=== PATIENT | male | born 1940 | race Caucasian/White ===

== ENCOUNTER 2023-01-02 13:17 | Inpatient (IN) | payer MEDICARE ==
[~2023-01-02] VITALS: Ht 170 cm; Wt 97.6 kg
--- NOTE | 2023-01-02 12:50 | PM&R Post Admission Assessment ---
PM&R Date of Visit: Jan 02, 2023 Time of Visit: 18:00 History of Present Illness Chief complaint: Myopathy with proximal muscle weakness from severe illness requiring [facility] stay HPI: This is an 82-year-old male who presented from [facility] after experiencing complete heart block due to vasovagal response from trach suctioning. He also was sedated from IV fentanyl and once he aroused he appeared to have right upper extremity weakness and a stroke work-up was negative. Acute respiratory failure requiring intubation and trach and PEG placed. He did have sepsis from facility acquired pneumonia and UTI and scrotum with candidal and Pseudomonas infection. He completed IV meropenem and Levaquin and fluconazole and micafungin. He does continue to have anxiety treated with Ativan. He does have systolic congestive heart failure ejection fraction 25% with hypertension hyperlipidemia with acute kidney injury creatinine now normal at 0.8. He did have hypernatremia requiring free water increased through PEG tube. Acute blood loss anemia status post EGD with GI bleed status post clips placed and hemoglobin stable. He does have a history of rheumatoid arthritis and morbid obesity. He is very weak and will require aggressive therapy. Past Mtrqqrg-Ruuvqs-Aqvqyr Hx Past Med/Social Hx: Reviewed Nursing Past Med/Soc Hx, Reviewed and Corrections made Patient Social History Marrital Status: Employed/Student: retired Alcohol Use: Denies Use Smoking Status: Former Smoker Past Medical History Respiratory: Pneumonia Cardiac: Cardiomyopathy Genitourinary: Bladder Infection, Renal Failure Gastrointestinal: Gastroesophageal Reflux Musculoskeletal: Arthritis PM&R Allergy/Meds/Data Review Allergies Coded Allergies: No Known Drug Allergies (Unverified , 01/02/23) Home Medications Scheduled Aspirin (Aspirin), 81 MG PO DAILY, (Reported) Banana Flakes/Tos (Banatrol Plus Powder Packet), 1 EACH PO TID, (Reported) Carvedilol (Carvedilol), 12.5 MG PO BID WITH MEALS, (Reported) Docusate Sodium (Docusate Sodium), 100 MG PO BID, (Reported) Folic Acid/Vitamin B Comp W-C (Sirisha-Kingsley Tablet), 0.8 MG PO DAILY, (Reported) Furosemide (Furosemide), 40 MG PO DAILY, (Reported) Lactobacillus Acidophilus/Pect (Acidophilus-Pectin Capsule), 1 EACH PO BID, (Reported) Lisinopril (Lisinopril), 2.5 MG PO DAILY, (Reported) Loratadine (Loratadine), 10 MG PO DAILY, (Reported) Pantoprazole Sodium (Pantoprazole Sodium), 40 MG IV DAILY, (Reported) Simvastatin (Simvastatin), 80 MG PO HS, (Reported) Sodium Chloride 0.9 % (Flush) ([place] Sodium Chlor Flush), 10 ML IV Q12H, (Reported) Sulfasalazine (Sulfasalazine), 500 MG PO BID, (Reported) Whey Protein Isolate (Beneprotein), 2 EACH PO Q4H, (Reported) Scheduled PRN Acetaminophen (Tylenol), 650 MG PO Q6H PRN for PAIN-MILD (1-4) OR TEMPATURE, (Reported) Albuterol Sulfate (Albuterol Sulfate), 2.5 MG INH Q4H PRN for SHORTNESS OF BREATH, (Reported) Hydralazine HCl (Hydralazine HCl), 10 MG IV Q4H PRN for SBP OVER 170, (Reported) Labetalol HCl (Labetalol HCl), 10 MG IV Q4H PRN for SBP OVER 160 LESS THAN 171, (Reported) Ondansetron HCl (Ondansetron HCl), 4 MG IV Q6H PRN for NAUSEA/VOMITING-1ST LINE, (Reported) Polyethylene Glycol 3350 (Miralax), 17 GM PO DAILY PRN for CONSTIPATION-2ND LINE, (Reported) Current Medications Current Medications Reviewed Review of Systems Constitutional: see HPI, malaise, weakness EENTM: no symptoms reported Respiratory: dyspnea on exertion Cardiovascular: no symptoms reported Gastrointestinal: abdominal pain, loss of appetite Genitourinary: no symptoms reported Musculoskeletal: back pain, joint pain Skin: no symptoms reported Psychiatric/Neurological: Anxiety, Emotional Problems All Other Systems Reviewed Negative Unless Noted: Yes Physical Exam Physical Exam Vital Signs Capillary Refill : Height, Weight, BMI Height: '" Weight: lbs. oz. kg; BMI Method: General Appearance: WD/WN, Chronically ill, Obese, Other (Very weak) Eyes: Bilateral Eye Normal Inspection, Bilateral Eye PERRL HEENT: PERRL/EOMI, Normal ENT Inspection, Pharynx Normal Neck: Full Range of Motion, Normal Inspection, Non Tender, Supple, Carotid Bruit, Other (trach in place) Respiratory: Chest Non Tender, Lungs Clear, No Accessory Muscle Use, No Resp iratory Distress, Decreased Breath Sounds Cardiovascular: Regular Rate, Rhythm, No Edema, No Gallop, No JVD, No Murmur, Normal Peripheral Pulses Gastrointestinal: Normal Bowel Sounds, No Organomegaly, No Pulsatile Mass, Non Tender, Soft Back: Normal Inspection, No CVA Tenderness, No Vertebral Tenderness Extremity: Normal Capillary Refill, Normal Inspection, Normal Range of Motion, Non Tender, No Calf Tenderness, No Pedal Edema Neurologic/Psychiatric: Alert, Oriented x3, artists' model II-XII Norm as Tested, Abnormal Gait, Depressed Affect, Motor Weakness ( severe muscle weakness) Skin: Normal Color, Warm/Dry Lymphatic: No Adenopathy PM&R Medical Assessment & Plan REHAB/MEDICAL ASSESSMENT AND PLAN: REHAB IMPAIRMENT GROUP: Myopathy with proximal muscle weakness ETIOLOGIC DIAGNOSIS: Myopathy with proximal muscle weakness The comorbidities that impact the patients function and/or functional outcome by: trach, PEG, severe myopathy, motivation deficiency REHAB PLAN: The patient is being admitted to our comprehensive inpatient rehabilitation facility and can tolerate the intensity of service consisting of at least: 180 minutes of therapy a day, 5 out of 7 days a week Rehab treatment will consist of: PT OT will focus on regaining function with assistive devices in order to increase ambulation and increase ADL independence The patient/family has a good understanding of our discharge process and will benefit from an interdisciplinary inpatient rehabilitation program. The patient has potential to make improvement and is in need of at least two of the following multidisciplinary therapies including but not limited to physical, occupational, speech, and prosthetics and orthotics. Additionally the patient will need services from respiratory, nutritional services, wound care, psychology, etc. (Customize this to each patient). Given the patients complex condition and risk of further medical complications, rehabilitation services cannot be safely or effectively provided at a lower level of care such as a residential facility. BARRIERS TO DISCHARGE: Severe weakness ESTIMATED LOS: 14 days DISPOSITION: Home with spouse and HH RELEVANT CHANGES SINCE PREADMISSION SCREENING: I have compared the patients medical and functional status at the time of the preadmission screening and there are: no changes PROGNOSIS: Fair REHABILITATION GOALS: 1. PT OT will focus on regaining function with assistive devices in order to increase ambulation and increase ADL independence All the above goals were reviewed with the patient and he/she is in agreement. By signing this document, I acknowledge that I have personally performed a full physical examination on this patient within 24 hours of admission to this inpatient rehabilitation facility and have determined the patient to be able to tolerate the above course of treatment at an intensive level for a reasonable period of time. I will be completing a detailed individualized Plan of Care for this patient by day #4 of the patients stay based upon the Preadmission Screen, the Post-Admission Evaluation, and the therapy evaluations. Admission Dx/Comorbidities: (1) Myopathy ICD Codes: G72.9 - Myopathy, unspecified (2) Tracheostomy status ICD Codes: Z93.0 - Tracheostomy status (3) PEG (percutaneous endoscopic gastrostomy) status ICD Codes: Z93.1 - Gastrostomy status Assessment/Plan Assessment and Plan Assess & Plan/Chief Complaint Assessment: Myopathy with the proximal muscle weakness Trach status PEG status Increased BMI Decreased motivation Anemia Hypokalemia Dysphagia Gautam cath in place-difficult insertion so remains in-dwelling Plan: PT OT Monitor closely PEG TF Trach management ANGELES GRANT DO Jan 02, 2023 12:49
[~2023-01-02 13:17] MED LIST: ACET325T38 PO; ACETAMINOPHEN 325 MG TABLET PO PRN; ALB0.5V INH; ALPRAZolam 0.25 MG (XANAX) TAB PO PRN; ASPI-999 PO; BANA1PAC PO; BISACODYL 10 MG SUPP (DULCOLAX) PR PRN; CALCIUM CARBONATE 500 MG (TUMS) TAB.CHEW PO PRN; CARV12.53 PO; DOCU100C37 PO; DOCUSATE SODIUM 100 MG (COLACE) CAP PO PRN; FLEET ENEMA ADULT 1 EA BTL PR PRN; FOLI0.8T21 PO; FURO40TA4 PO; HYDR20VI17 IV; LABE5VIA IV; LACT1CAP7 PO; LACTULOSE SYRUP 10GM/15ML (ENULOSE) 30ML UDC PO PRN; LISI5TAB20 PO; LOPERAMIDE 2 MG (IMODIUM) TABLET PO PRN; LORA10TA7 PO; MELATONIN 3 MG TABLET PO PRN; ONDA2VIA6C IV; ONDANSETRON 4 MG (ZOFRAN) ORAL DISSOLVE TAB PO PRN; PANT40VI14 IV; POLY17PO6 PO; PROT1PAC2 PO; SIMV80TA21 PO; SLF500T PO; SODI10SY5 IV; diphenhydrAMINE 25 MG TAB (BENADRYL) PO PRN; guaiFENesin/CODEINE (ROBITUSSIN AC) 10ML UDC PO PRN
[2023-01-02 14:00] VITALS: BP 120/67
--- NOTE | 2023-01-02 14:53 | Occupational Therapy Eval ---
OT Evaluation-General/PLF Medical Diagnosis Admission Date Jan 02, 2023 at 13:50 Medical Diagnosis: critical illness myopathy Onset Date: November 17, 2022 Therapy Diagnosis Therapy Diagnosis: UE weakenss, impaired coordination Precautions Precautions/Isolations: Aspiration (mechanical soft/thin liquids, Minced and moist diet), Fall Prevention, Standard Precautions, Pressure Ulcer Comments Hospital course included ICU w/ intubation and sedation. Transfer to [facility] 11/28/22 to ARU 01/02/23 Referral Physician: BERTA Referral Reason: Activity Tolerance, Self Care, Evaluation/Treatment, Strengthening/ROM Medical History Additional Medical History HTN, Obesity, CHF with EF 25-30%, RA, JOSE, complete heart block secondary to vasovagal response from trach suctioning, acute respiratory failure s/p intubation, acute metabolic encephalopahy, sepsis with b/l hospital acquired PNA , anxiety, HLD, RAYMUNDO, hypernatremia, hypokalemia, acute blood loss anemia. Current History Pt became hypotensive hypoxic and was intubated on 11/17/22 in hospital . Pt transferred to LTAC on 12/01/22 for cont management of trach and PEG, telemetry, labs, nephrology, and pulmonology consult. 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 Reviewed History: Yes Social History Home: Single Level Current Living Status: Spouse (and dog) Entry Into Home: Stairs With Railing (right side ascending) Steps Into Home: 2 Steps Inside Home: 8 (to basement does not use.) ADL-Prior Level of Function SCALE: Activities may be completed with or without assistive devices. 4-Tqciimcgbs-abkpjed completes the activity by him/herself with no assistance from a helper. 5-Set-up or Clean-up Assistance-helper sets up or cleans up; patient completes activity. [place] assists only prior to or following the activity. 4-Supervision or Touching Assistance-helper provides verbal cues and/or touching/steadying and/or contact guard assistance as patient completes activity. Assistance may be provided throughout the activity or intermittently. 3-Partial/Moderate Assistance-helper does LESS THAN HALF the effort. [place] lifts, holds or supports trunk or limbs, but provides less than half the effort. 2-Substantial/Maximal Assistance-helper does MORE THAN HALF the effort. [place] lifts or holds trunk or limbs and provides more than half the effort. 9-Pkowmmein-ohoeph does ALL the effort. Patient does none of the effort to complete the activity. Or, the assistance of 2 or more helpers is required for the patient to complete the activity. If activity was not attempted, code reason: 7-Patient Refused. 9-Not Applicable-not attempted and the patient did not perform the activity before the current illness, exacerbation or injury. 10-Not Attempted due to Environmental Limitations-(lack of equipment, weather restraints, etc.). 88-Not Attempted due to Medical Conditions or Safety Concerns. ADL PLOF Comments Patent reports prior to illness performed all ADL independently with exception of ИРИНА/Compression hose that his put on him in the morning. Patient has a FWW but does not use it Self Care: Independent Functional Cognition: Independent Drive Self: Yes OT Current Status Subjective Very pleasant, reports he had a rought ride and is eager and agreeable to work to get better Pain Numeric Pain Scale: 5-Moderate Pain Location Body Site: Hip Comment: pain resolves at rest Mental Status/Objective Patient Orientation: Person, Place ([facility]), Time ((Sunday), December,), Situation Attachments: Gautam Catheter Current Glasses/Contacts: Yes Hearing Aids: Yes (bilateral) Hand Dominance: Right Upper Extremity ROM WFLS BUE, some difficulty w/ R/L discrimination Upper Extremity Coordination IMPAIRED FMC, delayed GMC. POOR sitting balance w/ spontaneous posterior lean and overcorrection. KU 1 score For safety one person is positioned behind patient and one in front of patient in sitting Upper Extremity Sensation IMPAIRED Upper Extremity Strength Proximal shoulder strength 3/5, elbow -4/5 flexion/+3/5 extension, does not complete full fist for composite automobile painter however holds bed rail and arms of therapist 4/5 ADL-Treatment Eating (QC): 3 (supervision required, trach must be capped, soft moist w/ thin liquids. Require built up handles. SEE ST notes) Oral Hygiene (QC): 4 Shower/Bathe Self (QC): 2 (sponge bed bath) Upper Body Dressing (QC): 2 Lower Body Dressing (QC): 1 On/Off Footwear (QC): 1 Toileting Hygiene (QC): 1 Education OT Patient Education: Correct positioning, Exercise program, Modified ADL te leenaniandrew, Progress toward Goal/Update tx plan, Purpose of tx/functional activities, Reviewed precautions, Rehab process, Safety issues, Transfer techniques, Use of adapted equipment, W/C management Teaching Recipient: Patient Teaching Methods: Demonstration, Discussion Response to Teaching: Reinforcement Needed BIMS CAM BIMS Expression of Ideas and Wants: Without Difficulty Understanding Verbal Content: Understands Brief Interview/Mental Status: No IRF VICKI BIMS: IRF VICKI BIMS Response (Comments) Value Repitition of Three Words Three 3 Recalls Socks Yes, No Cue Required 2 Recalls Blue Yes, No Cue Required 2 Recalls Bed Yes, No Cue Required 2 Year Correct 3 Month Accurate Within 5 Days 2 Day Incorrect or No Answer (Sunday) 0 Total 14 Patient Normally Able to Recal: Current Session, Staff Names and faces (Nadira/Tawana), That he/she in a hsp (VC) Should Staff Asses. Mental St.: No CAM Mental Status Change/Baseline: 1 Inattention: 2 Disorganized thinkin Altered level of consciousness: 2 OT Short Term Goals Short Term Goals Time Frame: Jan 02, 2023 Eatin Oral hygiene: 5 Upper body dressin OT Intermediate Goals Intermediate Goals Eating (QC): 6 Oral Hygiene (QC): 6 Toileting Hygiene (QC): 6 Shower/Bathe Self (QC): 5 Upper Body Dressing (QC): 6 Lower Body Dressing (QC): 6 On/Off Footwear (QC): 4 1=Demonstrate adherence to instructed precautions during ADL tasks. 2=Patient will verbalize/demonstrate understanding of assistive devices/modifications for ADL. 3=Patient will improve strength/tolerance for activity to enable patient to perform ADL's. OT Education/Plan Problem List/Assessment Assessment: Decreased Activ Tolerance, Decreased UE Strength, Dependent Transfers, Impaired Bed Mobility, Impaired Coordination, Impaired Funct Balance, Impaired Self-Care Skills Discharge Recommendations Plan/Recommendations: Continue POC Treatment Plan/Plan of Care Treatment,Training & Education: Yes Patient would benefit from OT for education, treatment and training to promote independence in ADL's, mobility, safety and/or upper extremity function for ADL's. Plan of Care: ADL Retraining, Caregiver Training, Concurrent Therapy, Functional Mobility, Group Exercise/Act as Ind, UE Funct Exercise/Act, UE Neuromus Re-Ed/Coord Treatment Duration: Feb 01, 2023 Frequency: At least 5 of 7 days/Wk (IRF) Estimated Hrs Per Day: 1.5 hours per day Agreement: Yes Rehab Potential: Good Time Start Time: 14:05 Stop Time: 14:20 DATE: Jan 02, 2023 Total Time Billed (hr/min): 15 Billed Treatment Time EV 15 min TAWANA JAMISON OT Jan 02, 2023 14:53
--- NOTE | 2023-01-02 14:57 | Physical Therapy Evaluation ---
PT Evaluation-General Medical Diagnosis Admission Date Jan 02, 2023 at 13:50 Medical Diagnosis: Critical Illness Myopathy Onset Date: November 17, 2022 Therapy Diagnosis Therapy Diagnosis: Proximal weakness, Decreased functional mobility Precautions Precautions/Isolations: Aspiration, Fall Prevention, Standard Precautions, Pressure Ulcer mechanical soft/thin liquids, Minced and moist diet Weight Bear Status Right Lower Extremity: Right Full Weight Bearing Left Lower Extremity: Left Full Weight Bearing Referral Physician: Madison Reason for Referral: Evaluation/Treatment Medical History Pertinent Medical History: HTN Additional Medical History HTN, Obesity, CHF with EF 25-30%, RA, JOSE, complete heart block secondary to vasovagal response from trach suctioning, acute respiratory failure s/p intubation, acute metabolic encephalopahy, sepsis with b/l hospital acquired PNA, anxiety, HLD, RAYMUNDO, hypernatremia, hypokalemia, acute blood loss anemia. Current History Pt became hypotensive hypoxic and was intubated on 11/17/22. Pt transferred to LTAC on 12/01/22 for cont management of trach and PEG, telemetry, labs, nephrology, and pulmonology consult. Transferred to ARU on 01/02/2023 for critic al illness myopathy. Reviewed History: Yes Social History Home: Multilevel Current Living Status: Significant Other Entry Into Home: Stairs With Railing PT Steps Into Home: 2 PT Steps Inside Home: 8 Other Obstacles: Dogs Pt reports he lives at home with his spouse in a multi-level home with 2 steps to enter through the front door with R HR. Pt reports he has 8 steps into the basement, but does not have to go into the basement. Walk-in shower with seat and GBs Prior Prior Level of Function SCALE: Activities may be completed with or without assistive devices. 1-Bplswhqftw-sdyfdzo completes the activity by him/herself with no assistance from a helper. 5-Set-up or Clean-up Assistance-helper sets up or cleans up; patient completes activity. [place] assists only prior to or following the activity. 4-Supervision or Touching Assistance-helper provides verbal cues and/or touching/steadying and/or contact guard assistance as patient completes activity. Assistance may be provided throughout the activity or intermittently. 3-Partial/Moderate Assistance-helper does LESS THAN HALF the effort. [place] lifts, holds or supports trunk or limbs, but provides less than half the effort. 2-Substantial/Maximal Assistance-helper does MORE THAN HALF the effort. [place] lifts or holds trunk or limbs and provides more than half the effort. 3-Kvxykofoq-bvaopl does ALL the effort. Patient does none of the effort to complete the activity. Or, the assistance of 2 or more helpers is required for the patient to complete the activity. If activity was not attempted, code reason: 7-Patient Refused. 9-Not Applicable-not attempted and the patient did not perform the activity before the current illness, exacerbation or injury. 10-Not Attempted due to Environmental Limitations-(lack of equipment, weather restraints, etc.). 88-Not Attempted due to Medical Conditions or Safety Concerns. Bed Mobility: 6 Transfers (B,C,W/C): 6 Gait: 6 Stairs: 6 Wheelchair Mobility: 9 Indoor Mobility (Ambulation): Independent Stairs: Independent Prior Devices Use: None Pt reports, that at [facility], he was Ind with no AD and driving. Pt does report that he has a SPC and FWW. PT Evaluation-Current Subjective Pt is agreeable to PT eval. Pain Numeric Pain Scale: 0-No Pain Location: No Pain Reported Section J - Health Conditions 1. Rarely or not at all 2. Occasionally 3. Frequently 4. Almost constantly 8. Unable to answer Pain Effect on Sleep: 1 Pain Interference with Therapy: 3 Pain Interference w/Day-to-Day: 2 Pt/Family Goals Safely return home Objective Patient Orientation: Person, Place, Time, Situation Attachments: PEG Tube, Gautam Catheter Trach tube ROM/Strength ROM Upper Extremities See OT note ROM Lower Extremities Slightly decreased due to weakness Strength Upper Extremities See OT note Strength Lower Extremities Core strength/sitting balance - Poor B hip MMT - 3-/5 B knee/ankle MMT - 3/5 Integumentary/Posture Integumentary See nurses note Bowel Incontinence: Yes Bladder Incontinence: Gautam Cath Sensory Vision: Wears Glasses Hearing: Hearing Aid/Aides Hand Dominance: Right Sensation Right Upper Extremit: Intact Sensation Left Upper Extremity: Intact Sensation Right Lower Extremit: Impaired Sensation Left Lower Extremity: Impaired Transfers Roll Left & Right (QC): 3 (Mod A) Sit to Lying (QC): 2 (Max A) Lying to Sitting/Side of Bed(Q: 2 (Max A) Sit to Stand (QC): 1 (Max A x 2 for partial stand from EOB ) Chair/Hjz-wl-Vcykg Xfer(QC): 88 Toilet Transfer (QC): 88 Car Transfer (QC): 88 Gait Does the Patient Walk?: No and Walking Goal IS indicated Mode of Locomotion: Both Anticipated Mode of Locomotion: Both Walk 10 feet (QC): 88 Walk 50 ft with 2 Turns(QC): 88 Walk 150 ft (QC): 88 Walking 10ft/uneven surface-QC: 88 Gait Assistive Device: None Wheelchair Training Does the Pt Use a Wheelchair?: Yes Wheel 50 ft with 2 turns (QC): 88 Wheel 150 ft (QC): 88 Type of Wheelchair: Manual Stairs 1 Step (curb) (QC): 88 4 Steps (QC): 88 12 Steps (QC): 88 Balance Sitting Static: Poor Sitting Dynamic: Poor Picking up an Object (QC): 88 Special Test Comments Unable to test standing balance on this date KU sitting balance scale = 1/5 (Goal = 3+/5) Treatment PT eval completed; Pt edu; Pt is Mod A for B rolling; Pt is Max A for supine <> sit; Pt is dep for sit to stand transfers (Max A x 2 for partial stand from EOB) Assessment/Needs Pts tolerance to PT was poor, secondary to proximal weakness (poor/weak core, hip, and LE strength) Rehab Potential: Fair Post Rehab Potential-Barriers: Proximal weakness; core, hip, and LE weakness Equipment Needs W/C, BSC, SC? PT Correction Goals Printed Circuit Board Assembly Repairer Goals PT Printed Circuit Board Assembly Repairer Goals Time Frame: Jan 16, 2023 Roll Left to Right (QC): 4 (Pt will be SBA for bed mobilty tasks. ) Sit to Lying (QC): 4 (Pt will be SBA for bed mobilty tasks. ) Lying-Sitting on Side/Bed(QC): 4 (Pt will be SBA for bed mobilty tasks. ) Sit to Stand (QC): 3 (Pt will be Min A for functional transfers. ) Chair/Mvb-nw-Pflly Xfer(QC): 3 (Pt will be Min A for functional transfers. ) Toilet/Commode Transfer (QC): 3 (Pt will be Min A for functional transfers. ) Car Transfer (QC): 3 (Pt will be Min A for functional transfers. ) Does the Patient Walk: No and Walking Goal IS indicated Walk 10 feet (QC): 3 (Pt will be Min A for walking with the FWW. ) Walk 10ft-Uneven Surface(QC): 3 (Pt will be Min A for walking with the FWW. ) Walk 50ft with 2 Turns (QC): 3 (Pt will be Min A for walking with the FWW. ) Walk 150 ft (QC): 3 (Pt will be Min A for walking with the FWW. ) Does the Pt use WC or Scooter?: Yes Wheel 50 feet with 2 turns (QC: 4 (Pt will be SBA for w/c mobility. ) Type: Manual Wheel 150 feet: 4 (Pt will be SBA for w/c mobility. ) Type: Manual 1 Step (curb) (QC): 3 (Pt will be Min A for steps to safely enter/exit the home. ) 4 Steps (QC): 3 (Pt will be Min A for steps to safely enter/exit the home. ) 12 Steps (QC): 3 (Pt will be Min A for steps to safely enter/exit the home. ) Picking up an Object (QC): 4 (Pt will be CGA with a glue specialty supervisor. ) KU sitting balance scale goal = 3+/5 PT Plan Problem List Problem List: Activity Tolerance, Functional Strength, Safety, Balance, Gait, Transfer, Bed Mobility, ROM Treatment/Plan Treatment Plan: Continue Plan of Care Treatment Plan: Bed Mobility, Concurrent Therapy, Education, Functional Activity Mike, Functional Strength, Group Therapy, Gait, Safety, Therapeutic Exercise, Transfers Treatment Duration: Jan 16, 2023 Frequency: At least 5 of 7 days/Wk (IRF) Estimated Hrs Per Day: 1.5 hours per day Patient and/or Family Agrees t: Yes Safety Risks/Education Patient Education: Transfer Techniques, Safety Issues Teaching Recipient: Patient Teaching Methods: Demonstration, Discussion Response to Teaching: Reinforcement Needed Discharge Recommendations Plan Pt would benefit from skilled PT to improve proximal strength, as well as overall functional mobility, in order to safely return home with spouse. Therapy Discharge Recommendati: Home & Family Equpiment Recommendations-D/C: 3 in 1 Commode, Shower Chair, Manual Wheelchair Discharge Status/Home Program Cont per POC Barriers to Progress Proximal weakness; Decreased functional mobility; Decconditioning Target Placement Home with spouse Time Time In: 1420 Time Out: 1435 DATE: Jan 02, 2023 Total Billed Treatment Time: 15 Total Billed Treatment 15 min RADHA BURDICK PT Jan 02, 2023 14:57
--- NOTE | 2023-01-02 16:40 | Physical Therapy Daily Note ---
PT Daily Note-Current Subjective Pt laying Supine in bed upon arrival. Pt agrees to PT/OT co-treat but also reports very fatigued. Co-treat PT/OT ([id number]) due to skill of two clinicians need due to pt's decreased activity tolerance, decreased balance and need for coordination of UE & LE during transfers. PT focused on TF, bed mobility and dynamic sitting balance while OT focused on ADLs, UE coordination during TF and toileting. Pain Numeric Pain Scale: 5-Moderate Pain Location: Lower Location Body Site: Back Pain Description: Ache Comment: Reports but doesn't rate Section J - Health Conditions 1. Rarely or not at all 2. Occasionally 3. Frequently 4. Almost constantly 8. Unable to answer Pain Effect on Sleep: 1 Pain Interference with Therapy: 3 Pain Interference w/Day-to-Day: 2 Mental Status Patient Orientation: Person, Place Attachments: PEG Tube, Other-See Comments (Trach. w/cap), IV Transfers SCALE: Activities may be completed with or without assistive devices. 0-Ufzmitoyel-ogflkvd completes the activity by him/herself with no assistance from a helper. 5-Set-up or Clean-up Assistance-helper sets up or cleans up; patient completes activity. [place] assists only prior to or following the activity. 4-Supervision or Touching Assistance-helper provides verbal cues and/or touching/steadying and/or contact guard assistance as patient completes activity. Assistance may be provided throughout the activity or intermittently. 3-Partial/Moderate Assistance-helper does LESS THAN HALF the effort. [place] lifts, holds or supports trunk or limbs, but provides less than half the effort. 2-Substantial/Maximal Assistance-helper does MORE THAN HALF the effort. [place] lifts or holds trunk or limbs and provides more than half the effort. 8-Dllwkwtnb-oyorxk does ALL the effort. Patient does none of the effort to complete the activity. Or, the assistance of 2 or more helpers is required for the patient to complete the activity. If activity was not attempted, code reason: 7-Patient Refused. 9-Not Applicable-not attempted and the patient did not perform the activity before the current illness, exacerbation or injury. 10-Not Attempted due to Environmental Limitations-(lack of equipment, weather restraints, etc.). 88-Not Attempted due to Medical Conditions or Safety Concerns. Roll Left & Right (QC): 1 Sit to Lying (QC): 1 Lying to Sitting/Side of Bed(Q: 1 Sit to Stand (QC): 1 Chair/Idi-ye-Atevy Xfer(QC): 1 Toilet Transfer (QC): 1 Weight Bearing Right Lower Extremity: Right Full Weight Bearing Left Lower Extremity: Left Full Weight Bearing Treatments Pt attempts sponge bath at bedside before needing to use BSC for BM. Pt TF to EOB then stands at Max A x3. Pt TF to BSC via SPT at Max A x3. Pt has BM then finishes dressing at BSC w/help from Therapist. Pt stands for pericare clean-up and TF to EOB at Max A x3. Pt continues having BM at EOB while TF to Supine. Pt is assisted w/rolling in bed & clean-up before pt rest at end of tx. All needs met, call light in hand. Assessment Current Status: Poor Progress Pt tires easily and needs frequent TC & VC for TF & bed mobility. PT Skilled Nursing Goals Skilled Nursing Goals PT Skilled Nursing Goals Time Frame: Jan 16, 2023 Roll Left & Right (QC): 4 (Pt will be SBA for bed mobilty tasks. ) Sit to Lying (QC): 4 (Pt will be SBA for bed mobilty tasks. ) Lying-Sitting on Side/Bed(QC): 4 (Pt will be SBA for bed mobilty tasks. ) Sit to Stand (QC): 3 (Pt will be Min A for functional transfers. ) Chair/Cch-vt-Cgoiw Xfer(QC): 3 (Pt will be Min A for functional transfers. ) Toilet Transfer (QC): 3 (Pt will be Min A for functional transfers. ) Car Transfer (QC): 3 (Pt will be Min A for functional transfers. ) Does the Patient Walk: No and Walking Goal IS indicated Walk 10 feet (QC): 3 (Pt will be Min A for walking with the FWW. ) Walk 50ft with 2 Turns (QC): 3 (Pt will be Min A for walking with the FWW. ) Walk 150 ft (QC): 3 (Pt will be Min A for walking with the FWW. ) Walking 10ft on Uneven Surface: 3 (Pt will be Min A for walking with the FWW. ) 1 Step (curb) (QC): 3 (Pt will be Min A for steps to safely enter/exit the home. ) 4 Steps (QC): 3 (Pt will be Min A for steps to safely enter/exit the home. ) 12 Steps (QC): 3 (Pt will be Min A for steps to safely enter/exit the home. ) Picking up an Object (QC): 4 (Pt will be CGA with a residential roofer helper. ) Does the Pt use WC or Scooter?: Yes Wheel 50 feet with 2 turns (QC: 4 (Pt will be SBA for w/c mobility. ) Type: Manual Wheel 150 feet: 4 (Pt will be SBA for w/c mobility. ) Type: Manual PT Plan Problem List Problem List: Activity Tolerance, Functional Strength, Safety, Balance, Transfer, Bed Mobility Treatment/Plan Treatment Plan: Continue Plan of Care Treatment Plan: Bed Mobility, Concurrent Therapy, Education, Functional Activity Mike, Functional Strength, Group Therapy, Gait, Safety, Therapeutic Exercise, Transfers Treatment Duration: Jan 16, 2023 Frequency: At least 5 of 7 days/Wk (IRF) Estimated Hrs Per Day: 1.5 hours per day Patient and/or Family Agrees t: Yes Safety Risks/Education Patient Education: Transfer Techniques, Correct Positioning, Safety Issues Teaching Recipient: Patient Teaching Methods: Discussion Response to Teaching: Verbalize Understanding, Reinforcement Needed Time Time In: 1435 Time Out: 1615 DATE: Jan 02, 2023 Total Billed Treatment Time: 100 Total Billed Treatment 1, FA x7 (100m) ANUPAM MUHAMMAD BUSINESS ANALYTICS SPECIALIST Jan 02, 2023 16:40
--- NOTE | 2023-01-02 16:41 | Occupational Ther Daily Note ---
OT Current Status-Daily Note Subjective Pt was lying supine in bed upon arrival. Pt agreed to therapy, also reports very fatigued. PT/OT Co-treat ([id number]) due to skill of two clinicians need due to pt's decreased activity tolerance, decreased balance and need for coordination of UE & LE during transfers. PT focused on TF, bed mobility and dynamic sitting balance while OT focused on ADLs, UE coordination during TF and toileting. ADL-Treatment Pt completed oral care sitting up in bed, with green sponge, and multiple verbal cues. Therapist asks pt to complete sponge bath at bedside before needing to use bedside commode for BM. Pt is max assist bathing self. Pt handed shirt and pt was able to put head through, but required max verbal cues to place both arms through, and pull shirt down. Pt then transferred to EOB , and stands at Max A x3. Transferred to bedside commode, Max A x3. Pt completed toileting Max, had BM. Therapist asked pt tp attempted to [place] footwear and lower body dressing, finished lower body dressing Dependent. Pt stood for toilet hygiene Dependent, and transferred to EOB at Max A x3. Pt continues having BM at EOB while transferring to Supine. Pt is assisted w/rolling in bed & clean-up before pt lying in bed resting. Pt very fatigued at end of session. All needs met, call light in hand. Therapy Code Descriptions/Definitions Functional [place] Measure: 0=Not Assessed/NA 4=Minimal Assistance 1=Total Assistance 5=Supervision or Setup 2=Maximal Assistance 6=Modified [place] 3=Moderate Assistance 7=Complete IndependenceSCALE: Activities may be completed with or without assistive devices. 4-Sipnzptdrh-hvuskyj completes the activity by him/herself with no assistance from a helper. 5-Set-up or Clean-up Assistance-helper sets up or cleans up; patient completes activity. [place] assists only prior to or following the activity. 4-Supervision or Touching Assistance-helper provides verbal cues and/or touching/steadying and/or contact guard assistance as patient completes activity. Assistance may be provided throughout the activity or intermittently. 3-Partial/Moderate Assistance-helper does LESS THAN HALF the effort. [place] lifts, holds or supports trunk or limbs, but provides less than half the effort. 2-Substantial/Maximal Assistance-helper does MORE THAN HALF the effort. [place] lifts or holds trunk or limbs and provides more than half the effort. 3-Vvngjxusl-cmrgjx does ALL the effort. Patient does none of the effort to complete the activity. Or, the assistance of 2 or more helpers is required for the patient to complete the activity. If activity was not attempted, code reason: 7-Patient Refused. 9-Not Applicable-not attempted and the patient did not perform the activity before the current illness, exacerbation or injury. 10-Not Attempted due to Environmental Limitations-(lack of equipment, weather restraints, etc.). 88-Not Attempted due to Medical Conditions or Safety Concerns. Education OT Patient Education: Correct positioning, Energy conservation Teaching Recipient: Patient Teaching Methods: Discussion OT Short Term Goals Short Term Goals Time Frame: Jan 02, 2023 Eatin Oral hygiene: 5 Upper body dressin OT Alf Goals Alf Goals Acute change in mental status: 1 Inattention: 2 Disorganized thinkin Altered level of consciousness: 2 Eating (QC): 6 Oral Hygiene (QC): 6 Toileting Hygiene (QC): 6 Shower/Bathe Self (QC): 5 Upper Body Dressing (QC): 6 Lower Body Dressing (QC): 6 On/Off Footwear (QC): 4 1=Demonstrate adherence to instructed precautions during ADL tasks. 2=Patient will verbalize/demonstrate understanding of assistive devices/modifications for ADL. 3=Patient will improve strength/tolerance for activity to enable patient to perform ADL's. OT Education/Plan Problem List/Assessment Assessment: Dependent Transfers Discharge Recommendations Plan/Recommendations: Continue POC Treatment Plan/Plan of Care Patient would benefit from OT for education, treatment and training to promote independence in ADL's, mobility, safety and/or upper extremity function for ADL's. Plan of Care: ADL Retraining, Caregiver Training, Concurrent Therapy, Functional Mobility, Group Exercise/Act as Ind, UE Funct Exercise/Act, UE Neuromus Re-Ed/Coord Treatment Duration: Feb 01, 2023 Frequency: At least 5 of 7 days/Wk (IRF) Estimated Hrs Per Day: 1.5 hours per day Agreement: Yes Rehab Potential: Fair Time Start Time: 14:35 Stop Time: 16:15 DATE: Jan 02, 2023 Total Time Billed (hr/min): 100 Billed Treatment Time 1 visit ADL 7 (100 min) Co-treat ([id number]) Shireen Nicole COTA Jan 02, 2023 16:41
[2023-01-02] MEDS ORDERED: ACETAMINOPHEN 325 MG TABLET PO PRN (17:45)
[2023-01-02] MEDS ORDERED: WHEY PROTEIN ISOLATE PO SCH (17:45)
[2023-01-02] MEDS ORDERED: NON-FORMULARY MEDICATION 1 EA EA (Ondansetron HCl 4 MG) IV PRN (17:45)
[2023-01-02] MEDS ORDERED: LABETALOL IV PRN (17:45)
[2023-01-02] MEDS ORDERED: hydrALAZINE (APESOLINE) 20 MG/ML VIAL IV PRN (17:45)
[2023-01-02] MEDS ORDERED: polyethylene glycoL POWDER 17 GM (MIRALAX) PACK PO PRN (17:45)
[2023-01-02] MEDS ORDERED: ONDANSETRON 4 MG/2 ML (SDV) Z0FRAN IV PRN (18:15)
[2023-01-02] MEDS: CATHETER FLUSH 10 ML SYR IV SCH (19:30)
[2023-01-02 19:40] VITALS: BP 89/49
[2023-01-02 20:17] VITALS: BP 89/49
[2023-01-02 20:40] VITALS: BP 113/59
[2023-01-02] MEDS ORDERED: [UNRECOGNIZED DRUG - OTHER] PO SCH (21:00)
[2023-01-02] MEDS ORDERED: NON-FORMULARY MEDICATION 1 EA EA (Simvastatin 80 MG) PO SCH (21:00)
[2023-01-02] MEDS ORDERED: DOCUSATE SODIUM 100 MG (COLACE) CAP PO SCH (21:00)
[2023-01-02] MEDS: DOCUSATE SODIUM 100 MG (COLACE) CAP PO SCH (21:25)
[2023-01-02] MEDS: sulfaSALAzine 500 MG (AZULFIDINE) TAB PO SCH (21:26)
[2023-01-02] MEDS: LACTOBACILLUS ACIDOPHILUS (PROBIOTIC) CAPSULE PO SCH (21:26)
[2023-01-02] MEDS: SENNA W/DOCUSATE (SENOKOT S) TABLET PO SCH (21:39)
[2023-01-02] MEDS: polyethylene glycoL POWDER 17 GM (MIRALAX) PACK PO SCH (21:39)
[2023-01-03 05:36] LABS: BASOPHILS # (AUTO) 0.1 10^3/uL (0.0-0.1); BASOPHILS % (AUTO) 1 % (0-10); EOSINOPHILS # (AUTO) 0.4 10^3/uL (0.0-0.3); EOSINOPHILS % (AUTO) 6 % (0-10); HEMATOCRIT 27 % (40-54); HEMOGLOBIN 8.5 g/dL (13.3-17.7); LYMPHOCYTES # (AUTO) 1.2 10^3/uL (1.0-4.0); LYMPHOCYTES % (AUTO) 19 % (12-44); MEAN CORPUSCULAR HEMOGLOBIN 30 pg (25-34); MEAN CORPUSCULAR HGB CONC 31 g/dL (32-36); MEAN CORPUSCULAR VOLUME 94 fL (80-99); MONOCYTES # (AUTO) 0.8 10^3/uL (0.0-1.0); MONOCYTES % (AUTO) 13 % (0-12); NEUTROPHILS # (AUTO) 3.8 10^3/uL (1.8-7.8); NEUTROPHILS % (AUTO) 60 % (42-75); PLATELET COUNT 219 10^3/uL (130-400); WHITE BLOOD COUNT 6.3 10^3/uL (4.3-11.0)
[2023-01-03 05:52] LABS: ALBUMIN 2.7 GM/DL (3.2-4.5); BILIRUBIN,TOTAL 0.2 MG/DL (0.1-1.0); CALCIUM 9.5 MG/DL (8.5-10.1); CREATININE SERUM 0.86 MG/DL (0.60-1.30); POTASSIUM 3.4 MMOL/L (3.6-5.0); TOTAL PROTEIN 7.7 GM/DL (6.4-8.2)
--- NOTE | 2023-01-03 06:03 | PM&R Progress Note ---
Subjective HPI/CC On Admission Date Seen by Provider: Jan 03, 2023 Time Seen by Provider: 12:30 Subjective/Events-last exam 01/03/2023: Patient doing pretty well Very weak Working on motivation Son and are at the bedside Dr. Roldan is primary care provider in [place] No pain Review of Systems General: Fatigue, Malaise Objective Exam Vital Signs Vital Signs Date Time Temp Pulse Resp B/P (MAP) Pulse Ox O2 Delivery O2 Flow Rate FiO2 01/03/23 19:42 36.5 92 20 106/54 (71) 95 Room Air 01/03/23 01:28 21 Capillary Refill : General Appearance: WD/WN, Chronically ill, Obese, Other (Very weak) HEENT: PERRL/EOMI, Normal ENT Inspection, Pharynx Normal Neck: Full Range of Motion, Normal Inspection, Non Tender, Supple, Carotid Bruit Respiratory: Chest Non Tender, Lungs Clear, No Accessory Muscle Use, No Respiratory Distress, Decreased Breath Sounds Cardiovascular: Regular Rate, Rhythm, No Edema, No Gallop, No JVD, No Murmur, Normal Peripheral Pulses Gastrointestinal: Normal Bowel Sounds, No Organomegaly, No Pulsatile Mass, Non Tender, Soft Back: Normal Inspection, No CVA Tenderness, No Vertebral Tenderness Extremity: Normal Capillary Refill, Normal Inspection, Normal Range of Motion, Non Tender, No Calf Tenderness, No Pedal Edema Neurologic/Psychiatric: Alert, Oriented x3, social media specialist II-XII Norm as Tested, Abnormal Gait, Depressed Affect, Motor Weakness ( severe muscle weakness) Skin: Normal Color, Warm/Dry Lymphatic: No Adenopathy Results/Procedures Lab Laboratory Tests 01/03/23 05:20 Patient resulted labs reviewed. FIM Transfers Therapy Code Descriptions/Definitions Functional [place] Measure: 0=Not Assessed/NA 4=Minimal Assistance 1=Total Assistance 5=Supervision or Setup 2=Maximal Assistance 6=Modified [place] 3=Moderate Assistance 7=Complete IndependenceSCALE: Activities may be completed with or without assistive devices. 9-Isrkjgcmdh-fvtedxp completes the activity by him/herself with no assistance from a helper. 5-Set-up or Clean-up Assistance-helper sets up or cleans up; patient completes activity. [place] assists only prior to or following the activity. 4-Supervision or Touching Assistance-helper provides verbal cues and/or touching/steadying and/or contact guard assistance as patient completes activity. Assistance may be provided throughout the activity or intermittently. 3-Partial/Moderate Assistance-helper does LESS THAN HALF the effort. [place] lifts, holds or supports trunk or limbs, but provides less than half the effort. 2-Substantial/Maximal Assistance-helper does MORE THAN HALF the effort. [place] lifts or holds trunk or limbs and provides more than half the effort. 7-Yqmozpmkg-rrofrw does ALL the effort. Patient does none of the effort to complete the activity. Or, the assistance of 2 or more helpers is required for the patient to complete the activity. If activity was not attempted, code reason: 7-Patient Refused. 9-Not Applicable-not attempted and the patient did not perform the activity before the current illness, exacerbation or injury. 10-Not Attempted due to Environmental Limitations-(lack of equipment, weather restraints, etc.). 88-Not Attempted due to Medical Conditions or Safety Concerns. Roll Left to Right (QC): 1 Sit to Lying (QC): 1 Sit to Stand (QC): 1 Chair/Jze-qq-Cczbf Xfer(QC): 1 Car Transfer (QC): 88 Gait Training Does the Patient Walk?: No and Walking Goal IS indicated Walk 10 feet (QC): 88 Walk 50 ft with 2 Turns(QC): 88 Walk 150 ft (QC): 88 Walking 10ft/uneven surface-QC: 88 Gait Assistive Device: None Wheelchair Training Does the Pt Use a Wheelchair?: Yes Wheel 50 ft with 2 turns (QC): 88 Wheel 150 ft (QC): 88 Type of Wheelchair: Manual Stair Training 1 Step (curb) (QC): 88 4 Steps (QC): 88 12 Steps (QC): 88 Balance Picking up an Object (QC): 88 ADL-Treatment Eating (QC): 5 (supervision required, trach must be capped, soft moist w/ thin liquids. SEE ST notes) Assessment/Plan Assessment and Plan Assess & Plan/Chief Complaint Assessment: Myopathy with the proximal muscle weakness Trach status PEG status Increased BMI Decreased motivation Anemia Hypokalemia Dysphagia Gautam cath in place-difficult insertion so remains in-dwelling History of GI bleed Plan: PT OT Monitor closely PEG TF Trach management 01/03/2023: Work-up anemia Continue aggressive therapy ANGELES GRANT DO Jan 03, 2023 06:03
--- NOTE | 2023-01-03 06:03 | Individualized Plan of Care ---
Individualized Plan of Care Rehab Nursing IPOC Order Admission Date Jan 02, 2023 at 13:50 Current Orders Orders Admission Order(Inpt,Obs,Sdc) (01/02/23 12:45) Vital Signs: Per Unit Policy ( 08,16,00 (01/02/23 12:45) Abdullahi Castillo ,21 (01/02/23 12:45) Sequential Compression Device (01/02/23 12:45) Automobile Service Station Manager-Inpt Rehab Con (01/02/23 12:45) Rehab Nursing Orders-Ipoc (01/02/23 12:45) Physical Therapy Rehab Orders (01/02/23 12:45) Occupational Therapy Rehab Ord (01/02/23 12:45) Speech Therapy Rehab Orders (01/02/23 12:45) Cbc With Automated Diff (01/03/23 06:00) Comprehensive Metabolic Panel (01/03/23 06:00) Precautions (Aru) (01/02/23 12:45) Weekly Weight WEEK (01/02/23 12:45) Rehab-Intensity Of Therapy (01/02/23 12:45) Initiate Admission Nursing Pro .admission (01/02/23 12:45) Alprazolam Tablet (Xanax Tablet) (01/02/23 12:45) Calcium Carbonate Chew Tablet (Antacid C (01/02/23 12:45) Diphenhydramine Tablet (Benadryl Tablet) (01/02/23 12:45) Docusate Sodium Capsule (Colace Capsule) (01/02/23 21:00) Docusate Sodium Capsule (Colace Capsule) (01/02/23 12:45) Bisacodyl Suppository (Dulcolax Supposit (01/02/23 12:45) Lactulose Oral Solution (Enulose Oral So (01/02/23 12:45) Na Phos/Na Biphos Enema (Fleet Enema Juancarlos (01/02/23 12:45) Guaifenesin/Codeine Syrup (Robitussin Ac (01/02/23 12:45) Loperamide Tablet (Imodium Tablet) (01/02/23 12:45) Melatonin Tablet (Melatonin Tablet) (01/02/23 12:45) Polyethylene Glycol Powder Pkt (Miralax (6/27/23 21:00) Ondansetron Oral Dissolve Tab (Zofran (01/02/23 12:45) Senna S Tablet (Senokot S Tablet) (01/02/23 21:00) Acetaminophen Tablet/Caplet (Tylenol T (01/02/23 12:45) Code/Resuscitation (01/02/23 12:45) Initiate Admission Nursing Pro .admission (01/02/23 12:45) Admission Arrival Bed Request (01/02/23 14:15) Dietary Consult (01/02/23 16:48) Tube Feeding (Diet) (01/02/23 16:51) Feeding Tube Connector Cleanin Q8H (01/02/23 16:51) Tube Feeding Assessment Q6H (01/02/23 16:51) Acetaminophen Tablet/Caplet (Tylenol T (01/02/23 17:45) Albuterol Pre-Mix Nebs (Rt) (Proventil (01/02/23 17:45) Aspirin Chewable Tablet (Baby Aspirin Ch (01/03/23 09:00) Carvedilol Tablet (Coreg Tablet) (01/02/23 18:00) Docusate Sodium Capsule (Colace Capsule) (01/02/23 21:00) Furosemide Tablet (Lasix Tablet) (01/03/23 09:00) Hydralazine Injection (Apresoline Inject (01/02/23 17:45) Labetalol Injection (Normodyne Injection (01/02/23 17:45) Lactobacillus Acidophilus Cap (Acidophil (01/02/23 21:00) Lisinopril Tablet (Zestril Tablet) (01/03/23 09:00) Loratadine Tablet (Claritin Tablet) (01/03/23 09:00) Pantoprazole Injection (Protonix Injecti (01/03/23 09:00) Polyethylene Glycol Powder Pkt (Miralax (01/02/23 17:45) Sodium Chloride Flush (Catheter Flush Sy (01/02/23 18:00) Sulfasalazine Tablet (Azulfidine Tablet) (01/02/23 21:00) (Nf) Banana Flakes/Tos ([place] Plus Po (01/02/23 21:00) (Nf) Folic Acid/Vitamin B Comp W-C (Sirisha (01/03/23 09:00) (Nf) Ondansetron Hcl (01/02/23 17:45) (Nf) Simvastatin (01/02/23 21:00) Svn Small Volume Nebulizer (01/02/23 17:38) Atorvastatin Tablet (Lipitor Tablet) (01/02/23 21:00) Ondansetron Injection (Zofran Injectio (01/02/23 18:15) Therapeutic Multivitamin Tab (Vitamins, (01/03/23 07:00) Rt Request For Service (01/02/23 23:50) Enoxaparin Injection (Lovenox Injection) (01/03/23 07:00) Potassium Bicarbonate/Cit Ac (Effer-K 20 (01/03/23 07:00) Patient Visit (01/02/23 ) Pt Eval High Complexity (01/02/23 ) Patient Visit (01/02/23 ) Functional Activities, Ea 15 (01/02/23 ) Labetalol Injection (Normodyne Injection (01/03/23 09:00) Pu4: Pureed Diet (01/03/23 Lunch) Modified Barium Swallow (01/05/23 10:00) Patient Visit (01/03/23 ) Functional Activities, Ea 15 (01/03/23 ) Exercise Therap, Ea 15 Min (01/03/23 ) Patient Visit (01/03/23 ) Dysphagia Evaluation Std (01/03/23 ) Tube Feeding (Diet) (01/03/23 15:42) Feeding Tube Connector Cleanin Q8H (01/03/23 15:42) Tube Feeding Assessment Q6H (01/03/23 15:42) Iron Test (Fe) (01/03/23 21:01) Vitamin B 12 (01/03/23 21:01) Rehab Nursing Orders: Ongoing Assess. of Cognitive Status, Ongoing Assess. of Function Status, Bladder Management, Bladder Scan, Bladder Training, Bowel Management, Bowel Training, Disease Management & Educaiton, DVT Prophylaxis, Fall Prevention, Fluid/Electrolyte/Nutrition Mgmt, Infection Prevention, Medication Management & Education, Management of Risks & Complications, Man agement of Skin Intergrity, Nutrition Management, Pain Management, Patient/Family Support, Swallow Precautions, Wound Management Intensity of Therapy to be met Patient to be seen: Min.3h per day/5 of 7d PT IPOC Problem List: Activity Tolerance, Functional Strength, Safety, Balance, Transfer, Bed Mobility Treatment Plan: Continue Plan of Care Bed Mobility, Concurrent Therapy, Education, Functional Activity Mike, Functi onal Strength, Group Therapy, Gait, Safety, Therapeutic Exercise, Transfers Treatment Duration: Jan 16, 2023 Frequency: At least 5 of 7 days/Wk (IRF) Estimated Hrs Per Day: 1.5 hours per day OT IPOC Problems: Dependent Transfers OT Treatment, Training and Edu: Yes Plan of Care: ADL Retraining, Caregiver Training, Concurrent Therapy, Functional Mobility, Group Exercise/Act as Ind, UE Funct Exercise/Act, UE Neuromus Re-Ed/Coord Treatment Duration: Feb 01, 2023 Frequency: At least 5 of 7 days/Wk (IRF) Estimated Hrs Per Day: 1.[address] IPOC Speech Therapy Treatment Plan: Continue Plan of Care Treatment Duration: Jan 02, 2023 Frequency: Modified Program (IRF) Estimated Hrs Per Day: Other Automobile Service Station Manager/Case Mgmt Automobile Service Station Manager/Case Managemen: Discharge Planning Dietitian/Shank Scourer Dietitian/Shank Scourer to monitor nutritional status and make changes and/or recommendations as needed and work with speech pathology on dietary upgrades as the occur. Physician IPOC Medical Issues being managed closely and that require the 24 hour availability of a physician: Recent critical illness requiring [place] long-term [facility] hospital with GI bleed and trach and PEG placement will require close monitoring for high risk of decompensation Medical Issues: Bowel/Bladder Function, DVT Prophylaxis, Falls Precautions, Fluid/Electrolyte/Nutrition Balance, Infection Protection, Pain Management, Wound Care Brief Synthesis of Preadmission Screen, Post-Admission Evaluation, and Therapy Evaluations: PT and OT will focus on regaining function with use of assistive devices in order to regain stamina and ambulatory function with increase ADL independence in order to return back home with his spouse Medical Prognosis: Fair Anticipated Length of Stay: 10 days ANGELES GRANT DO Jan 03, 2023 06:03
[2023-01-03] MEDS: MULTIVIT W/MINERALS TAB (THERAGRAN M) PO SCH (06:25)
[2023-01-03] MEDS: CATHETER FLUSH 10 ML SYR IV SCH ×2 (06:25→18:31)
[2023-01-03] MEDS: POTASSIUM BICARB 20 MEQ (EFFER-K) TABLET PEG SCH (07:28)
[2023-01-03] MEDS: ENOXAPARIN 40 MG/0.4 ML (LOVENOX) SYR SC SCH (07:28)
[2023-01-03 08:00] VITALS: BP 106/57
[2023-01-03] MEDS ORDERED: VITAMIN B COMP W C PO SCH (09:00)
[2023-01-03] MEDS ORDERED: [UNRECOGNIZED DRUG - OTHER] PO SCH (09:00)
[2023-01-03] MEDS ORDERED: FOLIC ACID PO SCH (09:00)
[2023-01-03] MEDS ORDERED: LABETALOL HCL 20 MG/4 ML VIAL IV PRN (09:00)
[2023-01-03] MEDS: LACTOBACILLUS ACIDOPHILUS (PROBIOTIC) CAPSULE PO SCH ×2 (09:44→20:04)
[2023-01-03] MEDS: lisINopril 5 MG (PRINIVIL) TABLET PO SCH (09:44)
[2023-01-03] MEDS: ASPIRIN 81 MG CHEW (CHILDREN'S ASA) PO SCH (09:44)
[2023-01-03] MEDS: SENNA W/DOCUSATE (SENOKOT S) TABLET PO SCH ×2 (09:44→21:48)
[2023-01-03] MEDS: PANTOPRAZOLE 40 MG (PROTONIX) VIAL IV SCH (09:44)
[2023-01-03] MEDS: sulfaSALAzine 500 MG (AZULFIDINE) TAB PO SCH ×2 (09:44→20:04)
[2023-01-03] MEDS: LORATADINE (CLARITIN) 10 MG TAB PO SCH (09:44)
[2023-01-03] MEDS: FUROSEMIDE 40 MG (LASIX) TAB PO SCH (09:44)
[2023-01-03] MEDS: polyethylene glycoL POWDER 17 GM (MIRALAX) PACK PO SCH ×2 (09:44→21:48)
[2023-01-03] MEDS: DOCUSATE SODIUM 100 MG (COLACE) CAP PO SCH ×2 (09:44→21:47)
--- NOTE | 2023-01-03 12:58 | Occupational Ther Daily Note ---
OT Current Status-Daily Note Subjective Pt sleeping bed, difficult to wake. Pt agrees to therapy. No c/o pain only fatigue. Mental Status/Objective Patient Orientation: Person, Place, Time, Situation Attachments: IV ADL-Treatment Pt washed hands and face with washcloth that was provided. Pt provided with built up handle for eating utensils. After set up and assist to grasp cup, pt completed rest of meal by self. Pt requires assist x2 for scooting up in bed. After session, pt sitting up in bed eating meal. Call light/phone in reach. All needs met in room. Therapy Code Descriptions/Definitions Functional [place] Measure: 0=Not Assessed/NA 4=Minimal Assistance 1=Total Assistance 5=Supervision or Setup 2=Maximal Assistance 6=Modified [place] 3=Moderate Assistance 7=Complete IndependenceSCALE: Activities may be completed with or without assistive devices. 8-Zqljzorfmt-xcqmnix completes the activity by him/herself with no assistance from a helper. 5-Set-up or Clean-up Assistance-helper sets up or cleans up; patient completes activity. [place] assists only prior to or following the activity. 4-Supervision or Touching Assistance-helper provides verbal cues and/or touching/steadying and/or contact guard assistance as patient completes activity. Assistance may be provided throughout the activity or intermittently. 3-Partial/Moderate Assistance-helper does LESS THAN HALF the effort. [place] lifts, holds or supports trunk or limbs, but provides less than half the effort. 2-Substantial/Maximal Assistance-helper does MORE THAN HALF the effort. [place] lifts or holds trunk or limbs and provides more than half the effort. 9-Jbafmpqma-hirapx does ALL the effort. Patient does none of the effort to complete the activity. Or, the assistance of 2 or more helpers is required for the patient to complete the activity. If activity was not attempted, code reason: 7-Patient Refused. 9-Not Applicable-not attempted and the patient did not perform the activity before the current illness, exacerbation or injury. 10-Not Attempted due to Environmental Limitations-(lack of equipment, weather restraints, etc.). 88-Not Attempted due to Medical Conditions or Safety Concerns. Eating (QC): 3 OT Short Term Goals Short Term Goals Time Frame: Jan 02, 2023 Eatin Oral hygiene: 5 Upper body dressin OT Halfway Goals Halfway Goals Acute change in mental status: 1 Inattention: 2 Disorganized thinkin Altered level of consciousness: 2 Eating (QC): 6 Oral Hygiene (QC): 6 Toileting Hygiene (QC): 6 Shower/Bathe Self (QC): 5 Upper Body Dressing (QC): 6 Lower Body Dressing (QC): 6 On/Off Footwear (QC): 4 1=Demonstrate adherence to instructed precautions during ADL tasks. 2=Patient will verbalize/demonstrate understanding of assistive devices/modifications for ADL. 3=Patient will improve strength/tolerance for activity to enable patient to perform ADL's. OT Education/Plan Problem List/Assessment Assessment: Decreased Activ Tolerance, Decreased UE Strength, Impaired Bed Mobility, Impaired Self-Care Skills, Restricted Funct UE ROM Discharge Recommendations Plan/Recommendations: Continue POC Treatment Plan/Plan of Care Patient would benefit from OT for education, treatment and training to promote independence in ADL's, mobility, safety and/or upper extremity function for ADL's. Plan of Care: ADL Retraining, Caregiver Training, Concurrent Therapy, Functional Mobility, Group Exercise/Act as Ind, UE Funct Exercise/Act, UE Neuromus Re-Ed/Coord Treatment Duration: Feb 01, 2023 Frequency: At least 5 of 7 days/Wk (IRF) Estimated Hrs Per Day: 1.5 hours per day Agreement: Yes Rehab Potential: Fair Time Start Time: 07:00 Stop Time: 07:30 DATE: Jan 03, 2023 Total Time Billed (hr/min): 30 Billed Treatment Time 1 vsiit-ADL 1 (30 min) MARIE PHILLIPS Jan 03, 2023 12:58
--- NOTE | 2023-01-03 13:08 | Occupational Ther Daily Note ---
OT Current Status-Daily Note Subjective Pt alert, lying in bed. Pt agrees to therapy. No c/o pain at this time. Co- treat with PT ([id number]), skills of 2 clinicians required to decrease fall risk, 2 or more person transfers, increase activity tolerance and functional mobility. PT focusing on bed mobility, sit to stands while OT focusing on B UE placement during mobility and bed mobility. Mental Status/Objective Patient Orientation: Person, Place, Time, Situation Attachments: IV ADL-Treatment Therapy Code Descriptions/Definitions Functional [place] Measure: 0=Not Assessed/NA 4=Minimal Assistance 1=Total Assistance 5=Supervision or Setup 2=Maximal Assistance 6=Modified [place] 3=Moderate Assistance 7=Complete IndependenceSCALE: Activities may be completed with or without assistive devices. 2-Ffqzdokudn-kardewn completes the activity by him/herself with no assistance from a helper. 5-Set-up or Clean-up Assistance-helper sets up or cleans up; patient completes activity. [place] assists only prior to or following the activity. 4-Supervision or Touching Assistance-helper provides verbal cues and/or touching/steadying and/or contact guard assistance as patient completes activi ty. Assistance may be provided throughout the activity or intermittently. 3-Partial/Moderate Assistance-helper does LESS THAN HALF the effort. [place] lifts, holds or supports trunk or limbs, but provides less than half the effort. 2-Substantial/Maximal Assistance-helper does MORE THAN HALF the effort. [place] lifts or holds trunk or limbs and provides more than half the effort. 5-Nwsjsidky-ebwddg does ALL the effort. Patient does none of the effort to complete the activity. Or, the assistance of 2 or more helpers is required for the patient to complete the activity. If activity was not attempted, code reason: 7-Patient Refused. 9-Not Applicable-not attempted and the patient did not perform the activity before the current illness, exacerbation or injury. 10-Not Attempted due to Environmental Limitations-(lack of equipment, weather restraints, etc.). 88-Not Attempted due to Medical Conditions or Safety Concerns. Toileting Hygiene (QC): 1 Toilet Transfer (QC): 1 Other Treatment Pt dependent for toileting. Max A for rolling side to side and assist x2 to scoot up in bed. Max A x2 for supine to EOB. Min A x2 for safety to sit EOB for 10 min. At times, pt is CGA to sit EOB. Max A x2 to attempt to stand from EOB, pt's unable to raise buttocks off of bed. Dependent to position in bed. After therapy, pt lying in bed with call light/phone in reach. All needs met in room. OT Short Term Goals Short Term Goals Time Frame: Jan 02, 2023 Eatin Oral hygiene: 5 Upper body dressin OT Body Die Maker Goals Alf Goals Acute change in mental status: 1 Inattention: 2 Disorganized thinkin Altered level of consciousness: 2 Eating (QC): 6 Oral Hygiene (QC): 6 Toileting Hygiene (QC): 6 Shower/Bathe Self (QC): 5 Upper Body Dressing (QC): 6 Lower Body Dressing (QC): 6 On/Off Footwear (QC): 4 1=Demonstrate adherence to instructed precautions during ADL tasks. 2=Patient will verbalize/demonstrate understanding of assistive devices/modifications for ADL. 3=Patient will improve strength/tolerance for activity to enable patient to perform ADL's. OT Education/Plan Problem List/Assessment Assessment: Decreased Activ Tolerance, Decreased UE Strength, Dependent Transf ers, Impaired Bed Mobility, Impaired Coordination, Impaired Funct Balance, Impaired I ADL's, Impaired Self-Care Skills, Restricted Funct UE ROM Discharge Recommendations Plan/Recommendations: Continue POC Treatment Plan/Plan of Care Patient would benefit from OT for education, treatment and training to promote independence in ADL's, mobility, safety and/or upper extremity function for ADL's. Plan of Care: ADL Retraining, Caregiver Training, Concurrent Therapy, Functional Mobility, Group Exercise/Act as Ind, UE Funct Exercise/Act, UE Neuromus Re-Ed/Coord Treatment Duration: Feb 01, 2023 Frequency: At least 5 of 7 days/Wk (IRF) Estimated Hrs Per Day: 1.5 hours per day Agreement: Yes Rehab Potential: Fair Time Start Time: 10:00 Stop Time: 11:00 DATE: Jan 03, 2023 Total Time Billed (hr/min): 60 Billed Treatment Time 1 visit-ADL 3 (40 min) FA 1 (20 min) co-treat with PT [id number] MARIE PHILLIPS Jan 03, 2023 13:08
--- NOTE | 2023-01-03 14:04 | Physical Therapy Daily Note ---
PT Daily Note-Current Subjective CHE present upon arrival. Pt lying on bed-allen. Pt reports doing well today and is agreeable to treatment. Denies pain Pain Numeric Pain Scale: 0-No Pain Location: No Pain Reported Section J - Health Conditions 1. Rarely or not at all 2. Occasionally 3. Frequently 4. Almost constantly 8. Unable to answer Pain Effect on Sleep: 1 Pain Interference with Therapy: 3 Pain Interference w/Day-to-Day: 2 Mental Status Attachments: PEG Tube, Gautam Catheter Trach tube Transfers SCALE: Activities may be completed with or without assistive devices. 6-Orhcyaqizv-iecjdrc completes the activity by him/herself with no assistance from a helper. 5-Set-up or Clean-up Assistance-helper sets up or cleans up; patient completes activity. [place] assists only prior to or following the activity. 4-Supervision or Touching Assistance-helper provides verbal cues and/or touching/steadying and/or contact guard assistance as patient completes activity. Assistance may be provided throughout the activity or intermittently. 3-Partial/Moderate Assistance-helper does LESS THAN HALF the effort. [place] lifts, holds or supports trunk or limbs, but provides less than half the effort. 2-Substantial/Maximal Assistance-helper does MORE THAN HALF the effort. [place] lifts or holds trunk or limbs and provides more than half the effort. 9-Vpsrugyvc-sbvlsc does ALL the effort. Patient does none of the effort to complete the activity. Or, the assistance of 2 or more helpers is required for the patient to complete the activity. If activity was not attempted, code reason: 7-Patient Refused. 9-Not Applicable-not attempted and the patient did not perform the activity before the current illness, exacerbation or injury. 10-Not Attempted due to Environmental Limitations-(lack of equipment, weather restraints, etc.). 88-Not Attempted due to Medical Conditions or Safety Concerns. Roll Left & Right (QC): 2 Sit to Lying (QC): 2 Lying to Sitting/Side of Bed(Q: 2 Sit to Stand (QC): 1 Chair/Snh-yn-Mpbui Xfer(QC): 88 Toilet Transfer (QC): 88 Car Transfer (QC): 88 Weight Bearing Right Lower Extremity: Right Full Weight Bearing Left Lower Extremity: Left Full Weight Bearing Gait Training Does the Patient Walk?: No and Walking Goal IS indicated Treatments Co-tx with MEAT PASSER from [id number]. Skills of 2 clinicians required to decrease fall risk, 2 or more person transfers, increase activity tolerance and functional mo bility. PT focusing on bed mobility and sit to stands, while OT focusing on B UE placement during mobility and bed mobility. Pt dep for toileting. Max A for B rolling and assist x 2 to scoot up in bed. Max A x 2 for supine <> sit EOB. Min A x2 for safety to sit EOB for 10 min. At times, pt is CGA to sit EOB. Max A x 2 to attempt to stand from EOB x 3, pt unable to raise buttocks off of bed. Dependent to position in bed. Pt completed supine Ther Ex with PT from 1100- 1130. Pt required increased time and v/c to complete all exercises and required AAROM with some exercises. After PT, pt lying in bed with call light/phone in reach. All needs met in room. Assessment Current Status: Fair Progress Pt tolerance to treatment was fair, but pt gave good effort PT Jail Goals Director Digital Marketing Goals PT Director Digital Marketing Goals Time Frame: Jan 16, 2023 Roll Left & Right (QC): 4 (Pt will be SBA for bed mobilty tasks. ) Sit to Lying (QC): 4 (Pt will be SBA for bed mobilty tasks. ) Lying-Sitting on Side/Bed(QC): 4 (Pt will be SBA for bed mobilty tasks. ) Sit to Stand (QC): 3 (Pt will be Min A for functional transfers. ) Chair/Xlg-lw-Ykbsh Xfer(QC): 3 (Pt will be Min A for functional transfers. ) Toilet Transfer (QC): 3 (Pt will be Min A for functional transfers. ) Car Transfer (QC): 3 (Pt will be Min A for functional transfers. ) Does the Patient Walk: No and Walking Goal IS indicated Walk 10 feet (QC): 3 (Pt will be Min A for walking with the FWW. ) Walk 50ft with 2 Turns (QC): 3 (Pt will be Min A for walking with the FWW. ) Walk 150 ft (QC): 3 (Pt will be Min A for walking with the FWW. ) Walking 10ft on Uneven Surface: 3 (Pt will be Min A for walking with the FWW. ) 1 Step (curb) (QC): 3 (Pt will be Min A for steps to safely enter/exit the home. ) 4 Steps (QC): 3 (Pt will be Min A for steps to safely enter/exit the home. ) 12 Steps (QC): 3 (Pt will be Min A for steps to safely enter/exit the home. ) Picking up an Object (QC): 4 (Pt will be CGA with a senior sous chef. ) Does the Pt use WC or Scooter?: Yes Wheel 50 feet with 2 turns (QC: 4 (Pt will be SBA for w/c mobility. ) Type: Manual Wheel 150 feet: 4 (Pt will be SBA for w/c mobility. ) Type: Manual PT Plan Problem List Problem List: Activity Tolerance, Functional Strength, Safety, Balance, Gait, Transfer, Bed Mobility, ROM Treatment/Plan Treatment Plan: Continue Plan of Care Treatment Plan: Bed Mobility, Concurrent Therapy, Education, Functional Activity Mike, Functional Strength, Group Therapy, Gait, Safety, Therapeutic Exercise, Transfers Treatment Duration: Jan 16, 2023 Frequency: At least 5 of 7 days/Wk (IRF) Estimated Hrs Per Day: 1.5 hours per day Patient and/or Family Agrees t: Yes Safety Risks/Education Patient Education: Correct Positioning, Safety Issues Teaching Recipient: Patient Teaching Methods: Demonstration, Discussion Response to Teaching: Reinforcement Needed Discharge Recommendations Therapy Discharge Recommendati: 24 Hour Supervision, Home & Family Equpiment Recommendations-D/C: 3 in 1 Commode, Front Wheeled Walker, Shower Chair, Manual Wheelchair Discharge Status/Home Program Cont per POC Barriers to Progress Sever Debility Target Placement Home with family support vs SNF Time Time In: 1030 Time Out: 1130 DATE: Jan 03, 2023 Total Billed Treatment Time: 60 Total Billed Treatment 60 min total from [id number] 1 visit 30 min co-tx from [id number] FA x 2 30 min individual time from [id number] EX x 2 RADHA PERALES PT Jan 03, 2023 14:04
--- NOTE | 2023-01-03 14:12 | ST Dysphagia Evaluation ---
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 Wallace Reason for Referral: Evaluation/Treatment Medical History Pertinent Medical History: HTN HTN, obesity, CHF with EF 25-30%, RA, JOSE, complete heart block secondary to vasovagal response from trach suctioning, acute respiratory failure s/p intubation, acute metabolic encephalopathy, sepsis with b/l hospital acquired PNA, anxiety, HLD, RAYMUNDO, hypernatremia, hypokalemia, acute blood loss anemia Current History Pt became hypotensive hypoxic and was intubated on 11/17/22. Pt transferred to LTAC on 12/01/22 for continued management of trach and PEG and monitoring. Pt tr ansferred to [facility] on 01/02/23 for critical illness myopathy. Reviewed History: Yes Social History Current Living Status: Significant Other Speech PLF/Current-Dysphagia Prior Level of Function Pt previously on minced and moist diet consistency with thin liquids. Subjective Pt laying in bed when MANAGER OUTREACH enters the room. Pt's voice with a slight wet quality. Pt states he has been having difficulty with drinking and eating when asked. Pt states he feels like the food gets caught in his throat. Pt was sat up in bed for evaluation. When asked if he feels like the liquids are "going down the wrong pipe" he replied that it is hard to tell, but sometimes. Pt was pleasant and cooperative throughout the evaluation. Cognitive Status Patient Orientation: Person, Place, Eyes Open, Situation Oral Motor Skills Dentition: Natural Current Food Consistancy: Ground Meats, Thin Liquids Ability to Follow Directions: Excellent Oral Expression Ability: No Impairment Tracheostomy Type: Cuffed Voice Voice Phonatory-Based Quality: Breathy Voice Pitch: Normal Voice Loudness: Mildly Soft/Quiet Face Facial Symmetry: Symmetrical Oral-Facial Assessment Oral-Facial Dentition: Underbite Labial Seal Description: Normal Smile: Normal Puff Cheeks: Normal Lingual Protrusion: Normal Lingual ROM: Normal Pharynx Velopharyngeal Move.: Normal Can Clear Throat Volitionally: Yes Productive Cough: Yes Productive Throat Clear: Yes Dysphagia Evaluation Consistencies Presented: Thin Liquid, [place] Thick Liquid, Pureed Oral Phase: Reduced Oral Transit Pharyngeal Phase: Clears Throat Funct. Velo/Pharyngeal Symptom: Clears Throat, Cough After Swallow Dietary Recommendations: Pureed Liquid Recommendations: [place] Consistancy Swallowing Precautions: Liquids from Cup, No Straw, Small Bites and Sips, Sitting Upright 90 Degrees Dysphagia Evaluation Summary Pt presents with MODERATE oropharyngeal dysphagia characterized by a wet quality voice after thin liquid, along with throat clearing and coughing. Pt administered nectar thin liquids via a cup with small single sips. Pt's voice quality clears and no other overt s/sx of aspiration noted. Pt reports current diet consistency feels like it is getting stuck in his throat. Pt given trials of pureed consistency. No overt s/sx of aspiration noted. Current recommendations are nectar thick liquids via cup (NO STRAWS) and pureed consistencies. Small sips/bites and one sip/bite at a time. Pt sitting upright when drinking or eating. Pt would benefit from an MBSS to further assess the function and structures of the swallow and to help determine least restrictive diet consistency at this time. Speech Short Term Goals Short Term Goals Short Term Goals Pt to complete a MBSS. Speech Half-Way Goals Half-Way Goals Pt to demonstrate no s/sx of aspiration on least restrictive diet consistency. Speech-Plan Patient/Family Goals Patient/Family Goals: Pending progress in IRU Treatment Plan Speech Therapy Treatment Plan: Continue Plan of Care Frequency: 5 times per week Estimated Hrs Per Day: .5 hour per day Rehab Potential: Fair Pt/Family Agrees to Plan: Yes Safety Risks/Education Teaching Recipient: Patient Teaching Methods: Discussion Response to Teaching: Verbalize Understanding Education Topics Provided: Pt educated on role of MANAGER OUTREACH, purpose of evaluation, results, and recommendations. Pt receptive and verbalized understanding. Time Speech Therapy Time In: 09:00 Speech Therapy Time Out: 09:30 DATE: Jan 03, 2023 Total Billed Time: 30 Billed Treatment Time Jose Manuel Sandoval Speech Therapy Jan 03, 2023 14:12
--- NOTE | 2023-01-03 14:23 | Physical Therapy Daily Note ---
PT Daily Note-Current Subjective Pt is agreeable to PT; denies pain Pain Numeric Pain Scale: 0-No Pain Location: No Pain Reported Section J - Health Conditions 1. Rarely or not at all 2. Occasionally 3. Frequently 4. Almost constantly 8. Unable to answer Pain Effect on Sleep: 1 Pain Interference with Therapy: 3 Pain Interference w/Day-to-Day: 2 Transfers SCALE: Activities may be completed with or without assistive devices. 3-Ngnossurif-bnxgdfz completes the activity by him/herself with no assistance from a helper. 5-Set-up or Clean-up Assistance-helper sets up or cleans up; patient completes activity. [place] assists only prior to or following the activity. 4-Supervision or Touching Assistance-helper provides verbal cues and/or touching/steadying and/or contact guard assistance as patient completes act ivity. Assistance may be provided throughout the activity or intermittently. 3-Partial/Moderate Assistance-helper does LESS THAN HALF the effort. [place] lifts, holds or supports trunk or limbs, but provides less than half the effort. 2-Substantial/Maximal Assistance-helper does MORE THAN HALF the effort. [place] lifts or holds trunk or limbs and provides more than half the effort. 7-Vczqfeivs-rxlpru does ALL the effort. Patient does none of the effort to complete the activity. Or, the assistance of 2 or more helpers is required for the patient to complete the activity. If activity was not attempted, code reason: 7-Patient Refused. 9-Not Applicable-not attempted and the patient did not perform the activity before the current illness, exacerbation or injury. 10-Not Attempted due to Environmental Limitations-(lack of equipment, weather restraints, etc.). 88-Not Attempted due to Medical Conditions or Safety Concerns. Roll Left & Right (QC): 2 Weight Bearing Right Lower Extremity: Right Full Weight Bearing Left Lower Extremity: Left Full Weight Bearing Treatments Pt completed supine B LE Ther Ex x 5-15 reps each, requiring AAROM for B hip abd/add, as well as SLR. Pt completed R rolling with Max A to get cleaned up from BM. Pt left in room with call light in reach, all needs met, and family present. Assessment Current Status: Fair Progress Pts tolerance to PT was fair, but pt gave good effort PT Senior Care Goals Operations Research Engineer Goals PT Senior Care Goals Time Frame: Jan 16, 2023 Roll Left & Right (QC): 4 (Pt will be SBA for bed mobilty tasks. ) Sit to Lying (QC): 4 (Pt will be SBA for bed mobilty tasks. ) Lying-Sitting on Side/Bed(QC): 4 (Pt will be SBA for bed mobilty tasks. ) Sit to Stand (QC): 3 (Pt will be Min A for functional transfers. ) Chair/Wdb-wk-Lqjce Xfer(QC): 3 (Pt will be Min A for functional transfers. ) Toilet Transfer (QC): 3 (Pt will be Min A for functional transfers. ) Car Transfer (QC): 3 (Pt will be Min A for functional transfers. ) Does the Patient Walk: No and Walking Goal IS indicated Walk 10 feet (QC): 3 (Pt will be Min A for walking with the FWW. ) Walk 50ft with 2 Turns (QC): 3 (Pt will be Min A for walking with the FWW. ) Walk 150 ft (QC): 3 (Pt will be Min A for walking with the FWW. ) Walking 10ft on Uneven Surface: 3 (Pt will be Min A for walking with the FWW. ) 1 Step (curb) (QC): 3 (Pt will be Min A for steps to safely enter/exit the home. ) 4 Steps (QC): 3 (Pt will be Min A for steps to safely enter/exit the home. ) 12 Steps (QC): 3 (Pt will be Min A for steps to safely enter/exit the home. ) Picking up an Object (QC): 4 (Pt will be CGA with a grades 1 through 5 teacher. ) Does the Pt use WC or Scooter?: Yes Wheel 50 feet with 2 turns (QC: 4 (Pt will be SBA for w/c mobility. ) Type: Manual Wheel 150 feet: 4 (Pt will be SBA for w/c mobility. ) Type: Manual PT Plan Problem List Problem List: Activity Tolerance, Functional Strength, Safety, Balance, Gait, Transfer, Bed Mobility, ROM Treatment/Plan Treatment Plan: Continue Plan of Care Treatment Plan: Bed Mobility, Concurrent Therapy, Education, Functional Activity Mike, Functional Strength, Group Therapy, Gait, Safety, Therapeutic Exercise, Transfers Treatment Duration: Jan 16, 2023 Frequency: At least 5 of 7 days/Wk (IRF) Estimated Hrs Per Day: 1.5 hours per day Patient and/or Family Agrees t: Yes Safety Risks/Education Patient Education: Safety Issues Teaching Recipient: Patient Teaching Methods: Demonstration, Discussion Response to Teaching: Reinforcement Needed Discharge Recommendations Therapy Discharge Recommendati: 24 Hour Supervision, Home & Family Equpiment Recommendations-D/C: 3 in 1 Commode, Front Wheeled Walker, Shower Chair, Manual Wheelchair Discharge Status/Home Program Cont per POC Barriers to Progress Severe debility Target Placement Home with family support vs SNF Time Time In: 1300 Time Out: 1320 DATE: Jan 03, 2023 Total Billed Treatment Time: 20 Total Billed Treatment 20 min EX x 1 RADHA PERALES PT Jan 03, 2023 14:23
[2023-01-03 16:00] VITALS: BP 100/54
[2023-01-03 19:42] VITALS: BP 106/54
--- NOTE | 2023-01-04 06:16 | PM&R Progress Note ---
Subjective HPI/CC On Admission Date Seen by Provider: Jan 04, 2023 Time Seen by Provider: 12:00 Subjective/Events-last exam 01/04/2023: Patient doing pretty well Working with therapy slow recovery No falls No pain 01/03/2023: Patient doing pretty well Very weak Working on motivation Son and are at the bedside Dr. Roldan is primary care provider in [place] No pain Review of Systems General: Fatigue, Malaise Objective Exam Vital Signs Vital Signs Date Time Temp Pulse Resp B/P (MAP) Pulse Ox O2 Delivery O2 Flow Rate FiO2 01/04/23 20:15 36.8 92 20 119/74 (89) 97 Room Air 01/03/23 01:28 21 Capillary Refill : General Appearance: WD/WN, Chronically ill, Obese, Other (Very weak) HEENT: PERRL/EOMI, Normal ENT Inspection, Pharynx Normal Neck: Full Range of Motion, Normal Inspection, Non Tender, Supple, Carotid Bruit Respiratory: Chest Non Tender, Lungs Clear, No Accessory Muscle Use, No Respiratory Distress, Decreased Breath Sounds Cardiovascular: Regular Rate, Rhythm, No Edema, No Gallop, No JVD, No Murmur, Normal Peripheral Pulses Gastrointestinal: Normal Bowel Sounds, No Organomegaly, No Pulsatile Mass, Non Tender, Soft Back: Normal Inspection, No CVA Tenderness, No Vertebral Tenderness Extremity: Normal Capillary Refill, Normal Inspection, Normal Range of Motion, Non Tender, No Calf Tenderness, No Pedal Edema Neurologic/Psychiatric: Alert, Oriented x3, orchard hand II-XII Norm as Tested, Abnormal Gait, Depressed Affect, Motor Weakness ( severe muscle weakness) Skin: Normal Color, Warm/Dry Lymphatic: No Adenopathy Results/Procedures Lab Patient resulted labs reviewed. FIM Transfers Therapy Code Descriptions/Definitions Functional [place] Measure: 0=Not Assessed/NA 4=Minimal Assistance 1=Total Assistance 5=Supervision or Setup 2=Maximal Assistance 6=Modified [place] 3=Moderate Assistance 7=Complete IndependenceSCALE: Activities may be completed with or without assistive devices. 0-Xxdkhfuqlv-xsrgdfd completes the activity by him/herself with no assistance from a helper. 5-Set-up or Clean-up Assistance-helper sets up or cleans up; patient completes activity. [place] assists only prior to or following the activity. 4-Supervision or Touching Assistance-helper provides verbal cues and/or touching/steadying and/or contact guard assistance as patient completes activity. Assistance may be provided throughout the activity or intermittently. 3-Partial/Moderate Assistance-helper does LESS THAN HALF the effort. [place] lifts, holds or supports trunk or limbs, but provides less than half the effort. 2-Substantial/Maximal Assistance-helper does MORE THAN HALF the effort. [place] lifts or holds trunk or limbs and provides more than half the effort. 8-Wudernogp-gaufna does ALL the effort. Patient does none of the effort to complete the activity. Or, the assistance of 2 or more helpers is required for the patient to complete the activity. If activity was not attempted, code reason: 7-Patient Refused. 9-Not Applicable-not attempted and the patient did not perform the activity before the current illness, exacerbation or injury. 10-Not Attempted due to Environmental Limitations-(lack of equipment, weather restraints, etc.). 88-Not Attempted due to Medical Conditions or Safety Concerns. Roll Left to Right (QC): 2 Sit to Lying (QC): 2 Sit to Stand (QC): 1 Chair/Msf-fo-Mhrbb Xfer(QC): 88 Car Transfer (QC): 88 Gait Training Does the Patient Walk?: No and Walking Goal IS indicated Walk 10 feet (QC): 88 Walk 50 ft with 2 Turns(QC): 88 Walk 150 ft (QC): 88 Walking 10ft/uneven surface-QC: 88 Gait Assistive Device: None Wheelchair Training Does the Pt Use a Wheelchair?: Yes Wheel 50 ft with 2 turns (QC): 88 Wheel 150 ft (QC): 88 Type of Wheelchair: Manual Stair Training 1 Step (curb) (QC): 88 4 Steps (QC): 88 12 Steps (QC): 88 Balance Picking up an Object (QC): 88 ADL-Treatment Eating (QC): 3 Oral Hygiene (QC): 4 Shower/Bathe Self (QC): 2 (sponge bed bath) Upper Body Dressing (QC): 2 Lower Body Dressing (QC): 1 On/Off Footwear (QC): 1 Toileting Hygiene (QC): 1 Toilet Transfer (QC): 1 Assessment/Plan Assessment and Plan Assess & Plan/Chief Complaint Assessment: 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
[2023-01-04] MEDS: CATHETER FLUSH 10 ML SYR IV SCH ×2 (06:30→17:37)
[2023-01-04] MEDS: POTASSIUM BICARB 20 MEQ (EFFER-K) TABLET PEG SCH (07:07)
[2023-01-04] MEDS: ENOXAPARIN 40 MG/0.4 ML (LOVENOX) SYR SC SCH (07:07)
[2023-01-04] MEDS: MULTIVIT W/MINERALS TAB (THERAGRAN M) PO SCH (07:07)
--- NOTE | 2023-01-04 07:23 | Occupational Ther Daily Note ---
OT Current Status-Daily Note Subjective Pt alert, lying in bed. Pt agrees to therapy. No c/o pain at this time. Mental Status/Objective Patient Orientation: Person, Place, Time, Situation Attachments: IV, PEG Tube ADL-Treatment Pt requires assist x2 to position in bed for breakfast. Pt handed washcloth to wash hands and face by self. Pt requires set up for meal then supervision to monitor when pt requires more assistance with reaching items. Built up handle placed on utensil which allows pt to use independently. After session, pt sitting up in bed with call light/phone in reach. All needs met in room. Therapy Code Descriptions/Definitions Functional [place] Measure: 0=Not Assessed/NA 4=Minimal Assistance 1=Total Assistance 5=Supervision or Setup 2=Maximal Assistance 6=Modified [place] 3=Moderate Assistance 7=Complete IndependenceSCALE: Activities may be completed with or without assistive devices. 8-Ypvcqkkadk-appvpud completes the activity by him/herself with no assistance from a helper. 5-Set-up or Clean-up Assistance-helper sets up or cleans up; patient completes activity. [place] assists only prior to or following the activity. 4-Supervision or Touching Assistance-helper provides verbal cues and/or touching/steadying and/or contact guard assistance as patient completes activity. Assistance may be provided throughout the activity or intermittently. 3-Partial/Moderate Assistance-helper does LESS THAN HALF the effort. [place] lifts, holds or supports trunk or limbs, but provides less than half the effort. 2-Substantial/Maximal Assistance-helper does MORE THAN HALF the effort. [place] lifts or holds trunk or limbs and provides more than half the effort. 2-[place]kigxohio-dxnzjs does ALL the effort. Patient does none of the effort to complete the activity. Or, the assistance of 2 or more helpers is required for the patient to complete the activity. If activity was not attempted, code reason: 7-Patient Refused. 9-Not Applicable-not attempted and the patient did not perform the activity before the current illness, exacerbation or injury. 10-Not Attempted due to Environmental Limitations-(lack of equipment, weather restraints, etc.). 88-Not Attempted due to Medical Conditions or Safety Concerns. Eating (QC): 4 Oral Hygiene (QC): 5 OT Short Term Goals Short Term Goals Time Frame: Jan 02, 2023 Eatin Oral hygiene: 5 Upper body dressin OT Chcf Goals Residential Green Building Designer Goals Acute change in mental status: 1 Inattention: 2 Disorganized thinkin Altered level of consciousness: 2 Eating (QC): 6 Oral Hygiene (QC): 6 Toileting Hygiene (QC): 6 Shower/Bathe Self (QC): 5 Upper Body Dressing (QC): 6 Lower Body Dressing (QC): 6 On/Off Footwear (QC): 4 1=Demonstrate adherence to instructed precautions during ADL tasks. 2=Patient will verbalize/demonstrate understanding of assistive devices/modifications for ADL. 3=Patient will improve strength/tolerance for activity to enable patient to perform ADL's. OT Education/Plan Problem List/Assessment Assessment: Decreased Activ Tolerance, Decreased UE Strength, Dependent Transfers, Impaired Self-Care Skills Discharge Recommendations Plan/Recommendations: Continue POC Treatment Plan/Plan of Care Patient would benefit from OT for education, treatment and training to promote independence in ADL's, mobility, safety and/or upper extremity function for ADL's. Plan of Care: ADL Retraining, Caregiver Training, Concurrent Therapy, Functional Mobility, Group Exercise/Act as Ind, UE Funct Exercise/Act, UE Neuromus Re-Ed/Coord Treatment Duration: Feb 01, 2023 Frequency: At least 5 of 7 days/Wk (IRF) Estimated Hrs Per Day: 1.5 hours per day Agreement: Yes Rehab Potential: Fair Time Start Time: 07:00 Stop Time: 07:30 DATE: Jan 04, 2023 Total Time Billed (hr/min): 30 Billed Treatment Time 1 visit-ADL 2 (30 min) MARIE PHILLIPS Jan 04, 2023 07:23
[2023-01-04 08:00] VITALS: BP_SYST 106; BP_SYST 122; BP_DIAS 54; BP_DIAS 56
[2023-01-04 08:24] VITALS: BP 122/56
[2023-01-04] MEDS: PANTOPRAZOLE 40 MG (PROTONIX) VIAL IV SCH (08:26)
[2023-01-04] MEDS: ASPIRIN 81 MG CHEW (CHILDREN'S ASA) PO SCH (08:28)
[2023-01-04] MEDS: LACTOBACILLUS ACIDOPHILUS (PROBIOTIC) CAPSULE PO SCH ×2 (08:28→20:05)
[2023-01-04] MEDS: FUROSEMIDE 40 MG (LASIX) TAB PO SCH (08:28)
[2023-01-04] MEDS: sulfaSALAzine 500 MG (AZULFIDINE) TAB PO SCH ×2 (08:28→20:05)
[2023-01-04] MEDS: lisINopril 5 MG (PRINIVIL) TABLET PO SCH (08:29)
[2023-01-04] MEDS: LORATADINE (CLARITIN) 10 MG TAB PO SCH (08:29)
[2023-01-04] MEDS: DOCUSATE SODIUM 100 MG (COLACE) CAP PO SCH ×2 (11:26→19:38)
[2023-01-04] MEDS: polyethylene glycoL POWDER 17 GM (MIRALAX) PACK PO SCH ×2 (11:26→19:39)
--- NOTE | 2023-01-04 11:27 | Occupational Ther Daily Note ---
OT Current Status-Daily Note Subjective Pt alert, lying in bed. Pt agrees to therapy. No c/o pain. Wound care in room assessing skin. Co-treat with PT ([id number]), skills of 2 clinicians required to decrease fall risk, 2 or more person transfers, increase activity tolerance and functional mobility. PT focusing on bed mobility, sit to stands while OT focusing on B UE placement during mobility and bed mobility. Mental Status/Objective Patient Orientation: Person, Place, Time, Situation Attachments: IV, PEG Tube ADL-Treatment Pt is progressing with rolling side to side and supine to EOB though continues to need assist x2. Assist x1 for sitting EOB, pt leaning back. Dependent with toileting and toilet transfer. Utilized sit to stand lift for transfer to C and recliner. Pt was able to tolerate standing with lift well. Dependent with LBD. After session, pt sitting in recliner with call light/phone in reach. All needs met in room. Therapy Code Descriptions/Definitions Functional [place] Measure: 0=Not Assessed/NA 4=Minimal Assistance 1=Total Assistance 5=Supervision or Setup 2=Maximal Assistance 6=Modified [place] 3=Moderate Assistance 7=Complete IndependenceSCALE: Activities may be completed with or without assistive devices. 8-Dqxetkkwcp-voqztod completes the activity by him/herself with no assistance from a helper. 5-Set-up or Clean-up Assistance-helper sets up or cleans up; patient completes activity. [place] assists only prior to or following the activity. 4-Supervision or Touching Assistance-helper provides verbal cues and/or touching/steadying and/or contact guard assistance as patient completes activity. Assistance may be provided throughout the activity or intermittently. 3-Partial/Moderate Assistance-helper does LESS THAN HALF the effort. [place] lifts, holds or supports trunk or limbs, but provides less than half the effort. 2-Substantial/Maximal Assistance-helper does MORE THAN HALF the effort. [place] lifts or holds trunk or limbs and provides more than half the effort. 3-Maiykrqqg-wetapl does ALL the effort. Patient does none of the effort to complete the activity. Or, the assistance of 2 or more helpers is required for the patient to complete the activity. If activity was not attempted, code reason: 7-Patient Refused. 9-Not Applicable-not attempted and the patient did not perform the activity before the current illness, exacerbation or injury. 10-Not Attempted due to Environmental Limitations-(lack of equipment, weather restraints, etc.). 88-Not Attempted due to Medical Conditions or Safety Concerns. Lower Body Dressing (QC): 1 On/Off Footwear: 1 Toileting Hygiene (QC): 1 Toilet Transfer (QC): 1 OT Short Term Goals Short Term Goals Time Frame: Jan 02, 2023 Eatin Oral hygiene: 5 Upper body dressin OT On Call Pharmacy Technician Goals On Call Pharmacy Technician Goals Acute change in mental status: 1 Inattention: 2 Disorganized thinkin Altered level of consciousness: 2 Eating (QC): 6 Oral Hygiene (QC): 6 Toileting Hygiene (QC): 6 Shower/Bathe Self (QC): 5 Upper Body Dressing (QC): 6 Lower Body Dressing (QC): 6 On/Off Footwear (QC): 4 1=Demonstrate adherence to instructed precautions during ADL tasks. 2=Patient will verbalize/demonstrate understanding of assistive devices/modifications for ADL. 3=Patient will improve strength/tolerance for activity to enable patient to perform ADL's. OT Education/Plan Problem List/Assessment Assessment: Decreased Activ Tolerance, Decreased UE Strength, Dependent Transfers, Impaired Bed Mobility, Impaired Self-Care Skills Discharge Recommendations Plan/Recommendations: Continue POC Treatment Plan/Plan of Care Patient would benefit from OT for education, treatment and training to promote independence in ADL's, mobility, safety and/or upper extremity function for ADL's. Plan of Care: ADL Retraining, Caregiver Training, Concurrent Therapy, Functional Mobility, Group Exercise/Act as Ind, UE Funct Exercise/Act, UE Neuromus Re-Ed/Coord Treatment Duration: Feb 01, 2023 Frequency: At least 5 of 7 days/Wk (IRF) Estimated Hrs Per Day: 1.5 hours per day Agreement: Yes Rehab Potential: Fair Time Start Time: 10:00 Stop Time: 11:00 DATE: Jan 04, 2023 Total Time Billed (hr/min): 60 Billed Treatment Time 1 visit-ADL 4 (60 min) co-treat with PT 60 min MARIE PHILLIPS Jan 04, 2023 11:27
[2023-01-04] MEDS: SENNA W/DOCUSATE (SENOKOT S) TABLET PO SCH ×2 (11:37→19:39)
--- NOTE | 2023-01-04 11:39 | Physical Therapy Daily Note ---
PT Daily Note-Current Subjective Pt is agreeable to PT. Pain Numeric Pain Scale: 0-No Pain Location: No Pain Reported Section J - Health Conditions 1. Rarely or not at all 2. Occasionally 3. Frequently 4. Almost constantly 8. Unable to answer Pain Effect on Sleep: 1 Pain Interference with Therapy: 3 Pain Interference w/Day-to-Day: 2 Mental Status Attachments: PEG Tube, Gautam Catheter Trach tube Transfers SCALE: Activities may be completed with or without assistive devices. 8-Ekgzhtqfui-hgkftzo completes the activity by him/herself with no assistance from a helper. 5-Set-up or Clean-up Assistance-helper sets up or cleans up; patient completes activity. [place] assists only prior to or following the activity. 4-Supervision or Touching Assistance-helper provides verbal cues and/or touching/steadying and/or contact guard assistance as patient completes activity. Assistance may be provided throughout the activity or intermittently. 3-Partial/Moderate Assistance-helper does LESS THAN HALF the effort. [place] lifts, holds or supports trunk or limbs, but provides less than half the effort. 2-Substantial/Maximal Assistance-helper does MORE THAN HALF the effort. [place] lifts or holds trunk or limbs and provides more than half the effort. 9-Nfahrntqv-wismce does ALL the effort. Patient does none of the effort to complete the activity. Or, the assistance of 2 or more helpers is required for the patient to complete the activity. If activity was not attempted, code reason: 7-Patient Refused. 9-Not Applicable-not attempted and the patient did not perform the activity before the current illness, exacerbation or injury. 10-Not Attempted due to Environmental Limitations-(lack of equipment, weather restraints, etc.). 88-Not Attempted due to Medical Conditions or Safety Concerns. Roll Left & Right (QC): 2 Lying to Sitting/Side of Bed(Q: 2 Sit to Stand (QC): 1 Chair/Kph-tc-Olrvg Xfer(QC): 1 Toilet Transfer (QC): 1 Weight Bearing Right Lower Extremity: Right Full Weight Bearing Left Lower Extremity: Left Full Weight Bearing Gait Training Does the Patient Walk?: No and Walking Goal IS indicated Wheelchair Training Does the Pt Use a Wheelchair?: Yes Treatments Co-tx with CHE from [id number]. Skills of 2 clinicians required to decrease fall risk, 2 or more person transfers, increase activity tolerance and functional mobility. PT focusing on bed mobility and transfers, while OT focusing on B UE placement during mobility and bed mobility and toileting. Pt dep for toileting on the bed allen. Max A for B rolling. Wound care nurse assessed the pts butt. Max A x 2 for supine <> sit EOB. Sit to stand lift used to transfer the pt onto the BSC. Pt dep for cleaning up after BM on BSC. Sit to stand lift used to transfer pt from BSC to recliner with cushion in chair. Air bed replaced the regular hospital bed in the pts room. Pt left sitting up in the recliner with call light in hand, all needs met, and staff present in the room. Assessment Current Status: Fair Progress Pt tolerated PT fairly PT Snf Goals Snf Goals PT Snf Goals Time Frame: Jan 16, 2023 Roll Left & Right (QC): 4 (Pt will be SBA for bed mobilty tasks. ) Sit to Lying (QC): 4 (Pt will be SBA for bed mobilty tasks. ) Lying-Sitting on Side/Bed(QC): 4 (Pt will be SBA for bed mobilty tasks. ) Sit to Stand (QC): 3 (Pt will be Min A for functional transfers. ) Chair/Bke-nn-Htwxk Xfer(QC): 3 (Pt will be Min A for functional transfers. ) Toilet Transfer (QC): 3 (Pt will be Min A for functional transfers. ) Car Transfer (QC): 3 (Pt will be Min A for functional transfers. ) Does the Patient Walk: No and Walking Goal IS indicated Walk 10 feet (QC): 3 (Pt will be Min A for walking with the FWW. ) Walk 50ft with 2 Turns (QC): 3 (Pt will be Min A for walking with the FWW. ) Walk 150 ft (QC): 3 (Pt will be Min A for walking with the FWW. ) Walking 10ft on Uneven Surface: 3 (Pt will be Min A for walking with the FWW. ) 1 Step (curb) (QC): 3 (Pt will be Min A for steps to safely enter/exit the home. ) 4 Steps (QC): 3 (Pt will be Min A for steps to safely enter/exit the home. ) 12 Steps (QC): 3 (Pt will be Min A for steps to safely enter/exit the home. ) Picking up an Object (QC): 4 (Pt will be CGA with a armature straightener. ) Does the Pt use WC or Scooter?: Yes Wheel 50 feet with 2 turns (QC: 4 (Pt will be SBA for w/c mobility. ) Type: Manual Wheel 150 feet: 4 (Pt will be SBA for w/c mobility. ) Type: Manual PT Plan Problem List Problem List: Activity Tolerance, Functional Strength, Safety, Balance, Gait, Transfer, Bed Mobility, ROM Treatment/Plan Treatment Plan: Continue Plan of Care Treatment Plan: Bed Mobility, Concurrent Therapy, Education, Functional Activity Mike, Functional Strength, Group Therapy, Gait, Safety, Therapeutic Exercise, Transfers Treatment Duration: Jan 16, 2023 Frequency: At least 5 of 7 days/Wk (IRF) Estimated Hrs Per Day: 1.5 hours per day Patient and/or Family Agrees t: Yes Safety Risks/Education Patient Education: Transfer Techniques, Safety Issues Teaching Recipient: Patient Teaching Methods: Demonstration, Discussion Response to Teaching: Reinforcement Needed Discharge Recommendations Therapy Discharge Recommendati: Home & Family Equpiment Recommendations-D/C: 3 in 1 Commode, Front Wheeled Walker, Shower Chair, Manual Wheelchair Discharge Status/Home Program Cont per POC Barriers to Progress Debility Target Placement SNF vs home with family Time Time In: 1000 Time Out: 1100 DATE: Jan 04, 2023 Total Billed Treatment Time: 60 Total Billed Treatment 60 min co-tx 1 visit FA x 4 RADHA PERALES PT Jan 04, 2023 11:39
--- NOTE | 2023-01-04 11:51 | Speech Therapy Daily Note ---
Speech Daily Progress Note Subjective Date Seen by Provider: Jan 04, 2023 Time Seen by Provider: 08:30 Pt laying in bed. Pt states he is not doing well this date do to bowel movements. Pt reports not liking current diet consistencies. VFSS scheduled for January 05 at 10 am. Pt pleasant and cooperative. Pain Location: No Pain Reported Objective Pt sat up in bed. Pt takes sips of nectar thick liquids via cup with no overt s/sx of aspiration. Pt observed taking pills with nectar thick liquids. Pt demonstrates cough following 1 pill with a sip of nectar thick liquids. Following cough, pt's voice sounds clear. Overall pt's voice is more clear this date, compared to previous session. Assessment Assessment Current Status: Fair Progress Treatment Plan Continue Plan of Care Speech Short Term Goals Short Term Goals Short Term Goals Pt to complete a MBSS. Speech Software Integrator Goals Software Integrator Goals Pt to demonstrate no s/sx of aspiration on least restrictive diet consistency. Speech-Plan Patient/Family Goals Patient/Family Goals: Pt's goal is to return home with . Treatment Plan Speech Therapy Treatment Plan: Continue Plan of Care Treatment Duration: Jan 02, 2023 Frequency: Modified Program (IRF) Estimated Hrs Per Day: Other Rehab Potential: Fair Pt/Family Agrees to Plan: Yes Safety Risks/Education Teaching Recipient: Patient Teaching Methods: Discussion Response to Teaching: Verbalize Understanding Education Topics Provided: Pt educated on purpose of therapy tasks and videoswallow. Pt receptive and verbalizes understanding. Time Speech Therapy Time In: 08:30 Speech Therapy Time Out: 08:55 DATE: Jan 04, 2023 Total Billed Time: 25 Billed Treatment Time DYS [place] Jose Manuel Shay Speech Therapy Jan 04, 2023 11:51
--- NOTE | 2023-01-04 13:22 | ST Cognitive Linguistic Eval ---
Speech Evaluation-General Medical Diagnosis Critical Illness Myopathy Onset Date: November 17, 2022 Therapy Diagnosis Therapy Diagnosis: MILD COGNITIVE DEFICIT Precautions Precautions: Fall, Pressure Ulcer, Aspiration Precautions/Isolations: Aspiration, Fall Prevention, Standard Precautions, Pressure Ulcer Referral Referring Physician: DR. GRANT Reason for Referral: Evaluation/Treatment Medical History Pertinent Medical History: HTN HTN, obesity, CHF with EF 25-30%, RA, JOSE, complete heart block secondary to vasovagal response from trach suctioning, acute respiratory failure s/p intubation, acute metabolic encephalopathy, sepsis with b/l hospital acquired P NA, anxiety, HLD, RAYMUNDO, hypernatremia, hypokalemia, acute blood loss anemia Current History PT BECAME HYPOTENSIVE HYPOXIC AND WAS INTUBATED ON 11/17/22. PT WAS TRANSFERRED TO AN LTAC FOR PEG AND TRACH MANAGEMENT AND MONITORING ON 12/01/2022. PT WAS THEN TRANSFERRED TO [facility] ON 01/02/23 WITH A DIAGNOSIS OF CRITICAL ILLNESS MYOPATHY. Reviewed History: Yes Social History Current Living Status: Significant Other Speech PLF-Current Status Prior Level of Function BEFORE 11/17/2022, PT WAS MANAGING HIS OWN MEDICATIONS USING A PILL ORGANIZER. PT USED TWO SEPARATE ONE TIME A DAY PILL ORGANIZERS, ONE FOR MORNING MEDS AND ONE FOR EVENING MEDS. CURRENTLY IS MANAGING THE FINANCES, PRIOR TO 11/17/2022, PT REPORTS FINANCES WERE SPLIT 50/50. Subjective PT SITTING UP IN RECLINER WHEN JEWEL SETTER ENTERS ROOM. PT PLEASANT AND COOPERATIVE THROUGHOUT EVALUATION. PT REPORTS HE DOES FEEL LIKE HIS COGNITION HAS CHANGED SINCE 11/17/22 BUT REPORTS IT IS SLOWLY IMPROVING. Pain Location: No Pain Reported Language Eval: Auditory Comprehends Simple Yes/No Ques: Functional Ident/Pics in Multiple [place]: Functional Follows General Conversations: Functional Language Eval: Verbal Language Completes Spontaneous Greeting: Functional Requests Basic Needs: Functional Expresses Complex Ideas: Functional Objective Cognitive Domain Attention: WNL Memory: Mild Problem Solving: Functional Executive Functions: WNL Visuospatial Skills: Mild Composite Severity Rating: Mild Clock Drawing Severity Rating: Mild Score: 23 Objective Formal/Standardized Tests SLUMS Results Impression PT EXHIBITS MILD COGNITIVE DEFICITS CHARACTERIZED WITH SLIGHT DIFFICULTY WITH MEMORY FOLLOWING SHORT DELAY AND MENTAL MANIPULATION OF 4 NUMBERS. PT DOES WELL WITH ORIENTATION, BASIC PROBLEM SOLVING, EXECUTIVE FUNCTIONING, FOLLOWING 1 STEP DIRECTION, AND WAS ABLE TO ANSWER 3/4 QUESTIONS FOLLOWING A STORY. PT DOES WELL WITH SPACING OF NUMBERS ON THE CLOCK DRAWING. PT DOES SWITCH THE HANDS AROUND FOR THE TIME GIVEN. PT STATES HE WOULD WORK WITH SPEECH THERAPY FOR COGNITIVE DEFICITS, BUT DOES FEEL LIKE HIS COGNITION HAS BEEN IMPROVING SLOWLY. Speech Short Term Goals Short Term Goals Short Term Goals Pt to complete a MBSS. PT TO COMPLETE MENTAL MANIPULATION OF 4 OBJECTS WITH 80% ACCURACY WITH MIN CUES. Speech Detention Goals Emergency Operator Goals Pt to demonstrate no s/sx of aspiration on least restrictive diet consistency. PT TO COMPLETE MEMORY TASKS FOLLOWING SHORT DELAY WITH 80% ACCURACY WITH MIN VERBAL CUES TO IMPROVE OVERALL SAFETY. PT TO COMPLETE MEDICATION AND MONEY MANAGEMENT TASKS WITH 100% ACCURACY PRIOR TO D/C. Speech-Plan Patient/Family Goals Patient/Family Goals: PT STATES HIS GOAL IS TO RETURN HOME WITH HIS . Treatment Plan Speech Therapy Treatment Plan: Continue Plan of Care Treatment Duration: Jan 02, 2023 Frequency: 5 times per week Estimated Hrs Per Day: .25 hour per day Rehab Potential: Good Pt/Family Agrees to Plan: Yes Safety Risks/Education Teaching Recipient: Patient Teaching Methods: Discussion Response to Teaching: Verbalize Understanding, Reinforcement Needed Education Topics Provided: PT EDUCATED ON THE ROLE OF THE JEWEL SETTER, PURPOSE OF THE EVALUATION, RESULTS, AND RECOMMENDATIONS. PT WAS RECEPTIVE AND VERBALIZED UNDERSTANDING. PT MAY NEED REINFORCEMENT. Time Speech Therapy Time In: 11:05 Speech Therapy Time Out: 11:25 DATE: Jan 04, 2023 Total Billed Time: 20 Billed Treatment Time S/L Jose Manuel Wang Speech Therapy Jan 04, 2023 13:22
[2023-01-04 17:28] VITALS: BP 108/63
[2023-01-04 20:15] VITALS: BP 119/74
[2023-01-05] MEDS: ENOXAPARIN 40 MG/0.4 ML (LOVENOX) SYR SC SCH (05:56)
[2023-01-05] MEDS: CATHETER FLUSH 10 ML SYR IV SCH ×2 (05:56→18:38)
[2023-01-05] MEDS: MULTIVIT W/MINERALS TAB (THERAGRAN M) PO SCH (05:56)
[2023-01-05] MEDS: POTASSIUM BICARB 20 MEQ (EFFER-K) TABLET PEG SCH (05:56)
--- NOTE | 2023-01-05 07:52 | Occupational Ther Daily Note ---
OT Current Status-Daily Note Subjective Pt alert, lying in bed. Pt agrees to therapy. No c/o pain at this time. Wanting fan in room. Mental Status/Objective Patient Orientation: Person, Place, Time, Situation ADL-Treatment Assist x2 for scooting up in bed. Pt then set up for meal, built up hand placed on utensil and food readied then pt ate by self. Pt is reaching and grasping items on tray and bringing to mouth without spillage. After session, pt lying in bed eating meal. Call light/phone in reach. All needs met in room. Therapy Code Descriptions/Definitions Functional [place] Measure: 0=Not Assessed/NA 4=Minimal Assistance 1=Total Assistance 5=Supervision or Setup 2=Maximal Assistance 6=Modified [place] 3=Moderate Assistance 7=Complete IndependenceSCALE: Activities may be completed with or without assistive devices. 2-Mvulyxwmus-unbesfu completes the activity by him/herself with no assistance from a helper. 5-Set-up or Clean-up Assistance-helper sets up or cleans up; patient completes activity. [place] assists only prior to or following the activity. 4-Supervision or Touching Assistance-helper provides verbal cues and/or touching/steadying and/or contact guard assistance as patient completes activity. Assistance may be provided throughout the activity or intermittently. 3-Partial/Moderate Assistance-helper does LESS THAN HALF the effort. [place] lifts, holds or supports trunk or limbs, but provides less than half the effort. 2-Substantial/Maximal Assistance-helper does MORE THAN HALF the effort. [place] lifts or holds trunk or limbs and provides more than half the effort. 7-Qapmfwpvh-gugmpa does ALL the effort. Patient does none of the effort to complete the activity. Or, the assistance of 2 or more helpers is required for the patient to complete the activity. If activity was not attempted, code reason: 7-Patient Refused. 9-Not Applicable-not attempted and the patient did not perform the activity before the current illness, exacerbation or injury. 10-Not Attempted due to Environmental Limitations-(lack of equipment, weather restraints, etc.). 88-Not Attempted due to Medical Conditions or Safety Concerns. Eating (QC): 5 OT Short Term Goals Short Term Goals Time Frame: Jan 02, 2023 Eatin Oral hygiene: 5 Upper body dressin OT Sweat Band Sewer Goals Sweat Band Sewer Goals Acute change in mental status: 1 Inattention: 2 Disorganized thinkin Altered level of consciousness: 2 Eating (QC): 6 Oral Hygiene (QC): 6 Toileting Hygiene (QC): 6 Shower/Bathe Self (QC): 5 Upper Body Dressing (QC): 6 Lower Body Dressing (QC): 6 On/Off Footwear (QC): 4 1=Demonstrate adherence to instructed precautions during ADL tasks. 2=Patient will verbalize/demonstrate understanding of assistive devices/modifications for ADL. 3=Patient will improve strength/tolerance for activity to enable patient to perform ADL's. OT Education/Plan Problem List/Assessment Assessment: Decreased Activ Tolerance, Decreased UE Strength, Impaired Bed Mobility, Impaired Self-Care Skills Discharge Recommendations Plan/Recommendations: Continue POC Treatment Plan/Plan of Care Patient would benefit from OT for education, treatment and training to promote independence in ADL's, mobility, safety and/or upper extremity function for ADL's. Plan of Care: ADL Retraining, Caregiver Training, Concurrent Therapy, Functional Mobility, Group Exercise/Act as Ind, UE Funct Exercise/Act, UE Neuromus Re-Ed/Coord Treatment Duration: Feb 01, 2023 Frequency: At least 5 of 7 days/Wk (IRF) Estimated Hrs Per Day: 1.5 hours per day Agreement: Yes Rehab Potential: Good Time Start Time: 07:05 Stop Time: 07:25 DATE: Jan 05, 2023 Total Time Billed (hr/min): 20 Billed Treatment Time 1 visit-ADL 1 (20 min) MARIE PHILLIPS Jan 05, 2023 07:52
[2023-01-05 08:42] VITALS: BP 141/74
--- NOTE | 2023-01-05 09:22 | Physical Therapy Daily Note ---
PT Daily Note-Current Subjective Pt reports he is doing well this morning and is agreeable to PT. Denies pain. Pain Numeric Pain Scale: 0-No Pain Location: No Pain Reported Section J - Health Conditions 1. Rarely or not at all 2. Occasionally 3. Frequently 4. Almost constantly 8. Unable to answer Pain Effect on Sleep: 1 Pain Interference with Therapy: 3 Pain Interference w/Day-to-Day: 2 Transfers SCALE: Activities may be completed with or without assistive devices. 4-Wivbjwqmdt-rgcfyhc completes the activity by him/herself with no assistance from a helper. 5-Set-up or Clean-up Assistance-helper sets up or cleans up; patient completes activity. [place] assists only prior to or following the activity. 4-Supervision or Touching Assistance-helper provides verbal cues and/or touching/steadying and/or contact guard assistance as patient completes activity. Assistance may be provided throughout the activity or intermittently. 3-Partial/Moderate Assistance-helper does LESS THAN HALF the effort. [place] lifts, holds or supports trunk or limbs, but provides less than half the effort. 2-Substantial/Maximal Assistance-helper does MORE THAN HALF the effort. [place] lifts or holds trunk or limbs and provides more than half the effort. 4-Detcdbqdi-fegyht does ALL the effort. Patient does none of the effort to comp lete the activity. Or, the assistance of 2 or more helpers is required for the patient to complete the activity. If activity was not attempted, code reason: 7-Patient Refused. 9-Not Applicable-not attempted and the patient did not perform the activity before the current illness, exacerbation or injury. 10-Not Attempted due to Environmental Limitations-(lack of equipment, weather restraints, etc.). 88-Not Attempted due to Medical Conditions or Safety Concerns. Roll Left & Right (QC): 3 Sit to Lying (QC): 2 Lying to Sitting/Side of Bed(Q: 2 Sit to Stand (QC): 1 Chair/Pod-sx-Ryakt Xfer(QC): 1 Weight Bearing Right Lower Extremity: Right Full Weight Bearing Left Lower Extremity: Left Full Weight Bearing Gait Training Does the Patient Walk?: No and Walking Goal IS indicated Wheelchair Training Does the Pt Use a Wheelchair?: Yes Wheel 50 ft with 2 turns (QC): 3 Wheel 150 ft (QC): 88 Type of Wheelchair: Manual Treatments Co-tx with CHE from [id number]. Skills of 2 clinicians required to decrease fall risk, 2 or more person transfers, increase activity tolerance and functional mobility. PT focusing on bed mobility, transfers, standing, and LE strength, while OT focusing on B UE placement during mobility and bed mobility and toileting. Pt lying supine in bed upon arrival. Pt completed R rolling with Min A to don brief and pants with dep. Pt completed supine <> sit with Mod/Max A x 2. Sit to stand lift utilized to transfer the pt from bed <> w/c with dependence. Pt completed w/c mobility x 50ft with Min A. Pt completed sit to senior mainframe developer the // bars x 3 with Max A x 2. Pt completely stood on the first stand, and was only able to partially stand on the second and third stand. Pt stood for 10" on the first stand, and 5-10" on the second and third stand. Pt also completed seated B LE marching and LAQ 2x5 reps each. Pt in bed upon completion of treatment with call light in reach and all needs met. Pt edu on HEP, with handouts provided. Assessment Current Status: Fair Progress Pt tolerated PT well with good effort PT Gas Regulator Repairer Goals Gas Regulator Repairer Goals PT Gas Regulator Repairer Goals Time Frame: Jan 16, 2023 Roll Left & Right (QC): 4 (Pt will be SBA for bed mobilty tasks. ) Sit to Lying (QC): 4 (Pt will be SBA for bed mobilty tasks. ) Lying-Sitting on Side/Bed(QC): 4 (Pt will be SBA for bed mobilty tasks. ) Sit to Stand (QC): 3 (Pt will be Min A for functional transfers. ) Chair/Moz-cy-Akddm Xfer(QC): 3 (Pt will be Min A for functional transfers. ) Toilet Transfer (QC): 3 (Pt will be Min A for functional transfers. ) Car Transfer (QC): 3 (Pt will be Min A for functional transfers. ) Does the Patient Walk: No and Walking Goal IS indicated Walk 10 feet (QC): 3 (Pt will be Min A for walking with the FWW. ) Walk 50ft with 2 Turns (QC): 3 (Pt will be Min A for walking with the FWW. ) Walk 150 ft (QC): 3 (Pt will be Min A for walking with the FWW. ) Walking 10ft on Uneven Surface: 3 (Pt will be Min A for walking with the FWW. ) 1 Step (curb) (QC): 3 (Pt will be Min A for steps to safely enter/exit the home. ) 4 Steps (QC): 3 (Pt will be Min A for steps to safely enter/exit the home. ) 12 Steps (QC): 3 (Pt will be Min A for steps to safely enter/exit the home. ) Picking up an Object (QC): 4 (Pt will be CGA with a plate glass installer. ) Does the Pt use WC or Scooter?: Yes Wheel 50 feet with 2 turns (QC: 4 (Pt will be SBA for w/c mobility. ) Type: Manual Wheel 150 feet: 4 (Pt will be SBA for w/c mobility. ) Type: Manual PT Plan Problem List Problem List: Activity Tolerance, Functional Strength, Safety, Balance, Gait, Transfer, Bed Mobility, ROM Treatment/Plan Treatment Plan: Continue Plan of Care Treatment Plan: Bed Mobility, Concurrent Therapy, Education, Functional Activity Mike, Functional Strength, Group Therapy, Gait, Safety, Therapeutic Exercise, Transfers Treatment Duration: Jan 16, 2023 Frequency: At least 5 of 7 days/Wk (IRF) Estimated Hrs Per Day: 1.5 hours per day Patient and/or Family Agrees t: Yes Safety Risks/Education Patient Education: Transfer Techniques, Correct Positioning, W/C Management, Safety Issues Teaching Recipient: Patient Teaching Methods: Demonstration, Discussion Response to Teaching: Reinforcement Needed Discharge Recommendations Therapy Discharge Recommendati: 24 Hour Supervision, Home & Family Equpiment Recommendations-D/C: 3 in 1 Commode, Wheelchair Cushion, Front Wheeled Walker, Shower Chair, Manual Wheelchair Discharge Status/Home Program Cont per POC Barriers to Progress Debility Target Placement SNF vs home with family Time Time In: 800 Time Out: 900 DATE: Jan 05, 2023 Total Billed Treatment Time: 60 Total Billed Treatment 60 min co-tx from [id number] FA x 3 EX x 1 RADHA PERALES PT Jan 05, 2023 09:22
[2023-01-05] MEDS: FUROSEMIDE 40 MG (LASIX) TAB PO SCH (09:50)
[2023-01-05] MEDS: lisINopril 5 MG (PRINIVIL) TABLET PO SCH (09:50)
[2023-01-05] MEDS: LORATADINE (CLARITIN) 10 MG TAB PO SCH (09:51)
[2023-01-05] MEDS: LACTOBACILLUS ACIDOPHILUS (PROBIOTIC) CAPSULE PO SCH ×2 (09:52→21:47)
[2023-01-05] MEDS: sulfaSALAzine 500 MG (AZULFIDINE) TAB PO SCH ×2 (09:52→21:47)
[2023-01-05] MEDS: SENNA W/DOCUSATE (SENOKOT S) TABLET PO SCH ×2 (10:03→21:47)
[2023-01-05] MEDS: DOCUSATE SODIUM 100 MG (COLACE) CAP PO SCH ×2 (10:03→21:48)
[2023-01-05] MEDS: polyethylene glycoL POWDER 17 GM (MIRALAX) PACK PO SCH ×2 (10:03→21:49)
[2023-01-05] MEDS: ASPIRIN 81 MG CHEW (CHILDREN'S ASA) PO SCH (10:42)
[2023-01-05] MEDS: PANTOPRAZOLE 40 MG (PROTONIX) VIAL IV SCH (10:43)
[2023-01-05] MEDS: FLUTICASONE NASAL SPRAY (FLONASE) 16 GM BTL NS SCH (10:43)
--- NOTE | 2023-01-05 10:52 | PM&R Progress Note ---
Subjective HPI/CC On Admission Date Seen by Provider: Jan 05, 2023 Time Seen by Provider: 12:00 Subjective/Events-last exam 01/05/2023: Patient about the same Modified barium swallow did not go well and placed back on tube feedings No pain is reported 01/04/2023: Patient doing pretty well Working with therapy slow recovery No falls No pain 01/03/2023: Patient doing pretty well Very weak Working on motivation Son and are at the bedside Dr. Roldan is primary care provider in [place] No pain Review of Systems General: Fatigue, Malaise Objective Exam Vital Signs Vital Signs Date Time Temp Pulse Resp B/P (MAP) Pulse Ox O2 Delivery O2 Flow Rate FiO2 01/05/23 21:25 36.0 89 16 105/61 (76) 95 Room Air 01/03/23 01:28 21 Capillary Refill : General Appearance: WD/WN, Chronically ill, Obese, Other (Very weak) HEENT: PERRL/EOMI, Normal ENT Inspection, Pharynx Normal Neck: Full Range of Motion, Normal Inspection, Non Tender, Supple, Carotid Bruit Respiratory: Chest Non Tender, Lungs Clear, No Accessory Muscle Use, No Respiratory Distress, Decreased Breath Sounds Cardiovascular: Regular Rate, Rhythm, No Edema, No Gallop, No JVD, No Murmur, Normal Peripheral Pulses Gastrointestinal: Normal Bowel Sounds, No Organomegaly, No Pulsatile Mass, Non Tender, Soft Back: Normal Inspection, No CVA Tenderness, No Vertebral Tenderness Extremity: Normal Capillary Refill, Normal Inspection, Normal Range of Motion, Non Tender, No Calf Tenderness, No Pedal Edema Neurologic/Psychiatric: Alert, Oriented x3, manager union II-XII Norm as Tested, Abnormal Gait, Depressed Affect, Motor Weakness ( severe muscle weakness) Skin: Normal Color, Warm/Dry Lymphatic: No Adenopathy Results/Procedures Lab Patient resulted labs reviewed. FIM Transfers Therapy Code Descriptions/Definitions Functional [place] Measure: 0=Not Assessed/NA 4=Minimal Assistance 1=Total Assistance 5=Supervision or Setup 2=Maximal Assistance 6=Modified [place] 3=Moderate Assistance 7=Complete IndependenceSCALE: Activities may be completed with or without assistive devices. 9-Ttcwwnfaqc-bejlopr completes the activity by him/herself with no assistance from a helper. 5-Set-up or Clean-up Assistance-helper sets up or cleans up; patient completes activity. [place] assists only prior to or following the activity. 4-Supervision or Touching Assistance-helper provides verbal cues and/or touching/steadying and/or contact guard assistance as patient completes activity. Assistance may be provided throughout the activity or intermittently. 3-Partial/Moderate Assistance-helper does LESS THAN HALF the effort. [place] lifts, holds or supports trunk or limbs, but provides less than half the effort. 2-Substantial/Maximal Assistance-helper does MORE THAN HALF the effort. [place] lifts or holds trunk or limbs and provides more than half the effort. 9-Ygsrvhhcp-xmderp does ALL the effort. Patient does none of the effort to complete the activity. Or, the assistance of 2 or more helpers is required for the patient to complete the activity. If activity was not attempted, code reason: 7-Patient Refused. 9-Not Applicable-not attempted and the patient did not perform the activity before the current illness, exacerbation or injury. 10-Not Attempted due to Environmental Limitations-(lack of equipment, weather restraints, etc.). 88-Not Attempted due to Medical Conditions or Safety Concerns. Roll Left to Right (QC): 3 Sit to Lying (QC): 2 Sit to Stand (QC): 1 Chair/Uia-nd-[place] Xfer(QC): 1 Car Transfer (QC): 88 Gait Training Does the Patient Walk?: No and Walking Goal IS indicated Walk 10 feet (QC): 88 Walk 50 ft with 2 Turns(QC): 88 Walk 150 ft (QC): 88 Walking 10ft/uneven surface-QC: 88 Gait Assistive Device: None Wheelchair Training Does the Pt Use a Wheelchair?: Yes Wheel 50 ft with 2 turns (QC): 3 Wheel 150 ft (QC): 88 Type of Wheelchair: Manual Stair Training 1 Step (curb) (QC): 88 4 Steps (QC): 88 12 Steps (QC): 88 Balance Picking up an Object (QC): 88 ADL-Treatment Eating (QC): 5 Oral Hygiene (QC): 5 Shower/Bathe Self (QC): 2 (sponge bed bath) Upper Body Dressing (QC): 2 Lower Body Dressing (QC): 1 On/Off Footwear (QC): 1 Toileting Hygiene (QC): 1 Toilet Transfer (QC): 1 Assessment/Plan Assessment and Plan Assess & Plan/Chief Complaint Assessment: Myopathy with the proximal muscle weakness Trach status PEG status Increased BMI Decreased motivation Anemia Hypokalemia Dysphagia Gautam cath in place-difficult insertion so remains in-dwelling History of GI bleed Plan: PT OT Monitor closely PEG TF Trach management 01/03/2023: Work-up anemia Continue aggressive therapy 01/04/2023: Supportive care Monitor Closely 01/05/2023: Aspiration risk noted (1) Myopathy (2) Tracheostomy status (3) PEG (percutaneous endoscopic gastrostomy) status ANGELES GRANT DO Jan 05, 2023 10:52
--- NOTE | 2023-01-05 12:41 | Occupational Ther Daily Note ---
OT Current Status-Daily Note Subjective Pt alert, lying in bed. Pt agrees to therapy. PT/OT co-treat([id number]), skills of 2 clinicians required to decrease fall risk, increase mobility, increase overall strength for standing and daily functional tasks. PT focusing on transfers, standing, bed mobility and w/c mobility while OT focusing on B UE placement during mobility/standing, ADLs and increasing B UE strength. ADL-Treatment Therapy Code Descriptions/Definitions Functional [place] Measure: 0=Not Assessed/NA 4=Minimal Assistance 1=Total Assistance 5=Supervision or Setup 2=Maximal Assistance 6=Modified [place] 3=Moderate Assistance 7=Complete IndependenceSCALE: Activities may be completed with or without assistive devices. 8-Mrjnddeyms-cqutjwm completes the activity by him/herself with no assistance from a helper. 5-Set-up or Clean-up Assistance-helper sets up or cleans up; patient completes activity. [place] assists only prior to or following the activity. 4-Supervision or Touching Assistance-helper provides verbal cues and/or touching/steadying and/or contact guard assistance as patient completes a ctivity. Assistance may be provided throughout the activity or intermittently. 3-Partial/Moderate Assistance-helper does LESS THAN HALF the effort. [place] lifts, holds or supports trunk or limbs, but provides less than half the effort. 2-Substantial/Maximal Assistance-helper does MORE THAN HALF the effort. [place] lifts or holds trunk or limbs and provides more than half the effort. 2-Viagfghnm-hmrnyk does ALL the effort. Patient does none of the effort to complete the activity. Or, the assistance of 2 or more helpers is required for the patient to complete the activity. If activity was not attempted, code reason: 7-Patient Refused. 9-Not Applicable-not attempted and the patient did not perform the activity before the current illness, exacerbation or injury. 10-Not Attempted due to Environmental Limitations-(lack of equipment, weather restraints, etc.). 88-Not Attempted due to Medical Conditions or Safety Concerns. Other Treatment Pt lying supine in bed upon arrival. Pt rolling to R side with Min A. Dependent with LBD and toileting. Pt completed supine <> sit with Mod/Max A x 2. Sit to stand lift utilized to transfer the pt from bed <> w/c with dependence. Pt completed w/c mobility x 50ft with Min A. Pt completed sit to concession stand attendant the // bars x 3 with Max A x 2. Pt completely stood on the first stand, and was only able to partially stand on the second and third stand. Pt stood for 10" on the first stand, and 5-10" on the second and third stand. Pt also completed seated B LE marching and LAQ 2x5 reps each. Pt is demonstrating increased strength in B hands, holding onto sit to stand lift and //bars with good as400 developer strength. Pt requires assistance to cleanse incontinent BM while transferring with sit to stand lift. Pt in bed upon completion of treatment with call light in reach and all needs met. OT Short Term Goals Short Term Goals Time Frame: Jan 02, 2023 Eatin Oral hygiene: 5 Upper body dressin OT Correction Goals Correction Goals Acute change in mental status: 1 Inattention: 2 Disorganized thinkin Altered level of consciousness: 2 Eating (QC): 6 Oral Hygiene (QC): 6 Toileting Hygiene (QC): 6 Shower/Bathe Self (QC): 5 Upper Body Dressing (QC): 6 Lower Body Dressing (QC): 6 On/Off Footwear (QC): 4 1=Demonstrate adherence to instructed precautions during ADL tasks. 2=Patient will verbalize/demonstrate understanding of assistive devices/modifications for ADL. 3=Patient will improve strength/tolerance for activity to enable patient to perform ADL's. OT Education/Plan Problem List/Assessment Assessment: Decreased Activ Tolerance, Decreased UE Strength, Dependent Tr ansfers, Impaired Bed Mobility, Impaired Coordination, Impaired Funct Balance, Impaired Self-Care Skills Discharge Recommendations Plan/Recommendations: Continue POC Treatment Plan/Plan of Care Patient would benefit from OT for education, treatment and training to promote independence in ADL's, mobility, safety and/or upper extremity function for ADL's. Plan of Care: ADL Retraining, Caregiver Training, Concurrent Therapy, Function al Mobility, Group Exercise/Act as Ind, UE Funct Exercise/Act, UE Neuromus Re- Ed/Coord Treatment Duration: Feb 01, 2023 Frequency: At least 5 of 7 days/Wk (IRF) Estimated Hrs Per Day: 1.5 hours per day Agreement: Yes Rehab Potential: Good Time Start Time: 08:00 Stop Time: 09:00 DATE: Jan 05, 2023 Total Time Billed (hr/min): 60 Billed Treatment Time 1 visit-ADL 1 (10 min) FA 3 (50 min) co-treat with PT 60 min MARIE PHILLIPS Jan 05, 2023 12:41
--- NOTE | 2023-01-05 13:03 | Diagnostic Imaging Report ---
INDICATION: Dysphagia. Procedure was performed in conjunction with speech pathology. Video fluoroscopy was performed during swallowing of barium at multiple consistencies. 157 seconds of fluoroscopic time was utilized. Cine fluoroscopy was performed. Spot-film images were obtained. Patient ingested thin as well as nectar, applesauce, meat and honey consistency. There was laryngeal penetration during the swallowing of thin and nectar consistency. No aspiration was observed. There is moderate amount of vallecular and piriform sinus residue. This would clear after repeated swallows. IMPRESSION: Penetration with thin and nectar consistency with moderate residue. No aspiration was observed. Dictated by: Dictated on workstation # [id number]
--- NOTE | 2023-01-05 13:35 | ST Mod Barium Swallow ---
Speech Evaluation-General Medical Diagnosis Critical Illness Myopathy Onset Date: November 17, 2022 Therapy Diagnosis Therapy Diagnosis: Oropharyngeal Dysphagia Precautions Precautions: Fall, Pressure Ulcer, Aspiration Precautions/Isolations: Aspiration, Fall Prevention, Standard Precautions, Pressure Ulcer Referral Referring Physician: Dr. Wallace Reason for Referral: Evaluation/Treatment MBSS Medical History Pertinent Medical History: HTN Please refer to speech initial dysphagia evaluation. Current History Please refer to speech initial dysphagia evaluation. Reviewed History: Yes Social History Current Living Status: Significant Other Speech Mod Barium Swallow Prior Level of Function Prior to MBSS pt on nectar thick liquids and pureed consistencies. Oral Motor Skills Lingual Protrusion: Normal Lingual ROM: Normal Lingual Strength: Abnormal Lingual Strength Comments: Appears weak Volitional Dry Swallow: Yes Textures-Lateral View Lateral View Food Presentation: Thin Liquid via Cup, [place] Liquid via Cup, Honey Liquid via Cup, Pureed Solids, Ground Solids Oral Phase Labial Closure: No Impairment (WFL) Bolus Formation Pooling L/R: No Impairment (WFL) Bolus Formation Placement: No Impairment (WFL) A/P Lingual Propulsion: Moderate Impairment Lingual Movement: Moderate Impairment Pt maintains thin and nectar thick liquids in the oral cavity until ready to initiate the swallow. On thicker consistencies, pt demonstrates lingual rocking while trying to complete AP propulsion of the bolus. This also appears to result in premature spillage of those consistencies. Oral Phase Residue: Moderate Impairment Pharyngeal Phase Swallow Response: Moderate Impairment Base of Tongue: Mild Impairment Epiglottic Movement: Minimal Impairment Laryngeal Elevation: Severe Impairment Vallecular Residue: Moderate Difficulty clearing residue, increasing risk of aspiration on residue Pharyngeal Wall Residue: Mild Piriform Sinus Residue: Moderate Laryngeal Penetration: Severe Aspiration Observations: Moderate Other Pharyngeal Observations: As noted above, pt with premature spillage on thicker consistencies (honey thick liquids, pureed and minced and moist) to the valleculae or posterior valleculae. Pt demonstrates potential decrease pharyngeal strength characterized by incomplete closure of the pharynx during the swallow. This is likely resulting the pharyngeal residue in the valleculae, on the posterior pharyngeal wall, and in the pirifom sinuses. Pt has difficulty clearing the residue with effortful swallow. Pt demonstrates incomplete laryngeal closure during the swallow. Pt with deep penetration to the level of the vocal folds on thins, pt with silent aspiration on nectar thick liquids. No penetration or aspiration was noted on honey thick liquids, however pt is at increased risk due to delayed swallow initiation and incomplete closure of the larynx along with pharyngeal residue. On pureed and minced and moist consistencies, pt with increased pharyngeal residue. Pt with difficulty clearing residue, even with encouraged effortful swallows. Summary/Impressions Pt presents with SEVERE oropharyngeal dysphagia. Pt demonstrates difficulty with AP propulsion on thicker consistencies of liquids and solids and increased pharyngeal residue. Pt with difficulty clearing residue with effortful swallows, putting him at increased risk of aspiration. This REGIONAL TRANSPORTATION MANAGER is also concerned about fatigue during meals due to the amount of effort it takes to complete the swallow, ultimately also increasing risk for aspiration. Pt demonstrates penetration to the vocal folds on thin liquids and silent aspiration on nectar thick liquids. At this time, REGIONAL TRANSPORTATION MANAGER recommends NPO due to aspiration and increased aspiration risks. REGIONAL TRANSPORTATION MANAGER recommends continuing to work on swallowing strength and coordination through exercises and look at repeating MBSS in 10 days to two weeks to further assess safest diet consistency recommendation. Speech Short Term Goals Short Term Goals Short Term Goals Pt to complete a MBSS. PT TO COMPLETE MENTAL MANIPULATION OF 4 OBJECTS WITH 80% ACCURACY WITH MIN CUES. Speech Penitentiary Goals Penitentiary Goals Pt to demonstrate no s/sx of aspiration on least restrictive diet consistency. PT TO COMPLETE MEMORY TASKS FOLLOWING SHORT DELAY WITH 80% ACCURACY WITH MIN VERBAL CUES TO IMPROVE OVERALL SAFETY. PT TO COMPLETE MEDICATION AND MONEY MANAGEMENT TASKS WITH 100% ACCURACY PRIOR TO D/C. Speech-Plan Patient/Family Goals Patient/Family Goals: Pt's goal is to return home with . Treatment Plan Speech Therapy Treatment Plan: Continue Plan of Care Treatment Duration: Jan 02, 2023 Frequency: 5 times per week Estimated Hrs Per Day: .25 hour per day Rehab Potential: Good Safety Risks/Education Teaching Recipient: Patient Teaching Methods: Discussion Response to Teaching: Verbalize Understanding Education Topics Provided: Pt educated on purpose of MBSS, results and recommendations. Pt receptive and verbalized understanding. Time Speech Therapy Time In: 09:45 Speech Therapy Time Out: 10:30 DATE: Jan 05, 2023 Total Billed Time: 45 Billed Treatment Time MASHA RODGERS, MBSS Jose Manuel Shay Speech Therapy Jan 05, 2023 13:35
[2023-01-05 18:37] VITALS: BP 115/70
[2023-01-05 21:25] VITALS: BP 105/61
[2023-01-05] MEDS: MICONAZOLE 2% POWDER (DESENEX AF) 90 GM TOP SCH (21:49)
[2023-01-06] MEDS: ENOXAPARIN 40 MG/0.4 ML (LOVENOX) SYR SC SCH (06:06)
[2023-01-06] MEDS: POTASSIUM BICARB 20 MEQ (EFFER-K) TABLET PEG SCH (06:06)
[2023-01-06] MEDS: CATHETER FLUSH 10 ML SYR IV SCH ×2 (06:06→19:24)
[2023-01-06] MEDS: MULTIVIT W/MINERALS TAB (THERAGRAN M) PO SCH (06:06)
--- NOTE | 2023-01-06 06:54 | PM&R Progress Note ---
Subjective HPI/CC On Admission Date Seen by Provider: Jan 06, 2023 Time Seen by Provider: 12:30 Subjective/Events-last exam 01/06/2023: Patient only on tube feedings now due to aspiration risk Family at the bedside Very slow recovery 01/05/2023: Patient about the same Modified barium swallow did not go well and placed back on tube feedings No pain is reported 01/04/2023: Patient doing pretty well Working with therapy slow recovery No falls No pain 01/03/2023: Patient doing pretty well Very weak Working on motivation Son and are at the bedside Dr. Roldan is primary care provider in [place] No pain Review of Systems General: Fatigue, Malaise Objective Exam Vital Signs Vital Signs Date Time Temp Pulse Resp B/P (MAP) Pulse Ox O2 Delivery O2 Flow Rate FiO2 01/06/23 17:49 36.4 89 18 144/82 (102) 96 Room Air 01/03/23 01:28 21 Capillary Refill : General Appearance: WD/WN, Chronically ill, Obese, Other (Very weak) HEENT: PERRL/EOMI, Normal ENT Inspection, Pharynx Normal Neck: Full Range of Motion, Normal Inspection, Non Tender, Supple, Carotid Bruit Respiratory: Chest Non Tender, Lungs Clear, No Accessory Muscle Use, No Respiratory Distress, Decreased Breath Sounds Cardiovascular: Regular Rate, Rhythm, No Edema, No Gallop, No JVD, No Murmur, Normal Peripheral Pulses Gastrointestinal: Normal Bowel Sounds, No Organomegaly, No Pulsatile Mass, Non Tender, Soft Back: Normal Inspection, No CVA Tenderness, No Vertebral Tenderness Extremity: Normal Capillary Refill, Normal Inspection, Normal Range of Motion, Non Tender, No Calf Tenderness, No Pedal Edema Neurologic/Psychiatric: Alert, Oriented x3, department clinician II-XII Norm as Tested, Abnormal Gait, Depressed Affect, Motor Weakness ( severe muscle weakness) Skin: Normal Color, Warm/Dry Lymphatic: No Adenopathy Results/Procedures Lab Patient resulted labs reviewed. FIM Transfers Therapy Code Descriptions/Definitions Functional [place] Measure: 0=Not Assessed/NA 4=Minimal Assistance 1=Total Assistance 5=Supervision or Setup 2=Maximal Assistance 6=Modified [place] 3=Moderate Assistance 7=Complete IndependenceSCALE: Activities may be completed with or without assistive devices. 0-Iylyniydsj-xfpyevx completes the activity by him/herself with no assistance from a helper. 5-Set-up or Clean-up Assistance-helper sets up or cleans up; patient completes activity. [employer] assists only prior to or following the activity. 4-Supervision or Touching Assistance-helper provides verbal cues and/or touching/steadying and/or contact guard assistance as patient completes activity. Assistance may be provided throughout the activity or intermittently. 3-Partial/Moderate Assistance-helper does LESS THAN HALF the effort. [employer] lifts, holds or supports trunk or limbs, but provides less than half the effort. 2-Substantial/Maximal Assistance-helper does MORE THAN HALF the effort. [employer] lifts or holds trunk or limbs and provides more than half the effort. 3-Qdgayauzb-tgspso does ALL the effort. Patient does none of the effort to complete the activity. Or, the assistance of 2 or more helpers is required for the patient to complete the activity. If activity was not attempted, code reason: 7-Patient Refused. 9-Not Applicable-not attempted and the patient did not perform the activity before the current illness, exacerbation or injury. 10-Not Attempted due to Environmental Limitations-(lack of equipment, weather restraints, etc.). 88-Not Attempted due to Medical Conditions or Safety Concerns. Roll Left to Right (QC): 3 Sit to Lying (QC): 2 Sit to Stand (QC): 1 Chair/Bcp-pm-Quqxb Xfer(QC): 1 Car Transfer (QC): 88 Gait Training Does the Patient Walk?: No and Walking Goal IS indicated Walk 10 feet (QC): 88 Walk 50 ft with 2 Turns(QC): 88 Walk 150 ft (QC): 88 Walking 10ft/uneven surface-QC: 88 Gait Assistive Device: None Wheelchair Training Does the Pt Use a Wheelchair?: Yes Wheel 50 ft with 2 turns (QC): 3 Wheel 150 ft (QC): 88 Type of Wheelchair: Manual Stair Training 1 Step (curb) (QC): 88 4 Steps (QC): 88 12 Steps (QC): 88 Balance Picking up an Object (QC): 88 ADL-Treatment Eating (QC): 5 Oral Hygiene (QC): 5 Shower/Bathe Self (QC): 2 (sponge bed bath) Upper Body Dressing (QC): 2 Lower Body Dressing (QC): 1 On/Off Footwear (QC): 1 Toileting Hygiene (QC): 1 Toilet Transfer (QC): 1 Assessment/Plan Assessment and Plan Assess & Plan/Chief Complaint Assessment: Myopathy with the proximal muscle weakness Trach status PEG status Increased BMI Decreased motivation Anemia Hypokalemia Dysphagia Gautam cath in place-difficult insertion so remains in-dwelling History of GI bleed Plan: PT OT Monitor closely PEG TF Trach management 01/03/2023: Work-up anemia Continue aggressive therapy 01/04/2023: Supportive care Monitor Closely 01/05/2023: Aspiration risk noted 01/06/2023: Supportive care Aggressive rehab (1) Myopathy (2) Tracheostomy status (3) PEG (percutaneous endoscopic gastrostomy) status ANGELES GRANT DO Jan 06, 2023 06:54
[2023-01-06 08:00] VITALS: BP 136/62
[2023-01-06] MEDS: FUROSEMIDE 40 MG (LASIX) TAB PO SCH (11:39)
[2023-01-06] MEDS: ASPIRIN 81 MG CHEW (CHILDREN'S ASA) PO SCH (11:39)
[2023-01-06] MEDS: sulfaSALAzine 500 MG (AZULFIDINE) TAB PO SCH ×2 (11:39→21:50)
[2023-01-06] MEDS: PANTOPRAZOLE 40 MG (PROTONIX) VIAL IV SCH (11:40)
[2023-01-06] MEDS: DOCUSATE SODIUM 100 MG (COLACE) CAP PO SCH ×2 (11:40→21:51)
[2023-01-06] MEDS: SENNA W/DOCUSATE (SENOKOT S) TABLET PO SCH ×2 (11:40→21:50)
[2023-01-06] MEDS: LACTOBACILLUS ACIDOPHILUS (PROBIOTIC) CAPSULE PO SCH ×2 (11:40→21:50)
[2023-01-06] MEDS: LORATADINE (CLARITIN) 10 MG TAB PO SCH (11:40)
[2023-01-06] MEDS: polyethylene glycoL POWDER 17 GM (MIRALAX) PACK PO SCH ×2 (11:41→21:51)
[2023-01-06] MEDS: MICONAZOLE 2% POWDER (DESENEX AF) 90 GM TOP SCH ×2 (11:41→21:51)
[2023-01-06] MEDS: FLUTICASONE NASAL SPRAY (FLONASE) 16 GM BTL NS SCH (11:41)
[2023-01-06 17:49] VITALS: BP 144/82
[2023-01-06] MEDS: lisINopril 5 MG (PRINIVIL) TABLET PO SCH (19:24)
[2023-01-06 21:13] VITALS: BP 147/88
[2023-01-07] MEDS: CATHETER FLUSH 10 ML SYR IV SCH ×2 (06:18→18:44)
[2023-01-07] MEDS: POTASSIUM BICARB 20 MEQ (EFFER-K) TABLET PEG SCH (06:18)
[2023-01-07] MEDS: MULTIVIT W/MINERALS TAB (THERAGRAN M) PO SCH (06:18)
[2023-01-07] MEDS: ENOXAPARIN 40 MG/0.4 ML (LOVENOX) SYR SC SCH (06:19)
--- NOTE | 2023-01-07 07:39 | PM&R Progress Note ---
Subjective HPI/CC On Admission Date Seen by Provider: Jan 07, 2023 Time Seen by Provider: 12:00 Subjective/Events-last exam 01/07/2023: Patient about the same Sleeps most of the time Very slow recovery Aspiration risk remains high 01/06/2023: Patient only on tube feedings now due to aspiration risk Family at the bedside Very slow recovery 01/05/2023: Patient about the same Modified barium swallow did not go well and placed back on tube feedings No pain is reported 01/04/2023: Patient doing pretty well Working with therapy slow recovery No falls No pain 01/03/2023: Patient doing pretty well Very weak Working on motivation Son and are at the bedside Dr. Roldan is primary care provider in [place] No pain Review of Systems General: Fatigue, Malaise Objective Exam Vital Signs Vital Signs Date Time Temp Pulse Resp B/P (MAP) Pulse Ox O2 Delivery O2 Flow Rate FiO2 01/07/23 09:00 Room Air 01/07/23 08:00 36.6 90 18 144/83 (103) 01/06/23 21:13 97 01/03/23 01:28 21 Capillary Refill : General Appearance: WD/WN, Chronically ill, Obese, Other (Very weak) HEENT: PERRL/EOMI, Normal ENT Inspection, Pharynx Normal Neck: Full Range of Motion, Normal Inspection, Non Tender, Supple, Carotid Bruit Respiratory: Chest Non Tender, Lungs Clear, No Accessory Muscle Use, No Respiratory Distress, Decreased Breath Sounds Cardiovascular: Regular Rate, Rhythm, No Edema, No Gallop, No JVD, No Murmur, Normal Peripheral Pulses Gastrointestinal: Normal Bowel Sounds, No Organomegaly, No Pulsatile Mass, Non Tender, Soft Back: Normal Inspection, No CVA Tenderness, No Vertebral Tenderness Extremity: Normal Capillary Refill, Normal Inspection, Normal Range of Motion, Non Tender, No Calf Tenderness, No Pedal Edema Neurologic/Psychiatric: Alert, Oriented x3, fitting room supervisor II-XII Norm as Tested, Abnormal Gait, Depressed Affect, Motor Weakness ( severe muscle weakness) Skin: Normal Color, Warm/Dry Lymphatic: No Adenopathy Results/Procedures Lab Patient resulted labs reviewed. FIM Transfers Therapy Code Descriptions/Definitions Functional [place] Measure: 0=Not Assessed/NA 4=Minimal Assistance 1=Total Assistance 5=Supervision or Setup 2=Maximal Assistance 6=Modified [place] 3=Moderate Assistance 7=Complete IndependenceSCALE: Activities may be completed with or without assistive devices. 5-Vjjpryljsh-dfqhxib completes the activity by him/herself with no assistance from a helper. 5-Set-up or Clean-up Assistance-helper sets up or cleans up; patient completes activity. [place] assists only prior to or following the activity. 4-Supervision or Touching Assistance-helper provides verbal cues and/or touching/steadying and/or contact guard assistance as patient completes activity. Assistance may be provided throughout the activity or intermittently. 3-Partial/Moderate Assistance-helper does LESS THAN HALF the effort. [place] lifts, holds or supports trunk or limbs, but provides less than half the effort. 2-Substantial/Maximal Assistance-helper does MORE THAN HALF the effort. [place] lifts or holds trunk or limbs and provides more than half the effort. 4-[place]-esslkl does ALL the effort. Patient does none of the effort to complete the activity. Or, the assistance of 2 or more helpers is required for the patient to complete the activity. If activity was not attempted, code reason: 7-Patient Refused. 9-Not Applicable-not attempted and the patient did not perform the activity before the current illness, exacerbation or injury. 10-Not Attempted due to Environmental Limitations-(lack of equipment, weather restraints, etc.). 88-Not Attempted due to Medical Conditions or Safety Concerns. Roll Left to Right (QC): 3 Sit to Lying (QC): 2 Sit to Stand (QC): 1 Chair/Nbx-iq-Xqhxq Xfer(QC): 1 Car Transfer (QC): 88 Gait Training Does the Patient Walk?: No and Walking Goal IS indicated Walk 10 feet (QC): 88 Walk 50 ft with 2 Turns(QC): 88 Walk 150 ft (QC): 88 Walking 10ft/uneven surface-QC: 88 Gait Assistive Device: None Wheelchair Training Does the Pt Use a Wheelchair?: Yes Wheel 50 ft with 2 turns (QC): 3 Wheel 150 ft (QC): 88 Type of Wheelchair: Manual Stair Training 1 Step (curb) (QC): 88 4 Steps (QC): 88 12 Steps (QC): 88 Balance Picking up an Object (QC): 88 ADL-Treatment Eating (QC): 5 Oral Hygiene (QC): 5 Shower/Bathe Self (QC): 2 (sponge bed bath) Upper Body Dressing (QC): 2 Lower Body Dressing (QC): 1 On/Off Footwear (QC): 1 Toileting Hygiene (QC): 1 Toilet Transfer (QC): 1 Assessment/Plan Assessment and Plan Assess & Plan/Chief Complaint Assessment: Myopathy with the proximal muscle weakness Trach status PEG status Increased BMI Decreased motivation Anemia Hypokalemia Dysphagia Gautam cath in place-difficult insertion so remains in-dwelling History of GI bleed Plan: PT OT Monitor closely PEG TF Trach management 01/03/2023: Work-up anemia Continue aggressive therapy 01/04/2023: Supportive care Monitor Closely 01/05/2023: Aspiration risk noted 01/06/2023: Supportive care Aggressive rehab 01/07/2023: Supportive care Monitor closely (1) Myopathy (2) Tracheostomy status (3) PEG (percutaneous endoscopic gastrostomy) status ANGELES GRANT DO Jan 07, 2023 07:39
[2023-01-07 08:00] VITALS: BP 144/83
[2023-01-07] MEDS: polyethylene glycoL POWDER 17 GM (MIRALAX) PACK PO SCH ×3 (08:18→21:48)
[2023-01-07] MEDS: sulfaSALAzine 500 MG (AZULFIDINE) TAB PO SCH ×2 (08:44→21:47)
[2023-01-07] MEDS: lisINopril 5 MG (PRINIVIL) TABLET PO SCH (08:44)
[2023-01-07] MEDS: DOCUSATE SODIUM 100 MG (COLACE) CAP PO SCH ×2 (08:44→21:48)
[2023-01-07] MEDS: LACTOBACILLUS ACIDOPHILUS (PROBIOTIC) CAPSULE PO SCH ×2 (08:44→21:48)
[2023-01-07] MEDS: SENNA W/DOCUSATE (SENOKOT S) TABLET PO SCH ×2 (08:44→21:49)
[2023-01-07] MEDS: PANTOPRAZOLE 40 MG (PROTONIX) VIAL IV SCH (08:44)
[2023-01-07] MEDS: LORATADINE (CLARITIN) 10 MG TAB PO SCH (08:44)
[2023-01-07] MEDS: ASPIRIN 81 MG CHEW (CHILDREN'S ASA) PO SCH (08:44)
[2023-01-07] MEDS: FUROSEMIDE 40 MG (LASIX) TAB PO SCH (08:44)
[2023-01-07] MEDS: FLUTICASONE NASAL SPRAY (FLONASE) 16 GM BTL NS SCH (08:45)
[2023-01-07] MEDS: MICONAZOLE 2% POWDER (DESENEX AF) 90 GM TOP SCH ×2 (08:45→21:48)
[2023-01-07 18:30] VITALS: BP 127/72
[2023-01-07 20:00] VITALS: BP 102/67
[2023-01-08 05:55] LABS: BASOPHILS # (AUTO) 0.1 10^3/uL (0.0-0.1); BASOPHILS % (AUTO) 1 % (0-10); EOSINOPHILS # (AUTO) 0.2 10^3/uL (0.0-0.3); EOSINOPHILS % (AUTO) 4 % (0-10); HEMATOCRIT 29 % (40-54); LYMPHOCYTES # (AUTO) 1.7 10^3/uL (1.0-4.0); LYMPHOCYTES % (AUTO) 28 % (12-44); MEAN CORPUSCULAR HEMOGLOBIN 29 pg (25-34); MEAN CORPUSCULAR HGB CONC 31 g/dL (32-36); MEAN CORPUSCULAR VOLUME 92 fL (80-99); MEAN PLATELET VOLUME 9.2 fL (9.0-12.2); MONOCYTES # (AUTO) 0.6 10^3/uL (0.0-1.0); MONOCYTES % (AUTO) 10 % (0-12); NEUTROPHILS # (AUTO) 3.4 10^3/uL (1.8-7.8); NEUTROPHILS % (AUTO) 56 % (42-75); PLATELET COUNT 300 10^3/uL (130-400)
[2023-01-08 06:18] LABS: ALBUMIN 2.9 GM/DL (3.2-4.5); BILIRUBIN,TOTAL 0.3 MG/DL (0.1-1.0); CALCIUM 9.6 MG/DL (8.5-10.1); CREATININE SERUM 0.8 MG/DL (0.60-1.30); POTASSIUM 4.2 MMOL/L (3.6-5.0)
[2023-01-08] MEDS: POTASSIUM BICARB 20 MEQ (EFFER-K) TABLET PEG SCH (06:38)
[2023-01-08] MEDS: MULTIVIT W/MINERALS TAB (THERAGRAN M) PO SCH (06:38)
[2023-01-08] MEDS: ENOXAPARIN 40 MG/0.4 ML (LOVENOX) SYR SC SCH (06:38)
[2023-01-08] MEDS: CATHETER FLUSH 10 ML SYR IV SCH ×2 (06:38→17:01)
[2023-01-08 08:00] VITALS: BP 145/82
--- NOTE | 2023-01-08 08:38 | Physical Therapy Daily Note ---
PT Daily Note-Current Subjective PT in bed supine upon arrival and willing for therapy. pt reports no pain before during or after therapy. pt was left in bed supine after therapy session this day with call light and all needs met this day. Pain Section J - Health Conditions 1. Rarely or not at all 2. Occasionally 3. Frequently 4. Almost constantly 8. Unable to answer Pain Effect on Sleep: 0 Pain Interference with Therapy: 0 Pain Interference w/Day-to-Day: 2 Mental Status Patient Orientation: Person, Place, Time, Situation Transfers SCALE: Activities may be completed with or without assistive devices. 6-Qpgglmynbm-dyhaswo completes the activity by him/herself with no assistance from a helper. 5-Set-up or Clean-up Assistance-helper sets up or cleans up; patient completes activity. [place] assists only prior to or following the activity. 4-Supervision or Touching Assistance-helper provides verbal cues and/or touching/steadying and/or contact guard assistance as patient completes activity. Assistance may be provided throughout the activity or intermittently. 3-Partial/Moderate Assistance-helper does LESS THAN HALF the effort. [place] lifts, holds or supports trunk or limbs, but provides less than half the effort. 2-Substantial/Maximal Assistance-helper does MORE THAN HALF the effort. [place] lifts or holds trunk or limbs and provides more than half the effort. 1-Mhyqeaieb-bsnhfn does ALL the effort. Patient does none of the effort to complete the activity. Or, the assistance of 2 or more helpers is required for the patient to complete the activity. If activity was not attempted, code reason: 7-Patient Refused. 9-Not Applicable-not attempted and the patient did not perform the activity before the current illness, exacerbation or injury. 10-Not Attempted due to Environmental Limitations-(lack of equipment, weather restraints, etc.). 88-Not Attempted due to Medical Conditions or Safety Concerns. Weight Bearing Right Lower Extremity: Right Full Weight Bearing Left Lower Extremity: Left Full Weight Bearing Exercises Supine Ex: Ankle pumps, Glut sets, Heel Slides, Short Arc Quads, Hip abd/add Treatments pt preformed FA of dynamic UE movement to aid in cleaning face, arms and torso this morning working on endurance and gross overall mm control for UE. Pt is able to preform supine ther-ex in all planes of motion available with no resistance. pt is able to preform 20 ankle pumps with no rest. 10 x 2 hip AD/AB, 5 x 2 SLR, 5 x 2 glute sets, and SAQ 5 x 2 on BLE. pt does fatigue easily and requires rest breaks and VC reminders to breath through ther-ex and not hold his breath. Assessment Current Status: Good Progress (pt eager to preform ther-ex to gain strength this day. ) PT Enrollment Eligibility Representative Goals Care Home Goals PT Enrollment Eligibility Representative Goals Time Frame: Jan 16, 2023 Roll Left & Right (QC): 4 (Pt will be SBA for bed mobilty tasks. ) Sit to Lying (QC): 4 (Pt will be SBA for bed mobilty tasks. ) Lying-Sitting on Side/Bed(QC): 4 (Pt will be SBA for bed mobilty tasks. ) Sit to Stand (QC): 3 (Pt will be Min A for functional transfers. ) Chair/Hwb-ze-Yxwra Xfer(QC): 3 (Pt will be Min A for functional transfers. ) Toilet Transfer (QC): 3 (Pt will be Min A for functional transfers. ) Car Transfer (QC): 3 (Pt will be Min A for functional transfers. ) Does the Patient Walk: No and Walking Goal IS indicated Walk 10 feet (QC): 3 (Pt will be Min A for walking with the FWW. ) Walk 50ft with 2 Turns (QC): 3 (Pt will be Min A for walking with the FWW. ) Walk 150 ft (QC): 3 (Pt will be Min A for walking with the FWW. ) Walking 10ft on Uneven Surface: 3 (Pt will be Min A for walking with the FWW. ) 1 Step (curb) (QC): 3 (Pt will be Min A for steps to safely enter/exit the home. ) 4 Steps (QC): 3 (Pt will be Min A for steps to safely enter/exit the home. ) 12 Steps (QC): 3 (Pt will be Min A for steps to safely enter/exit the home. ) Picking up an Object (QC): 4 (Pt will be CGA with a level glass vial filler. ) Does the Pt use WC or Scooter?: Yes Wheel 50 feet with 2 turns (QC: 4 (Pt will be SBA for w/c mobility. ) Type: Manual Wheel 150 feet: 4 (Pt will be SBA for w/c mobility. ) Type: Manual PT Plan Treatment/Plan Treatment Plan: Continue Plan of Care Treatment Plan: Bed Mobility, Concurrent Therapy, Education, Functional Activity Mike, Functional Strength, Group Therapy, Gait, Safety, Therapeutic Exercise, Transfers Treatment Duration: Jan 16, 2023 Frequency: At least 5 of 7 days/Wk (IRF) Estimated Hrs Per Day: 1.5 hours per day Patient and/or Family Agrees t: Yes Time Time In: 0800 Time Out: 0845 DATE: Jan 08, 2023 Total Billed Treatment Time: 45 Total Billed Treatment 1 fa ex x 2 Yoana Antonio SURGICAL INSTRUMENT MECHANIC Jan 08, 2023 08:38
[2023-01-08] MEDS: PANTOPRAZOLE 40 MG (PROTONIX) VIAL IV SCH (08:46)
[2023-01-08] MEDS: polyethylene glycoL POWDER 17 GM (MIRALAX) PACK PO SCH ×2 (08:46→20:04)
[2023-01-08] MEDS: LORATADINE (CLARITIN) 10 MG TAB PO SCH (08:46)
[2023-01-08] MEDS: lisINopril 5 MG (PRINIVIL) TABLET PO SCH (08:46)
[2023-01-08] MEDS: FUROSEMIDE 40 MG (LASIX) TAB PO SCH (08:46)
[2023-01-08] MEDS: LACTOBACILLUS ACIDOPHILUS (PROBIOTIC) CAPSULE PO SCH ×2 (08:46→20:04)
[2023-01-08] MEDS: FLUTICASONE NASAL SPRAY (FLONASE) 16 GM BTL NS SCH (08:47)
[2023-01-08] MEDS: SENNA W/DOCUSATE (SENOKOT S) TABLET PO SCH ×2 (08:47→20:05)
[2023-01-08] MEDS: ASPIRIN 81 MG CHEW (CHILDREN'S ASA) PO SCH (08:47)
[2023-01-08] MEDS: sulfaSALAzine 500 MG (AZULFIDINE) TAB PO SCH ×2 (08:47→20:04)
[2023-01-08] MEDS: MICONAZOLE 2% POWDER (DESENEX AF) 90 GM TOP SCH ×2 (08:47→20:04)
[2023-01-08] MEDS: DOCUSATE SODIUM 100 MG (COLACE) CAP PO SCH ×2 (08:47→20:04)
[2023-01-08] MEDS: ZINC OXIDE 16% OINT (BUTT PASTE) 57 GM TUBE TOP PRN (08:47)
--- NOTE | 2023-01-08 11:17 | Occupational Ther Daily Note ---
OT Current Status-Daily Note Subjective Pt alert, lying in bed. Pt c/o fatigue from exercises with PT and moving around to cleanse from BM with nrsg. Pt agrees to therapy. Mental Status/Objective Patient Orientation: Person, Place, Time, Situation Attachments: Gautam Catheter, IV, PEG Tube ADL-Treatment Therapy Code Descriptions/Definitions Functional [place] Measure: 0=Not Assessed/NA 4=Minimal Assistance 1=Total Assistance 5=Supervision or Setup 2=Maximal Assistance 6=Modified [place] 3=Moderate Assistance 7=Complete IndependenceSCALE: Activities may be completed with or without assistive devices. 5-Ynbspnbuwn-irtzmia completes the activity by him/herself with no assistance from a helper. 5-Set-up or Clean-up Assistance-helper sets up or cleans up; patient completes activity. [place] assists only prior to or following the activity. 4-Supervision or Touching Assistance-helper provides verbal cues and/or touching/steadying and/or contact guard assistance as patient completes activity. Assistance may be provided throughout the activity or intermittently. 3-Partial/Moderate Assistance-helper does LESS THAN HALF the effort. [place] lifts, holds or supports trunk or limbs, but provides less than half the effort. 2-Substantial/Maximal Assistance-helper does MORE THAN HALF the effort. [place] lifts or holds trunk or limbs and provides more than half the effort. 1-Uvzenlmeq-hiqpiu does ALL the effort. Patient does none of the effort to complete the activity. Or, the assistance of 2 or more helpers is required for the patient to complete the activity. If activity was not attempted, code reason: 7-Patient Refused. 9-Not Applicable-not attempted and the patient did not perform the activity before the current illness, exacerbation or injury. 10-Not Attempted due to Environmental Limitations-(lack of equipment, weather restraints, etc.). 88-Not Attempted due to Medical Conditions or Safety Concerns. Oral Hygiene (QC): 5 (Supplies gathered for pt, pt able to complete oral care by self.) Toileting Hygiene (QC): 2 Other Treatment Min A for rolling toward R side. With verbal cues, pt able to go from sidelying to sitting with min A, pushing up from bedrail with HOB raised. Pt then sat EOB holding onto bed rail then EOB for 10 min with close SBA. Pt completed 10 reps long arc quad and B UE(alternating) shldr flex to 90* while sitting EOB with close SBA. Mod A to place LE's into bed when pt laid back down in sidelying then rolling to back. OT Short Term Goals Short Term Goals Time Frame: Jan 02, 2023 Eatin Oral hygiene: 5 Upper body dressin OT Correction Goals Terrapin Fisher Goals Acute change in mental status: 1 Inattention: 2 Disorganized thinkin Altered level of consciousness: 2 Eating (QC): 6 Oral Hygiene (QC): 6 Toileting Hygiene (QC): 6 Shower/Bathe Self (QC): 5 Upper Body Dressing (QC): 6 Lower Body Dressing (QC): 6 On/Off Footwear (QC): 4 1=Demonstrate adherence to instructed precautions during ADL tasks. 2=Patient will verbalize/demonstrate understanding of assistive devices/modifications for ADL. 3=Patient will improve strength/tolerance for activity to enable patient to perform ADL's. OT Education/Plan Problem List/Assessment Assessment: Decreased Activ Tolerance, Decreased UE Strength, Dependent Transfers, Impaired Bed Mobility, Impaired Funct Balance, Impaired Self-Care Skills Discharge Recommendations Plan/Recommendations: Continue POC Treatment Plan/Plan of Care Patient would benefit from OT for education, treatment and training to promote independence in ADL's, mobility, safety and/or upper extremity function for ADL's. Plan of Care: ADL Retraining, Caregiver Training, Concurrent Therapy, Functional Mobility, Group Exercise/Act as Ind, UE Funct Exercise/Act, UE Neuromus Re-Ed/Coord Treatment Duration: Feb 01, 2023 Frequency: At least 5 of 7 days/Wk (IRF) Estimated Hrs Per Day: 1.5 hours per day Agreement: Yes Rehab Potential: Good Time Start Time: 10:30 Stop Time: 11:30 DATE: Jan 08, 2023 Total Time Billed (hr/min): 60 Billed Treatment Time 1 visit-ADL 1 (15 min) EX 1 (10 min) FA 2(35 min) MARIE PHILLIPS Jan 08, 2023 11:17
--- NOTE | 2023-01-08 11:48 | PM&R Progress Note ---
Subjective HPI/CC On Admission Date Seen by Provider: Jan 08, 2023 Time Seen by Provider: 12:30 Subjective/Events-last exam 01/08/2023: Slow recovery Tube feedings only Aspiration risk places him n.p.o. Very slow recovery may preclude inpatient rehab and may need to go to skilled 01/07/2023: Patient about the same Sleeps most of the time Very slow recovery Aspiration risk remains high 01/06/2023: Patient only on tube feedings now due to aspiration risk Family at the bedside Very slow recovery 01/05/2023: Patient about the same Modified barium swallow did not go well and placed back on tube feedings No pain is reported 01/04/2023: Patient doing pretty well Working with therapy slow recovery No falls No pain 01/03/2023: Patient doing pretty well Very weak Working on motivation Son and are at the bedside Dr. Roldan is primary care provider in [place] No pain Review of Systems General: Fatigue, Malaise Objective Exam Vital Signs Vital Signs Date Time Temp Pulse Resp B/P (MAP) Pulse Ox O2 Delivery O2 Flow Rate FiO2 01/09/23 07:02 96 Room Air 0.00 01/08/23 20:08 36.6 89 20 107/61 (76) 01/03/23 01:28 21 Capillary Refill : General Appearance: WD/WN, Chronically ill, Obese, Other (Very weak) HEENT: PERRL/EOMI, Normal ENT Inspection, Pharynx Normal Neck: Full Range of Motion, Normal Inspection, Non Tender, Supple, Carotid Bruit Respiratory: Chest Non Tender, Lungs Clear, No Accessory Muscle Use, No Respiratory Distress, Decreased Breath Sounds Cardiovascular: Regular Rate, Rhythm, No Edema, No Gallop, No JVD, No Murmur, Normal Peripheral Pulses Gastrointestinal: Normal Bowel Sounds, No Organomegaly, No Pulsatile Mass, Non Tender, Soft Back: Normal Inspection, No CVA Tenderness, No Vertebral Tenderness Extremity: Normal Capillary Refill, Normal Inspection, Normal Range of Motion, Non Tender, No Calf Tenderness, No Pedal Edema Neurologic/Psychiatric: Alert, Oriented x3, plastics spreading machine operator II-XII Norm as Tested, Abnormal Gait, Depressed Affect, Motor Weakness ( severe muscle weakness) Skin: Normal Color, Warm/Dry Lymphatic: No Adenopathy Results/Procedures Lab Patient resulted labs reviewed. FIM Transfers Therapy Code Descriptions/Definitions Functional [place] Measure: 0=Not Assessed/NA 4=Minimal Assistance 1=Total Assistance 5=Supervision or Setup 2=Maximal Assistance 6=Modified [place] 3=Moderate Assistance 7=Complete IndependenceSCALE: Activities may be completed with or without assistive devices. 6-Xeloddfsvc-hinqwhu completes the activity by him/herself with no assistance from a helper. 5-Set-up or Clean-up Assistance-helper sets up or cleans up; patient completes activity. [place] assists only prior to or following the activity. 4-Supervision or Touching Assistance-helper provides verbal cues and/or touching/steadying and/or contact guard assistance as patient completes activity. Assistance may be provided throughout the activity or intermittently. 3-Partial/Moderate Assistance-helper does LESS THAN HALF the effort. [place] l ifts, holds or supports trunk or limbs, but provides less than half the effort. 2-Substantial/Maximal Assistance-helper does MORE THAN HALF the effort. [place] lifts or holds trunk or limbs and provides more than half the effort. 6-Dlytcwmlt-mfpnpg does ALL the effort. Patient does none of the effort to complete the activity. Or, the assistance of 2 or more helpers is required for t he patient to complete the activity. If activity was not attempted, code reason: 7-Patient Refused. 9-Not Applicable-not attempted and the patient did not perform the activity before the current illness, exacerbation or injury. 10-Not Attempted due to Environmental Limitations-(lack of equipment, weather restraints, etc.). 88-Not Attempted due to Medical Conditions or Safety Concerns. Roll Left to Right (QC): 3 Sit to Lying (QC): 2 Sit to Stand (QC): 1 Chair/Dho-su-Ydqxx Xfer(QC): 1 Car Transfer (QC): 88 Gait Training Does the Patient Walk?: No and Walking Goal IS indicated Walk 10 feet (QC): 88 Walk 50 ft with 2 Turns(QC): 88 Walk 150 ft (QC): 88 Walking 10ft/uneven surface-QC: 88 Gait Assistive Device: None Wheelchair Training Does the Pt Use a Wheelchair?: Yes Wheel 50 ft with 2 turns (QC): 3 Wheel 150 ft (QC): 88 Type of Wheelchair: Manual Stair Training 1 Step (curb) (QC): 88 4 Steps (QC): 88 12 Steps (QC): 88 Balance Picking up an Object (QC): 88 ADL-Treatment Eating (QC): 5 Oral Hygiene (QC): 5 (Supplies gathered for pt, pt able to complete oral care by self.) Shower/Bathe Self (QC): 2 (sponge bed bath) Upper Body Dressing (QC): 2 Lower Body Dressing (QC): 1 On/Off Footwear (QC): 1 Toileting Hygiene (QC): 2 Toilet Transfer (QC): 1 Assessment/Plan Assessment and Plan Assess & Plan/Chief Complaint Assessment: 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
--- NOTE | 2023-01-08 13:08 | Speech Therapy Daily Note ---
Speech Daily Progress Note Subjective Date Seen by Provider: Jan 08, 2023 Time Seen by Provider: 09:45 Pt laying in bed when SAND SHOVELER enters room. Pt pleasant and cooperative throughout session. Pain Numeric Pain Scale: 0-No Pain Objective Pt completes swallowing exercises with min-mod cues: lingual protrusion x10 effortful swallow: x3 laryngeal elevation x10 tongue in cheek x10 lingual retraction - unable to complete. Assessment Assessment Current Status: Fair Progress Treatment Plan Continue Plan of Care Speech Short Term Goals Short Term Goals Short Term Goals Pt to complete a MBSS. PT TO COMPLETE MENTAL MANIPULATION OF 4 OBJECTS WITH 80% ACCURACY WITH MIN CUES. Speech Retirement Goals Retirement Goals Pt to demonstrate no s/sx of aspiration on least restrictive diet consistency. PT TO COMPLETE MEMORY TASKS FOLLOWING SHORT DELAY WITH 80% ACCURACY WITH MIN VERBAL CUES TO IMPROVE OVERALL SAFETY. PT TO COMPLETE MEDICATION AND MONEY MANAGEMENT TASKS WITH 100% ACCURACY PRIOR TO D/C. Speech-Plan Patient/Family Goals Patient/Family Goals: Pending IRU progress Treatment Plan Speech Therapy Treatment Plan: Continue Plan of Care Treatment Duration: Jan 02, 2023 Frequency: 5 times per week Estimated Hrs Per Day: .25 hour per day Rehab Potential: Good Safety Risks/Education Teaching Recipient: Patient Teaching Methods: Discussion Response to Teaching: Verbalize Understanding Education Topics Provided: Pt educated on purpose of therapy tasks. Pt receptive and verbalized understanding. Time Speech Therapy Time In: 09:45 Speech Therapy Time Out: 10:00 DATE: Jan 08, 2023 Total Billed Time: 15 Billed Treatment Time DYS Jose Manuel Hernandez Speech Therapy Jan 08, 2023 13:08
--- NOTE | 2023-01-08 13:39 | Physical Therapy Daily Note ---
PT Daily Note-Current Subjective Pt found lying in bed upon entry. Agreed to PT. Reports he is having pain in his feet and ankle pre-treatment. Also reports fatigue. Pain Section J - Health Conditions 1. Rarely or not at all 2. Occasionally 3. Frequently 4. Almost constantly 8. Unable to answer Pain Effect on Sleep: 0 Pain Interference with Therapy: 0 Pain Interference w/Day-to-Day: 2 Mental Status Patient Orientation: Person Transfers SCALE: Activities may be completed with or without assistive devices. 0-Yebpsvvybo-kkdatyk completes the activity by him/herself with no assistance from a helper. 5-Set-up or Clean-up Assistance-helper sets up or cleans up; patient completes activity. [place] assists only prior to or following the activity. 4-Supervision or Touching Assistance-helper provides verbal cues and/or touching/steadying and/or contact guard assistance as patient completes activity. Assistance may be provided throughout the activity or intermittently. 3-Partial/Moderate Assistance-helper does LESS THAN HALF the effort. [place] lifts, holds or supports trunk or limbs, but provides less than half the effort. 2-Substantial/Maximal Assistance-helper does MORE THAN HALF the effort. [place] lifts or holds trunk or limbs and provides more than half the effort. 3-Jdvmaofpo-dnirby does ALL the effort. Patient does none of the effort to complete the activity. Or, the assistance of 2 or more helpers is required for the patient to complete the activity. If activity was not attempted, code reason: 7-Patient Refused. 9-Not Applicable-not attempted and the patient did not perform the activity before the current illness, exacerbation or injury. 10-Not Attempted due to Environmental Limitations-(lack of equipment, weather restraints, etc.). 88-Not Attempted due to Medical Conditions or Safety Concerns. Roll Left & Right (QC): 3 Sit to Lying (QC): 2 Lying to Sitting/Side of Bed(Q: 2 Pt MOD assist /c rolling transfer R/L sides. Able to partially self-assist /c use of bed rails and hand held assist. Pt requires MAX assist /c sit to lying and lying to sitting transfer for LE lifting/lowering and hand held lifting assistance. Partially self-assists /c use of bed rail. Weight Bearing Right Lower Extremity: Right Full Weight Bearing Left Lower Extremity: Left Full Weight Bearing Gait Training Does the Patient Walk?: No and Walking Goal IS indicated Treatments Seated Therapeutic Exercises (B): LAQs x 20 Supine Therapeutic Exercises (B): Heel slides x 20 Ankle pumps x 20 Assessment Current Status: Fair Progress Pt MAX assist /c sit to lying and lying to sitting transfers. Required hand held assistance and lifting/lowering assistance /c BLEs to complete. Pt placed on bedpan during transfer and completes rolling from L to R side. Requires MOD assist /c rolling and uses bed rails to complete. Pt completes seated and supine exercises on bed. Dizziness reported while being seated on edge of bed for 2 minutes. Progress pt as tolerated per POC to improve strength, endurance, and functional ability. PT Director Franchise Sales Goals Director Franchise Sales Goals PT Director Franchise Sales Goals Time Frame: Jan 16, 2023 Roll Left & Right (QC): 4 (Pt will be SBA for bed mobilty tasks. ) Sit to Lying (QC): 4 (Pt will be SBA for bed mobilty tasks. ) Lying-Sitting on Side/Bed(QC): 4 (Pt will be SBA for bed mobilty tasks. ) Sit to Stand (QC): 3 (Pt will be Min A for functional transfers. ) Chair/Znc-vz-Rbbfn Xfer(QC): 3 (Pt will be Min A for functional transfers. ) Toilet Transfer (QC): 3 (Pt will be Min A for functional transfers. ) Car Transfer (QC): 3 (Pt will be Min A for functional transfers. ) Does the Patient Walk: No and Walking Goal IS indicated Walk 10 feet (QC): 3 (Pt will be Min A for walking with the FWW. ) Walk 50ft with 2 Turns (QC): 3 (Pt will be Min A for walking with the FWW. ) Walk 150 ft (QC): 3 (Pt will be Min A for walking with the FWW. ) Walking 10ft on Uneven Surface: 3 (Pt will be Min A for walking with the FWW. ) 1 Step (curb) (QC): 3 (Pt will be Min A for steps to safely enter/exit the home. ) 4 Steps (QC): 3 (Pt will be Min A for steps to safely enter/exit the home. ) 12 Steps (QC): 3 (Pt will be Min A for steps to safely enter/exit the home. ) Picking up an Object (QC): 4 (Pt will be CGA with a gateman. ) Does the Pt use WC or Scooter?: Yes Wheel 50 feet with 2 turns (QC: 4 (Pt will be SBA for w/c mobility. ) Type: Manual Wheel 150 feet: 4 (Pt will be SBA for w/c mobility. ) Type: Manual PT Plan Treatment/Plan Treatment Plan: Continue Plan of Care Treatment Plan: Bed Mobility, Concurrent Therapy, Education, Functional Activity Mike, Functional Strength, Group Therapy, Gait, Safety, Therapeutic Exercise, Transfers Treatment Duration: Jan 16, 2023 Frequency: At least 5 of 7 days/Wk (IRF) Estimated Hrs Per Day: 1.5 hours per day Patient and/or Family Agrees t: Yes Time Time In: 1230 Time Out: 1315 DATE: Jan 08, 2023 Total Billed Treatment Time: 45 Total Billed Treatment 1 visit FA x 2 EX x 1 HEMA PEPE PTA Jan 08, 2023 13:39
--- NOTE | 2023-01-08 13:47 | Speech Therapy Daily Note ---
Speech Daily Progress Note Subjective Date Seen by Provider: Jan 08, 2023 Time Seen by Provider: 13:25 Pt laying in bed. Pt states he is exhausted from therapy. Pt pleasant and cooperative throughout session. Pain Location: No Pain Reported Objective Pt completes the following swallowing exercises with 100% accuracy with min verbal cues: lingual protrusion x30 Effortful swallows x10 tongue in cheek x15 laryngeal elevation x25 Assessment Assessment Current Status: Good Progress Treatment Plan Continue Plan of Care Speech Short Term Goals Short Term Goals Short Term Goals Pt to complete a MBSS. PT TO COMPLETE MENTAL MANIPULATION OF 4 OBJECTS WITH 80% ACCURACY WITH MIN CUES. Speech Inspector Machine Cut Glass Goals Inspector Machine Cut Glass Goals Pt to demonstrate no s/sx of aspiration on least restrictive diet consistency. PT TO COMPLETE MEMORY TASKS FOLLOWING SHORT DELAY WITH 80% ACCURACY WITH MIN [place]ER[place] BAL CUES TO IMPROVE OVERALL SAFETY. PT TO COMPLETE MEDICATION AND MONEY MANAGEMENT TASKS WITH 100% ACCURACY PRIOR TO D/C. Speech-Plan Patient/Family Goals Patient/Family Goals: Pending progress in IRU Treatment Plan Speech Therapy Treatment Plan: Continue Plan of Care Treatment Duration: Jan 02, 2023 Frequency: 5 times per week Estimated Hrs Per Day: .25 hour per day Rehab Potential: Good Safety Risks/Education Teaching Recipient: Patient Response to Teaching: Verbalize Understanding Education Topics Provided: Pt educated on purpose of therapy tasks. Pt receptive and verbalized understanding. Time Speech Therapy Time In: 13:25 Speech Therapy Time Out: 13:40 DATE: Jan 08, 2023 Total Billed Time: 15 Billed Treatment Time DYS Jose Manuel Hernandez Speech Therapy Jan 08, 2023 13:47
[2023-01-08 17:16] VITALS: BP 121/63
[2023-01-08 20:08] VITALS: BP 107/61
[2023-01-09] MEDS: CATHETER FLUSH 10 ML SYR IV SCH ×2 (06:30→18:01)
[2023-01-09] MEDS: MULTIVIT W/MINERALS TAB (THERAGRAN M) PO SCH (06:31)
[2023-01-09] MEDS: ENOXAPARIN 40 MG/0.4 ML (LOVENOX) SYR SC SCH (06:31)
[2023-01-09] MEDS: POTASSIUM BICARB 20 MEQ (EFFER-K) TABLET PEG SCH (06:31)
[2023-01-09 08:30] VITALS: BP 111/69
--- NOTE | 2023-01-09 09:00 | Physical Therapy Daily Note ---
PT Daily Note-Current Subjective Pt found seated on bedside commode /c OT upon entry. Agreed to PT/OT co- treatment. PT/OT co-treatment for safety and skilled intervention of two therapists. Pt reports partial BLE numbness after being transferred from commode to wheelchair. Reports BLE fatigue /c seated therapeutic exercises. Pain Section J - Health Conditions 1. Rarely or not at all 2. Occasionally 3. Frequently 4. Almost constantly 8. Unable to answer Pain Effect on Sleep: 0 Pain Interference with Therapy: 0 Pain Interference w/Day-to-Day: 2 Mental Status Patient Orientation: Person, Place Transfers SCALE: Activities may be completed with or without assistive devices. 8-Nkcgitolco-zlefmja completes the activity by him/herself with no assistance from a helper. 5-Set-up or Clean-up Assistance-helper sets up or cleans up; patient completes activity. [place] assists only prior to or following the activity. 4-Supervision or Touching Assistance-helper provides verbal cues and/or touching/steadying and/or contact guard assistance as patient completes activity. Assistance may be provided throughout the activity or intermittently. 3-Partial/Moderate Assistance-helper does LESS THAN HALF the effort. [place] lifts, holds or supports trunk or limbs, but provides less than half the effort. 2-Substantial/Maximal Assistance-helper does MORE THAN HALF the effort. [place] lifts or holds trunk or limbs and provides more than half the effort. 4-Bpmfnbics-etmyjp does ALL the effort. Patient does none of the effort to complete the activity. Or, the assistance of 2 or more helpers is required for the patient to complete the activity. If activity was not attempted, code reason: 7-Patient Refused. 9-Not Applicable-not attempted and the patient did not perform the activity before the current illness, exacerbation or injury. 10-Not Attempted due to Environmental Limitations-(lack of equipment, weather restraints, etc.). 88-Not Attempted due to Medical Conditions or Safety Concerns. Sit to Lying (QC): 3 Sit to Stand (QC): 1 Toilet Transfer (QC): 1 Pt completes sit to lying transfer /c MIN LE lifting assistance and lifting at shoulders to straighten trunk in bed. Pt dependent /c sit to stand and toilet transfers. Sit to stand machine used to transfer pt to wheelchair, bedside commode, and edge of bed. Weight Bearing Right Lower Extremity: Right Full Weight Bearing Left Lower Extremity: Left Full Weight Bearing Gait Training Does the Patient Walk?: No and Walking Goal IS indicated Treatments Seated Therapeutic Exercises (B) Hip add /c ball x 20 Marching x 20 Hip abd x 20 Heel slides x 20 LAQs x 20 Supine Therapeutic Exercises (B): Quad sets x 20 Glute sets x 20 Ankle pumps x 20 Standing /c sit to stand machine for 2 minutes Assessment Current Status: Fair Progress Pt demonstrates poor tolerance /c therapeutic exercises. While completing seated exercises pt reports LE fatigue and is then transferred to bed. Sit to stand transfers and chair to chair transfers completed /c use of sit to stand machine. Pt completes 2 minutes of standing /c sit to stand machine. Increased fatigue reported /c completion. Continue to progress per POC to improve strength, endurance, and functional ability. PT Insurance Sales Professional Goals Insurance Sales Professional Goals PT Insurance Sales Professional Goals Time Frame: Jan 16, 2023 Roll Left & Right (QC): 4 (Pt will be SBA for bed mobilty tasks. ) Sit to Lying (QC): 4 (Pt will be SBA for bed mobilty tasks. ) Lying-Sitting on Side/Bed(QC): 4 (Pt will be SBA for bed mobilty tasks. ) Sit to Stand (QC): 3 (Pt will be Min A for functional transfers. ) Chair/Oqj-be-Hzkyp Xfer(QC): 3 (Pt will be Min A for functional transfers. ) Toilet Transfer (QC): 3 (Pt will be Min A for functional transfers. ) Car Transfer (QC): 3 (Pt will be Min A for functional transfers. ) Does the Patient Walk: No and Walking Goal IS indicated Walk 10 feet (QC): 3 (Pt will be Min A for walking with the FWW. ) Walk 50ft with 2 Turns (QC): 3 (Pt will be Min A for walking with the FWW. ) Walk 150 ft (QC): 3 (Pt will be Min A for walking with the FWW. ) Walking 10ft on Uneven Surface: 3 (Pt will be Min A for walking with the FWW. ) 1 Step (curb) (QC): 3 (Pt will be Min A for steps to safely enter/exit the home. ) 4 Steps (QC): 3 (Pt will be Min A for steps to safely enter/exit the home. ) 12 Steps (QC): 3 (Pt will be Min A for steps to safely enter/exit the home. ) Picking up an Object (QC): 4 (Pt will be CGA with a protection agent. ) Does the Pt use WC or Scooter?: Yes Wheel 50 feet with 2 turns (QC: 4 (Pt will be SBA for w/c mobility. ) Type: Manual Wheel 150 feet: 4 (Pt will be SBA for w/c mobility. ) Type: Manual PT Plan Treatment/Plan Treatment Plan: Continue Plan of Care Treatment Plan: Bed Mobility, Concurrent Therapy, Education, Functional Activity Mike, Functional Strength, Group Therapy, Gait, Safety, Therapeutic Exercise, Transfers Treatment Duration: Jan 16, 2023 Frequency: At least 5 of 7 days/Wk (IRF) Estimated Hrs Per Day: 1.5 hours per day Patient and/or Family Agrees t: Yes Time Time In: 0800 Time Out: 899 DATE: Jan 09, 2023 Total Billed Treatment Time: 60 Total Billed Treatment 1 visit EX x 2 FA x 2 Co-treatment time: 2779-9551 Total treatment time: 5886-5689 HEMA PEPE PTA Jan 09, 2023 09:00
[2023-01-09] MEDS: LORATADINE (CLARITIN) 10 MG TAB PO SCH (09:18)
[2023-01-09] MEDS: FUROSEMIDE 40 MG (LASIX) TAB PO SCH (09:18)
[2023-01-09] MEDS: sulfaSALAzine 500 MG (AZULFIDINE) TAB PO SCH ×2 (09:18→21:28)
[2023-01-09] MEDS: lisINopril 5 MG (PRINIVIL) TABLET PO SCH (09:18)
[2023-01-09] MEDS: LACTOBACILLUS ACIDOPHILUS (PROBIOTIC) CAPSULE PO SCH ×2 (09:19→21:28)
[2023-01-09] MEDS: FLUTICASONE NASAL SPRAY (FLONASE) 16 GM BTL NS SCH (09:19)
[2023-01-09] MEDS: polyethylene glycoL POWDER 17 GM (MIRALAX) PACK PO SCH ×2 (09:19→21:28)
[2023-01-09] MEDS: SENNA W/DOCUSATE (SENOKOT S) TABLET PO SCH ×2 (09:19→21:29)
[2023-01-09] MEDS: DOCUSATE SODIUM 100 MG (COLACE) CAP PO SCH ×2 (09:19→21:28)
[2023-01-09] MEDS: PANTOPRAZOLE 40 MG (PROTONIX) VIAL IV SCH (09:19)
[2023-01-09] MEDS: ASPIRIN 81 MG CHEW (CHILDREN'S ASA) PO SCH (09:19)
[2023-01-09] MEDS: MICONAZOLE 2% POWDER (DESENEX AF) 90 GM TOP SCH ×2 (09:19→21:29)
--- NOTE | 2023-01-09 09:20 | PM&R Progress Note ---
Subjective HPI/CC On Admission Date Seen by Provider: Jan 09, 2023 Time Seen by Provider: 12:00 Subjective/Events-last exam 01/09/2023: Sister and family at the bedside today Very pleased with his progress Remains n.p.o. due to aspiration risk We will continue aggressive therapy Very slow recovery 01/08/2023: Slow recovery Tube feedings only Aspiration risk places him n.p.o. Very slow recovery may preclude inpatient rehab and may need to go to skilled 01/07/2023: Patient about the same Sleeps most of the time Very slow recovery Aspiration risk remains high 01/06/2023: Patient only on tube feedings now due to aspiration risk Family at the bedside Very slow recovery 01/05/2023: Patient about the same Modified barium swallow did not go well and placed back on tube feedings No pain is reported 01/04/2023: Patient doing pretty well Working with therapy slow recovery No falls No pain 01/03/2023: Patient doing pretty well Very weak Working on motivation Son and are at the bedside Dr. Roldan is primary care provider in [place] No pain Review of Systems General: Fatigue, Malaise Objective Exam Vital Signs Vital Signs Date Time Temp Pulse Resp B/P (MAP) Pulse Ox O2 Delivery O2 Flow Rate FiO2 01/09/23 18:00 97 88/56 (67) 01/09/23 08:30 36.5 16 95 Nasal Cannula 2.00 01/03/23 01:28 21 Capillary Refill : General Appearance: WD/WN, Chronically ill, Obese, Other (Very weak) HEENT: PERRL/EOMI, Normal ENT Inspection, Pharynx Normal Neck: Full Range of Motion, Normal Inspection, Non Tender, Supple, Carotid Bruit Respiratory: Chest Non Tender, Lungs Clear, No Accessory Muscle Use, No Respiratory Distress, Decreased Breath Sounds Cardiovascular: Regular Rate, Rhythm, No Edema, No Gallop, No JVD, No Murmur, Normal Peripheral Pulses Gastrointestinal: Normal Bowel Sounds, No Organomegaly, No Pulsatile Mass, Non Tender, Soft Back: Normal Inspection, No CVA Tenderness, No Vertebral Tenderness Extremity: Normal Capillary Refill, Normal Inspection, Normal Range of Motion, Non Tender, No Calf Tenderness, No Pedal Edema Neurologic/Psychiatric: Alert, Oriented x3, construction plumber II-XII Norm as Tested, Abnormal Gait, Depressed Affect, Motor Weakness ( severe muscle weakness) Skin: Normal Color, Warm/Dry Lymphatic: No Adenopathy Results/Procedures Lab Patient resulted labs reviewed. FIM Transfers Therapy Code Descriptions/Definitions Functional [place] Measure: 0=Not Assessed/NA 4=Minimal Assistance 1=Total Assistance 5=Supervision or Setup 2=Maximal Assistance 6=Modified [place] 3=Moderate Assistance 7=Complete IndependenceSCALE: Activities may be completed with or without assistive devices. 6-Sthlpetgqt-qjsexzc completes the activity by him/herself with no assistance from a helper. 5-Set-up or Clean-up Assistance-helper sets up or cleans up; patient completes activity. [place] assists only prior to or following the activity. 4-Supervision or Touching Assistance-helper provides verbal cues and/or touching/steadying and/or contact guard assistance as patient completes activity. Assistance may be provided throughout the activity or intermittently. 3-Partial/Moderate Assistance-helper does LESS THAN HALF the effort. [place] lifts, holds or supports trunk or limbs, but provides less than half the effort. 2-Substantial/Maximal Assistance-helper does MORE THAN HALF the effort. [place] lifts or holds trunk or limbs and provides more than half the effort. 6-Peiyfagnz-ifmxca does ALL the effort. Patient does none of the effort to complete the activity. Or, the assistance of 2 or more helpers is required for the patient to complete the activity. If activity was not attempted, code reason: 7-Patient Refused. 9-Not Applicable-not attempted and the patient did not perform the activity before the current illness, exacerbation or injury. 10-Not Attempted due to Environmental Limitations-(lack of equipment, weather restraints, etc.). 88-Not Attempted due to Medical Conditions or Safety Concerns. Roll Left to Right (QC): 3 Sit to Lying (QC): 3 Sit to Stand (QC): 1 Chair/Cea-cg-Asofp Xfer(QC): 1 Car Transfer (QC): 88 Gait Training Does the Patient Walk?: No and Walking Goal IS indicated Walk 10 feet (QC): 88 Walk 50 ft with 2 Turns(QC): 88 Walk 150 ft (QC): 88 Walking 10ft/uneven surface-QC: 88 Gait Assistive Device: None Wheelchair Training Does the Pt Use a Wheelchair?: Yes Wheel 50 ft with 2 turns (QC): 3 Wheel 150 ft (QC): 88 Type of Wheelchair: Manual Stair Training 1 Step (curb) (QC): 88 4 Steps (QC): 88 12 Steps (QC): 88 Balance Picking up an Object (QC): 88 ADL-Treatment Eating (QC): 5 Oral Hygiene (QC): 5 (Supplies gathered for pt, pt able to complete oral care by self.) Shower/Bathe Self (QC): 2 (sponge bed bath) Upper Body Dressing (QC): 2 Lower Body Dressing (QC): 1 On/Off Footwear (QC): 1 Toileting Hygiene (QC): 2 Toilet Transfer (QC): 1 Assessment/Plan Assessment and Plan Assess & Plan/Chief Complaint 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 status due to aspiration risk Continue tube feedings (1) Myopathy (2) Tracheostomy status (3) PEG (percutaneous endoscopic gastrostomy) status ANGELES GRANT DO Jan 09, 2023 09:20
--- NOTE | 2023-01-09 09:41 | Speech Therapy Daily Note ---
Speech Daily Progress Note Subjective Date Seen by Provider: Jan 09, 2023 Time Seen by Provider: 09:00 Pt laying in bed when REHABILITATION SERVICES MANAGER enters the room. Pt says he is not very comfortable. audiology assistant looking for someone to help adjust patient in bed. Pt reports he did not sleep well last night. Pt pleasant and cooperative throughout the session. Pain Location: No Pain Reported Objective Pt completes the following swallowing exercises with 100% accuracy with min verbal cues: lingual protrusion: x30 effortful swallow: x8 tongue in cheek: x20 laryngeal elevation exercise:x25 Pt completes cognitive task of matching states to their nicknames with min cues. Assessment Assessment Current Status: Fair Progress Treatment Plan Continue Plan of Care Speech Short Term Goals Short Term Goals Short Term Goals Pt to complete a MBSS. PT TO COMPLETE MENTAL MANIPULATION OF 4 OBJECTS WITH 80% ACCURACY WITH MIN CUES. Speech Senior Care Goals Switch Operator Goals Pt to demonstrate no s/sx of aspiration on least restrictive diet consistency. PT TO COMPLETE MEMORY TASKS FOLLOWING SHORT DELAY WITH 80% ACCURACY WITH MIN VERBAL CUES TO IMPROVE OVERALL SAFETY. PT TO COMPLETE MEDICATION AND MONEY MANAGEMENT TASKS WITH 100% ACCURACY PRIOR TO D/C. Speech-Plan Patient/Family Goals Patient/Family Goals: Pending progress in IRU Treatment Plan Speech Therapy Treatment Plan: Continue Plan of Care Treatment Duration: Jan 02, 2023 Frequency: 5 times per week Estimated Hrs Per Day: .25 hour per day Rehab Potential: Good Safety Risks/Education Teaching Recipient: Patient Teaching Methods: Discussion Response to Teaching: Verbalize Understanding Education Topics Provided: Pt educated on purpose of therapy exercises. Pt receptive and verbalized understanding. Time Speech Therapy Time In: 09:30 Speech Therapy Time Out: 10:10 DATE: Jan 09, 2023 Total Billed Time: 40 Billed Treatment Time S/L TX, DYS TX Jose Manuel Shay Speech Therapy Jan 09, 2023 09:41
[2023-01-09 18:00] VITALS: BP 88/56
[2023-01-09 20:39] VITALS: BP 93/63
--- NOTE | 2023-01-10 06:06 | PM&R Progress Note ---
Subjective HPI/CC On Admission Date Seen by Provider: Jan 10, 2023 Time Seen by Provider: 12:00 Subjective/Events-last exam 01/10/2023: Patient doing pretty well Slow recovery Unrealistic family to take care of bedridden state with Gautam catheter trach and tube feedings so may need skilled care 01/09/2023: Sister and family at the bedside today Very pleased with his progress Remains n.p.o. due to aspiration risk We will continue aggressive therapy Very slow recovery 01/08/2023: Slow recovery Tube feedings only Aspiration risk places him n.p.o. Very slow recovery may preclude inpatient rehab and may need to go to skilled 01/07/2023: Patient about the same Sleeps most of the time Very slow recovery Aspiration risk remains high 01/06/2023: Patient only on tube feedings now due to aspiration risk Family at the bedside Very slow recovery 01/05/2023: Patient about the same Modified barium swallow did not go well and placed back on tube feedings No pain is reported 01/04/2023: Patient doing pretty well Working with therapy slow recovery No falls No pain 01/03/2023: Patient doing pretty well Very weak Working on motivation Son and are at the bedside Dr. Roldan is primary care provider in [place] No pain Review of Systems General: Fatigue, Malaise Objective Exam Vital Signs Vital Signs Date Time Temp Pulse Resp B/P (MAP) Pulse Ox O2 Delivery O2 Flow Rate FiO2 01/10/23 20:31 35.7 87 20 121/78 (92) 99 Room Air 01/09/23 08:30 2.00 Capillary Refill : General Appearance: WD/WN, Chronically ill, Obese, Other (Very weak) HEENT: PERRL/EOMI, Normal ENT Inspection, Pharynx Normal Neck: Full Range of Motion, Normal Inspection, Non Tender, Supple, Carotid Bruit Respiratory: Chest Non Tender, Lungs Clear, No Accessory Muscle Use, No Respiratory Distress, Decreased Breath Sounds Cardiovascular: Regular Rate, Rhythm, No Edema, No Gallop, No JVD, No Murmur, Normal Peripheral Pulses Gastrointestinal: Normal Bowel Sounds, No Organomegaly, No Pulsatile Mass, Non Tender, Soft Back: Normal Inspection, No CVA Tenderness, No Vertebral Tenderness Extremity: Normal Capillary Refill, Normal Inspection, Normal Range of Motion, Non Tender, No Calf Tenderness, No Pedal Edema Neurologic/Psychiatric: Alert, Oriented x3, cardiovascular lab director II-XII Norm as Tested, Abnormal Gait, Depressed Affect, Motor Weakness ( severe muscle weakness) Skin: Normal Color, Warm/Dry Lymphatic: No Adenopathy Results/Procedures Lab Patient resulted labs reviewed. FIM Transfers Therapy Code Descriptions/Definitions Functional [place] Measure: 0=Not Assessed/NA 4=Minimal Assistance 1=Total Assistance 5=Supervision or Setup 2=Maximal Assistance 6=Modified [place] 3=Moderate Assistance 7=Complete IndependenceSCALE: Activities may be completed with or without assistive devices. 3-Ptyddddwze-agvhaxy completes the activity by him/herself with no assistance from a helper. 5-Set-up or Clean-up Assistance-helper sets up or cleans up; patient completes activity. [place] assists only prior to or following the activity. 4-Supervision or Touching Assistance-helper provides verbal cues and/or touching/steadying and/or contact guard assistance as patient completes activity. Assistance may be provided throughout the activity or intermittently. 3-Partial/Moderate Assistance-helper does LESS THAN HALF the effort. [place] lifts, holds or supports trunk or limbs, but provides less than half the effort. 2-Substantial/Maximal Assistance-helper does MORE THAN HALF the effort. [place] lifts or holds trunk or limbs and provides more than half the effort. 9-Ejgkhaugf-xkgpkn does ALL the effort. Patient does none of the effort to complete the activity. Or, the assistance of 2 or more helpers is required for the patient to complete the activity. If activity was not attempted, code reason: 7-Patient Refused. 9-Not Applicable-not attempted and the patient did not perform the activity before the current illness, exacerbation or injury. 10-Not Attempted due to Environmental Limitations-(lack of equipment, weather restraints, etc.). 88-Not Attempted due to Medical Conditions or Safety Concerns. Roll Left to Right (QC): 3 Sit to Lying (QC): 3 Sit to Stand (QC): 1 Chair/Rru-ac-Wztcy Xfer(QC): 1 Car Transfer (QC): 88 Gait Training Does the Patient Walk?: No and Walking Goal IS indicated Walk 10 feet (QC): 88 Walk 50 ft with 2 Turns(QC): 88 Walk 150 ft (QC): 88 Walking 10ft/uneven surface-QC: 88 Gait Assistive Device: None Wheelchair Training Does the Pt Use a Wheelchair?: Yes Wheel 50 ft with 2 turns (QC): 3 Wheel 150 ft (QC): 88 Type of Wheelchair: Manual Stair Training 1 Step (curb) (QC): 88 4 Steps (QC): 88 12 Steps (QC): 88 Balance Picking up an Object (QC): 88 ADL-Treatment Eating (QC): 5 Oral Hygiene (QC): 5 (Supplies gathered for pt, pt able to complete oral care by self.) Shower/Bathe Self (QC): 2 (sponge bed bath) Upper Body Dressing (QC): 2 Lower Body Dressing (QC): 1 On/Off Footwear (QC): 1 Toileting Hygiene (QC): 2 Toilet Transfer (QC): 1 Assessment/Plan Assessment and Plan Assess & Plan/Chief Complaint 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 status due to aspiration risk Continue tube feedings 01/10/2023: Supportive care Tube feeds (1) Myopathy (2) Tracheostomy status (3) PEG (percutaneous endoscopic gastrostomy) status ANGELES GRANT DO Jan 10, 2023 06:06
[2023-01-10] MEDS: POTASSIUM BICARB 20 MEQ (EFFER-K) TABLET PEG SCH (06:27)
[2023-01-10] MEDS: ENOXAPARIN 40 MG/0.4 ML (LOVENOX) SYR SC SCH (06:27)
[2023-01-10] MEDS: MULTIVIT W/MINERALS TAB (THERAGRAN M) PO SCH (06:27)
[2023-01-10] MEDS: CATHETER FLUSH 10 ML SYR IV SCH ×2 (06:29→17:23)
[2023-01-10 08:00] VITALS: BP 122/79
[2023-01-10] MEDS: ASPIRIN 81 MG CHEW (CHILDREN'S ASA) PO SCH (09:17)
[2023-01-10] MEDS: FUROSEMIDE 40 MG (LASIX) TAB PO SCH (09:17)
[2023-01-10] MEDS: sulfaSALAzine 500 MG (AZULFIDINE) TAB PO SCH ×2 (09:17→21:12)
[2023-01-10] MEDS: LORATADINE (CLARITIN) 10 MG TAB PO SCH (09:17)
[2023-01-10] MEDS: lisINopril 5 MG (PRINIVIL) TABLET PO SCH (09:17)
[2023-01-10] MEDS: LACTOBACILLUS ACIDOPHILUS (PROBIOTIC) CAPSULE PO SCH ×2 (09:17→21:12)
[2023-01-10] MEDS: PANTOPRAZOLE 40 MG (PROTONIX) VIAL IV SCH (09:18)
[2023-01-10] MEDS: FLUTICASONE NASAL SPRAY (FLONASE) 16 GM BTL NS SCH (09:18)
[2023-01-10] MEDS: MICONAZOLE 2% POWDER (DESENEX AF) 90 GM TOP SCH ×2 (09:20→21:12)
[2023-01-10] MEDS: polyethylene glycoL POWDER 17 GM (MIRALAX) PACK PO SCH ×2 (09:20→21:00)
[2023-01-10] MEDS: SENNA W/DOCUSATE (SENOKOT S) TABLET PO SCH ×2 (09:20→21:00)
[2023-01-10] MEDS: DOCUSATE SODIUM 100 MG (COLACE) CAP PO SCH ×2 (09:20→21:00)
--- NOTE | 2023-01-10 10:40 | Speech Therapy Daily Note ---
Speech Daily Progress Note Subjective Date Seen by Provider: Jan 10, 2023 Time Seen by Provider: 09:30 Pt laying in bed with nurse at bedside. Pt reports he is tired from therapy. Pt pleasant and cooperative throughout session. Pain Numeric Pain Scale: 0-No Pain Objective Pt completes the following swallowing exercises with min verbal cues: lingual protrusion: x40 effortful swallow: x14 tongue in cheek: x20 laryngeal elevation: x40 Pt recalls information from a paragraph with moderate verbal cues including repetition with 80% accuracy. Pt with significant difficulty recalling information from a verbally spoken paragraph. Even when the paragraph is repeated to the pt, pt still requires cuing to answer the question. Assessment Assessment Current Status: Fair Progress Treatment Plan Continue Plan of Care Speech Short Term Goals Short Term Goals Short Term Goals Pt to complete a MBSS. PT TO COMPLETE MENTAL MANIPULATION OF 4 OBJECTS WITH 80% ACCURACY WITH MIN CUES. Speech Fpc Goals Cnc Maintenance Mechanic Goals Pt to demonstrate no s/sx of aspiration on least restrictive diet consistency. PT TO COMPLETE MEMORY TASKS FOLLOWING SHORT DELAY WITH 80% ACCURACY WITH MIN VERBAL CUES TO IMPROVE OVERALL SAFETY. PT TO COMPLETE MEDICATION AND MONEY MANAGEMENT TASKS WITH 100% ACCURACY PRIOR TO D/C. Speech-Plan Patient/Family Goals Patient/Family Goals: Pending IRU progress Treatment Plan Speech Therapy Treatment Plan: Continue Plan of Care Treatment Duration: Jan 02, 2023 Frequency: 5 times per week Estimated Hrs Per Day: .25 hour per day Rehab Potential: Good Safety Risks/Education Teaching Recipient: Patient Teaching Methods: Discussion Response to Teaching: Verbalize Understanding Education Topics Provided: Pt educated on purpose of therapy activities. Pt receptive and verbalized understanding. Time Speech Therapy Time In: 09:30 Speech Therapy Time Out: 10:00 DATE: Jan 10, 2023 Total Billed Time: 30 Billed Treatment Time S/L TX, DYS TX Jose Manuel Shay Speech Therapy Jan 10, 2023 10:40
--- NOTE | 2023-01-10 10:57 | Physical Therapy Daily Note ---
PT Daily Note-Current Subjective Pt is agreeable to PT. Denies pain supine in bed, but reports B knee pain at 2/10, post-tx. Pain Numeric Pain Scale: 2 Location Body Site: Knee Section J - Health Conditions 1. Rarely or not at all 2. Occasionally 3. Frequently 4. Almost constantly 8. Unable to answer Pain Effect on Sleep: 0 Pain Interference with Therapy: 2 Pain Interference w/Day-to-Day: 2 Transfers SCALE: Activities may be completed with or without assistive devices. 5-Zfxcxhayfa-muakvby completes the activity by him/herself with no assistance from a helper. 5-Set-up or Clean-up Assistance-helper sets up or cleans up; patient completes activity. [place] assists only prior to or following the activity. 4-Supervision or Touching Assistance-helper provides verbal cues and/or touching/steadying and/or contact guard assistance as patient completes activity. Assistance may be provided throughout the activity or intermittently. 3-Partial/Moderate Assistance-helper does LESS THAN HALF the effort. [place] lifts, holds or supports trunk or limbs, but provides less than half the effort. 2-Substantial/Maximal Assistance-helper does MORE THAN HALF the effort. [place] lifts or holds trunk or limbs and provides more than half the effort. 0-Jvsorkzoi-ebuhtp does ALL the effort. Patient does none of the effort to complete the activity. Or, the assistance of 2 or more helpers is required for the patient to complete the activity. If activity was not attempted, code reason: 7-Patient Refused. 9-Not Applicable-not attempted and the patient did not perform the activity before the current illness, exacerbation or injury. 10-Not Attempted due to Environmental Limitations-(lack of equipment, weather restraints, etc.). 88-Not Attempted due to Medical Conditions or Safety Concerns. Roll Left & Right (QC): 3 Sit to Lying (QC): 3 Lying to Sitting/Side of Bed(Q: 3 Sit to Stand (QC): 1 Weight Bearing Right Lower Extremity: Right Full Weight Bearing Left Lower Extremity: Left Full Weight Bearing Treatments Co-tx with CHE from [id number]. Skills of 2 clinicians required to decrease fall risk, 2 or more person transfers, increase activity tolerance and functional m obility. PT focusing on bed mobility, transfers, standing, and LE strength, while OT focusing on B UE placement during mobility and bed mobility and toileting. Pt lying supine in bed upon arrival. Pt completed B rolling with Min A to don brief with dep. Pt completed supine <> sit with Mod/Max A x 2. Standing frame utilized to stand the pt x 3. Pt stood for 2 min, 2 min, and 4 min. Pt completed supine B LE Ther Ex x 10 reps each. Pt supine in bed with call light in reach and all needs met, after treatment. Assessment Current Status: Fair Progress Pt tolerated PT well with good effort PT Field Marketing Lead Goals Field Marketing Lead Goals PT Field Marketing Lead Goals Time Frame: Jan 16, 2023 Roll Left & Right (QC): 4 (Pt will be SBA for bed mobilty tasks. ) Sit to Lying (QC): 4 (Pt will be SBA for bed mobilty tasks. ) Lying-Sitting on Side/Bed(QC): 4 (Pt will be SBA for bed mobilty tasks. ) Sit to Stand (QC): 3 (Pt will be Min A for functional transfers. ) Chair/Jph-xl-Mqpgh Xfer(QC): 3 (Pt will be Min A for functional transfers. ) Toilet Transfer (QC): 3 (Pt will be Min A for functional transfers. ) Car Transfer (QC): 3 (Pt will be Min A for functional transfers. ) Does the Patient Walk: No and Walking Goal IS indicated Walk 10 feet (QC): 3 (Pt will be Min A for walking with the FWW. ) Walk 50ft with 2 Turns (QC): 3 (Pt will be Min A for walking with the FWW. ) Walk 150 ft (QC): 3 (Pt will be Min A for walking with the FWW. ) Walking 10ft on Uneven Surface: 3 (Pt will be Min A for walking with the FWW. ) 1 Step (curb) (QC): 3 (Pt will be Min A for steps to safely enter/exit the home. ) 4 Steps (QC): 3 (Pt will be Min A for steps to safely enter/exit the home. ) 12 Steps (QC): 3 (Pt will be Min A for steps to safely enter/exit the home. ) Picking up an Object (QC): 4 (Pt will be CGA with a laborer shipyard. ) Does the Pt use WC or Scooter?: Yes Wheel 50 feet with 2 turns (QC: 4 (Pt will be SBA for w/c mobility. ) Type: Manual Wheel 150 feet: 4 (Pt will be SBA for w/c mobility. ) Type: Manual PT Plan Problem List Problem List: Activity Tolerance, Functional Strength, Safety, Balance, Gait, Transfer, Bed Mobility, ROM Treatment/Plan Treatment Plan: Continue Plan of Care Treatment Plan: Bed Mobility, Concurrent Therapy, Education, Functional Activity Mike, Functional Strength, Group Therapy, Gait, Safety, Therapeutic Exercise, Transfers Treatment Duration: Jan 16, 2023 Frequency: At least 5 of 7 days/Wk (IRF) Estimated Hrs Per Day: 1.5 hours per day Patient and/or Family Agrees t: Yes Safety Risks/Education Patient Education: Transfer Techniques, Safety Issues Teaching Recipient: Patient Teaching Methods: Demonstration, Discussion Response to Teaching: Reinforcement Needed Discharge Recommendations Therapy Discharge Recommendati: 24 Hour Supervision Discharge Status/Home Program Cont per POC Barriers to Progress Debility Target Placement SNF Time Time In: 800 Time Out: 915 DATE: Jan 10, 2023 Total Billed Treatment Time: 75 Total Billed Treatment 75 min 1 visit Co-tx for 60 min FA x 4 EX x 1 RADHA PERALES PT Jan 10, 2023 10:57
--- NOTE | 2023-01-10 12:04 | Occupational Ther Daily Note ---
OT Current Status-Daily Note Subjective Pt alert, lying in bed. Pt agrees to therapy. C/o pain, rated 2/10. Mental Status/Objective Patient Orientation: Person, Place, Time, Situation ADL-Treatment Therapy Code Descriptions/Definitions Functional [place] Measure: 0=Not Assessed/NA 4=Minimal Assistance 1=Total Assistance 5=Supervision or Setup 2=Maximal Assistance 6=Modified [place] 3=Moderate Assistance 7=Complete IndependenceSCALE: Activities may be completed with or without assistive devices. 1-Zyhpigmcjd-tdoskfu completes the activity by him/herself with no assistance from a helper. 5-Set-up or Clean-up Assistance-helper sets up or cleans up; patient completes activity. [place] assists only prior to or following the activity. 4-Supervision or Touching Assistance-helper provides verbal cues and/or touching/steadying and/or contact guard assistance as patient completes activity. Assistance may be provided throughout the activity or intermittently. 3-Partial/Moderate Assistance-helper does LESS THAN HALF the effort. [place] lifts, holds or supports trunk or limbs, but provides less than half the effort. 2-Substantial/Maximal Assistance-helper does MORE THAN HALF the effort. [place] lifts or holds trunk or limbs and provides more than half the effort. 1-Ypbdwxnao-mnrvci does ALL the effort. Patient does none of the effort to complete the activity. Or, the assistance of 2 or more helpers is required for the patient to complete the activity. If activity was not attempted, code reason: 7-Patient Refused. 9-Not Applicable-not attempted and the patient did not perform the activity before the current illness, exacerbation or injury. 10-Not Attempted due to Environmental Limitations-(lack of equipment, weather restraints, etc.). 88-Not Attempted due to Medical Conditions or Safety Concerns. Lower Body Dressing (QC): 1 On/Off Footwear: 1 Other Treatment Co-treat with PT from [id number]. Skills of 2 clinicians required to decrease fall risk, 2 or more person transfers, increase activity tolerance and func tional mobility. PT focusing on bed mobility, transfers, standing, and LE strength, while OT focusing on B UE placement during mobility, bed mobility and ADLs. Pt lying supine in bed upon arrival. Pt completed B rolling with Min A. Dependent for LBD. Pt completed supine <> sit with Mod/Max A x 2. Standing frame utilized to stand the pt x 3. Pt stood for 2 min, 2 min, and 4 min. Pt left in care of PT. Call light in reach and all needs met. OT Short Term Goals Short Term Goals Time Frame: Jan 02, 2023 Eatin Oral hygiene: 5 Upper body dressin OT Mcc Goals Sole Cementer Goals Acute change in mental status: 1 Inattention: 2 Disorganized thinkin Altered level of consciousness: 2 Eating (QC): 6 Oral Hygiene (QC): 6 Toileting Hygiene (QC): 6 Shower/Bathe Self (QC): 5 Upper Body Dressing (QC): 6 Lower Body Dressing (QC): 6 On/Off Footwear (QC): 4 1=Demonstrate adherence to instructed precautions during ADL tasks. 2=Patient will verbalize/demonstrate understanding of assistive devices/modifications for ADL. 3=Patient will improve strength/tolerance for activity to enable patient to perform ADL's. OT Education/Plan Problem List/Assessment Assessment: Decreased Activ Tolerance, Decreased UE Strength, Dependent Transfers, Impaired Bed Mobility, Impaired Self-Care Skills Discharge Recommendations Plan/Recommendations: Continue POC Treatment Plan/Plan of Care Patient would benefit from OT for education, treatment and training to promote independence in ADL's, mobility, safety and/or upper extremity function for ADL's. Plan of Care: ADL Retraining, Caregiver Training, Concurrent Therapy, Functional Mobility, Group Exercise/Act as Ind, UE Funct Exercise/Act, UE Neuromus Re-Ed/Coord Treatment Duration: Feb 01, 2023 Frequency: At least 5 of 7 days/Wk (IRF) Estimated Hrs Per Day: 1.5 hours per day Agreement: Yes Rehab Potential: Good Time Start Time: 08:00 Stop Time: 09:00 DATE: Jan 10, 2023 Total Time Billed (hr/min): 60 Billed Treatment Time 1 visit-ADL 1 (15 min) FA 3 (45 min) co-treat with PT [id number] MARIE PHILLIPS Jan 10, 2023 12:04
[2023-01-10] MEDS: FAMOTIDINE 40 MG/5 ML ORAL SUSP 50 ML PEG SCH ×2 (14:01→21:11)
--- NOTE | 2023-01-10 14:33 | Occupational Ther Daily Note ---
OT Current Status-Daily Note Subjective Pt alert, lying in bed. Pt fatigued from earlier therapy treatments. Pt agrees to therapy. Mental Status/Objective Patient Orientation: Person, Place, Time, Situation Attachments: Gautam Catheter, IV, PEG Tube ADL-Treatment Therapy Code Descriptions/Definitions Functional [place] Measure: 0=Not Assessed/NA 4=Minimal Assistance 1=Total Assistance 5=Supervision or Setup 2=Maximal Assistance 6=Modified [place] 3=Moderate Assistance 7=Complete IndependenceSCALE: Activities may be completed with or without assistive devices. 9-Oquvkobyoo-krohpew completes the activity by him/herself with no assistance from a helper. 5-Set-up or Clean-up Assistance-helper sets up or cleans up; patient completes activity. [place] assists only prior to or following the activity. 4-Supervision or Touching Assistance-helper provides verbal cues and/or touching/steadying and/or contact guard assistance as patient completes activity. Assistance may be provided throughout the activity or intermittently. 3-Partial/Moderate Assistance-helper does LESS THAN HALF the effort. [place] lifts, holds or supports trunk or limbs, but provides less than half the effort. 2-Substantial/Maximal Assistance-helper does MORE THAN HALF the effort. [place] lifts or holds trunk or limbs and provides more than half the effort. 4-Ukzjhcusf-byrjwa does ALL the effort. Patient does none of the effort to complete the activity. Or, the assistance of 2 or more helpers is required for the patient to complete the activity. If activity was not attempted, code reason: 7-Patient Refused. 9-Not Applicable-not attempted and the patient did not perform the activity before the current illness, exacerbation or injury. 10-Not Attempted due to Environmental Limitations-(lack of equipment, weather restraints, etc.). 88-Not Attempted due to Medical Conditions or Safety Concerns. Other Treatment Min A for rolling side to side. Dependent for scooting up in bed. Dependent for cleansing after BM. After therapy, pt lying in bed with call light/phone in reach. All needs met in room. OT Short Term Goals Short Term Goals Time Frame: Jan 02, 2023 Eatin Oral hygiene: 5 Upper body dressin OT Residential Goals Evs Attendant Goals Acute change in mental status: 1 Inattention: 2 Disorganized thinkin Altered level of consciousness: 2 Eating (QC): 6 Oral Hygiene (QC): 6 Toileting Hygiene (QC): 6 Shower/Bathe Self (QC): 5 Upper Body Dressing (QC): 6 Lower Body Dressing (QC): 6 On/Off Footwear (QC): 4 1=Demonstrate adherence to instructed precautions during ADL tasks. 2=Patient will verbalize/demonstrate understanding of assistive devices/modifications for ADL. 3=Patient will improve strength/tolerance for activity to enable patient to perform ADL's. OT Education/Plan Problem List/Assessment Assessment: Decreased Activ Tolerance, Decreased UE Strength, Dependent Transfers, Impaired Bed Mobility, Impaired Self-Care Skills Discharge Recommendations Plan/Recommendations: Continue POC Treatment Plan/Plan of Care Patient would benefit from OT for education, treatment and training to promote independence in ADL's, mobility, safety and/or upper extremity function for ADL's. Plan of Care: ADL Retraining, Caregiver Training, Concurrent Therapy, Functional Mobility, Group Exercise/Act as Ind, UE Funct Exercise/Act, UE Neuromus Re-Ed/Coord Treatment Duration: Feb 01, 2023 Frequency: At least 5 of 7 days/Wk (IRF) Estimated Hrs Per Day: 1.5 hours per day Agreement: Yes Rehab Potential: Good Time Start Time: 12:30 Stop Time: 12:45 DATE: Jan 10, 2023 Total Time Billed (hr/min): 15 Billed Treatment Time 1 visit-ADL 1 (15 min) MARIE PHILLIPS Jan 10, 2023 14:33
[2023-01-10 17:31] VITALS: BP 118/56
[2023-01-10 20:31] VITALS: BP 121/78
--- NOTE | 2023-01-11 05:45 | PM&R Progress Note ---
Subjective HPI/CC On Admission Date Seen by Provider: Jan 11, 2023 Time Seen by Provider: 12:00 Subjective/Events-last exam 01/11/2023: Patient about the same Family is looking into skilled options Very slow progress 01/10/2023: Patient doing pretty well Slow recovery Unrealistic family to take care of bedridden state with Gautam catheter trach and tube feedings so may need skilled care 01/09/2023: Sister and family at the bedside today Very pleased with his progress Remains n.p.o. due to aspiration risk We will continue aggressive therapy Very slow recovery 01/08/2023: Slow recovery Tube feedings only Aspiration risk places him n.p.o. Very slow recovery may preclude inpatient rehab and may need to go to skilled 01/07/2023: Patient about the same Sleeps most of the time Very slow recovery Aspiration risk remains high 01/06/2023: Patient only on tube feedings now due to aspiration risk Family at the bedside Very slow recovery 01/05/2023: Patient about the same Modified barium swallow did not go well and placed back on tube feedings No pain is reported 01/04/2023: Patient doing pretty well Working with therapy slow recovery No falls No pain 01/03/2023: Patient doing pretty well Very weak Working on motivation Son and are at the bedside Dr. Roldan is primary care provider in [place] No pain Review of Systems General: Fatigue, Malaise Objective Exam Vital Signs Vital Signs Date Time Temp Pulse Resp B/P (MAP) Pulse Ox O2 Delivery O2 Flow Rate FiO2 01/11/23 20:04 35.8 87 16 108/74 (85) 96 NIV CPAP 01/09/23 08:30 2.00 Capillary Refill : General Appearance: WD/WN, Chronically ill, Obese, Other (Very weak) HEENT: PERRL/EOMI, Normal ENT Inspection, Pharynx Normal Neck: Full Range of Motion, Normal Inspection, Non Tender, Supple, Carotid Bruit Respiratory: Chest Non Tender, Lungs Clear, No Accessory Muscle Use, No Respiratory Distress, Decreased Breath Sounds Cardiovascular: Regular Rate, Rhythm, No Edema, No Gallop, No JVD, No Murmur, Normal Peripheral Pulses Gastrointestinal: Normal Bowel Sounds, No Organomegaly, No Pulsatile Mass, Non Tender, Soft Back: Normal Inspection, No CVA Tenderness, No Vertebral Tenderness Extremity: Normal Capillary Refill, Normal Inspection, Normal Range of Motion, Non Tender, No Calf Tenderness, No Pedal Edema Neurologic/Psychiatric: Alert, Oriented x3, space technologist II-XII Norm as Tested, Abnormal Gait, Depressed Affect, Motor Weakness ( severe muscle weakness) Skin: Normal Color, Warm/Dry Lymphatic: No Adenopathy Results/Procedures Lab Patient resulted labs reviewed. FIM Transfers Therapy Code Descriptions/Definitions Functional [place] Measure: 0=Not Assessed/NA 4=Minimal Assistance 1=Total Assistance 5=Supervision or Setup 2=Maximal Assistance 6=Modified [place] 3=Moderate Assistance 7=Complete IndependenceSCALE: Activities may be completed with or without assistive devices. 4-Tyfvhzctvb-pbwgods completes the activity by him/herself with no assistance from a helper. 5-Set-up or Clean-up Assistance-helper sets up or cleans up; patient completes activity. [place] assists only prior to or following the activity. 4-Supervision or Touching Assistance-helper provides verbal cues and/or touching/steadying and/or contact guard assistance as patient completes activi ty. Assistance may be provided throughout the activity or intermittently. 3-Partial/Moderate Assistance-helper does LESS THAN HALF the effort. [place] lifts, holds or supports trunk or limbs, but provides less than half the effort. 2-Substantial/Maximal Assistance-helper does MORE THAN HALF the effort. [place] lifts or holds trunk or limbs and provides more than half the effort. 4-Ecdixnulr-bpxvdy does ALL the effort. Patient does none of the effort to complete the activity. Or, the assistance of 2 or more helpers is required for the patient to complete the activity. If activity was not attempted, code reason: 7-Patient Refused. 9-Not Applicable-not attempted and the patient did not perform the activity before the current illness, exacerbation or injury. 10-Not Attempted due to Environmental Limitations-(lack of equipment, weather restraints, etc.). 88-Not Attempted due to Medical Conditions or Safety Concerns. Roll Left to Right (QC): 3 Sit to Lying (QC): 3 Sit to Stand (QC): 1 Chair/Cgw-at-Ukocc Xfer(QC): 1 Car Transfer (QC): 88 Gait Training Does the Patient Walk?: No and Walking Goal IS indicated Walk 10 feet (QC): 88 Walk 50 ft with 2 Turns(QC): 88 Walk 150 ft (QC): 88 Walking 10ft/uneven surface-QC: 88 Gait Assistive Device: None Wheelchair Training Does the Pt Use a Wheelchair?: Yes Wheel 50 ft with 2 turns (QC): 3 Wheel 150 ft (QC): 88 Type of Wheelchair: Manual Stair Training 1 Step (curb) (QC): 88 4 Steps (QC): 88 12 Steps (QC): 88 Balance Picking up an Object (QC): 88 ADL-Treatment Eating (QC): 5 Oral Hygiene (QC): 5 (Supplies gathered for pt, pt able to complete oral care by self.) Shower/Bathe Self (QC): 2 (sponge bed bath) Upper Body Dressing (QC): 2 Lower Body Dressing (QC): 1 On/Off Footwear (QC): 1 Toileting Hygiene (QC): 2 Toilet Transfer (QC): 1 Assessment/Plan Assessment and Plan Assess & Plan/Chief Complaint 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 status due to aspiration risk Continue tube feedings 01/10/2023: Supportive care Tube feeds 01/11/2023: Supportive care Monitor closely (1) Myopathy (2) Tracheostomy status (3) PEG (percutaneous endoscopic gastrostomy) status ANGELES GRANT DO Jan 11, 2023 05:45
[2023-01-11] MEDS: ENOXAPARIN 40 MG/0.4 ML (LOVENOX) SYR SC SCH (06:07)
[2023-01-11] MEDS: CATHETER FLUSH 10 ML SYR IV SCH ×2 (06:07→17:05)
[2023-01-11] MEDS: POTASSIUM BICARB 20 MEQ (EFFER-K) TABLET PEG SCH (06:07)
[2023-01-11] MEDS: MULTIVIT W/MINERALS TAB (THERAGRAN M) PO SCH (06:07)
[2023-01-11 08:00] VITALS: BP 127/66
[2023-01-11] MEDS: ASPIRIN 81 MG CHEW (CHILDREN'S ASA) PO SCH (09:39)
[2023-01-11] MEDS: lisINopril 5 MG (PRINIVIL) TABLET PO SCH (09:39)
[2023-01-11] MEDS: LACTOBACILLUS ACIDOPHILUS (PROBIOTIC) CAPSULE PO SCH ×2 (09:39→20:48)
[2023-01-11] MEDS: sulfaSALAzine 500 MG (AZULFIDINE) TAB PO SCH ×2 (09:39→20:48)
[2023-01-11] MEDS: FUROSEMIDE 40 MG (LASIX) TAB PO SCH (09:39)
[2023-01-11] MEDS: LORATADINE (CLARITIN) 10 MG TAB PO SCH (09:39)
[2023-01-11] MEDS: FLUTICASONE NASAL SPRAY (FLONASE) 16 GM BTL NS SCH (09:40)
[2023-01-11] MEDS: FAMOTIDINE 40 MG/5 ML ORAL SUSP 50 ML PEG SCH ×2 (09:40→20:48)
[2023-01-11] MEDS: DOCUSATE SODIUM 100 MG (COLACE) CAP PO SCH ×2 (09:41→21:31)
[2023-01-11] MEDS: polyethylene glycoL POWDER 17 GM (MIRALAX) PACK PO SCH ×2 (09:41→21:31)
[2023-01-11] MEDS: SENNA W/DOCUSATE (SENOKOT S) TABLET PO SCH ×2 (09:41→21:32)
[2023-01-11] MEDS: MICONAZOLE 2% POWDER (DESENEX AF) 90 GM TOP SCH ×2 (09:41→20:48)
--- NOTE | 2023-01-11 11:52 | Speech Therapy Daily Note ---
Speech Daily Progress Note Subjective Date Seen by Provider: Jan 11, 2023 Time Seen by Provider: 11:05 Pt laying in bed asleep. Therapist has to say pt's name multiple times to get him to wake up. Pt reports he is exhausted and initially says he can't participate in speech therapy because he is so tired. After some encouragement, pt agrees to participate. Pt's son stops by with about 10 minutes left in the session. Pt becomes more alert during that time. Pt's son leaves and reports he will return after completion of therapy. Pt appears more confused this date, pt not oriented to the date and has to be reminded multiple times of the day of the week. Pain Location: No Pain Reported Objective Pt completes the following swallowing exercises with 90% accuracy min-mod verbal cues: lingual protrusion: x30 Effortful swallow: x10 Tongue in cheek: x25 Laryngeal elevation: x20 Pt requires more cues to complete exercises accurately this date. Assessment Assessment Current Status: Poor Progress Treatment Plan Continue Plan of Care Speech Short Term Goals Short Term Goals Short Term Goals Pt to complete a MBSS. PT TO COMPLETE MENTAL MANIPULATION OF 4 OBJECTS WITH 80% ACCURACY WITH MIN CUES. Speech Kitchen Work Supervisor Goals Longterm Goals Pt to demonstrate no s/sx of aspiration on least restrictive diet consistency. PT TO COMPLETE MEMORY TASKS FOLLOWING SHORT DELAY WITH 80% ACCURACY WITH MIN VERBAL CUES TO IMPROVE OVERALL SAFETY. PT TO COMPLETE MEDICATION AND MONEY MANAGEMENT TASKS WITH 100% ACCURACY PRIOR TO D/C. Speech-Plan Patient/Family Goals Patient/Family Goals: Pending progress in IRU Treatment Plan Speech Therapy Treatment Plan: Continue Plan of Care Treatment Duration: Jan 02, 2023 Frequency: 5 times per week Estimated Hrs Per Day: .25 hour per day Rehab Potential: Good Safety Risks/Education Teaching Recipient: Patient Teaching Methods: Discussion Response to Teaching: Reinforcement Needed Education Topics Provided: Pt educated on purpose of therapy exercises. Pt receptive, but will likely require reinforcement. Discharge Recommendations Post Acute ST Time Speech Therapy Time In: 11:05 Speech Therapy Time Out: 11:32 DATE: Jan 11, 2023 Total Billed Time: 27 Billed Treatment Time DYS Jose Manuel Hernandez Speech Therapy Jan 11, 2023 11:51
--- NOTE | 2023-01-11 13:30 | Physical Therapy Daily Note ---
PT Daily Note-Current Subjective Pt reports he is doing well this morning and is agreeable to PT. Pt denies pain Pain Numeric Pain Scale: 0-No Pain Location: No Pain Reported Section J - Health Conditions 1. Rarely or not at all 2. Occasionally 3. Frequently 4. Almost constantly 8. Unable to answer Pain Effect on Sleep: 1 Pain Interference with Therapy: 2 Pain Interference w/Day-to-Day: 1 Mental Status Attachments: PEG Tube, Gautam Catheter Trach tube Transfers SCALE: Activities may be completed with or without assistive devices. 4-Hexhvdfmtg-tqugczz completes the activity by him/herself with no assistance from a helper. 5-Set-up or Clean-up Assistance-helper sets up or cleans up; patient completes activity. [place] assists only prior to or following the activity. 4-Supervision or Touching Assistance-helper provides verbal cues and/or touching/steadying and/or contact guard assistance as patient completes activity. Assistance may be provided throughout the activity or intermittently. 3-Partial/Moderate Assistance-helper does LESS THAN HALF the effort. [place] lifts, holds or supports trunk or limbs, but provides less than half the effort. 2-Substantial/Maximal Assistance-helper does MORE THAN HALF the effort. [place] lifts or holds trunk or limbs and provides more than half the effort. 7-Sbuoevxsc-krhabv does ALL the effort. Patient does none of the effort to complete the activity. Or, the assistance of 2 or more helpers is required for the patient to complete the activity. If activity was not attempted, code reason: 7-Patient Refused. 9-Not Applicable-not attempted and the patient did not perform the activity before the current illness, exacerbation or injury. 10-Not Attempted due to Environmental Limitations-(lack of equipment, weather restraints, etc.). 88-Not Attempted due to Medical Conditions or Safety Concerns. Roll Left & Right (QC): 3 Lying to Sitting/Side of Bed(Q: 3 Sit to Stand (QC): 1 Chair/Izb-hq-Zbnip Xfer(QC): 1 Toilet Transfer (QC): 1 Weight Bearing Right Lower Extremity: Right Full Weight Bearing Left Lower Extremity: Left Full Weight Bearing Gait Training Does the Patient Walk?: No and Walking Goal IS indicated Wheelchair Training Does the Pt Use a Wheelchair?: Yes Wheel 50 ft with 2 turns (QC): 3 Wheel 150 ft (QC): 88 Type of Wheelchair: Manual Treatments Co-tx with CHE from [id number]. Skills of 2 clinicians required to decrease fall risk, 2 or more person transfers, increase activity tolerance and functional mobility. PT focusing on bed mobility, transfers, standing, and LE strength, while OT focusing on B UE placement during mobility and bed mobility and toileting. Pt lying supine in bed upon arrival. Pt completed supine to sit EOB with Min/Mod A. Sit to stand lift utilized to transfer the pt EOB to BSC and BSC to w/c. Pt completed w/c mobility x 100ft with Min A. Pt completed sit to stand transfers in the // bars x 3 with Mod/Max A x 2. Pt stood for 1 min, 35", and 40" at the // bars with B UE support and Mod/Max A. Pt required Max v/c for B TKE, B hip ext, and upright posture. Pt transferred from w/c to recliner with sit to stand lift. Pt left sitting up in the recliner with call light in reach and all needs met. Assessment Current Status: Good Progress Pt tolerated PT well, with good effort. Pt has progressed with transfers and standing in the // bars. PT Fdc Goals [place] Bench Hand Goals PT Fdc Goals Time Frame: Jan 16, 2023 Roll Left & Right (QC): 4 (Pt will be SBA for bed mobilty tasks. ) Sit to Lying (QC): 4 (Pt will be SBA for bed mobilty tasks. ) Lying-Sitting on Side/Bed(QC): 4 (Pt will be SBA for bed mobilty tasks. ) Sit to Stand (QC): 3 (Pt will be Min A for functional transfers. ) Chair/Jgs-oj-Fyfrr Xfer(QC): 3 (Pt will be Min A for functional transfers. ) Toilet Transfer (QC): 3 (Pt will be Min A for functional transfers. ) Car Transfer (QC): 3 (Pt will be Min A for functional transfers. ) Does the Patient Walk: No and Walking Goal IS indicated Walk 10 feet (QC): 3 (Pt will be Min A for walking with the FWW. ) Walk 50ft with 2 Turns (QC): 3 (Pt will be Min A for walking with the FWW. ) Walk 150 ft (QC): 3 (Pt will be Min A for walking with the FWW. ) Walking 10ft on Uneven Surface: 3 (Pt will be Min A for walking with the FWW. ) 1 Step (curb) (QC): 3 (Pt will be Min A for steps to safely enter/exit the home. ) 4 Steps (QC): 3 (Pt will be Min A for steps to safely enter/exit the home. ) 12 Steps (QC): 3 (Pt will be Min A for steps to safely enter/exit the home. ) Picking up an Object (QC): 4 (Pt will be CGA with a lean engineer. ) Does the Pt use WC or Scooter?: Yes Wheel 50 feet with 2 turns (QC: 4 (Pt will be SBA for w/c mobility. ) Type: Manual Wheel 150 feet: 4 (Pt will be SBA for w/c mobility. ) Type: Manual PT Plan Problem List Problem List: Activity Tolerance, Functional Strength, Safety, Balance, Gait, Transfer, Bed Mobility, ROM Treatment/Plan Treatment Plan: Continue Plan of Care Treatment Plan: Bed Mobility, Concurrent Therapy, Education, Functional Activity Mike, Functional Strength, Group Therapy, Gait, Safety, Therapeutic Exercise, Transfers Treatment Duration: Jan 16, 2023 Frequency: At least 5 of 7 days/Wk (IRF) Estimated Hrs Per Day: 1.5 hours per day Patient and/or Family Agrees t: Yes Safety Risks/Education Patient Education: Transfer Techniques, W/C Management, Safety Issues Teaching Recipient: Patient Teaching Methods: Demonstration, Discussion Response to Teaching: Verbalize Understanding, Return Demonstration, Reinforcement Needed Discharge Recommendations Therapy Discharge Recommendati: 24 Hour Supervision Discharge Status/Home Program Cont per POC Barriers to Progress Debility/weakness Target Placement SNF vs home with family Time Time In: 800 Time Out: 900 DATE: Jan 11, 2023 Total Billed Treatment Time: 60 Total Billed Treatment 60 min co-tx from [id number] 1 visit FA x 4 RADHA PERALES PT Jan 11, 2023 13:30
--- NOTE | 2023-01-11 13:56 | Occupational Ther Daily Note ---
OT Current Status-Daily Note Subjective Pt alert, lying in bed. Pt had nrsg dress him so that he would be ready for therapy. Pt c/o pain though rated 2-3/10. Co-treat with PT([id number]), skills of 2 clinicians required to decrease fall risk, increase functional mobility, increase stamina and overall strength. PT focusing on transfers, standing and bed mobility while OT focusing on B UE strength, functional mobility/transfers and B UE placement during mobility. Mental Status/Objective Patient Orientation: Person, Place, Time, Situation ADL-Treatment Therapy Code Descriptions/Definitions Functional [place] Measure: 0=Not Assessed/NA 4=Minimal Assistance 1=Total Assistance 5=Supervision or Setup 2=Maximal Assistance 6=Modified [place] 3=Moderate Assistance 7=Complete IndependenceSCALE: Activities may be completed with or without assistive devices. 6-Janpsuwovm-eytjayl completes the activity by him/herself with no assistance from a helper. 5-Set-up or Clean-up Assistance-helper sets up or cleans up; patient completes activity. [place] assists only prior to or following the activity. 4-Supervision or Touching Assistance-helper provides verbal cues and/or touching/steadying and/or contact guard assistance as patient completes activity. Assistance may be provided throughout the activity or intermittently. 3-Partial/Moderate Assistance-helper does LESS THAN HALF the effort. [place] lifts, holds or supports trunk or limbs, but provides less than half the effort. 2-Substantial/Maximal Assistance-helper does MORE THAN HALF the effort. [place] lifts or holds trunk or limbs and provides more than half the effort. 5-Napgctgax-csejpk does ALL the effort. Patient does none of the effort to complete the activity. Or, the assistance of 2 or more helpers is required for the patient to complete the activity. If activity was not attempted, code reason: 7-Patient Refused. 9-Not Applicable-not attempted and the patient did not perform the activity before the current illness, exacerbation or injury. 10-Not Attempted due to Environmental Limitations-(lack of equipment, weather restraints, etc.). 88-Not Attempted due to Medical Conditions or Safety Concerns. Other Treatment Pt lying supine in bed upon arrival. Pt completed supine to sit EOB with Min/Mod A. Sit to stand lift utilized to transfer the pt EOB to BSC and BSC to w/c. Pt completed w/c mobility x 100ft with Min A. Pt completed sit to stand transfers in the // bars x 3 with Mod/Max A x 2. Pt stood for 1 min, 35", and 40" at the // bars with B UE support and Mod/Max A. Pt required Max v/c for B TKE, B hip ex t, and upright posture. Pt transferred from w/c to recliner with sit to stand lift. After session, pt sitting in recliner with call light/phone in reach. All needs met. OT Short Term Goals Short Term Goals Time Frame: Jan 02, 2023 Eatin Oral hygiene: 5 Upper body dressin OT Shelter Goals Shelter Goals Acute change in mental status: 1 Inattention: 2 Disorganized thinkin Altered level of consciousness: 2 Eating (QC): 6 Oral Hygiene (QC): 6 Toileting Hygiene (QC): 6 Shower/Bathe Self (QC): 5 Upper Body Dressing (QC): 6 Lower Body Dressing (QC): 6 On/Off Footwear (QC): 4 1=Demonstrate adherence to instructed precautions during ADL tasks. 2=Patient will verbalize/demonstrate understanding of assistive devices/modifications for ADL. 3=Patient will improve strength/tolerance for activity to enable patient to perform ADL's. OT Education/Plan Problem List/Assessment Assessment: Decreased Activ Tolerance, Decreased UE Strength, Dependent Transfers, Impaired Bed Mobility, Impaired Funct Balance, Impaired Self-Care Skills, Restricted Funct UE ROM Discharge Recommendations Plan/Recommendations: Continue POC Treatment Plan/Plan of Care Patient would benefit from OT for education, treatment and training to promote independence in ADL's, mobility, safety and/or upper extremity function for ADL's. Plan of Care: ADL Retraining, Caregiver Training, Concurrent Therapy, Functional Mobility, Group Exercise/Act as Ind, UE Funct Exercise/Act, UE Neuromus Re-Ed/Coord Treatment Duration: Feb 01, 2023 Frequency: At least 5 of 7 days/Wk (IRF) Estimated Hrs Per Day: 1.5 hours per day Agreement: Yes Rehab Potential: Good Time Start Time: 08:00 Stop Time: 09:00 DATE: Jan 11, 2023 Total Time Billed (hr/min): 60 Billed Treatment Time 1 visit-FA 4 (60 min) co-treat with PT 60 min MARIE PHILLIPS Jan 11, 2023 13:56
--- NOTE | 2023-01-11 16:06 | Occupational Ther Daily Note ---
OT Current Status-Daily Note Subjective Pt alert, lying in bed talking to son. Pt agrees to therapy. No c/o pain. ADL-Treatment Therapy Code Descriptions/Definitions Functional [place] Measure: 0=Not Assessed/NA 4=Minimal Assistance 1=Total Assistance 5=Supervision or Setup 2=Maximal Assistance 6=Modified [place] 3=Moderate Assistance 7=Complete IndependenceSCALE: Activities may be completed with or without assistive devices. 5-Ywsrhrzbjo-dizpuyz completes the activity by him/herself with no assistance from a helper. 5-Set-up or Clean-up Assistance-helper sets up or cleans up; patient completes activity. [place] assists only prior to or following the activity. 4-Supervision or Touching Assistance-helper provides verbal cues and/or touching/steadying and/or contact guard assistance as patient completes activity. Assistance may be provided throughout the activity or intermittently. 3-Partial/Moderate Assistance-helper does LESS THAN HALF the effort. [place] lifts, holds or supports trunk or limbs, but provides less than half the effort. 2-Substantial/Maximal Assistance-helper does MORE THAN HALF the effort. [place] lifts or holds trunk or limbs and provides more than half the effort. 9-Roswyiwpj-toqiev does ALL the effort. Patient does none of the effort to complete the activity. Or, the assistance of 2 or more helpers is required for the patient to complete the activity. If activity was not attempted, code reason: 7-Patient Refused. 9-Not Applicable-not attempted and the patient did not perform the activity before the current illness, exacerbation or injury. 10-Not Attempted due to Environmental Limitations-(lack of equipment, weather restraints, etc.). 88-Not Attempted due to Medical Conditions or Safety Concerns. Other Treatment Pt completed flexbar and therapy sponge exercises to increase B UE strength for daily functional tasks. Each exercise completed for 30 seconds/10 reps with skilled instruction for correct technique and modifications when needed. After session, pt lying in bed with call light/phone in reach. All needs met in room. OT Short Term Goals Short Term Goals Time Frame: Jan 02, 2023 Eatin Oral hygiene: 5 Upper body dressin OT [employer] Goals [employer] Goals Acute change in mental status: 1 Inattention: 2 Disorganized thinkin Altered level of consciousness: 2 Eating (QC): 6 Oral Hygiene (QC): 6 Toileting Hygiene (QC): 6 Shower/Bathe Self (QC): 5 Upper Body Dressing (QC): 6 Lower Body Dressing (QC): 6 On/Off Footwear (QC): 4 1=Demonstrate adherence to instructed precautions during ADL tasks. 2=Patient will verbalize/demonstrate understanding of assistive devices/modifications for ADL. 3=Patient will improve strength/tolerance for activity to enable patient to perform ADL's. OT Education/Plan Problem List/Assessment Assessment: Decreased Activ Tolerance, Decreased UE Strength Discharge Recommendations Plan/Recommendations: Continue POC Treatment Plan/Plan of Care Patient would benefit from OT for education, treatment and training to promote independence in ADL's, mobility, safety and/or upper extremity function for ADL's. Plan of Care: ADL Retraining, Caregiver Training, Concurrent Therapy, Functional Mobility, Group Exercise/Act as Ind, UE Funct Exercise/Act, UE Neuromus Re-Ed/Coord Treatment Duration: Feb 01, 2023 Frequency: At least 5 of 7 days/Wk (IRF) Estimated Hrs Per Day: 1.5 hours per day Agreement: Yes Rehab Potential: Good Time Start Time: 12:30 Stop Time: 13:05 DATE: Jan 11, 2023 Total Time Billed (hr/min): 35 Billed Treatment Time 1 visit-EX 2 (30 min) MARIE PHILLIPS Jan 11, 2023 16:06
[2023-01-11 17:06] VITALS: BP 105/63
[2023-01-11 20:04] VITALS: BP 108/74
--- NOTE | 2023-01-12 06:00 | PM&R Progress Note ---
Subjective HPI/CC On Admission Date Seen by Provider: Jan 12, 2023 Time Seen by Provider: 12:00 Subjective/Events-last exam 01/12/2023: Patient about the same Daughter wants Dr Edwards to assess trach so order placed Considering patient is still not recovered enough to regain much independence and his use of CPAP is minimal it is my opinion he will be at risk for future resp failure and the trach should remain left in place 01/11/2023: Patient about the same Family is looking into skilled options Very slow progress 01/10/2023: Patient doing pretty well Slow recovery Unrealistic family to take care of bedridden state with Gautam catheter trach and tube feedings so may need skilled care 01/09/2023: Sister and family at the bedside today Very pleased with his progress Remains n.p.o. due to aspiration risk We will continue aggressive therapy Very slow recovery 01/08/2023: Slow recovery Tube feedings only Aspiration risk places him n.p.o. Very slow recovery may preclude inpatient rehab and may need to go to skilled 01/07/2023: Patient about the same Sleeps most of the time Very slow recovery Aspiration risk remains high 01/06/2023: Patient only on tube feedings now due to aspiration risk Family at the bedside Very slow recovery 01/05/2023: Patient about the same Modified barium swallow did not go well and placed back on tube feedings No pain is reported 01/04/2023: Patient doing pretty well Working with therapy slow recovery No falls No pain 01/03/2023: Patient doing pretty well Very weak Working on motivation Son and are at the bedside Dr. Roldan is primary care provider in [place] No pain Review of Systems General: Fatigue, Malaise Objective Exam Vital Signs Vital Signs Date Time Temp Pulse Resp B/P (MAP) Pulse Ox O2 Delivery O2 Flow Rate FiO2 01/12/23 22:32 Room Air 01/12/23 19:47 36.3 91 18 98/55 (69) 94 01/09/23 08:30 2.00 Capillary Refill : General Appearance: WD/WN, Chronically ill, Obese, Other (Very weak) HEENT: PERRL/EOMI, Normal ENT Inspection, Pharynx Normal Neck: Full Range of Motion, Normal Inspection, Non Tender, Supple, Carotid Bruit Respiratory: Chest Non Tender, Lungs Clear, No Accessory Muscle Use, No Respiratory Distress, Decreased Breath Sounds Cardiovascular: Regular Rate, Rhythm, No Edema, No Gallop, No JVD, No Murmur, Normal Peripheral Pulses Gastrointestinal: Normal Bowel Sounds, No Organomegaly, No Pulsatile Mass, Non Tender, Soft Back: Normal Inspection, No CVA Tenderness, No Vertebral Tenderness Extremity: Normal Capillary Refill, Normal Inspection, Normal Range of Motion, Non Tender, No Calf Tenderness, No Pedal Edema Neurologic/Psychiatric: Alert, Oriented x3, french comber II-XII Norm as Tested, Abnormal Gait, Depressed Affect, Motor Weakness ( severe muscle weakness) Skin: Normal Color, Warm/Dry Lymphatic: No Adenopathy Results/Procedures Lab Patient resulted labs reviewed. FIM Transfers Therapy Code Descriptions/Definitions Functional [place] Measure: 0=Not Assessed/NA 4=Minimal Assistance 1=Total Assistance 5=Supervision or Setup 2=Maximal Assistance 6=Modified [place] 3=Moderate Assistance 7=Complete IndependenceSCALE: Activities may be completed with or without assistive devices. 7-Akbjetkawo-pxfwuei completes the activity by him/herself with no assistance from a helper. 5-Set-up or Clean-up Assistance-helper sets up or cleans up; patient completes activity. [place] assists only prior to or following the activity. 4-Supervision or Touching Assistance-helper provides verbal cues and/or touching/steadying and/or contact guard assistance as patient completes activity. Assistance may be provided throughout the activity or intermittently. 3-Partial/Moderate Assistance-helper does LESS THAN HALF the effort. [place] lifts, holds or supports trunk or limbs, but provides less than half the effort. 2-Substantial/Maximal Assistance-helper does MORE THAN HALF the effort. [place] lifts or holds trunk or limbs and provides more than half the effort. 0-Ionzwrccq-faitfp does ALL the effort. Patient does none of the effort to complete the activity. Or, the assistance of 2 or more helpers is required for the patient to complete the activity. If activity was not attempted, code reason: 7-Patient Refused. 9-Not Applicable-not attempted and the patient did not perform the activity before the current illness, exacerbation or injury. 10-Not Attempted due to Environmental Limitations-(lack of equipment, weather restraints, etc.). 88-Not Attempted due to Medical Conditions or Safety Concerns. Roll Left to Right (QC): 3 Sit to Lying (QC): 3 Sit to Stand (QC): 1 Chair/Jsy-kk-Lkqpc Xfer(QC): 1 Car Transfer (QC): 88 Gait Training Does the Patient Walk?: No and Walking Goal IS indicated Walk 10 feet (QC): 88 Walk 50 ft with 2 Turns(QC): 88 Walk 150 ft (QC): 88 Walking 10ft/uneven surface-QC: 88 Gait Assistive Device: None Wheelchair Training Does the Pt Use a Wheelchair?: Yes Wheel 50 ft with 2 turns (QC): 3 Wheel 150 ft (QC): 88 Type of Wheelchair: Manual Stair Training 1 Step (curb) (QC): 88 4 Steps (QC): 88 12 Steps (QC): 88 Balance Picking up an Object (QC): 88 ADL-Treatment Eating (QC): 5 Oral Hygiene (QC): 5 (Supplies gathered for pt, pt able to complete oral care by self.) Shower/Bathe Self (QC): 2 (sponge bed bath) Upper Body Dressing (QC): 2 Lower Body Dressing (QC): 1 On/Off Footwear (QC): 1 Toileting Hygiene (QC): 2 Toilet Transfer (QC): 1 Assessment/Plan Assessment and Plan Assess & Plan/Chief Complaint 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 status due to aspiration risk Continue tube feedings 01/10/2023: Supportive care Tube feeds 01/11/2023: Supportive care Monitor closely 01/12/2023: Consult Dr Edwards whom daughter already reached out to for trach opinion (1) Myopathy (2) Tracheostomy status (3) PEG (percutaneous endoscopic gastrostomy) status ANGELES GRANT DO Jan 12, 2023 06:00
[2023-01-12] MEDS: ENOXAPARIN 40 MG/0.4 ML (LOVENOX) SYR SC SCH (06:07)
[2023-01-12] MEDS: MULTIVIT W/MINERALS TAB (THERAGRAN M) PO SCH (06:07)
[2023-01-12] MEDS: POTASSIUM BICARB 20 MEQ (EFFER-K) TABLET PEG SCH (06:07)
[2023-01-12] MEDS: CATHETER FLUSH 10 ML SYR IV SCH (06:19)
[2023-01-12 08:00] VITALS: BP 123/65
[2023-01-12] MEDS: FUROSEMIDE 40 MG (LASIX) TAB PO SCH (08:27)
[2023-01-12] MEDS: lisINopril 5 MG (PRINIVIL) TABLET PO SCH (08:28)
[2023-01-12] MEDS: ASPIRIN 81 MG CHEW (CHILDREN'S ASA) PO SCH (08:28)
[2023-01-12] MEDS: LACTOBACILLUS ACIDOPHILUS (PROBIOTIC) CAPSULE PO SCH ×2 (08:28→20:56)
[2023-01-12] MEDS: LORATADINE (CLARITIN) 10 MG TAB PO SCH (08:28)
[2023-01-12] MEDS: sulfaSALAzine 500 MG (AZULFIDINE) TAB PO SCH ×2 (08:28→20:56)
[2023-01-12] MEDS: SENNA W/DOCUSATE (SENOKOT S) TABLET PO SCH ×2 (08:28→21:00)
[2023-01-12] MEDS: DOCUSATE SODIUM 100 MG (COLACE) CAP PO SCH ×2 (08:28→21:09)
[2023-01-12] MEDS: FLUTICASONE NASAL SPRAY (FLONASE) 16 GM BTL NS SCH (08:30)
[2023-01-12] MEDS: MICONAZOLE 2% POWDER (DESENEX AF) 90 GM TOP SCH ×2 (08:31→21:05)
[2023-01-12] MEDS: polyethylene glycoL POWDER 17 GM (MIRALAX) PACK PO SCH ×2 (08:32→21:00)
[2023-01-12] MEDS: BENEFIBER (FROM DIETARY) DOCUMENTATION PURPOSE ONLY PO SCH (09:00)
[2023-01-12] MEDS: FAMOTIDINE 40 MG/5 ML ORAL SUSP 50 ML PEG SCH ×2 (10:08→20:55)
--- NOTE | 2023-01-12 10:16 | Occupational Ther Daily Note ---
OT Current Status-Daily Note Subjective Pt alert, lying in bed. Pt agrees to therapy. No c/o pain at this time. Mental Status/Objective Patient Orientation: Person, Place, Time, Situation Attachments: Gautam Catheter, PEG Tube ADL-Treatment CGA for rolling side to side in bed then is able to hold position by self. Pt requires assistance to cleanse buttocks after BM. Assist x2 to scoot up in bed. After session, pt lying in bed with call light/phone in reach. All needs met in room. Therapy Code Descriptions/Definitions Functional [place] Measure: 0=Not Assessed/NA 4=Minimal Assistance 1=Total Assistance 5=Supervision or Setup 2=Maximal Assistance 6=Modified [place] 3=Moderate Assistance 7=Complete IndependenceSCALE: Activities may be completed with or without assistive devices. 1-Uulvowvfzj-btltdcs completes the activity by him/herself with no assistance from a helper. 5-Set-up or Clean-up Assistance-helper sets up or cleans up; patient completes activity. [place] assists only prior to or following the activity. 4-Supervision or Touching Assistance-helper provides verbal cues and/or touching/steadying and/or contact guard assistance as patient completes activit y. Assistance may be provided throughout the activity or intermittently. 3-Partial/Moderate Assistance-helper does LESS THAN HALF the effort. [place] lifts, holds or supports trunk or limbs, but provides less than half the effort. 2-Substantial/Maximal Assistance-helper does MORE THAN HALF the effort. [place] lifts or holds trunk or limbs and provides more than half the effort. 8-Zicwiktpg-vxhvax does ALL the effort. Patient does none of the effort to complete the activity. Or, the assistance of 2 or more helpers is required for the patient to complete the activity. If activity was not attempted, code reason: 7-Patient Refused. 9-Not Applicable-not attempted and the patient did not perform the activity before the current illness, exacerbation or injury. 10-Not Attempted due to Environmental Limitations-(lack of equipment, weather restraints, etc.). 88-Not Attempted due to Medical Conditions or Safety Concerns. Toileting Hygiene (QC): 2 OT Short Term Goals Short Term Goals Time Frame: Jan 02, 2023 Eatin Oral hygiene: 5 Upper body dressin OT Detention Goals [employer] Goals Acute change in mental status: 1 Inattention: 2 Disorganized thinkin Altered level of consciousness: 2 Eating (QC): 6 Oral Hygiene (QC): 6 Toileting Hygiene (QC): 6 Shower/Bathe Self (QC): 5 Upper Body Dressing (QC): 6 Lower Body Dressing (QC): 6 On/Off Footwear (QC): 4 1=Demonstrate adherence to instructed precautions during ADL tasks. 2=Patient will verbalize/demonstrate understanding of assistive device s/modifications for ADL. 3=Patient will improve strength/tolerance for activity to enable patient to perform ADL's. OT Education/Plan Problem List/Assessment Assessment: Decreased Activ Tolerance, Decreased UE Strength, Dependent Transfers, Impaired Bed Mobility, Impaired Self-Care Skills Discharge Recommendations Plan/Recommendations: Continue POC Treatment Plan/Plan of Care Patient would benefit from OT for education, treatment and training to promote independence in ADL's, mobility, safety and/or upper extremity function for ADL' s. Plan of Care: ADL Retraining, Caregiver Training, Concurrent Therapy, Functional Mobility, Group Exercise/Act as Ind, UE Funct Exercise/Act, UE Neuromus Re-Ed/Coord Treatment Duration: Feb 01, 2023 Frequency: At least 5 of 7 days/Wk (IRF) Estimated Hrs Per Day: 1.5 hours per day Agreement: Yes Rehab Potential: Good Time Start Time: 06:30 Stop Time: 06:45 DATE: Jan 12, 2023 Total Time Billed (hr/min): 15 Billed Treatment Time 1 visit-ADL 1 (15 min) MARIE PHILLIPS Jan 12, 2023 10:16
--- NOTE | 2023-01-12 13:32 | Occupational Ther Daily Note ---
OT Current Status-Daily Note Subjective Pt alert, lying in bed. Pt agrees to therapy. No c/o pain. Mental Status/Objective Patient Orientation: Person, Place, Time, Situation Attachments: Gautam Catheter, IV ADL-Treatment Pt agrees to bed bath. Pt able to bath upper body and rinku area by self after set up then assist to complete lower body and buttocks. Pt able to roll side to side with CGA and stay positioned on side. Min A to don/doff shirt. Max A to don/doff lower body clothing. Dependent to footwear. Set up for oral care. After session, pt lying in bed with call light/phone in reach. All needs met in room. Therapy Code Descriptions/Definitions Functional [place] Measure: 0=Not Assessed/NA 4=Minimal Assistance 1=Total Assistance 5=Supervision or Setup 2=Maximal Assistance 6=Modified [place] 3=Moderate Assistance 7=Complete IndependenceSCALE: Activities may be completed with or without assistive devices. 9-Ynlglofzdc-nfvpkrm completes the activity by him/herself with no assistance from a helper. 5-Set-up or Clean-up Assistance-helper sets up or cleans up; patient completes activity. [place] assists only prior to or following the activity. 4-Supervision or Touching Assistance-helper provides verbal cues and/or touching/steadying and/or contact guard assistance as patient completes activity. Assistance may be provided throughout the activity or intermittently. 3-Partial/Moderate Assistance-helper does LESS THAN HALF the effort. [place] lifts, holds or supports trunk or limbs, but provides less than half the effort. 2-Substantial/Maximal Assistance-helper does MORE THAN HALF the effort. [place] lifts or holds trunk or limbs and provides more than half the effort. 6-Azqrxplas-vcsnyk does ALL the effort. Patient does none of the effort to complete the activity. Or, the assistance of 2 or more helpers is required for the patient to complete the activity. If activity was not attempted, code reason: 7-Patient Refused. 9-Not Applicable-not attempted and the patient did not perform the activity before the current illness, exacerbation or injury. 10-Not Attempted due to Environmental Limitations-(lack of equipment, weather restraints, etc.). 88-Not Attempted due to Medical Conditions or Safety Concerns. Oral Hygiene (QC): 5 Shower/Bathe Self (QC): 3 (Mod A) Upper Body Dressing (QC): 3 Lower Body Dressing (QC): 2 On/Off Footwear: 1 OT Short Term Goals Short Term Goals Time Frame: Jan 02, 2023 Eatin Oral hygiene: 5 Upper body dressin OT [facility] Goals [facility] Goals Acute change in mental status: 1 Inattention: 2 Disorganized thinkin Altered level of consciousness: 2 Eating (QC): 6 Oral Hygiene (QC): 6 Toileting Hygiene (QC): 6 Shower/Bathe Self (QC): 5 Upper Body Dressing (QC): 6 Lower Body Dressing (QC): 6 On/Off Footwear (QC): 4 1=Demonstrate adherence to instructed precautions during ADL tasks. 2=Patient will verbalize/demonstrate understanding of assistive devices/modifications for ADL. 3=Patient will improve strength/tolerance for activity to enable patient to perform ADL's. OT Education/Plan Problem List/Assessment Assessment: Decreased Activ Tolerance, Decreased UE Strength, Dependent Transfers, Impaired Bed Mobility, Impaired Self-Care Skills, Restricted Funct UE ROM Discharge Recommendations Plan/Recommendations: Continue POC Treatment Plan/Plan of Care Patient would benefit from OT for education, treatment and training to promote independence in ADL's, mobility, safety and/or upper extremity function for ADL's. Plan of Care: ADL Retraining, Caregiver Training, Concurrent Therapy, Functional Mobility, Group Exercise/Act as Ind, UE Funct Exercise/Act, UE Neuromus Re-Ed/Coord Treatment Duration: Feb 01, 2023 Frequency: At least 5 of 7 days/Wk (IRF) Estimated Hrs Per Day: 1.5 hours per day Agreement: Yes Rehab Potential: Good Time Start Time: 07:30 Stop Time: 08:00 DATE: Jan 12, 2023 Total Time Billed (hr/min): 30 Billed Treatment Time 1 visit-ADL 2 (30 min) MARIE PHILLIPS Jan 12, 2023 13:32
--- NOTE | 2023-01-12 13:33 | Speech Therapy Daily Note ---
Speech Daily Progress Note Subjective Date Seen by Provider: Jan 12, 2023 Time Seen by Provider: 10:50 Pt sitting up in recliner asleep with nursing at bedside. FREEZER WORKER has to say pt's name multiple times loudly to wake him. Pt reports he is exhausted. Pt pleasant and cooperative. Pain Location: No Pain Reported Objective Pt completes the following swallowing exercises with 100% accuracy with min verbal cues: Lingual protrusion: x60 Effortful swallow: x15 Tongue in cheek: x25 Laryngeal elevation: x30 Pt completes short delay memory tasks with 90% accuracy with min verbal cues. Assessment Assessment Current Status: Fair Progress Treatment Plan Continue Plan of Care Speech Short Term Goals Short Term Goals Short Term Goals Pt to complete a MBSS. PT TO COMPLETE MENTAL MANIPULATION OF 4 OBJECTS WITH 80% ACCURACY WITH MIN CUES. Speech Lens Polisher Hand Goals Nursing Home Goals Pt to demonstrate no s/sx of aspiration on least restrictive diet consistency. PT TO COMPLETE MEMORY TASKS FOLLOWING SHORT DELAY WITH 80% ACCURACY WITH MIN VERBAL CUES TO IMPROVE OVERALL SAFETY. PT TO COMPLETE MEDICATION AND MONEY MANAGEMENT TASKS WITH 100% ACCURACY PRIOR TO D/C. Speech-Plan Patient/Family Goals Patient/Family Goals: Pt states goal is to return home. Treatment Plan Speech Therapy Treatment Plan: Continue Plan of Care Treatment Duration: Jan 02, 2023 Frequency: 5 times per week Estimated Hrs Per Day: .25 hour per day Rehab Potential: Good Safety Risks/Education Teaching Recipient: Patient Teaching Methods: Discussion Response to Teaching: Verbalize Understanding Education Topics Provided: Pt educated on purpose of therapy tasks and reminded of the follow up MBSS scheduled to reassess his swallow. Discharge Recommendations Post Acute ST Time Speech Therapy Time In: 10:50 Speech Therapy Time Out: 11:20 DATE: Jan 12, 2023 Total Billed Time: 30 Billed Treatment Time S/L TX, DYS TX Jose Manuel Shay Speech Therapy Jan 12, 2023 13:33
--- NOTE | 2023-01-12 13:37 | Occupational Ther Daily Note ---
OT Current Status-Daily Note Subjective Pt working with PT. OT/PT co-treat([id number]), skills of 2 clinicians required for skilled instruction and hands on manipulation while working with pt for sit to stand strength, maintaining upright posture and lower body extension during standing at parallel bars. PT focusing on standing, positioning and maintaining stance while OT assist with giving pt max support and adjusting hips during stance. Mental Status/Objective Patient Orientation: Person, Place, Time, Situation Attachments: Gautam Catheter, IV, PEG Tube ADL-Treatment Pt requested to use toilet. Using sit to stand lift, pt transferred to [facility] [place] [place] for BM. Pt dependent for transfer and toileting. After session, pt sitting in recliner with call light/phone in reach. All needs met in room. Therapy Code Descriptions/Definitions Functional [place] Measure: 0=Not Assessed/NA 4=Minimal Assistance 1=Total Assistance 5=Supervision or Setup 2=Maximal Assistance 6=Modified [place] 3=Moderate Assistance 7=Complete IndependenceSCALE: Activities may be completed with or without assistive devices. 8-Kvfvrgowfe-ramhjxf completes the activity by him/herself with no assistance from a helper. 5-Set-up or Clean-up Assistance-helper sets up or cleans up; patient completes activity. [place] assists only prior to or following the activity. 4-Supervision or Touching Assistance-helper provides verbal cues and/or touching/steadying and/or contact guard assistance as patient completes activity. Assistance may be provided throughout the activity or intermittently. 3-Partial/Moderate Assistance-helper does LESS THAN HALF the effort. [place] lifts, holds or supports trunk or limbs, but provides less than half the effort. 2-Substantial/Maximal Assistance-helper does MORE THAN HALF the effort. [place] lifts or holds trunk or limbs and provides more than half the effort. 7-Sfdyjmahb-uencyf does ALL the effort. Patient does none of the effort to complete the activity. Or, the assistance of 2 or more helpers is required for the patient to complete the activity. If activity was not attempted, code reason: 7-Patient Refused. 9-Not Applicable-not attempted and the patient did not perform the activity before the current illness, exacerbation or injury. 10-Not Attempted due to Environmental Limitations-(lack of equipment, weather restraints, etc.). 88-Not Attempted due to Medical Conditions or Safety Concerns. Lower Body Dressing (QC): 1 Toileting Hygiene (QC): 1 Toilet Transfer (QC): 1 Other Treatment Pt max A x2 for standing at //bars this date. Pt is fatigued and unable to come to complete stand during session. Pt attempted 3x's with max A x2. Pt fatigued quickly but continues to work hard to accomplish task. Took over care from PT at this time. OT Short Term Goals Short Term Goals Time Frame: Jan 02, 2023 Eatin Oral hygiene: 5 Upper body dressin OT Central Communications Specialist Goals Fdc Goals Acute change in mental status: 1 Inattention: 2 Disorganized thinkin Altered level of consciousness: 2 Eating (QC): 6 Oral Hygiene (QC): 6 Toileting Hygiene (QC): 6 Shower/Bathe Self (QC): 5 Upper Body Dressing (QC): 6 Lower Body Dressing (QC): 6 On/Off Footwear (QC): 4 1=Demonstrate adherence to instructed precautions during ADL tasks. 2=Patient will verbalize/demonstrate understanding of assistive devices/modifications for ADL. 3=Patient will improve strength/tolerance for activity to enable patient to perform ADL's. OT Education/Plan Problem List/Assessment Assessment: Decreased Activ Tolerance, Decreased UE Strength, Dependent Transfers, Impaired Self-Care Skills Discharge Recommendations Plan/Recommendations: Continue POC Treatment Plan/Plan of Care Patient would benefit from OT for education, treatment and training to promote independence in ADL's, mobility, safety and/or upper extremity function for ADL's. Plan of Care: ADL Retraining, Caregiver Training, Concurrent Therapy, Functional Mobility, Group Exercise/Act as Ind, UE Funct Exercise/Act, UE Neuromus Re-Ed/Coord Treatment Duration: Feb 01, 2023 Frequency: At least 5 of 7 days/Wk (IRF) Estimated Hrs Per Day: 1.5 hours per day Agreement: Yes Rehab Potential: Good Time Start Time: 09:00 Stop Time: 10:00 DATE: Jan 12, 2023 Total Time Billed (hr/min): 60 Billed Treatment Time 1 visit-FA 2 (30 min) ADL 2 (30 min) co-treat with PT [id number], individual [id number] MARIE PHILLIPS Jan 12, 2023 13:37
--- NOTE | 2023-01-12 16:09 | Physical Therapy Daily Note ---
PT Daily Note-Current Subjective Pt is agreeable to PT. Denies pain Pain Numeric Pain Scale: 0-No Pain Location: No Pain Reported Section J - Health Conditions 1. Rarely or not at all 2. Occasionally 3. Frequently 4. Almost constantly 8. Unable to answer Pain Effect on Sleep: 1 Pain Interference with Therapy: 1 Pain Interference w/Day-to-Day: 1 Mental Status Attachments: PEG Tube, Gautam Catheter Trach tube Transfers SCALE: Activities may be completed with or without assistive devices. 8-Eusobztqnf-owugydj completes the activity by him/herself with no assistance from a helper. 5-Set-up or Clean-up Assistance-helper sets up or cleans up; patient completes activity. [place] assists only prior to or following the activity. 4-Supervision or Touching Assistance-helper provides verbal cues and/or touching/steadying and/or contact guard assistance as patient completes activity. Assistance may be provided throughout the activity or intermittently. 3-Partial/Moderate Assistance-helper does LESS THAN HALF the effort. [place] lifts, holds or supports trunk or limbs, but provides less than half the effort. 2-Substantial/Maximal Assistance-helper does MORE THAN HALF the effort. [place] lifts or holds trunk or limbs and provides more than half the effort. 3-Wpmdpwmkf-mbofqi does ALL the effort. Patient does none of the effort to complete the activity. Or, the assistance of 2 or more helpers is required for the patient to complete the activity. If activity was not attempted, code reason: 7-Patient Refused. 9-Not Applicable-not attempted and the patient did not perform the activity before the current illness, exacerbation or injury. 10-Not Attempted due to Environmental Limitations-(lack of equipment, weather restraints, etc.). 88-Not Attempted due to Medical Conditions or Safety Concerns. Lying to Sitting/Side of Bed(Q: 3 Sit to Stand (QC): 1 Chair/Rev-ha-Dmczi Xfer(QC): 1 Weight Bearing Right Lower Extremity: Right Full Weight Bearing Left Lower Extremity: Left Full Weight Bearing Gait Training Does the Patient Walk?: No and Walking Goal IS indicated Treatments OT/PT co-treat([id number]), skills of 2 clinicians required for skilled instruction and hands on manipulation while working with pt for sit to stand strength, maintaining upright posture and lower body extension during standing at parallel bars. PT focusing on standing, positioning and maintaining stance while OT assist with giving pt max support and adjusting hips during stance. Pt completed supine B LE Ther Ex x 15 reps each. Pt was able to actively perform a SLR. Pt completed supine to sit with Min A. Sit to stand lift utilized to transfer the pt from bed to w/c. Pt completed 3 sit to stands in the // bars with Max A x 2 and Max v/c for B TKE and erect posture. Pt only stood for 10-15 seconds for each bout of standing. Pt left in w/c with MANAGER CONTRACT. Assessment Current Status: Fair Progress Pt tolerated PT with fair effort PT Usp Goals Die Cast Technician Goals PT Usp Goals Time Frame: Jan 16, 2023 Roll Left & Right (QC): 4 (Pt will be SBA for bed mobilty tasks. ) Sit to Lying (QC): 4 (Pt will be SBA for bed mobilty tasks. ) Lying-Sitting on Side/Bed(QC): 4 (Pt will be SBA for bed mobilty tasks. ) Sit to Stand (QC): 3 (Pt will be Min A for functional transfers. ) Chair/Pks-qq-Oyaag Xfer(QC): 3 (Pt will be Min A for functional transfers. ) Toilet Transfer (QC): 3 (Pt will be Min A for functional transfers. ) Car Transfer (QC): 3 (Pt will be Min A for functional transfers. ) Does the Patient Walk: No and Walking Goal IS indicated Walk 10 feet (QC): 3 (Pt will be Min A for walking with the FWW. ) Walk 50ft with 2 Turns (QC): 3 (Pt will be Min A for walking with the FWW. ) Walk 150 ft (QC): 3 (Pt will be Min A for walking with the FWW. ) Walking 10ft on Uneven Surface: 3 (Pt will be Min A for walking with the FWW. ) 1 Step (curb) (QC): 3 (Pt will be Min A for steps to safely enter/exit the home. ) 4 Steps (QC): 3 (Pt will be Min A for steps to safely enter/exit the home. ) 12 Steps (QC): 3 (Pt will be Min A for steps to safely enter/exit the home. ) Picking up an Object (QC): 4 (Pt will be CGA with a cut off saw operator. ) Does the Pt use WC or Scooter?: Yes Wheel 50 feet with 2 turns (QC: 4 (Pt will be SBA for w/c mobility. ) Type: Manual Wheel 150 feet: 4 (Pt will be SBA for w/c mobility. ) Type: Manual PT Plan Problem List Problem List: Activity Tolerance, Functional Strength, Safety, Balance, Gait, Transfer, Bed Mobility, ROM Treatment/Plan Treatment Plan: Continue Plan of Care Treatment Plan: Bed Mobility, Concurrent Therapy, Education, Functional Activity Mike, Functional Strength, Group Therapy, Gait, Safety, Therapeutic Exercise, Transfers Treatment Duration: Jan 16, 2023 Frequency: At least 5 of 7 days/Wk (IRF) Estimated Hrs Per Day: 1.5 hours per day Patient and/or Family Agrees t: Yes Safety Risks/Education Patient Education: Transfer Techniques, Correct Positioning, W/C Management, Safety Issues Teaching Recipient: Patient Teaching Methods: Demonstration, Discussion Response to Teaching: Reinforcement Needed Discharge Recommendations Therapy Discharge Recommendati: 24 Hour Supervision Discharge Status/Home Program Cont per POC Barriers to Progress Debility/weakness Target Placement SNF Time Time In: 830 Time Out: 930 DATE: Jan 12, 2023 Total Billed Treatment Time: 60 Total Billed Treatment 60 min total from 0830 - 0930 (co-tx for 30 min from [id number]) 1 visit EX x 2 FA x 2 RADHA PERALES PT Jan 12, 2023 16:09
[2023-01-12 19:47] VITALS: BP 98/55
[2023-01-13] MEDS: ENOXAPARIN 40 MG/0.4 ML (LOVENOX) SYR SC SCH (06:38)
[2023-01-13] MEDS: MULTIVIT W/MINERALS TAB (THERAGRAN M) PO SCH (06:38)
[2023-01-13] MEDS: POTASSIUM BICARB 20 MEQ (EFFER-K) TABLET PEG SCH (06:38)
--- NOTE | 2023-01-13 07:29 | PM&R Progress Note ---
Subjective HPI/CC On Admission Date Seen by Provider: Jan 13, 2023 Time Seen by Provider: 12:00 Subjective/Events-last exam 01/13/2023: Patient doing a lot better Lungs remain clear No falls Needs slow recovery at skilled facility 01/12/2023: Patient about the same Daughter wants Dr Edwards to assess trach so order placed Considering patient is still not recovered enough to regain much independence and his use of CPAP is minimal it is my opinion he will be at risk for future resp failure and the trach should remain left in place 01/11/2023: Patient about the same Family is looking into skilled options Very slow progress 01/10/2023: Patient doing pretty well Slow recovery Unrealistic family to take care of bedridden state with Gautam catheter trach and tube feedings so may need skilled care 01/09/2023: Sister and family at the bedside today Very pleased with his progress Remains n.p.o. due to aspiration risk We will continue aggressive therapy Very slow recovery 01/08/2023: Slow recovery Tube feedings only Aspiration risk places him n.p.o. Very slow recovery may preclude inpatient rehab and may need to go to skilled 01/07/2023: Patient about the same Sleeps most of the time Very slow recovery Aspiration risk remains high 01/06/2023: Patient only on tube feedings now due to aspiration risk Family at the bedside Very slow recovery 01/05/2023: Patient about the same Modified barium swallow did not go well and placed back on tube feedings No pain is reported 01/04/2023: Patient doing pretty well Working with therapy slow recovery No falls No pain 01/03/2023: Patient doing pretty well Very weak Working on motivation Son and are at the bedside Dr. Roldan is primary care provider in [place] No pain Review of Systems General: Fatigue, Malaise Objective Exam Vital Signs Vital Signs Date Time Temp Pulse Resp B/P (MAP) Pulse Ox O2 Delivery O2 Flow Rate FiO2 01/13/23 19:43 36.8 90 20 108/69 (82) 99 Room Air 01/13/23 10:01 0.00 Capillary Refill : General Appearance: WD/WN, Chronically ill, Obese, Other (Very weak) HEENT: PERRL/EOMI, Normal ENT Inspection, Pharynx Normal Neck: Full Range of Motion, Normal Inspection, Non Tender, Supple, Carotid Bruit Respiratory: Chest Non Tender, Lungs Clear, No Accessory Muscle Use, No Respiratory Distress, Decreased Breath Sounds Cardiovascular: Regular Rate, Rhythm, No Edema, No Gallop, No JVD, No Murmur, Normal Peripheral Pulses Gastrointestinal: Normal Bowel Sounds, No Organomegaly, No Pulsatile Mass, Non Tender, Soft Back: Normal Inspection, No CVA Tenderness, No Vertebral Tenderness Extremity: Normal Capillary Refill, Normal Inspection, Normal Range of Motion, Non Tender, No Calf Tenderness, No Pedal Edema Neurologic/Psychiatric: Alert, Oriented x3, program director cable television II-XII Norm as Tested, Abnormal Gait, Depressed Affect, Motor Weakness ( severe muscle weakness) Skin: Normal Color, Warm/Dry Lymphatic: No Adenopathy Results/Procedures Lab Patient resulted labs reviewed. FIM Transfers Therapy Code Descriptions/Definitions Functional [place] Measure: 0=Not Assessed/NA 4=Minimal Assistance 1=Total Assistance 5=Supervision or Setup 2=Maximal Assistance 6=Modified [place] 3=Moderate Assistance 7=Complete IndependenceSCALE: Activities may be completed with or without assistive devices. 1-Qzkwmhfvkp-wtvwftc completes the activity by him/herself with no assistance from a helper. 5-Set-up or Clean-up Assistance-helper sets up or cleans up; patient completes activity. [place] assists only prior to or following the activity. 4-Supervision or Touching Assistance-helper provides verbal cues and/or touching/steadying and/or contact guard assistance as patient completes activity. Assistance may be provided throughout the activity or intermittently. 3-Partial/Moderate Assistance-helper does LESS THAN HALF the effort. [place] lifts, holds or supports trunk or limbs, but provides less than half the effort. 2-Substantial/Maximal Assistance-helper does MORE THAN HALF the effort. [place] lifts or holds trunk or limbs and provides more than half the effort. 9-Mkvhokxbj-niqwxf does ALL the effort. Patient does none of the effort to complete the activity. Or, the assistance of 2 or more helpers is required for the patient to complete the activity. If activity was not attempted, code reason: 7-Patient Refused. 9-Not Applicable-not attempted and the patient did not perform the activity before the current illness, exacerbation or injury. 10-Not Attempted due to Environmental Limitations-(lack of equipment, weather restraints, etc.). 88-Not Attempted due to Medical Conditions or Safety Concerns. Roll Left to Right (QC): 3 Sit to Lying (QC): 3 Sit to Stand (QC): 1 Chair/Rkr-th-Npbry Xfer(QC): 1 Car Transfer (QC): 88 Gait Training Does the Patient Walk?: No and Walking Goal IS indicated Walk 10 feet (QC): 88 Walk 50 ft with 2 Turns(QC): 88 Walk 150 ft (QC): 88 Walking 10ft/uneven surface-QC: 88 Gait Assistive Device: None Wheelchair Training Does the Pt Use a Wheelchair?: Yes Wheel 50 ft with 2 turns (QC): 3 Wheel 150 ft (QC): 88 Type of Wheelchair: Manual Stair Training 1 Step (curb) (QC): 88 4 Steps (QC): 88 12 Steps (QC): 88 Balance Picking up an Object (QC): 88 ADL-Treatment Eating (QC): 5 Oral Hygiene (QC): 5 Shower/Bathe Self (QC): 3 (Mod A) Upper Body Dressing (QC): 3 Lower Body Dressing (QC): 1 On/Off Footwear (QC): 1 Toileting Hygiene (QC): 1 Toilet Transfer (QC): 1 Assessment/Plan Assessment and Plan Assess & Plan/Chief Complaint 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 status due to aspiration risk Continue tube feedings 01/10/2023: Supportive care Tube feeds 01/11/2023: Supportive care Monitor closely 01/12/2023: Consult Dr Edwards whom daughter already reached out to for trach opinion 01/13/2023: Pursue skilled care (1) Myopathy (2) Tracheostomy status (3) PEG (percutaneous endoscopic gastrostomy) status ANGELES GRANT DO Jan 13, 2023 07:29
[2023-01-13 07:43] VITALS: BP 128/77
[2023-01-13] MEDS: FUROSEMIDE 40 MG (LASIX) TAB PO SCH (10:28)
[2023-01-13] MEDS: lisINopril 5 MG (PRINIVIL) TABLET PO SCH (10:28)
[2023-01-13] MEDS: LACTOBACILLUS ACIDOPHILUS (PROBIOTIC) CAPSULE PO SCH ×2 (10:28→20:23)
[2023-01-13] MEDS: ASPIRIN 81 MG CHEW (CHILDREN'S ASA) PO SCH (10:28)
[2023-01-13] MEDS: sulfaSALAzine 500 MG (AZULFIDINE) TAB PO SCH ×2 (10:28→20:23)
[2023-01-13] MEDS: MICONAZOLE 2% POWDER (DESENEX AF) 90 GM TOP SCH ×2 (10:29→20:23)
[2023-01-13] MEDS: LORATADINE (CLARITIN) 10 MG TAB PO SCH (10:30)
[2023-01-13] MEDS: DOCUSATE SODIUM 100 MG (COLACE) CAP PO SCH ×2 (10:30→20:24)
[2023-01-13] MEDS: FAMOTIDINE 40 MG/5 ML ORAL SUSP 50 ML PEG SCH ×2 (10:31→20:24)
[2023-01-13] MEDS: FLUTICASONE NASAL SPRAY (FLONASE) 16 GM BTL NS SCH (10:32)
[2023-01-13] MEDS: ZINC OXIDE 16% OINT (BUTT PASTE) 57 GM TUBE TOP PRN (10:55)
[2023-01-13] MEDS: polyethylene glycoL POWDER 17 GM (MIRALAX) PACK PO SCH ×2 (12:19→20:24)
[2023-01-13] MEDS: SENNA W/DOCUSATE (SENOKOT S) TABLET PO SCH ×2 (12:19→20:24)
[2023-01-13] MEDS: BENEFIBER (FROM DIETARY) DOCUMENTATION PURPOSE ONLY PO SCH (12:19)
[2023-01-13 17:36] VITALS: BP_SYST 110; BP_SYST 116; BP_DIAS 66
[2023-01-13 19:43] VITALS: BP 108/69
[2023-01-14] MEDS: POTASSIUM BICARB 20 MEQ (EFFER-K) TABLET PEG SCH (06:45)
[2023-01-14] MEDS: MULTIVIT W/MINERALS TAB (THERAGRAN M) PO SCH (06:45)
[2023-01-14] MEDS: ENOXAPARIN 40 MG/0.4 ML (LOVENOX) SYR SC SCH (06:46)
--- NOTE | 2023-01-14 07:24 | PM&R Progress Note ---
Subjective HPI/CC On Admission Date Seen by Provider: Jan 14, 2023 Time Seen by Provider: 12:00 Subjective/Events-last exam 01/14/2023: Patient has no new issues Dr Edwards assessed the patient regarding the trach status No falls 01/13/2023: Patient doing a lot better Lungs remain clear No falls Needs slow recovery at skilled facility 01/12/2023: Patient about the same Daughter wants Dr Edwards to assess trach so order placed Considering patient is still not recovered enough to regain much independence and his use of CPAP is minimal it is my opinion he will be at risk for future resp failure and the trach should remain left in place 01/11/2023: Patient about the same Family is looking into skilled options Very slow progress 01/10/2023: Patient doing pretty well Slow recovery Unrealistic family to take care of bedridden state with Gautam catheter trach and tube feedings so may need skilled care 01/09/2023: Sister and family at the bedside today Very pleased with his progress Remains n.p.o. due to aspiration risk We will continue aggressive therapy Very slow recovery 01/08/2023: Slow recovery Tube feedings only Aspiration risk places him n.p.o. Very slow recovery may preclude inpatient rehab and may need to go to skilled 01/07/2023: Patient about the same Sleeps most of the time Very slow recovery Aspiration risk remains high 01/06/2023: Patient only on tube feedings now due to aspiration risk Family at the bedside Very slow recovery 01/05/2023: Patient about the same Modified barium swallow did not go well and placed back on tube feedings No pain is reported 01/04/2023: Patient doing pretty well Working with therapy slow recovery No falls No pain 01/03/2023: Patient doing pretty well Very weak Working on motivation Son and are at the bedside Dr. Roldan is primary care provider in [place] No pain Review of Systems General: Fatigue, Malaise Objective Exam Vital Signs Vital Signs Date Time Temp Pulse Resp B/P (MAP) Pulse Ox O2 Delivery O2 Flow Rate FiO2 01/14/23 09:30 Room Air 01/14/23 08:00 36.4 94 20 121/70 (87) 96 01/13/23 10:01 0.00 Capillary Refill : General Appearance: WD/WN, Chronically ill, Obese, Other (Very weak) HEENT: PERRL/EOMI, Normal ENT Inspection, Pharynx Normal Neck: Full Range of Motion, Normal Inspection, Non Tender, Supple, Carotid Bruit Respiratory: Chest Non Tender, Lungs Clear, No Accessory Muscle Use, No Respiratory Distress, Decreased Breath Sounds Cardiovascular: Regular Rate, Rhythm, No Edema, No Gallop, No JVD, No Murmur, Normal Peripheral Pulses Gastrointestinal: Normal Bowel Sounds, No Organomegaly, No Pulsatile Mass, Non Tender, Soft Back: Normal Inspection, No CVA Tenderness, No Vertebral Tenderness Extremity: Normal Capillary Refill, Normal Inspection, Normal Range of Motion, Non Tender, No Calf Tenderness, No Pedal Edema Neurologic/Psychiatric: Alert, Oriented x3, garment tag stringer II-XII Norm as Tested, Abnormal Gait, Depressed Affect, Motor Weakness ( severe muscle weakness) Skin: Normal Color, Warm/Dry Lymphatic: No Adenopathy Results/Procedures Lab Patient resulted labs reviewed. FIM Transfers Therapy Code Descriptions/Definitions Functional [place] Measure: 0=Not Assessed/NA 4=Minimal Assistance 1=Total Assistance 5=Supervision or Setup 2=Maximal Assistance 6=Modified [place] 3=Moderate Assistance 7=Complete IndependenceSCALE: Activities may be completed with or without assistive devices. 4-Yijbobxwnv-edfryyx completes the activity by him/herself with no assistance from a helper. 5-Set-up or Clean-up Assistance-helper sets up or cleans up; patient completes activity. [place] assists only prior to or following the activity. 4-Supervision or Touching Assistance-helper provides verbal cues and/or touching/steadying and/or contact guard assistance as patient completes activity. Assistance may be provided throughout the activity or intermittently. 3-Partial/Moderate Assistance-helper does LESS THAN HALF the effort. [place] lifts, holds or supports trunk or limbs, but provides less than half the effort. 2-Substantial/Maximal Assistance-helper does MORE THAN HALF the effort. [place] lifts or holds trunk or limbs and provides more than half the effort. 9-Kgcckyzxt-irhrhq does ALL the effort. Patient does none of the effort to complete the activity. Or, the assistance of 2 or more helpers is required for the patient to complete the activity. If activity was not attempted, code reason: 7-Patient Refused. 9-Not Applicable-not attempted and the patient did not perform the activity before the current illness, exacerbation or injury. 10-Not Attempted due to Environmental Limitations-(lack of equipment, weather restraints, etc.). 88-Not Attempted due to Medical Conditions or Safety Concerns. Roll Left to Right (QC): 3 Sit to Lying (QC): 3 Sit to Stand (QC): 1 Chair/Fjl-xq-Esgbe Xfer(QC): 1 Car Transfer (QC): 88 Gait Training Does the Patient Walk?: No and Walking Goal IS indicated Walk 10 feet (QC): 88 Walk 50 ft with 2 Turns(QC): 88 Walk 150 ft (QC): 88 Walking 10ft/uneven surface-QC: 88 Gait Assistive Device: None Wheelchair Training Does the Pt Use a Wheelchair?: Yes Wheel 50 ft with 2 turns (QC): 3 Wheel 150 ft (QC): 88 Type of Wheelchair: Manual Stair Training 1 Step (curb) (QC): 88 4 Steps (QC): 88 12 Steps (QC): 88 Balance Picking up an Object (QC): 88 ADL-Treatment Eating (QC): 5 Oral Hygiene (QC): 5 Shower/Bathe Self (QC): 3 (Mod A) Upper Body Dressing (QC): 3 Lower Body Dressing (QC): 1 On/Off Footwear (QC): 1 Toileting Hygiene (QC): 1 Toilet Transfer (QC): 1 Assessment/Plan Assessment and Plan Assess & Plan/Chief Complaint 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 status due to aspiration risk Continue tube feedings 01/10/2023: Supportive care Tube feeds 01/11/2023: Supportive care Monitor closely 01/12/2023: Consult Dr Edwards whom daughter already reached out to for trach opinion 01/13/2023: Pursue skilled care 01/14/2023: Appreciate Dr Edwards (1) Myopathy (2) Tracheostomy status (3) PEG (percutaneous endoscopic gastrostomy) status ANGELES GRANT DO Jan 14, 2023 07:24
[2023-01-14 08:00] VITALS: BP 121/70
[2023-01-14] MEDS: FAMOTIDINE 40 MG/5 ML ORAL SUSP 50 ML PEG SCH ×2 (09:54→21:12)
[2023-01-14] MEDS: DOCUSATE SODIUM 100 MG (COLACE) CAP PO SCH ×2 (09:54→21:12)
[2023-01-14] MEDS: LORATADINE (CLARITIN) 10 MG TAB PO SCH (09:55)
[2023-01-14] MEDS: ASPIRIN 81 MG CHEW (CHILDREN'S ASA) PO SCH (09:55)
[2023-01-14] MEDS: LACTOBACILLUS ACIDOPHILUS (PROBIOTIC) CAPSULE PO SCH ×2 (09:55→21:13)
[2023-01-14] MEDS: FUROSEMIDE 40 MG (LASIX) TAB PO SCH (09:55)
[2023-01-14] MEDS: sulfaSALAzine 500 MG (AZULFIDINE) TAB PO SCH ×2 (09:55→21:13)
[2023-01-14] MEDS: lisINopril 5 MG (PRINIVIL) TABLET PO SCH (09:55)
[2023-01-14] MEDS: SENNA W/DOCUSATE (SENOKOT S) TABLET PO SCH ×2 (09:55→21:38)
[2023-01-14] MEDS: BENEFIBER (FROM DIETARY) DOCUMENTATION PURPOSE ONLY PO SCH (09:56)
[2023-01-14] MEDS: MICONAZOLE 2% POWDER (DESENEX AF) 90 GM TOP SCH ×2 (09:56→21:13)
[2023-01-14] MEDS: FLUTICASONE NASAL SPRAY (FLONASE) 16 GM BTL NS SCH (09:56)
[2023-01-14] MEDS ORDERED: SOD CHL GEL 0.5 OZ (AYR SALINE NASAL GEL) TUBE TOP PRN (14:15)
--- NOTE | 2023-01-14 15:47 | CONSULTATION REPORT ---
ENT CONSULT Acute rehab service room 231. REFERRING PHYSICIAN: Dr. Wallace. HISTORY OF PRESENT ILLNESS: The patient is currently in acute rehabilitation. He had an acute illness, suffered respiratory failure and subsequently was on a ventilator for an extended period of time. He had multiorgan failure. He subsequently had a trach to get him off of the ventilator. He has made slow progress. The trach is #[address] that is capped. It has been capped since 12/27/2022. He has an indwelling PEG tube. Initially, he was tried on food that had to be discontinued as he was aspirating and now he is only on tube feedings. He is scheduled for another modified barium swallow on Sunday. Comorbidities include obstructive sleep apnea. He does have a CPAP machine. He has been trying to use it with the trach capped. He has not been very mobile. He is trying to do the exercises the speech therapist outlined for him to do. PHYSICAL EXAMINATION: On physical exam today, in general, he is in no acute distress. He is alert and oriented. Communication, no hoarseness noted. He had occasional coughing with his saliva. Oral cavity had good tongue mobility and good elevation of the palate. The neck, the trach site is clean. The trach is capped. IMPRESSION: 1. Long-term tracheostomy. 2. Dysphagia [ ]. 3. Obstructive sleep apnea. RECOMMENDATIONS: Today, I had a very honest discussion with him regarding the trach, the advantages of removing the trach would be that it would be gone; however, the disadvantages may outweigh the advantages and that if he is still aspirating and he got an aspiration pneumonia, then he would need to be intubated again and then subsequently have another trach if it did not kill him. From an eating standpoint, time will tell on whether the swallowing ability will return. It could take weeks or months to return. We will see what the results of the modified barium swallow show tomorrow. If the trach ends up having to stay in place because of continued aspiration, then potentially he could unplug the trach at night and use a trach collar at night, which would then alleviate the need for the use of CPAP. In order to prove that, we would do a diagnostic portable study with the trach unplugged to see where we were at. Then if some time in the future, his swallowing ability improved, then at that point, we could discuss removing the trach or he could leave it in place just to treat the sleep apnea. If we leave the trach in place, he would need the entire trach changed about every 3 months, which could be accomplished as an office procedure. At this point, [ ] on the results of the modified barium swallow, he has had scheduled for some time tomorrow. Once we have those results, then I will discuss it with him and I am happy to discuss the above with his family as well. We will check and see where we are at tomorrow. Job ID: [id number] DocumentID: [id number] Dictated Date: 01/14/2023 14:09:45 Performance Architect Date: 01/14/2023 15:46:00 Dictated By: JENNIFER HOUSE MD
[2023-01-14 18:18] VITALS: BP 113/84
[2023-01-14] MEDS: polyethylene glycoL POWDER 17 GM (MIRALAX) PACK PO SCH ×2 (18:25→21:38)
[2023-01-14 19:52] VITALS: BP 131/65
[2023-01-15 05:58] LABS: BASOPHILS # (AUTO) 0.1 10^3/uL (0.0-0.1); BASOPHILS % (AUTO) 1 % (0-10); EOSINOPHILS # (AUTO) 0.3 10^3/uL (0.0-0.3); EOSINOPHILS % (AUTO) 3 % (0-10); HEMATOCRIT 29 % (40-54); HEMOGLOBIN 9.1 g/dL (13.3-17.7); LYMPHOCYTES # (AUTO) 1.5 10^3/uL (1.0-4.0); LYMPHOCYTES % (AUTO) 19 % (12-44); MEAN CORPUSCULAR HEMOGLOBIN 29 pg (25-34); MEAN CORPUSCULAR HGB CONC 31 g/dL (32-36); MEAN CORPUSCULAR VOLUME 92 fL (80-99); MEAN PLATELET VOLUME 9.1 fL (9.0-12.2); MONOCYTES # (AUTO) 1.1 10^3/uL (0.0-1.0); MONOCYTES % (AUTO) 14 % (0-12); NEUTROPHILS # (AUTO) 4.7 10^3/uL (1.8-7.8); NEUTROPHILS % (AUTO) 61 % (42-75); PLATELET COUNT 288 10^3/uL (130-400); WHITE BLOOD COUNT 7.7 10^3/uL (4.3-11.0)
[2023-01-15] MEDS: MULTIVIT W/MINERALS TAB (THERAGRAN M) PO SCH (06:09)
[2023-01-15] MEDS: POTASSIUM BICARB 20 MEQ (EFFER-K) TABLET PEG SCH (06:09)
[2023-01-15] MEDS: ENOXAPARIN 40 MG/0.4 ML (LOVENOX) SYR SC SCH (06:10)
[2023-01-15 06:21] LABS: ALBUMIN 3.2 GM/DL (3.2-4.5); BILIRUBIN,TOTAL 0.3 MG/DL (0.1-1.0); CREATININE SERUM 0.89 MG/DL (0.60-1.30); POTASSIUM 4.5 MMOL/L (3.6-5.0); TOTAL PROTEIN 8.2 GM/DL (6.4-8.2)
[2023-01-15 08:00] VITALS: BP 131/69
[2023-01-15] MEDS: lisINopril 5 MG (PRINIVIL) TABLET PO SCH (08:27)
[2023-01-15] MEDS: FUROSEMIDE 40 MG (LASIX) TAB PO SCH (08:27)
[2023-01-15] MEDS: LORATADINE (CLARITIN) 10 MG TAB PO SCH (08:28)
[2023-01-15] MEDS: ASPIRIN 81 MG CHEW (CHILDREN'S ASA) PO SCH (08:28)
[2023-01-15] MEDS: FLUTICASONE NASAL SPRAY (FLONASE) 16 GM BTL NS SCH (08:28)
[2023-01-15] MEDS: LACTOBACILLUS ACIDOPHILUS (PROBIOTIC) CAPSULE PO SCH ×2 (08:28→20:26)
[2023-01-15] MEDS: sulfaSALAzine 500 MG (AZULFIDINE) TAB PO SCH ×2 (08:28→20:26)
[2023-01-15] MEDS: FAMOTIDINE 40 MG/5 ML ORAL SUSP 50 ML PEG SCH ×2 (08:28→20:27)
[2023-01-15] MEDS: DOCUSATE SODIUM 100 MG (COLACE) CAP PO SCH ×2 (08:29→19:29)
[2023-01-15] MEDS: polyethylene glycoL POWDER 17 GM (MIRALAX) PACK PO SCH ×2 (08:29→19:29)
[2023-01-15] MEDS: MICONAZOLE 2% POWDER (DESENEX AF) 90 GM TOP SCH ×2 (08:29→20:29)
[2023-01-15] MEDS: SENNA W/DOCUSATE (SENOKOT S) TABLET PO SCH ×2 (08:29→19:29)
[2023-01-15] MEDS: BENEFIBER (FROM DIETARY) DOCUMENTATION PURPOSE ONLY PO SCH (08:36)
--- NOTE | 2023-01-15 10:12 | Physical Therapy Daily Note ---
PT Daily Note-Current Subjective Pt reports he is doing well and is agreeable to treatment. Denies pain. Pain Numeric Pain Scale: 0-No Pain Location: No Pain Reported Section J - Health Conditions 1. Rarely or not at all 2. Occasionally 3. Frequently 4. Almost constantly 8. Unable to answer Pain Effect on Sleep: 1 Pain Interference with Therapy: 1 Pain Interference w/Day-to-Day: 1 Mental Status Attachments: PEG Tube, Gautam Catheter Trach tube Transfers SCALE: Activities may be completed with or without assistive devices. 4-Preabvymqg-ahlpdrb completes the activity by him/herself with no assistance from a helper. 5-Set-up or Clean-up Assistance-helper sets up or cleans up; patient completes activity. [place] assists only prior to or following the activity. 4-Supervision or Touching Assistance-helper provides verbal cues and/or touching/steadying and/or contact guard assistance as patient completes activity. Assistance may be provided throughout the activity or intermittently. 3-Partial/Moderate Assistance-helper does LESS THAN HALF the effort. [place] lifts, holds or supports trunk or limbs, but provides less than half the effort. 2-Substantial/Maximal Assistance-helper does MORE THAN HALF the effort. [place] lifts or holds trunk or limbs and provides more than half the effort. 5-Gjruapcdt-tgqbrb does ALL the effort. Patient does none of the effort to complete the activity. Or, the assistance of 2 or more helpers is required for the patient to complete the activity. If activity was not attempted, code reason: 7-Patient Refused. 9-Not Applicable-not attempted and the patient did not perform the activity before the current illness, exacerbation or injury. 10-Not Attempted due to Environmental Limitations-(lack of equipment, weather restraints, etc.). 88-Not Attempted due to Medical Conditions or Safety Concerns. Roll Left & Right (QC): 4 Lying to Sitting/Side of Bed(Q: 3 Sit to Stand (QC): 1 Chair/Kqx-vd-Svrrr Xfer(QC): 1 Toilet Transfer (QC): 1 Weight Bearing Right Lower Extremity: Right Full Weight Bearing Left Lower Extremity: Left Full Weight Bearing Gait Training Does the Patient Walk?: No and Walking Goal NOT indicated Treatments PT/OT co-tx from [id number], skills of 2 clinicians required for skilled instruction and hands on manipulation while working with pt for sit to stand strength, maintaining upright posture and lower body extension during standing at parallel bars. PT focusing on standing, positioning and maintaining stance while OT assist with giving pt max support and adjusting hips during stance. Pt completed supine B LE Ther Ex x 15 reps each. Pt completed R rolling with SBA. Pt completed supine to sit with Min/Mod A. Sit to stand lift utilized to transfer the pt from bed to BSC and BSC to w/c. Pt completed 4 partial sit to stands in the // bars with Max A x 2. Pt was only able to partially get his butt off the w/c. Pt completed wall leg press 3 x 5 reps in the w/c with manual resistance. Pt in recliner upon completion of treatment with call light in reach and all needs met. Assessment Current Status: Fair Progress Pt tolerated well with good effort PT Surgical Specialist Goals Mcfp Goals PT Surgical Specialist Goals Time Frame: Jan 16, 2023 Roll Left & Right (QC): 4 (Pt will be SBA for bed mobilty tasks. ) Sit to Lying (QC): 4 (Pt will be SBA for bed mobilty tasks. ) Lying-Sitting on Side/Bed(QC): 4 (Pt will be SBA for bed mobilty tasks. ) Sit to Stand (QC): 3 (Pt will be Min A for functional transfers. ) Chair/Oqe-sn-Zajro Xfer(QC): 3 (Pt will be Min A for functional transfers. ) Toilet Transfer (QC): 3 (Pt will be Min A for functional transfers. ) Car Transfer (QC): 3 (Pt will be Min A for functional transfers. ) Does the Patient Walk: No and Walking Goal IS indicated Walk 10 feet (QC): 3 (Pt will be Min A for walking with the FWW. ) Walk 50ft with 2 Turns (QC): 3 (Pt will be Min A for walking with the FWW. ) Walk 150 ft (QC): 3 (Pt will be Min A for walking with the FWW. ) Walking 10ft on Uneven Surface: 3 (Pt will be Min A for walking with the FWW. ) 1 Step (curb) (QC): 3 (Pt will be Min A for steps to safely enter/exit the home. ) 4 Steps (QC): 3 (Pt will be Min A for steps to safely enter/exit the home. ) 12 Steps (QC): 3 (Pt will be Min A for steps to safely enter/exit the home. ) Picking up an Object (QC): 4 (Pt will be CGA with a client services director. ) Does the Pt use WC or Scooter?: Yes Wheel 50 feet with 2 turns (QC: 4 (Pt will be SBA for w/c mobility. ) Type: Manual Wheel 150 feet: 4 (Pt will be SBA for w/c mobility. ) Type: Manual PT Plan Problem List Problem List: Activity Tolerance, Functional Strength, Safety, Balance, Gait, Transfer, Bed Mobility, ROM Treatment/Plan Treatment Plan: Continue Plan of Care Treatment Plan: Bed Mobility, Concurrent Therapy, Education, Functional Activity Mike, Functional Strength, Group Therapy, Gait, Safety, Therapeutic Exercise, Transfers Treatment Duration: Jan 16, 2023 Frequency: At least 5 of 7 days/Wk (IRF) Estimated Hrs Per Day: 1.5 hours per day Patient and/or Family Agrees t: Yes Safety Risks/Education Patient Education: Transfer Techniques, W/C Management, Safety Issues Teaching Recipient: Patient Teaching Methods: Demonstration, Discussion Response to Teaching: Verbalize Understanding, Return Demonstration, Reinforcement Needed Discharge Recommendations Therapy Discharge Recommendati: 24 Hour Supervision Discharge Status/Home Program Cont per POC Barriers to Progress Weakness/debility Target Placement SNF Time Time In: 830 Time Out: 1000 DATE: Jan 15, 2023 Total Billed Treatment Time: 90 Total Billed Treatment 90 min 1 visit [id number] = EX x 2 [id number] co-tx = FA x 4 RADHA PERALES PT Jan 15, 2023 10:12
--- NOTE | 2023-01-15 12:29 | Diagnostic Imaging Report ---
INDICATION: Dysphagia. TECHNIQUE: The procedure was performed in conjunction with Speech Pathology. Video fluoroscopy was performed during the swallowing of barium in multiple consistencies. A total of 2 minutes and 26 seconds of fluoroscopic time was utilized. Reference air Kerma is 8.9 mGy. No single images were obtained. FINDINGS: The patient ingested thin barium as well as puree and cracker consistencies. There were several episodes of penetration during the swallowing of thin barium with a cup. This would clear with a throat clear and a second swallow. Puree and cracker consistencies were unremarkable apart from mild piriform sinus and vallecular residue. IMPRESSION: Mild vallecular and piriform sinus residue as well as penetration with thin barium. No aspiration was observed. Dictated by: Dictated on workstation # [id number]
--- NOTE | 2023-01-15 12:53 | PM&R Progress Note ---
Subjective HPI/CC On Admission Date Seen by Provider: Jan 15, 2023 Time Seen by Provider: 12:30 Subjective/Events-last exam 01/15/2023: Patient doing a lot better Reviewed meds and labs Advance diet 01/14/2023: Patient has no new issues Dr Edwards assessed the patient regarding the trach status No falls 01/13/2023: Patient doing a lot better Lungs remain clear No falls Needs slow recovery at skilled facility 01/12/2023: Patient about the same Daughter wants Dr Edwards to assess trach so order placed Considering patient is still not recovered enough to regain much independence and his use of CPAP is minimal it is my opinion he will be at risk for future resp failure and the trach should remain left in place 01/11/2023: Patient about the same Family is looking into skilled options Very slow progress 01/10/2023: Patient doing pretty well Slow recovery Unrealistic family to take care of bedridden state with Gautam catheter trach and tube feedings so may need skilled care 01/09/2023: Sister and family at the bedside today Very pleased with his progress Remains n.p.o. due to aspiration risk We will continue aggressive therapy Very slow recovery 01/08/2023: Slow recovery Tube feedings only Aspiration risk places him n.p.o. Very slow recovery may preclude inpatient rehab and may need to go to skilled 01/07/2023: Patient about the same Sleeps most of the time Very slow recovery Aspiration risk remains high 01/06/2023: Patient only on tube feedings now due to aspiration risk Family at the bedside Very slow recovery 01/05/2023: Patient about the same Modified barium swallow did not go well and placed back on tube feedings No pain is reported 01/04/2023: Patient doing pretty well Working with therapy slow recovery No falls No pain 01/03/2023: Patient doing pretty well Very weak Working on motivation Son and are at the bedside Dr. Roldan is primary care provider in [place] No pain Review of Systems General: Fatigue, Malaise Objective Exam Vital Signs Vital Signs Date Time Temp Pulse Resp B/P (MAP) Pulse Ox O2 Delivery O2 Flow Rate FiO2 01/15/23 17:07 99 125/62 (83) 98 Room Air 01/15/23 08:00 36.9 18 01/13/23 10:01 0.00 Capillary Refill : General Appearance: WD/WN, Chronically ill, Obese, Other (Very weak) HEENT: PERRL/EOMI, Normal ENT Inspection, Pharynx Normal Neck: Full Range of Motion, Normal Inspection, Non Tender, Supple, Carotid Bruit Respiratory: Chest Non Tender, Lungs Clear, No Accessory Muscle Use, No Respiratory Distress, Decreased Breath Sounds Cardiovascular: Regular Rate, Rhythm, No Edema, No Gallop, No JVD, No Murmur, Normal Peripheral Pulses Gastrointestinal: Normal Bowel Sounds, No Organomegaly, No Pulsatile Mass, Non Tender, Soft Back: Normal Inspection, No CVA Tenderness, No Vertebral Tenderness Extremity: Normal Capillary Refill, Normal Inspection, Normal Range of Motion, Non Tender, No Calf Tenderness, No Pedal Edema Neurologic/Psychiatric: Alert, Oriented x3, locker attendant II-XII Norm as Tested, Abnormal Gait, Depressed Affect, Motor Weakness ( severe muscle weakness) Skin: Normal Color, Warm/Dry Lymphatic: No Adenopathy Results/Procedures Lab Laboratory Tests 01/15/23 05:39 Patient resulted labs reviewed. FIM Transfers Therapy Code Descriptions/Definitions Functional [place] Measure: 0=Not Assessed/NA 4=Minimal Assistance 1=Total Assistance 5=Supervision or Setup 2=Maximal Assistance 6=Modified [place] 3=Moderate Assistance 7=Complete IndependenceSCALE: Activities may be completed with or without assistive devices. 5-Avhztcjoud-nfxszya completes the activity by him/herself with no assistance from a helper. 5-Set-up or Clean-up Assistance-helper sets up or cleans up; patient completes activity. [place] assists only prior to or following the activity. 4-Supervision or Touching Assistance-helper provides verbal cues and/or touching/steadying and/or contact guard assistance as patient completes activity . Assistance may be provided throughout the activity or intermittently. 3-Partial/Moderate Assistance-helper does LESS THAN HALF the effort. [place] lifts, holds or supports trunk or limbs, but provides less than half the effort. 2-Substantial/Maximal Assistance-helper does MORE THAN HALF the effort. [place] lifts or holds trunk or limbs and provides more than half the effort. 0-Tgipzkttk-shacaa does ALL the effort. Patient does none of the effort to complete the activity. Or, the assistance of 2 or more helpers is required for the patient to complete the activity. If activity was not attempted, code reason: 7-Patient Refused. 9-Not Applicable-not attempted and the patient did not perform the activity before the current illness, exacerbation or injury. 10-Not Attempted due to Environmental Limitations-(lack of equipment, weather restraints, etc.). 88-Not Attempted due to Medical Conditions or Safety Concerns. Roll Left to Right (QC): 4 Sit to Lying (QC): 3 Sit to Stand (QC): 1 Chair/Zcx-zd-Qxhmf Xfer(QC): 1 Car Transfer (QC): 88 Gait Training Does the Patient Walk?: No and Walking Goal NOT indicated Walk 10 feet (QC): 88 Walk 50 ft with 2 Turns(QC): 88 Walk 150 ft (QC): 88 Walking 10ft/uneven surface-QC: 88 Gait Assistive Device: None Wheelchair Training Does the Pt Use a Wheelchair?: Yes Wheel 50 ft with 2 turns (QC): 3 Wheel 150 ft (QC): 88 Type of Wheelchair: Manual Stair Training 1 Step (curb) (QC): 88 4 Steps (QC): 88 12 Steps (QC): 88 Balance Picking up an Object (QC): 88 ADL-Treatment Eating (QC): 5 Oral Hygiene (QC): 5 Shower/Bathe Self (QC): 3 (Mod A) Upper Body Dressing (QC): 3 Lower Body Dressing (QC): 1 On/Off Footwear (QC): 1 Toileting Hygiene (QC): 1 Toilet Transfer (QC): 1 Assessment/Plan Assessment and Plan Assess & Plan/Chief Complaint 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 status due to aspiration risk Continue tube feedings 01/10/2023: Supportive care Tube feeds 01/11/2023: Supportive care Monitor closely 01/12/2023: Consult Dr Edwards whom daughter already reached out to for trach opinion 01/13/2023: Pursue skilled care 01/14/2023: Appreciate Dr Edwards 01/15/2023: Advance diet (1) Myopathy (2) Tracheostomy status (3) PEG (percutaneous endoscopic gastrostomy) status ANGELES GRANT DO Jan 15, 2023 12:53
--- NOTE | 2023-01-15 13:02 | ST Mod Barium Swallow ---
Speech Evaluation-General Medical Diagnosis Critical Illness Myopathy Onset Date: November 17, 2022 Therapy Diagnosis Therapy Diagnosis: Moderate Oropharyngeal Dysphagia Precautions Precautions: Fall, Aspiration Precautions/Isolations: Aspiration, Fall Prevention, Standard Precautions Referral Referring Physician: Dr. Wallace Reason for Referral: Evaluation/Treatment Medical History Pertinent Medical History: HTN Reviewed History: Yes Social History Current Living Status: Significant Other Speech Mod Barium Swallow Prior Level of Function Please refer to the patient's medical chart for prior level of function information and details. At this time, the patient is N.P.O. while receiving nutrition, hydration, and medication via PEG tube. Oral Motor Skills Dentition Natural Dentures: Full (Natural.) Lingual Protrusion: Normal Lingual ROM: Normal Lingual Strength: Normal Volitional Dry Swallow: Yes Voluntary Cough: Yes Can Clear Throat Volitionally: Yes Textures-Lateral View Lateral View Food Presentation: Thin Liquid via Spoon, Thin Liquid via Cup, [place] Liquid via Spoon (Mildly thick.), [place] Liquid via Cup (Mildly thick.), Pureed Solids Oral Phase Labial Closure: No Impairment (WFL) Bolus Formation Pooling L/R: No Impairment (WFL) Bolus Formation Placement: No Impairment (WFL) Mastication Rotary Chew: No Impairment (WFL) A/P Lingual Propulsion: No Impairment (WFL) Lingual Movement: No Impairment (WFL) The patient was able to adequately draw material from a teaspoon and cup edge. With increased verbal prompting, the patient was able to limit cup edge size drinks. Appropriate bolus formation and posterior transfer were visualized. As the swallow study continued, increased premature spillage was visualized with liquid consistencies to the vallecular space. Pharyngeal Phase Swallow Response: Mild Impairment Base of Tongue: Moderate Impairment Epiglottic Movement: Moderate Impairment Laryngeal Elevation: No Impairment (WFL) Vallecular Residue: Mild Pharyngeal Wall Residue: Mild Piriform Sinus Residue: Mild Laryngeal Penetration: Mild Aspiration Observations: None Initially, a delay of the pharyngeal swallow was not present, as the patient initiated the pharyngeal swallow as the head of the bolus passed the angle of the ramus and base of tongue. As the swallow study continued, the mild delay of the pharyngeal swallow was present, as the head of the bolus reached the vallecular space prior to pharyngeal swallow initiation (suspected fatigue). Moderate reduced hyo-laryngeal excursion was present which resulted in incomplete epiglottic inversion and reduced cricopharyngeal opening. Intact laryngeal elevation was appreciated. No aspiration was visualized with any consistency tested. Mild laryngeal penetration occurred with thin liquids and mildly thick liquids during the swallow secondary to incomplete epiglottic inversion. Trace laryngeal penetration occurred following the swallow with thin liquids and mildly thick liquids secondary to pyriform sinus residue. All penetrated material was consistently cleared from the laryngeal vestibule with a cued cough following the swallow and a subsequent hard swallow to clear expectorated material from the pharyngeal regions. Mild residue in the pyriform sinuses, valleculae, and posterior pharyngeal wall was visualized following the swallow and reduced with a cued, second dry swallow. Summary/Impressions The patient demonstrated moderate oropharyngeal dysphagia characterized by poor lingual coordination, a delayed onset of the pharyngeal swallow, decreased hyo- laryngeal excursion/elevation resulting in incomplete epiglottic inversion and poor cricopharyngeal relaxation, reduced base of tongue retraction, and decrease d pharyngeal contraction. No aspiration was visualized with any consistency tested. Mild laryngeal penetration occurred with thin liquids and mildly thick liquids during the swallow secondary to incomplete epiglottic inversion. Trace laryngeal penetration occurred following the swallow with thin liquids and mildly thick liquids secondary to pyriform sinus residue. All penetrated ma terial was consistently cleared from the laryngeal vestibule with a cued cough following the swallow and a subsequent hard swallow to clear expectorated material from the pharyngeal regions. Recommendations: - MM5 (minced and moist) with mildly thick (nectar) liquids, as tolerated. - Fully upright and alert for P.O. intake. - NO straws. - SMALL, SINGLE bites and sips, only. - SWALLOW HARD, COUGH, SWALLOW HARD with every bite and sip. - Crush medication and place in puree for administration. - Monitor for clinical and medical s/s of suspected aspiration with P.O. intake. If demonstrated, please place the patient N.P.O. and contact speech pathology. - Continue aggressive, consistent dysphagia therapy to improve strength of the base of tongue retraction, pharyngeal contractions, and hyo-laryngeal excursion. The patient displayed an appropriate ability to complete the above recommendations and maneuvers with speech pathology throughout his modified barium swallow and following during his in-room follow up. The safe swallowing precautions were discussed extensively with the patient and a handout with the recommendations were highlighted and placed at the patient's bedside. If the patient is unable to display compliance with the recommendations, the clinician recommends the patient return to N.P.O. The patient does remain at an increased risk for aspiration due to his prior medical history. The above information was shared and discussed with the patient's RN immediately following completion of the evaluation. Speech Short Term Goals Short Term Goals Short Term Goals Pt to complete a MBSS. PT TO COMPLETE MENTAL MANIPULATION OF 4 OBJECTS WITH 80% ACCURACY WITH MIN CUES. Speech Senior Living Goals Document Clerk Goals Pt to demonstrate no s/sx of aspiration on least restrictive diet consistency. PT TO COMPLETE MEMORY TASKS FOLLOWING SHORT DELAY WITH 80% ACCURACY WITH MIN VERBAL CUES TO IMPROVE OVERALL SAFETY. PT TO COMPLETE MEDICATION AND MONEY MANAGEMENT TASKS WITH 100% ACCURACY PRIOR TO D/C. Speech-Plan Treatment Plan Speech Therapy Treatment Plan: Continue Plan of Care Treatment Duration: Jan 02, 2023 Frequency: Modified Program (IRF) (Four to five times per week.) Estimated Hrs Per Day: .25 hour per day Rehab Potential: Good Pt/Family Agrees to Plan: Yes Safety Risks/Education Teaching Recipient: Patient Teaching Methods: Demonstration, Handout, Discussion Response to Teaching: Verbalize Understanding, Return Demonstration, Reinforcement Needed Education Topics Provided: Results and Recommendations, Safe Swallowing Precautions, Plan of Care Discharge Recommendations Post Acute ST Time Speech Therapy Time In: 11:30 Speech Therapy Time Out: 12:00 DATE: Jan 15, 2023 Total Billed Time: 30 Billed Treatment Time 1, MOD, SRINIVAS VALENZUELA Jan 15, 2023 13:02
--- NOTE | 2023-01-15 13:45 | Occupational Ther Daily Note ---
OT Current Status-Daily Note Subjective Pt working with PT. OT/PT co-treat([id number]), skills of 2 clinicians required for skilled instruction and hands on manipulation while working with pt for sit to stand strength, maintaining upright posture and lower body extension during standing at parallel bars. PT focusing on standing, positioning and maintaining stance while OT assist with giving pt max support and adjusting hips during stance. Mental Status/Objective Patient Orientation: Person, Place, Time, Situation Attachments: IV, Other-See Comments (tracg) ADL-Treatment SBA for rolling side to side. Assist to cleanse buttocks. Mod to min A for fung pine to EOB. EOB sitting SBA with verbal cues to maintain upright position. Dependent for LBD and toileting. Set up for UBD. Using sit to stand lift, pt transfers onto [facility] for toileting then after cleansing and manipulation of clothing, pt transferred to w/c. Therapy Code Descriptions/Definitions Functional [place] Measure: 0=Not Assessed/NA 4=Minimal Assistance 1=Total Assistance 5=Supervision or Setup 2=Maximal Assistance 6=Modified [place] 3=Moderate Assistance 7=Complete IndependenceSCALE: Activities may be completed with or without assistive devices. 1-Vttlyocldc-npudqdd completes the activity by him/herself with no assistance from a helper. 5-Set-up or Clean-up Assistance-helper sets up or cleans up; patient completes activity. Josephine assists only prior to or following the activity. 4-Supervision or Touching Assistance-helper provides verbal cues and/or touching/steadying and/or contact guard assistance as patient completes activity. Assistance may be provided throughout the activity or intermittently. 3-Partial/Moderate Assistance-helper does LESS THAN HALF the effort. Josephine lifts, holds or supports trunk or limbs, but provides less than half the effort. 2-Substantial/Maximal Assistance-helper does MORE THAN HALF the effort. Josephine lifts or holds trunk or limbs and provides more than half the effort. 5-Myhazjvzn-csjggn does ALL the effort. Patient does none of the effort to comp lete the activity. Or, the assistance of 2 or more helpers is required for the patient to complete the activity. If activity was not attempted, code reason: 7-Patient Refused. 9-Not Applicable-not attempted and the patient did not perform the activity before the current illness, exacerbation or injury. 10-Not Attempted due to Environmental Limitations-(lack of equipment, weather restraints, etc.). 88-Not Attempted due to Medical Conditions or Safety Concerns. Upper Body Dressing (QC): 5 Lower Body Dressing (QC): 1 On/Off Footwear: 2 Toileting Hygiene (QC): 1 Other Treatment Pt completed 4 partial sit to stands in the // bars with Max A x 2. Pt was only able to partially get his butt off the w/c. Pt completed wall leg press 3 x 5 reps in the w/c with manual resistance. After session, pt sitting in recliner with call light/phone in reach. All needs met in room. OT Short Term Goals Short Term Goals Time Frame: Jan 02, 2023 Eatin Oral hygiene: 5 Upper body dressin OT Custodial Goals Bicycle Mechanic Goals Acute change in mental status: 1 Inattention: 2 Disorganized thinkin Altered level of consciousness: 2 Eating (QC): 6 Oral Hygiene (QC): 6 Toileting Hygiene (QC): 6 Shower/Bathe Self (QC): 5 Upper Body Dressing (QC): 6 Lower Body Dressing (QC): 6 On/Off Footwear (QC): 4 1=Demonstrate adherence to instructed precautions during ADL tasks. 2=Patient will verbalize/demonstrate understanding of assistive devices/modifications for ADL. 3=Patient will improve strength/tolerance for activity to enable patient to perform ADL's. OT Education/Plan Problem List/Assessment Assessment: Decreased Activ Tolerance, Decreased UE Strength, Dependent Transfers, Impaired Bed Mobility, Impaired Funct Balance, Impaired Self-Care Skills Discharge Recommendations Plan/Recommendations: Continue POC Treatment Plan/Plan of Care Patient would benefit from OT for education, treatment and training to promote independence in ADL's, mobility, safety and/or upper extremity function for ADL's. Plan of Care: ADL Retraining, Caregiver Training, Concurrent Therapy, Fun ctional Mobility, Group Exercise/Act as Ind, UE Funct Exercise/Act, UE Neuromus Re-Ed/Coord Treatment Duration: Feb 01, 2023 Frequency: At least 5 of 7 days/Wk (IRF) Estimated Hrs Per Day: 1.5 hours per day Agreement: Yes Rehab Potential: Good Time Start Time: 09:00 Stop Time: 10:00 DATE: Jan 15, 2023 Total Time Billed (hr/min): 60 Billed Treatment Time 1 visit-ADL 1 (20 min) FA 3 (40 min) co-treat with PT 60 min MARIE PHILLIPS Jan 15, 2023 13:45
--- NOTE | 2023-01-15 13:51 | Occupational Ther Daily Note ---
OT Current Status-Daily Note Subjective Family Training with and 2 daughters. PT/OT co-treat [id number] for family training. PT focusing on transfers, standing and mobility education while OT focusing on functional mobility and ADL education. Mental Status/Objective Patient Orientation: Person, Place, Time, Situation Attachments: IV, Other-See Comments (tach) ADL-Treatment Therapy Code Descriptions/Definitions Functional [place] Measure: 0=Not Assessed/NA 4=Minimal Assistance 1=Total Assistance 5=Supervision or Setup 2=Maximal Assistance 6=Modified [place] 3=Moderate Assistance 7=Complete IndependenceSCALE: Activities may be completed with or without assistive devices. 3-Dgedrcehua-blybtif completes the activity by him/herself with no assistance from a helper. 5-Set-up or Clean-up Assistance-helper sets up or cleans up; patient completes activity. Rowley assists only prior to or following the activity. 4-Supervision or Touching Assistance-helper provides verbal cues and/or touching/steadying and/or contact guard assistance as patient completes activity. Assistance may be provided throughout the activity or intermittently. 3-Partial/Moderate Assistance-helper does LESS THAN HALF the effort. Rowley lifts, holds or supports trunk or limbs, but provides less than half the effort. 2-Substantial/Maximal Assistance-helper does MORE THAN HALF the effort. Rowley lifts or holds trunk or limbs and provides more than half the effort. 3-Uqytkcelc-nekckw does ALL the effort. Patient does none of the effort to complete the activity. Or, the assistance of 2 or more helpers is required for the patient to complete the activity. If activity was not attempted, code reason: 7-Patient Refused. 9-Not Applicable-not attempted and the patient did not perform the activity before the current illness, exacerbation or injury. 10-Not Attempted due to Environmental Limitations-(lack of equipment, weather restraints, etc.). 88-Not Attempted due to Medical Conditions or Safety Concerns. Other Treatment Pt's family wanting to know if it would be possible for pt to stay at least one more week. TRIPLETT/PT stated that pt's family will need to talk to SW about this. Family educated that pt would continue to progress but would unlikely be a one person transfer by that time. TRIPLETT educated pt's family on how pt' performs ADLs and that the safest place to complete lower body and toileting will be at bed level. Oral care, eating and UBD would be okay in sitting. Family had no further questions at this time. TRIPLETT/PT reminded pt's family that if there were anymore questions that they just needed to let nrsg know. After session, pt lying in bed with call light/phone in reach. All needs met in room. OT Short Term Goals Short Term Goals Time Frame: Jan 02, 2023 Eatin Oral hygiene: 5 Upper body dressin OT Postulant Goals Retirement Goals Acute change in mental status: 1 Inattention: 2 Disorganized thinkin Altered level of consciousness: 2 Eating (QC): 6 Oral Hygiene (QC): 6 Toileting Hygiene (QC): 6 Shower/Bathe Self (QC): 5 Upper Body Dressing (QC): 6 Lower Body Dressing (QC): 6 On/Off Footwear (QC): 4 1=Demonstrate adherence to instructed precautions during ADL tasks. 2=Patient will verbalize/demonstrate understanding of assistive devices/modifications for ADL. 3=Patient will improve strength/tolerance for activity to enable patient to perform ADL's. OT Education/Plan Problem List/Assessment Assessment: Decreased Activ Tolerance, Decreased UE Strength, Dependent Transfers, Impaired Self-Care Skills Discharge Recommendations Plan/Recommendations: Continue POC Treatment Plan/Plan of Care Patient would benefit from OT for education, treatment and training to promote independence in ADL's, mobility, safety and/or upper extremity function for ADL's. Plan of Care: ADL Retraining, Caregiver Training, Concurrent Therapy, Functional Mobility, Group Exercise/Act as Ind, UE Funct Exercise/Act, UE Neuromus Re-Ed/Coord Treatment Duration: Feb 01, 2023 Frequency: At least 5 of 7 days/Wk (IRF) Estimated Hrs Per Day: 1.5 hours per day Agreement: Yes Rehab Potential: Good Time Start Time: 13:05 Stop Time: 13:20 DATE: Jan 15, 2023 Total Time Billed (hr/min): 15 Billed Treatment Time 1 visit-FA 1 (15 min) MARIE PHILLIPS Jan 15, 2023 13:51
[2023-01-15 17:07] VITALS: BP 125/62
[2023-01-15 19:49] VITALS: BP 115/73
--- NOTE | 2023-01-16 05:33 | PM&R Progress Note ---
Subjective HPI/CC On Admission Date Seen by Provider: Jan 16, 2023 Time Seen by Provider: 10:00 Subjective/Events-last exam 01/16/2023: Improved overall No falls Up in chair Eating better 01/15/2023: Patient doing a lot better Reviewed meds and labs Advance diet 01/14/2023: Patient has no new issues Dr Edwards assessed the patient regarding the trach status No falls 01/13/2023: Patient doing a lot better Lungs remain clear No falls Needs slow recovery at skilled facility 01/12/2023: Patient about the same Daughter wants Dr Edwards to assess trach so order placed Considering patient is still not recovered enough to regain much independence and his use of CPAP is minimal it is my opinion he will be at risk for future resp failure and the trach should remain left in place 01/11/2023: Patient about the same Family is looking into skilled options Very slow progress 01/10/2023: Patient doing pretty well Slow recovery Unrealistic family to take care of bedridden state with Gautam catheter trach and tube feedings so may need skilled care 01/09/2023: Sister and family at the bedside today Very pleased with his progress Remains n.p.o. due to aspiration risk We will continue aggressive therapy Very slow recovery 01/08/2023: Slow recovery Tube feedings only Aspiration risk places him n.p.o. Very slow recovery may preclude inpatient rehab and may need to go to skilled 01/07/2023: Patient about the same Sleeps most of the time Very slow recovery Aspiration risk remains high 01/06/2023: Patient only on tube feedings now due to aspiration risk Family at the bedside Very slow recovery 01/05/2023: Patient about the same Modified barium swallow did not go well and placed back on tube feedings No pain is reported 01/04/2023: Patient doing pretty well Working with therapy slow recovery No falls No pain 01/03/2023: Patient doing pretty well Very weak Working on motivation Son and are at the bedside Dr. Roldan is primary care provider in [place] No pain Review of Systems General: Fatigue, Malaise Objective Exam Vital Signs Vital Signs Date Time Temp Pulse Resp B/P (MAP) Pulse Ox O2 Delivery O2 Flow Rate FiO2 01/16/23 19:50 36.1 88 20 94/61 (72) 92 Room Air 01/13/23 10:01 0.00 Capillary Refill : General Appearance: WD/WN, Chronically ill, Obese, Other (Very weak) HEENT: PERRL/EOMI, Normal ENT Inspection, Pharynx Normal Neck: Full Range of Motion, Normal Inspection, Non Tender, Supple, Carotid Bruit Respiratory: Chest Non Tender, Lungs Clear, No Accessory Muscle Use, No Respiratory Distress, Decreased Breath Sounds Cardiovascular: Regular Rate, Rhythm, No Edema, No Gallop, No JVD, No Murmur, Normal Peripheral Pulses Gastrointestinal: Normal Bowel Sounds, No Organomegaly, No Pulsatile Mass, Non Tender, Soft Back: Normal Inspection, No CVA Tenderness, No Vertebral Tenderness Extremity: Normal Capillary Refill, Normal Inspection, Normal Range of Motion, Non Tender, No Calf Tenderness, No Pedal Edema Neurologic/Psychiatric: Alert, Oriented x3, funeral director/embalmer II-XII Norm as Tested, Abnormal Gait, Depressed Affect, Motor Weakness ( severe muscle weakness) Skin: Normal Color, Warm/Dry Lymphatic: No Adenopathy Results/Procedures Lab Patient resulted labs reviewed. FIM Transfers Therapy Code Descriptions/Definitions Functional [place] Measure: 0=Not Assessed/NA 4=Minimal Assistance 1=Total Assistance 5=Supervision or Setup 2=Maximal Assistance 6=Modified [place] 3=Moderate Assistance 7=Complete IndependenceSCALE: Activities may be completed with or without assistive devices. 7-Ypzvzucwfu-upieimd completes the activity by him/herself with no assistance from a helper. 5-Set-up or Clean-up Assistance-helper sets up or cleans up; patient completes activity. Ivor assists only prior to or following the activity. 4-Supervision or Touching Assistance-helper provides verbal cues and/or touching/steadying and/or contact guard assistance as patient completes activity. Assistance may be provided throughout the activity or intermittently. 3-Partial/Moderate Assistance-helper does LESS THAN HALF the effort. Ivor lifts, holds or supports trunk or limbs, but provides less than half the effort. 2-Substantial/Maximal Assistance-helper does MORE THAN HALF the effort. Ivor lifts or holds trunk or limbs and provides more than half the effort. 8-Evekckepe-vwlese does ALL the effort. Patient does none of the effort to complete the activity. Or, the assistance of 2 or more helpers is required for the patient to complete the activity. If activity was not attempted, code reason: 7-Patient Refused. 9-Not Applicable-not attempted and the patient did not perform the activity before the current illness, exacerbation or injury. 10-Not Attempted due to Environmental Limitations-(lack of equipment, weather restraints, etc.). 88-Not Attempted due to Medical Conditions or Safety Concerns. Roll Left to Right (QC): 4 Sit to Lying (QC): 3 Sit to Stand (QC): 1 Chair/Hxs-pi-Ufiyv Xfer(QC): 1 Car Transfer (QC): 88 Gait Training Does the Patient Walk?: No and Walking Goal NOT indicated Walk 10 feet (QC): 88 Walk 50 ft with 2 Turns(QC): 88 Walk 150 ft (QC): 88 Walking 10ft/uneven surface-QC: 88 Gait Assistive Device: None Wheelchair Training Does the Pt Use a Wheelchair?: Yes Wheel 50 ft with 2 turns (QC): 3 Wheel 150 ft (QC): 88 Type of Wheelchair: Manual Stair Training 1 Step (curb) (QC): 88 4 Steps (QC): 88 12 Steps (QC): 88 Balance Picking up an Object (QC): 88 ADL-Treatment Eating (QC): 5 Oral Hygiene (QC): 5 Shower/Bathe Self (QC): 3 (Mod A) Upper Body Dressing (QC): 5 Lower Body Dressing (QC): 1 On/Off Footwear (QC): 2 Toileting Hygiene (QC): 1 Toilet Transfer (QC): 1 Assessment/Plan Assessment and Plan Assess & Plan/Chief Complaint 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 status due to aspiration risk Continue tube feedings 01/10/2023: Supportive care Tube feeds 01/11/2023: Supportive care Monitor closely 01/12/2023: Consult Dr Edwards whom daughter already reached out to for trach opinion 01/13/2023: Pursue skilled care 01/14/2023: Appreciate Dr Edwards 01/15/2023: Advance diet 01/16/2023: No monitor closely (1) Myopathy (2) Tracheostomy status (3) PEG (percutaneous endoscopic gastrostomy) status ANGELES GRANT DO Jan 16, 2023 05:33
[2023-01-16] MEDS: ENOXAPARIN 40 MG/0.4 ML (LOVENOX) SYR SC SCH (06:01)
[2023-01-16] MEDS: POTASSIUM BICARB 20 MEQ (EFFER-K) TABLET PEG SCH (06:01)
[2023-01-16] MEDS: MULTIVIT W/MINERALS TAB (THERAGRAN M) PO SCH (06:01)
--- NOTE | 2023-01-16 07:41 | Occupational Ther Daily Note ---
OT Current Status-Daily Note Subjective Pt alert, lying in bed. Pt agrees to therapy. OT/PT co-treat([id number]), skills of 2 clinicians required for skilled instruction and hands on manipulation while working with pt for sit to stand strength, maintaining upright posture and lower body extension during standing at parallel bars. PT focusing on standing, positioning and maintaining stance while OT assist with giving pt max support and adjusting hips during stance. Mental Status/Objective Patient Orientation: Person, Place, Time, Situation Attachments: PEG Tube, Other-See Comments (trach) ADL-Treatment Set up for meal then pt able to use regular utensils to eat. Pt is maintaining RN X RAY's instructions to eat and clear throat during meals. Supine to EOB with HOB raised, pt completed with SBA. Pt transferred to [facility] using sit to stand lift. Dependent for toileting and LBD. Set up for UBD while sitting in w/c. Therapy Code Descriptions/Definitions Functional [place] Measure: 0=Not Assessed/NA 4=Minimal Assistance 1=Total Assistance 5=Supervision or Setup 2=Maximal Assistance 6=Modified Bart[place] 3=Moderate Assistance 7=Complete IndependenceSCALE: Activities may be completed with or without assistive devices. 8-Shltkryceg-vnzaszv completes the activity by him/herself with no assistance from a helper. 5-Set-up or Clean-up Assistance-helper sets up or cleans up; patient completes activity. [place] assists only prior to or following the activity. 4-Supervision or Touching Assistance-helper provides verbal cues and/or touching/steadying and/or contact guard assistance as patient completes activity. Assistance may be provided throughout the activity or intermittently. 3-Partial/Moderate Assistance-helper does LESS THAN HALF the effort. [place] lifts, holds or supports trunk or limbs, but provides less than half the effort. 2-Substantial/Maximal Assistance-helper does MORE THAN HALF the effort. [place] lifts or holds trunk or limbs and provides more than half the effort. 0-Otnrdrklk-mdlrwi does ALL the effort. Patient does none of the effort to co mplete the activity. Or, the assistance of 2 or more helpers is required for the patient to complete the activity. If activity was not attempted, code reason: 7-Patient Refused. 9-Not Applicable-not attempted and the patient did not perform the activity before the current illness, exacerbation or injury. 10-Not Attempted due to Environmental Limitations-(lack of equipment, weather restraints, etc.). 88-Not Attempted due to Medical Conditions or Safety Concerns. Eating (QC): 5 Oral Hygiene (QC): 5 Upper Body Dressing (QC): 5 Lower Body Dressing (QC): 1 On/Off Footwear: 1 Toileting Hygiene (QC): 1 Toilet Transfer (QC): 1 Other Treatment Pt able to come to full stand 4x's at //bars, 3 for 40 sec stance then 1 for 1 min stance. Max A x2 for sit to stand, TRIPLETT assisting at hips while PT stabilizing pt from front and blocking B knees. Pt takes lengthy recovery break b/t each stance. Pt left in care of PT at end of OT session. OT Short Term Goals Short Term Goals Time Frame: Jan 02, 2023 Eatin Oral hygiene: 5 Upper body dressin OT Longterm Goals Longterm Goals Acute change in mental status: 1 Inattention: 2 Disorganized thinkin Altered level of consciousness: 2 Eating (QC): 6 Oral Hygiene (QC): 6 Toileting Hygiene (QC): 6 Shower/Bathe Self (QC): 5 Upper Body Dressing (QC): 6 Lower Body Dressing (QC): 6 On/Off Footwear (QC): 4 1=Demonstrate adherence to instructed precautions during ADL tasks. 2=Patient will verbalize/demonstrate understanding of assistive devices/modifications for ADL. 3=Patient will improve strength/tolerance for activity to enable patient to perform ADL's. OT Education/Plan Problem List/Assessment Assessment: Decreased Activ Tolerance, Decreased UE Strength, Dependent Transfers, Impaired Bed Mobility, Impaired Funct Balance, Impaired Self-Care Skills Discharge Recommendations Plan/Recommendations: Continue POC Treatment Plan/Plan of Care Patient would benefit from OT for education, treatment and training to promote independence in ADL's, mobility, safety and/or upper extremity function for ADL's. Plan of Care: ADL Retraining, Caregiver Training, Concurrent Therapy, F unctional Mobility, Group Exercise/Act as Ind, UE Funct Exercise/Act, UE Neuromus Re-Ed/Coord Treatment Duration: Feb 01, 2023 Frequency: At least 5 of 7 days/Wk (IRF) Estimated Hrs Per Day: 1.5 hours per day Agreement: Yes Rehab Potential: Good Time Start Time: 07:30 Stop Time: 09:00 DATE: Jan 16, 2023 Total Time Billed (hr/min): 90 Billed Treatment Time 1 visit-ADL 4 (60min) FA 2 (30 min) individual 30 min, co-treat with PT 60 min MARIE PHILLIPS Jan 16, 2023 07:41
[2023-01-16 08:00] VITALS: BP 119/73
[2023-01-16] MEDS: LORATADINE (CLARITIN) 10 MG TAB PO SCH (09:36)
[2023-01-16] MEDS: sulfaSALAzine 500 MG (AZULFIDINE) TAB PO SCH ×2 (09:36→20:08)
[2023-01-16] MEDS: FUROSEMIDE 40 MG (LASIX) TAB PO SCH (09:36)
[2023-01-16] MEDS: ASPIRIN 81 MG CHEW (CHILDREN'S ASA) PO SCH (09:36)
[2023-01-16] MEDS: LACTOBACILLUS ACIDOPHILUS (PROBIOTIC) CAPSULE PO SCH ×2 (09:37→20:08)
[2023-01-16] MEDS: lisINopril 5 MG (PRINIVIL) TABLET PO SCH (09:37)
[2023-01-16] MEDS: FLUTICASONE NASAL SPRAY (FLONASE) 16 GM BTL NS SCH (09:37)
[2023-01-16] MEDS: polyethylene glycoL POWDER 17 GM (MIRALAX) PACK PO SCH ×2 (09:37→19:40)
[2023-01-16] MEDS: SENNA W/DOCUSATE (SENOKOT S) TABLET PO SCH ×2 (09:39→19:40)
[2023-01-16] MEDS: DOCUSATE SODIUM 100 MG (COLACE) CAP PO SCH ×2 (09:39→19:40)
[2023-01-16] MEDS: MICONAZOLE 2% POWDER (DESENEX AF) 90 GM TOP SCH ×2 (09:40→20:13)
[2023-01-16] MEDS: FAMOTIDINE 40 MG/5 ML ORAL SUSP 50 ML PEG SCH ×2 (09:52→20:08)
[2023-01-16] MEDS: BENEFIBER (FROM DIETARY) DOCUMENTATION PURPOSE ONLY PO SCH (10:00)
--- NOTE | 2023-01-16 11:12 | Physical Therapy Daily Note ---
PT Daily Note-Current Subjective Late entry: Note from 01/15/2023 Family Training with and 2 daughters. PT/OT co-treat [id number] for family training. PT focusing on transfers, standing and mobility education while OT focusing on functional mobility and ADL education. Pain Section J - Health Conditions 1. Rarely or not at all 2. Occasionally 3. Frequently 4. Almost constantly 8. Unable to answer Pain Effect on Sleep: 1 Pain Interference with Therapy: 1 Pain Interference w/Day-to-Day: 1 Transfers SCALE: Activities may be completed with or without assistive devices. 4-Qkwtuqotqf-fpypjqi completes the activity by him/herself with no assistance from a helper. 5-Set-up or Clean-up Assistance-helper sets up or cleans up; patient completes activity. [place] assists only prior to or following the activity. 4-Supervision or Touching Assistance-helper provides verbal cues and/or touching/steadying and/or contact guard assistance as patient completes activity. Assistance may be provided throughout the activity or intermittently. 3-Partial/Moderate Assistance-helper does LESS THAN HALF the effort. [place] lifts, holds or supports trunk or limbs, but provides less than half the effort. 2-Substantial/Maximal Assistance-helper does MORE THAN HALF the effort. [place] lifts or holds trunk or limbs and provides more than half the effort. 8-Qbnvblkxm-njjivi does ALL the effort. Patient does none of the effort to complete the activity. Or, the assistance of 2 or more helpers is required for the patient to complete the activity. If activity was not attempted, code reason: 7-Patient Refused. 9-Not Applicable-not attempted and the patient did not perform the activity before the current illness, exacerbation or injury. 10-Not Attempted due to Environmental Limitations-(lack of equipment, weather restraints, etc.). 88-Not Attempted due to Medical Conditions or Safety Concerns. Weight Bearing Right Lower Extremity: Right Full Weight Bearing Left Lower Extremity: Left Full Weight Bearing Treatments Late entry: Note from 01/15/2023 Pt's family wanting to know if it would be possible for pt to stay at least one more week. PT/TRIPLETT stated that pt's family will need to talk to SW about this. Family educated that pt would continue to progress but would unlikely be a one person transfer by that time. TRIPLETT educated pt's family on how pt' performs ADLs and that the safest place to complete lower body and toileting will be at bed level. Oral care, eating and UBD would be okay in sitting. PT edu about bed mobility, transfers, and standing. Family had no further questions at this time. PT/TRIPLETT reminded pt's family that if there were anymore questions that they just needed to let nrsg know. After session, pt lying in bed with call light/phone in reach. All needs met in room. Family present. Assessment Current Status: Good Progress PT Early Childhood Teacher Assistant Goals Senior Care Goals PT Senior Care Goals Time Frame: Jan 16, 2023 Roll Left & Right (QC): 4 (Pt will be SBA for bed mobilty tasks. ) Sit to Lying (QC): 4 (Pt will be SBA for bed mobilty tasks. ) Lying-Sitting on Side/Bed(QC): 4 (Pt will be SBA for bed mobilty tasks. ) Sit to Stand (QC): 3 (Pt will be Min A for functional transfers. ) Chair/Erz-xv-Vendk Xfer(QC): 3 (Pt will be Min A for functional transfers. ) Toilet Transfer (QC): 3 (Pt will be Min A for functional transfers. ) Car Transfer (QC): 3 (Pt will be Min A for functional transfers. ) Does the Patient Walk: No and Walking Goal IS indicated Walk 10 feet (QC): 3 (Pt will be Min A for walking with the FWW. ) Walk 50ft with 2 Turns (QC): 3 (Pt will be Min A for walking with the FWW. ) Walk 150 ft (QC): 3 (Pt will be Min A for walking with the FWW. ) Walking 10ft on Uneven Surface: 3 (Pt will be Min A for walking with the FWW. ) 1 Step (curb) (QC): 3 (Pt will be Min A for steps to safely enter/exit the home. ) 4 Steps (QC): 3 (Pt will be Min A for steps to safely enter/exit the home. ) 12 Steps (QC): 3 (Pt will be Min A for steps to safely enter/exit the home. ) Picking up an Object (QC): 4 (Pt will be CGA with a site safety representative. ) Does the Pt use WC or Scooter?: Yes Wheel 50 feet with 2 turns (QC: 4 (Pt will be SBA for w/c mobility. ) Type: Manual Wheel 150 feet: 4 (Pt will be SBA for w/c mobility. ) Type: Manual PT Plan Problem List Problem List: Activity Tolerance, Functional Strength, Safety, Balance, Gait, Transfer, Bed Mobility, ROM Treatment/Plan Treatment Plan: Continue Plan of Care Treatment Plan: Bed Mobility, Concurrent Therapy, Education, Functional Activity Mike, Functional Strength, Group Therapy, Gait, Safety, Therapeutic Exercise, Transfers Treatment Duration: Jan 16, 2023 Frequency: At least 5 of 7 days/Wk (IRF) Estimated Hrs Per Day: 1.5 hours per day Patient and/or Family Agrees t: Yes Safety Risks/Education Teaching Recipient: Patient, Family Response to Teaching: Reinforcement Needed Discharge Recommendations Therapy Discharge Recommendati: 24 Hour Supervision Discharge Status/Home Program Cont per POC Barriers to Progress Weakness/debility Target Placement SNF vs Home with family Time Time In: 1305 Time Out: 1320 DATE: Jan 16, 2023 Total Billed Treatment Time: 15 Total Billed Treatment Late entry: Note from 01/15/2023 15 min 1 visit FA x 1 RADHA PERALES PT Jan 16, 2023 11:12
--- NOTE | 2023-01-16 11:35 | Physical Therapy Daily Note ---
PT Daily Note-Current Subjective Pt reports he is doing well and is agreeable to PT. Denies pain. Pain Numeric Pain Scale: 0-No Pain Location: No Pain Reported Section J - Health Conditions 1. Rarely or not at all 2. Occasionally 3. Frequently 4. Almost constantly 8. Unable to answer Pain Effect on Sleep: 1 Pain Interference with Therapy: 1 Pain Interference w/Day-to-Day: 1 Mental Status Attachments: PEG Tube, Gautam Catheter Trach tube Transfers SCALE: Activities may be completed with or without assistive devices. 5-Kzsysoorxz-bzsplpu completes the activity by him/herself with no assistance from a helper. 5-Set-up or Clean-up Assistance-helper sets up or cleans up; patient completes activity. [place] assists only prior to or following the activity. 4-Supervision or Touching Assistance-helper provides verbal cues and/or touching/steadying and/or contact guard assistance as patient completes acti vity. Assistance may be provided throughout the activity or intermittently. 3-Partial/Moderate Assistance-helper does LESS THAN HALF the effort. [place] lifts, holds or supports trunk or limbs, but provides less than half the effort. 2-Substantial/Maximal Assistance-helper does MORE THAN HALF the effort. [place] lifts or holds trunk or limbs and provides more than half the effort. 3-Lekovxixb-hnblfh does ALL the effort. Patient does none of the effort to complete the activity. Or, the assistance of 2 or more helpers is required for the patient to complete the activity. If activity was not attempted, code reason: 7-Patient Refused. 9-Not Applicable-not attempted and the patient did not perform the activity before the current illness, exacerbation or injury. 10-Not Attempted due to Environmental Limitations-(lack of equipment, weather restraints, etc.). 88-Not Attempted due to Medical Conditions or Safety Concerns. Roll Left & Right (QC): 4 Lying to Sitting/Side of Bed(Q: 4 Sit to Stand (QC): 1 Chair/Yxg-pm-Avabq Xfer(QC): 1 Toilet Transfer (QC): 1 Weight Bearing Right Lower Extremity: Right Full Weight Bearing Left Lower Extremity: Left Full Weight Bearing Gait Training Does the Patient Walk?: No and Walking Goal IS indicated Treatments PT/OT co-tx from [id number], skills of 2 clinicians required for skilled instruction and hands on manipulation while working with pt for sit to stand strength, maintaining upright posture and lower body extension during standing at parallel bars. PT focusing on standing, positioning and maintaining stance while OT assist with giving pt max support and adjusting hips during stance. Pt completed supine to sit with SBA with HOB elevated. Sit to stand lift utilized to transfer the pt from bed to BSC and BSC to w/c. Pt completed 4 sit to stands in the // bars with Max A x 2. Pt stood for 40" x 3 and 1 min in the // bars with Min/Mod A and Mod/Max v/c for B TKE, B hip ext, and upright posture. Pt completed seated B LE Ther Ex x 15 reps each with the red Tband. Pt in recliner upon completion of treatment with call light in reach and all needs met. Assessment Current Status: Good Progress Pt tolerated PT well with good effort; pt demo improved transfer ability in the // bars PT Drilling Field Professional Goals Drilling Field Professional Goals PT Drilling Field Professional Goals Time Frame: Jan 16, 2023 Roll Left & Right (QC): 4 (Pt will be SBA for bed mobilty tasks. ) Sit to Lying (QC): 4 (Pt will be SBA for bed mobilty tasks. ) Lying-Sitting on Side/Bed(QC): 4 (Pt will be SBA for bed mobilty tasks. ) Sit to Stand (QC): 3 (Pt will be Min A for functional transfers. ) Chair/Agw-jj-Wwdtb Xfer(QC): 3 (Pt will be Min A for functional transfers. ) Toilet Transfer (QC): 3 (Pt will be Min A for functional transfers. ) Car Transfer (QC): 3 (Pt will be Min A for functional transfers. ) Does the Patient Walk: No and Walking Goal IS indicated Walk 10 feet (QC): 3 (Pt will be Min A for walking with the FWW. ) Walk 50ft with 2 Turns (QC): 3 (Pt will be Min A for walking with the FWW. ) Walk 150 ft (QC): 3 (Pt will be Min A for walking with the FWW. ) Walking 10ft on Uneven Surface: 3 (Pt will be Min A for walking with the FWW. ) 1 Step (curb) (QC): 3 (Pt will be Min A for steps to safely enter/exit the home. ) 4 Steps (QC): 3 (Pt will be Min A for steps to safely enter/exit the home. ) 12 Steps (QC): 3 (Pt will be Min A for steps to safely enter/exit the home. ) Picking up an Object (QC): 4 (Pt will be CGA with a car trimmer. ) Does the Pt use WC or Scooter?: Yes Wheel 50 feet with 2 turns (QC: 4 (Pt will be SBA for w/c mobility. ) Type: Manual Wheel 150 feet: 4 (Pt will be SBA for w/c mobility. ) Type: Manual PT Plan Problem List Problem List: Activity Tolerance, Functional Strength, Safety, Balance, Gait, Transfer, Bed Mobility, ROM Treatment/Plan Treatment Plan: Continue Plan of Care Treatment Plan: Bed Mobility, Concurrent Therapy, Education, Functional Activity Mike, Functional Strength, Group Therapy, Gait, Safety, Therapeutic Exercise, Transfers Treatment Duration: Jan 16, 2023 Frequency: At least 5 of 7 days/Wk (IRF) Estimated Hrs Per Day: 1.5 hours per day Patient and/or Family Agrees t: Yes Safety Risks/Education Patient Education: Transfer Techniques, Safety Issues Teaching Recipient: Patient Teaching Methods: Demonstration, Discussion Response to Teaching: Verbalize Understanding, Return Demonstration, Reinforcement Needed Discharge Recommendations Therapy Discharge Recommendati: 24 Hour Supervision Discharge Status/Home Program Cont per POC Barriers to Progress Weakness/debility Target Placement SNF vs home with family Time Time In: 800 Time Out: 930 DATE: Jan 16, 2023 Total Billed Treatment Time: 90 Total Billed Treatment 90 min from [id number] (co-tx from [id number] = 60 min) 1 visit FA x 4 EX x 2 RADHA PERALES PT Jan 16, 2023 11:35
--- NOTE | 2023-01-16 14:01 | Speech Therapy Daily Note ---
Speech Daily Progress Note Subjective Date Seen by Provider: Jan 16, 2023 Time Seen by Provider: 10:30 The patient was lying in his recliner, sleeping upon entrance to his room by the clinician. The patient woke with a verbal greeting from the clinician and was agreeable to the skilled dysphagia treatment session. Objective Per OT (who was present for breakfast), the patient displayed excellent compliance with his swallowing strategy of "swallow, cough, swallow," however, does require cueing throughout his meal. Safe swallowing strategies were reviewed on this date, specifically the strategy of "swallow, cough, swallow." The patient has three signs present in his room as visual cues to complete the strategy throughout P.O. intake. The patient denied s/s of suspected aspiration throughout his recent P.O. attempts. The patient consumed sips of mildly thick liquid via cup edge, displaying the "swallow, cough, swallow" technique. The patient completed the strategy with high accuracy. The clinician continues to discuss the importance of the strategy and the necessity to return to NPO if the strategy is not consistently performed. The patient verbalized comprehension of the material. Assessment Assessment Current Status: Fair Progress Treatment Plan Continue Plan of Care Speech Short Term Goals Short Term Goals Short Term Goals Pt to complete a MBSS. PT TO COMPLETE MENTAL MANIPULATION OF 4 OBJECTS WITH 80% ACCURACY WITH MIN CUES. Speech Yarding Supervisor Goals Detention Goals Pt to demonstrate no s/sx of aspiration on least restrictive diet consistency. PT TO COMPLETE MEMORY TASKS FOLLOWING SHORT DELAY WITH 80% ACCURACY WITH MIN VERBAL CUES TO IMPROVE OVERALL SAFETY. PT TO COMPLETE MEDICATION AND MONEY MANAGEMENT TASKS WITH 100% ACCURACY PRIOR TO D/C. Speech-Plan Treatment Plan Speech Therapy Treatment Plan: Continue Plan of Care Treatment Duration: Jan 02, 2023 Frequency: Modified Program (IRF) (Four to five times per week.) Estimated Hrs Per Day: .25 hour per day Rehab Potential: Good Pt/Family Agrees to Plan: Yes Safety Risks/Education Teaching Recipient: Patient Teaching Methods: Demonstration, Handout, Discussion Response to Teaching: Verbalize Understanding, Return Demonstration, Reinforcement Needed Education Topics Provided: Safe Swallowing Strategies, Aspiration Risks Time Speech Therapy Time In: 10:30 Speech Therapy Time Out: 10:45 DATE: Jan 16, 2023 Total Billed Time: 15 Billed Treatment Time [id number] Jan 16, 2023 14:01
[2023-01-16] MEDS ORDERED: METH25VI57 IM (15:00)
[2023-01-16] MEDS ORDERED: SULF500T37 PO (15:00)
[2023-01-16] MEDS ORDERED: NABU-95 PO (15:00)
[2023-01-16] MEDS ORDERED: SIMV80TA21 PO (15:00)
[2023-01-16] MEDS ORDERED: HYDR25TA4 PO (15:00)
[2023-01-16] MEDS ORDERED: BENA40TA84 PO (15:00)
[2023-01-16] MEDS ORDERED: FOLI1TAB33 PO (15:00)
[2023-01-16] MEDS ORDERED: SPIR25TA5 PO (15:00)
[2023-01-16] MEDS ORDERED: CARV25TA PO (15:00)
[2023-01-16] MEDS ORDERED: HYDR200T71 PO (15:00)
[2023-01-16 19:50] VITALS: BP 94/61
--- NOTE | 2023-01-17 05:42 | PM&R Progress Note ---
Subjective HPI/CC On Admission Date Seen by Provider: Jan 17, 2023 Time Seen by Provider: 12:00 Subjective/Events-last exam 01/17/2023: Patient doing a lot better Sent for skilled care Family cannot accommodate his needs No concerns per patient 01/16/2023: Improved overall No falls Up in chair Eating better 01/15/2023: Patient doing a lot better Reviewed meds and labs Advance diet 01/14/2023: Patient has no new issues Dr Edwards assessed the patient regarding the trach status No falls 01/13/2023: Patient doing a lot better Lungs remain clear No falls Needs slow recovery at skilled facility 01/12/2023: Patient about the same Daughter wants Dr Edwards to assess trach so order placed Considering patient is still not recovered enough to regain much independence and his use of CPAP is minimal it is my opinion he will be at risk for future resp failure and the trach should remain left in place 01/11/2023: Patient about the same Family is looking into skilled options Very slow progress 01/10/2023: Patient doing pretty well Slow recovery Unrealistic family to take care of bedridden state with Gautam catheter trach and tube feedings so may need skilled care 01/09/2023: Sister and family at the bedside today Very pleased with his progress Remains n.p.o. due to aspiration risk We will continue aggressive therapy Very slow recovery 01/08/2023: Slow recovery Tube feedings only Aspiration risk places him n.p.o. Very slow recovery may preclude inpatient rehab and may need to go to skilled 01/07/2023: Patient about the same Sleeps most of the time Very slow recovery Aspiration risk remains high 01/06/2023: Patient only on tube feedings now due to aspiration risk Family at the bedside Very slow recovery 01/05/2023: Patient about the same Modified barium swallow did not go well and placed back on tube feedings No pain is reported 01/04/2023: Patient doing pretty well Working with therapy slow recovery No falls No pain 01/03/2023: Patient doing pretty well Very weak Working on motivation Son and are at the bedside Dr. Roldan is primary care provider in [place] No pain Review of Systems General: Fatigue, Malaise Objective Exam Vital Signs Vital Signs Date Time Temp Pulse Resp B/P (MAP) Pulse Ox O2 Delivery O2 Flow Rate FiO2 01/17/23 17:10 91 18 112/60 (77) 96 Room Air 01/17/23 08:26 36.4 0.00 0.00 Capillary Refill : General Appearance: WD/WN, Chronically ill, Obese, Other (Very weak) HEENT: PERRL/EOMI, Normal ENT Inspection, Pharynx Normal Neck: Full Range of Motion, Normal Inspection, Non Tender, Supple, Carotid Bruit Respiratory: Chest Non Tender, Lungs Clear, No Accessory Muscle Use, No Respiratory Distress, Decreased Breath Sounds Cardiovascular: Regular Rate, Rhythm, No Edema, No Gallop, No JVD, No Murmur, Normal Peripheral Pulses Gastrointestinal: Normal Bowel Sounds, No Organomegaly, No Pulsatile Mass, Non Tender, Soft Back: Normal Inspection, No CVA Tenderness, No Vertebral Tenderness Extremity: Normal Capillary Refill, Normal Inspection, Normal Range of Motion, Non Tender, No Calf Tenderness, No Pedal Edema Neurologic/Psychiatric: Alert, Oriented x3, elementary school art teacher II-XII Norm as Tested, Abnormal Gait, Depressed Affect, Motor Weakness ( severe muscle weakness) Skin: Normal Color, Warm/Dry Lymphatic: No Adenopathy Results/Procedures Lab Patient resulted labs reviewed. FIM Transfers Therapy Code Descriptions/Definitions Functional [place] Measure: 0=Not Assessed/NA 4=Minimal Assistance 1=Total Assistance 5=Supervision or Setup 2=Maximal Assistance 6=Modified [place] 3=Moderate Assistance 7=Complete IndependenceSCALE: Activities may be completed with or without assistive devices. 4-Gnorqkbfsa-usehugz completes the activity by him/herself with no assistance from a helper. 5-Set-up or Clean-up Assistance-helper sets up or cleans up; patient completes activity. [place] assists only prior to or following the activity. 4-Supervision or Touching Assistance-helper provides verbal cues and/or touching/steadying and/or contact guard assistance as patient completes activity. Assistance may be provided throughout the activity or intermittently. 3-Partial/Moderate Assistance-helper does LESS THAN HALF the effort. Council lifts, holds or supports trunk or limbs, but provides less than half the effort. 2-Substantial/Maximal Assistance-helper does MORE THAN HALF the effort. [place] lifts or holds trunk or limbs and provides more than half the effort. 0-Ifuqlpong-jhqbsx does ALL the effort. Patient does none of the effort to complete the activity. Or, the assistance of 2 or more helpers is required for the patient to complete the activity. If activity was not attempted, code reason: 7-Patient Refused. 9-Not Applicable-not attempted and the patient did not perform the activity before the current illness, exacerbation or injury. 10-Not Attempted due to Environmental Limitations-(lack of equipment, weather restraints, etc.). 88-Not Attempted due to Medical Conditions or Safety Concerns. Roll Left to Right (QC): 4 Sit to Lying (QC): 3 Sit to Stand (QC): 1 Chair/Gzn-ac-Cxitr Xfer(QC): 1 Car Transfer (QC): 88 Gait Training Does the Patient Walk?: No and Walking Goal IS indicated Walk 10 feet (QC): 88 Walk 50 ft with 2 Turns(QC): 88 Walk 150 ft (QC): 88 Walking 10ft/uneven surface-QC: 88 Gait Assistive Device: None Wheelchair Training Does the Pt Use a Wheelchair?: Yes Wheel 50 ft with 2 turns (QC): 3 Wheel 150 ft (QC): 88 Type of Wheelchair: Manual Stair Training 1 Step (curb) (QC): 88 4 Steps (QC): 88 12 Steps (QC): 88 Balance Picking up an Object (QC): 88 ADL-Treatment Eating (QC): 5 Oral Hygiene (QC): 5 Shower/Bathe Self (QC): 3 (Mod A) Upper Body Dressing (QC): 5 Lower Body Dressing (QC): 1 On/Off Footwear (QC): 1 Toileting Hygiene (QC): 1 Toilet Transfer (QC): 1 Assessment/Plan Assessment and Plan Assess & Plan/Chief Complaint 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 status due to aspiration risk Continue tube feedings 01/10/2023: Supportive care Tube feeds 01/11/2023: Supportive care Monitor closely 01/12/2023: Consult Dr Edwards whom daughter already reached out to for trach opinion 01/13/2023: Pursue skilled care 01/14/2023: Appreciate Dr Edwards 01/15/2023: Advance diet 01/16/2023: No monitor closely 01/17/2023: Supportive care Monitor closely (1) Myopathy (2) Tracheostomy status (3) PEG (percutaneous endoscopic gastrostomy) status ANGELES GRANT DO Jan 17, 2023 05:42
[2023-01-17] MEDS: ENOXAPARIN 40 MG/0.4 ML (LOVENOX) SYR SC SCH (06:18)
[2023-01-17] MEDS: MULTIVIT W/MINERALS TAB (THERAGRAN M) PO SCH (06:18)
[2023-01-17] MEDS: POTASSIUM BICARB 20 MEQ (EFFER-K) TABLET PEG SCH (06:18)
[2023-01-17] MEDS: sulfaSALAzine 500 MG (AZULFIDINE) TAB PO SCH ×2 (07:47→21:54)
[2023-01-17] MEDS: ASPIRIN 81 MG CHEW (CHILDREN'S ASA) PO SCH (07:47)
[2023-01-17] MEDS: LACTOBACILLUS ACIDOPHILUS (PROBIOTIC) CAPSULE PO SCH ×2 (07:47→21:54)
[2023-01-17] MEDS: LORATADINE (CLARITIN) 10 MG TAB PO SCH (07:47)
[2023-01-17] MEDS: FUROSEMIDE 40 MG (LASIX) TAB PO SCH (07:47)
[2023-01-17] MEDS: FAMOTIDINE 40 MG/5 ML ORAL SUSP 50 ML PEG SCH ×2 (07:48→21:56)
[2023-01-17] MEDS: lisINopril 5 MG (PRINIVIL) TABLET PO SCH (07:48)
[2023-01-17] MEDS: MICONAZOLE 2% POWDER (DESENEX AF) 90 GM TOP SCH ×2 (07:49→21:56)
[2023-01-17] MEDS: FLUTICASONE NASAL SPRAY (FLONASE) 16 GM BTL NS SCH (07:50)
[2023-01-17] MEDS: BENEFIBER (FROM DIETARY) DOCUMENTATION PURPOSE ONLY PO SCH (07:58)
[2023-01-17 08:00] VITALS: BP 119/76
[2023-01-17] MEDS: DOCUSATE SODIUM 100 MG (COLACE) CAP PO SCH ×2 (08:00→21:55)
[2023-01-17] MEDS: polyethylene glycoL POWDER 17 GM (MIRALAX) PACK PO SCH ×2 (08:00→21:55)
[2023-01-17] MEDS: SENNA W/DOCUSATE (SENOKOT S) TABLET PO SCH ×2 (08:00→21:54)
[2023-01-17 08:26] VITALS: BP 119/76
--- NOTE | 2023-01-17 09:53 | Speech Therapy Daily Note ---
Speech Daily Progress Note Subjective Date Seen by Provider: Jan 17, 2023 Time Seen by Provider: 11:00 The patient was seated upright in his recliner, awake and alert, upon entrance to his room by the clinician. The patient greeted the clinician appropriately and was agreeable to participation in the skilled dysphagia treatment session. Objective Dysphagia Exercises: The clinician provided the patient with a handout of the dysphagia exercises, focusing on the base of tongue retraction, pharyngeal contractions and laryngeal elevation. The clinician demonstrated each exercise with one repetition followed by patient completion. The patient completed the exercises with fair accuracy however continued to require moderate clinician encouragement. The patient denied overt s/s of suspected aspiration with his current P.O. intake. Per RN, the patient reported meat consistencies, specifically chicken, increased pharyngeal residue and throat clearing behaviors. The clinician stated if the difficulty is displayed, the patient should be downgraded to a puree consistency for increased pharyngeal clearance. Additionally, the RN stated the patient required cueing two times on this date for demonstration of the "swallow, cough, swallow" compensatory strategy. If the patient is unable to consistently display the recommended maneuver, the patient must be placed N.P.O. for safety. Assessment Assessment Current Status: Fair Progress Treatment Plan Continue Plan of Care Speech Short Term Goals Short Term Goals Short Term Goals Pt to complete a MBSS. PT TO COMPLETE MENTAL MANIPULATION OF 4 OBJECTS WITH 80% ACCURACY WITH MIN CUES. Speech Rn Unit Manager Goals Senior Care Goals Pt to demonstrate no s/sx of aspiration on least restrictive diet consistency. PT TO COMPLETE MEMORY TASKS FOLLOWING SHORT DELAY WITH 80% ACCURACY WITH MIN VERBAL CUES TO IMPROVE OVERALL SAFETY. PT TO COMPLETE MEDICATION AND MONEY MANAGEMENT TASKS WITH 100% ACCURACY PRIOR TO D/C. Speech-Plan Treatment Plan Speech Therapy Treatment Plan: Continue Plan of Care Treatment Duration: Jan 19, 2023 Frequency: Modified Program (IRF) (Four to five times per week.) Estimated Hrs Per Day: .25 hour per day Rehab Potential: Good Safety Risks/Education Teaching Recipient: Patient Teaching Methods: Demonstration, Handout, Discussion Response to Teaching: Reinforcement Needed Education Topics Provided: Safe Swallowing Precautions, Recommendations, Dysphagia Exercises Time Speech Therapy Time In: 11:00 Speech Therapy Time Out: 11:15 DATE: Jan 18, 2023 Total Billed Time: 15 Billed Treatment Time 1THOR SRINIVAS CARCAMO Jan 17, 2023 09:53
--- NOTE | 2023-01-17 11:20 | Physical Therapy Daily Note ---
PT Daily Note-Current Subjective Pt reports he is doing well today and is agreeable to PT. Denies pain. Pain Numeric Pain Scale: 0-No Pain Location: No Pain Reported Section J - Health Conditions 1. Rarely or not at all 2. Occasionally 3. Frequently 4. Almost constantly 8. Unable to answer Pain Effect on Sleep: 1 Pain Interference with Therapy: 1 Pain Interference w/Day-to-Day: 1 Mental Status Attachments: PEG Tube, Gautam Catheter Trach tube Transfers SCALE: Activities may be completed with or without assistive devices. 2-Zrujbouxyq-ouynamj completes the activity by him/herself with no assistance from a helper. 5-Set-up or Clean-up Assistance-helper sets up or cleans up; patient completes activity. [place] assists only prior to or following the activity. 4-Supervision or Touching Assistance-helper provides verbal cues and/or touching/steadying and/or contact guard assistance as patient completes activity. Assistance may be provided throughout the activity or intermittently. 3-Partial/Moderate Assistance-helper does LESS THAN HALF the effort. [place] lifts, holds or supports trunk or limbs, but provides less than half the effort. 2-Substantial/Maximal Assistance-helper does MORE THAN HALF the effort. [place] lifts or holds trunk or limbs and provides more than half the effort. 5-Uovyzbcdq-ubgkvm does ALL the effort. Patient does none of the effort to complete the activity. Or, the assistance of 2 or more helpers is required for the patient to complete the activity. If activity was not attempted, code reason: 7-Patient Refused. 9-Not Applicable-not attempted and the patient did not perform the activity before the current illness, exacerbation or injury. 10-Not Attempted due to Environmental Limitations-(lack of equipment, weather restraints, etc.). 88-Not Attempted due to Medical Conditions or Safety Concerns. Sit to Stand (QC): 1 (Min to Max A x 2) Chair/Ukc-rz-Uimbh Xfer(QC): 1 (Sit to stand lift ) Toilet Transfer (QC): 1 (Sit to stand lift ) Weight Bearing Right Lower Extremity: Right Full Weight Bearing Left Lower Extremity: Left Full Weight Bearing Gait Training Does the Patient Walk?: No and Walking Goal NOT indicated Wheelchair Training Does the Pt Use a Wheelchair?: Yes Wheel 50 ft with 2 turns (QC): 4 (SBA ) Treatments PT/OT co-tx from [id number], skills of 2 clinicians required for skilled instruction and hands on manipulation while working with pt for sit to stand strength, maintaining upright posture and lower body extension during standing at parallel bars. PT focusing on standing, positioning and maintaining stance while OT assist with giving pt max support and adjusting hips during stance. Pt up in the w/c upon arrival with TRIPLETT present. Pt completed w/c mobility x 50ft with SBA. Pt completed 4 sit to stands in the // bars. 2 with Max A x 2 and 2 with Min/Mod A x 2. Pt stood for 1 min, 1 min, 20 sec, and 20 sec with CGA/Min A. Pt completed seated B LE Ther Ex x 15 reps each with the red Tband. Pt was transferred w/c to BSC and BSC to recliner with sit to stand lift. Pt left in recliner with call light in reach, all needs met, and RN in room. Assessment Current Status: Good Progress Pt tolerated PT well with good effort. PT Care Home Goals Care Home Goals PT Care Home Goals Time Frame: Jan 16, 2023 Roll Left & Right (QC): 4 (Pt will be SBA for bed mobilty tasks. ) Sit to Lying (QC): 4 (Pt will be SBA for bed mobilty tasks. ) Lying-Sitting on Side/Bed(QC): 4 (Pt will be SBA for bed mobilty tasks. ) Sit to Stand (QC): 3 (Pt will be Min A for functional transfers. ) Chair/Dpk-wo-Vgfds Xfer(QC): 3 (Pt will be Min A for functional transfers. ) Toilet Transfer (QC): 3 (Pt will be Min A for functional transfers. ) Car Transfer (QC): 3 (Pt will be Min A for functional transfers. ) Does the Patient Walk: No and Walking Goal IS indicated Walk 10 feet (QC): 3 (Pt will be Min A for walking with the FWW. ) Walk 50ft with 2 Turns (QC): 3 (Pt will be Min A for walking with the FWW. ) Walk 150 ft (QC): 3 (Pt will be Min A for walking with the FWW. ) Walking 10ft on Uneven Surface: 3 (Pt will be Min A for walking with the FWW. ) 1 Step (curb) (QC): 3 (Pt will be Min A for steps to safely enter/exit the home. ) 4 Steps (QC): 3 (Pt will be Min A for steps to safely enter/exit the home. ) 12 Steps (QC): 3 (Pt will be Min A for steps to safely enter/exit the home. ) Picking up an Object (QC): 4 (Pt will be CGA with a bulk filler. ) Does the Pt use WC or Scooter?: Yes Wheel 50 feet with 2 turns (QC: 4 (Pt will be SBA for w/c mobility. ) Type: Manual Wheel 150 feet: 4 (Pt will be SBA for w/c mobility. ) Type: Manual PT Plan Problem List Problem List: Activity Tolerance, Functional Strength, Safety, Balance, Gait, Transfer, Bed Mobility, ROM Treatment/Plan Treatment Plan: Continue Plan of Care Treatment Plan: Bed Mobility, Concurrent Therapy, Education, Functional Activity Mike, Functional Strength, Group Therapy, Gait, Safety, Therapeutic Exercise, Transfers Treatment Duration: Jan 16, 2023 Frequency: At least 5 of 7 days/Wk (IRF) Estimated Hrs Per Day: 1.5 hours per day Patient and/or Family Agrees t: Yes Safety Risks/Education Patient Education: Transfer Techniques, W/C Management, Safety Issues Teaching Recipient: Patient Teaching Methods: Demonstration, Discussion Response to Teaching: Verbalize Understanding, Return Demonstration, Reinforcement Needed Discharge Recommendations Therapy Discharge Recommendati: 24 Hour Supervision, Home & Family Discharge Status/Home Program Cont per POC Barriers to Progress Weakness/endurance/debility Target Placement SNF vs Home with family Time Time In: 930 Time Out: 1100 DATE: Jan 17, 2023 Total Billed Treatment Time: 90 Total Billed Treatment 90 min total from [id number] with 30 min co-tx from [id number] 1 visit FA x 4 EX x 2 RADHA PERALES PT Jan 17, 2023 11:20
--- NOTE | 2023-01-17 14:01 | Occupational Ther Daily Note ---
OT Current Status-Daily Note Subjective Pt alert, agrees to therapy. C/o fatigue, no pain. ADL-Treatment Pt agrees to sponge bath. Sitting up in bed, pt able to complete rinku care. Pt then rolled side to side independently while TRIPLETT cleansed buttocks and back of legs. With HOB raised, pt sat up to EOB by self and sat EOB independently. Sit to stand lift to transfer to [facility]. Assist to manipulate clothing and cleanse buttocks using sit to stand lift to stand. Assist to thread feet into pants then with sit to stand lift to stand assist to hike over hips. Max A for footwear. PT in room at this time to co-treat. Therapy Code Descriptions/Definitions Functional [place] Measure: 0=Not Assessed/NA 4=Minimal Assistance 1=Total Assistance 5=Supervision or Setup 2=Maximal Assistance 6=Modified [place] 3=Moderate Assistance 7=Complete IndependenceSCALE: Activities may be completed with or without assistive devices. 5-Ejjnqlxolg-qnoeqdl completes the activity by him/herself with no assistance from a helper. 5-Set-up or Clean-up Assistance-helper sets up or cleans up; patient completes activity. [place] assists only prior to or following the activity. 4-Supervision or Touching Assistance-helper provides verbal cues and/or t ouching/steadying and/or contact guard assistance as patient completes activity. Assistance may be provided throughout the activity or intermittently. 3-Partial/Moderate Assistance-helper does LESS THAN HALF the effort. [place] lifts, holds or supports trunk or limbs, but provides less than half the effort. 2-Substantial/Maximal Assistance-helper does MORE THAN HALF the effort. [place] lifts or holds trunk or limbs and provides more than half the effort. 7-Zrmvfwmre-hxlcpy does ALL the effort. Patient does none of the effort to complete the activity. Or, the assistance of 2 or more helpers is required for the patient to complete the activity. If activity was not attempted, code reason: 7-Patient Refused. 9-Not Applicable-not attempted and the patient did not perform the activity before the current illness, exacerbation or injury. 10-Not Attempted due to Environmental Limitations-(lack of equipment, weather restraints, etc.). 88-Not Attempted due to Medical Conditions or Safety Concerns. Eating (QC): 5 Oral Hygiene (QC): 5 Bathing Location: L Arm, R Arm, Chest, Abdomen, Perineal Area Shower/Bathe Self (QC): 3 (mod A) Upper Body Dressing (QC): 5 Lower Body Dressing (QC): 2 (in supine) On/Off Footwear: 2 Toileting Hygiene (QC): 2 (in supine) Other Treatment PT/OT co-tx from [id number], skills of 2 clinicians required for skilled instruction and hands on manipulation while working with pt for sit to stand strength, maintaining upright posture and lower body extension during standing at parallel bars. PT focusing on standing, positioning and maintaining stance wh ile OT assist with giving pt max support and adjusting hips during stance. Pt completed w/c mobility x 50ft with SBA. Pt completed 4 sit to stands in the // bars. 2 with Max A x 2 and 2 with Min/Mod A x 2. Pt stood for 1 min, 1 min, 20 sec, and 20 sec with CGA/Min A. Pt left in care of PT. All needs met. BIMS CAM BIMS Expression of Ideas and Wants: Without Difficulty Understanding Verbal Content: Understands Brief Interview/Mental Status: Yes IRF VICKI BIMS: IRF VICKI BIMS Response (Comments) Value Repitition of Three Words Three 3 Recalls Socks Yes, No Cue Required 2 Recalls Blue Yes, No Cue Required 2 Recalls Bed Yes, No Cue Required 2 Year Correct 3 Month Accurate Within 5 Days 2 Day Correct 1 Total 15 Patient Normally Able to Recal: Current Session, Location of own room, Staff Names and faces, That he/she in a hsp Should Staff Asses. Mental St.: No OT Short Term Goals Short Term Goals Time Frame: Jan 02, 2023 Eatin Oral hygiene: 5 Upper body dressin OT Snf Goals Shop Helper Goals Acute change in mental status: 1 Inattention: 2 Disorganized thinkin Altered level of consciousness: 2 Eating (QC): 6 Oral Hygiene (QC): 6 Toileting Hygiene (QC): 6 Shower/Bathe Self (QC): 5 Upper Body Dressing (QC): 6 Lower Body Dressing (QC): 6 On/Off Footwear (QC): 4 1=Demonstrate adherence to instructed precautions during ADL tasks. 2=Patient will verbalize/demonstrate understanding of assistive devices/modifications for ADL. 3=Patient will improve strength/tolerance for activity to enable patient to perform ADL's. OT Education/Plan Problem List/Assessment Assessment: Decreased Activ Tolerance, Decreased UE Strength, Dependent Transfers, Impaired Bed Mobility, Impaired Funct Balance, Impaired Self-Care Skills Discharge Recommendations Plan/Recommendations: Continue POC Treatment Plan/Plan of Care Patient would benefit from OT for education, treatment and training to promote independence in ADL's, mobility, safety and/or upper extremity function for ADL's. Plan of Care: ADL Retraining, Caregiver Training, Concurrent Therapy, Functional Mobility, Group Exercise/Act as Ind, UE Funct Exercise/Act, UE Neuromus Re-Ed/Coord Treatment Duration: Feb 01, 2023 Frequency: At least 5 of 7 days/Wk (IRF) Estimated Hrs Per Day: 1.5 hours per day Agreement: Yes Rehab Potential: Good Time Start Time: 09:00 Stop Time: 10:00 DATE: Jan 17, 2023 Total Time Billed (hr/min): 60 Billed Treatment Time 1 visit-ADL 2 (30 min) FA 2 (30 min) co-treat with PT [id number], individual [id number] MARIE PHILLIPS Jan 17, 2023 14:01
--- NOTE | 2023-01-17 14:28 | Occupational Ther Daily Note ---
OT Current Status-Daily Note Subjective Pt alert, lying in bed. No c/o pain. Pt agrees to therapy. Mental Status/Objective Patient Orientation: Person, Place, Time, Situation Attachments: Gautam Catheter, Other-See Comments (trach) ADL-Treatment Therapy Code Descriptions/Definitions Functional [place] Measure: 0=Not Assessed/NA 4=Minimal Assistance 1=Total Assistance 5=Supervision or Setup 2=Maximal Assistance 6=Modified [place] 3=Moderate Assistance 7=Complete IndependenceSCALE: Activities may be completed with or without assistive devices. 4-Qqymgpiyat-zcydviy completes the activity by him/herself with no assistance from a helper. 5-Set-up or Clean-up Assistance-helper sets up or cleans up; patient completes activity. [place] assists only prior to or following the activity. 4-Supervision or Touching Assistance-helper provides verbal cues and/or touching/steadying and/or contact guard assistance as patient completes acti vity. Assistance may be provided throughout the activity or intermittently. 3-Partial/Moderate Assistance-helper does LESS THAN HALF the effort. [place] lifts, holds or supports trunk or limbs, but provides less than half the effort. 2-Substantial/Maximal Assistance-helper does MORE THAN HALF the effort. [place] lifts or holds trunk or limbs and provides more than half the effort. 0-Qxzxoqbke-savsgr does ALL the effort. Patient does none of the effort to complete the activity. Or, the assistance of 2 or more helpers is required for the patient to complete the activity. If activity was not attempted, code reason: 7-Patient Refused. 9-Not Applicable-not attempted and the patient did not perform the activity before the current illness, exacerbation or injury. 10-Not Attempted due to Environmental Limitations-(lack of equipment, weather restraints, etc.). 88-Not Attempted due to Medical Conditions or Safety Concerns. Other Treatment HEP for theraband (medium resistance) and theraband given for use in room. Skilled instruction for correct technique and modification when needed. Pt demonstrated ability to complete exercises though continues to need skilled instruction for technique. After session, pt lying in bed with call light/phone in reach. All needs met in room. Education OT Patient Education: Exercise program Teaching Recipient: Patient Teaching Methods: Demonstration, Discussion Response to Teaching: Verbalize Understanding, Return Demonstration, Reinforcement Needed OT Short Term Goals Short Term Goals Time Frame: Jan 02, 2023 Eatin Oral hygiene: 5 Upper body dressin OT Rn Neurology Goals Fdc Goals Acute change in mental status: 1 Inattention: 2 Disorganized thinkin Altered level of consciousness: 2 Eating (QC): 6 Oral Hygiene (QC): 6 Toileting Hygiene (QC): 6 Shower/Bathe Self (QC): 5 Upper Body Dressing (QC): 6 Lower Body Dressing (QC): 6 On/Off Footwear (QC): 4 1=Demonstrate adherence to instructed precautions during ADL tasks. 2=Patient will verbalize/demonstrate understanding of assistive devices/modifications for ADL. 3=Patient will improve strength/tolerance for activity to enable patient to perform ADL's. OT Education/Plan Problem List/Assessment Assessment: Decreased Activ Tolerance, Decreased UE Strength Discharge Recommendations Plan/Recommendations: Continue POC Treatment Plan/Plan of Care Patient would benefit from OT for education, treatment and training to promote independence in ADL's, mobility, safety and/or upper extremity function for ADL's. Plan of Care: ADL Retraining, Caregiver Training, Concurrent Therapy, Functional Mobility, Group Exercise/Act as Ind, UE Funct Exercise/Act, UE Neuromus Re-Ed/Coord Treatment Duration: Feb 01, 2023 Frequency: At least 5 of 7 days/Wk (IRF) Estimated Hrs Per Day: 1.5 hours per day Agreement: Yes Rehab Potential: Good Time Start Time: 14:00 Stop Time: 14:15 DATE: Jan 17, 2023 Total Time Billed (hr/min): 15 Billed Treatment Time 1 visit-EX 1 (15 min) MARIE PHILLIPS Jan 17, 2023 14:28
[2023-01-17 17:10] VITALS: BP 112/60
[2023-01-17 19:44] VITALS: BP 112/57
[2023-01-18] MEDS: POTASSIUM BICARB 20 MEQ (EFFER-K) TABLET PEG SCH (05:54)
[2023-01-18] MEDS: ENOXAPARIN 40 MG/0.4 ML (LOVENOX) SYR SC SCH (05:55)
[2023-01-18] MEDS: MULTIVIT W/MINERALS TAB (THERAGRAN M) PO SCH (05:55)
--- NOTE | 2023-01-18 06:08 | PM&R Progress Note ---
Subjective HPI/CC On Admission Date Seen by Provider: Jan 18, 2023 Time Seen by Provider: 12:00 Subjective/Events-last exam 01/18/2023: More coughing reported chest x-ray shows bilateral atelectasis No signs of sepsis and no elevation white count Could be aspiration so we will place him n.p.o. again Coverage with antibiotics required 01/17/2023: Patient doing a lot better Sent for skilled care Family cannot accommodate his needs No concerns per patient 01/16/2023: Improved overall No falls Up in chair Eating better 01/15/2023: Patient doing a lot better Reviewed meds and labs Advance diet 01/14/2023: Patient has no new issues Dr Edwards assessed the patient regarding the trach status No falls 01/13/2023: Patient doing a lot better Lungs remain clear No falls Needs slow recovery at skilled facility 01/12/2023: Patient about the same Daughter wants Dr Edwards to assess trach so order placed Considering patient is still not recovered enough to regain much independence and his use of CPAP is minimal it is my opinion he will be at risk for future resp failure and the trach should remain left in place 01/11/2023: Patient about the same Family is looking into skilled options Very slow progress 01/10/2023: Patient doing pretty well Slow recovery Unrealistic family to take care of bedridden state with Gautam catheter trach and tube feedings so may need skilled care 01/09/2023: Sister and family at the bedside today Very pleased with his progress Remains n.p.o. due to aspiration risk We will continue aggressive therapy Very slow recovery 01/08/2023: Slow recovery Tube feedings only Aspiration risk places him n.p.o. Very slow recovery may preclude inpatient rehab and may need to go to skilled 01/07/2023: Patient about the same Sleeps most of the time Very slow recovery Aspiration risk remains high 01/06/2023: Patient only on tube feedings now due to aspiration risk Family at the bedside Very slow recovery 01/05/2023: Patient about the same Modified barium swallow did not go well and placed back on tube feedings No pain is reported 01/04/2023: Patient doing pretty well Working with therapy slow recovery No falls No pain 01/03/2023: Patient doing pretty well Very weak Working on motivation Son and are at the bedside Dr. Roldan is primary care provider in [place] No pain Review of Systems General: Fatigue, Malaise Objective Exam Vital Signs Vital Signs Date Time Temp Pulse Resp B/P (MAP) Pulse Ox O2 Delivery O2 Flow Rate FiO2 01/18/23 18:07 90 104/52 (69) 95 Room Air 01/18/23 16:24 0.00 01/18/23 08:00 36.1 20 Capillary Refill : General Appearance: WD/WN, Chronically ill, Obese, Other (Very weak) HEENT: PERRL/EOMI, Normal ENT Inspection, Pharynx Normal Neck: Full Range of Motion, Normal Inspection, Non Tender, Supple, Carotid Bruit Respiratory: Chest Non Tender, Lungs Clear, No Accessory Muscle Use, No Respiratory Distress, Decreased Breath Sounds Cardiovascular: Regular Rate, Rhythm, No Edema, No Gallop, No JVD, No Murmur, Normal Peripheral Pulses Gastrointestinal: Normal Bowel Sounds, No Organomegaly, No Pulsatile Mass, Non Tender, Soft Back: Normal Inspection, No CVA Tenderness, No Vertebral Tenderness Extremity: Normal Capillary Refill, Normal Inspection, Normal Range of Motion, Non Tender, No Calf Tenderness, No Pedal Edema Neurologic/Psychiatric: Alert, Oriented x3, director of engineering II-XII Norm as Tested, Abnormal Gait, Depressed Affect, Motor Weakness ( severe muscle weakness) Skin: Normal Color, Warm/Dry Lymphatic: No Adenopathy Results/Procedures Lab Laboratory Tests 01/18/23 12:30 Patient resulted labs reviewed. FIM Transfers Therapy Code Descriptions/Definitions Functional [place] Measure: 0=Not Assessed/NA 4=Minimal Assistance 1=Total Assistance 5=Supervision or Setup 2=Maximal Assistance 6=Modified [place] 3=Moderate Assistance 7=Complete IndependenceSCALE: Activities may be completed with or without assistive devices. 9-Ylvqaicbcg-jlgudil completes the activity by him/herself with no assistance from a helper. 5-Set-up or Clean-up Assistance-helper sets up or cleans up; patient completes activity. [place] assists only prior to or following the activity. 4-Supervision or Touching Assistance-helper provides verbal cues and/or touching/steadying and/or contact guard assistance as patient completes activit y. Assistance may be provided throughout the activity or intermittently. 3-Partial/Moderate Assistance-helper does LESS THAN HALF the effort. [place] lifts, holds or supports trunk or limbs, but provides less than half the effort. 2-Substantial/Maximal Assistance-helper does MORE THAN HALF the effort. [place] lifts or holds trunk or limbs and provides more than half the effort. 5-Vemafemmm-mjltep does ALL the effort. Patient does none of the effort to complete the activity. Or, the assistance of 2 or more helpers is required for the patient to complete the activity. If activity was not attempted, code reason: 7-Patient Refused. 9-Not Applicable-not attempted and the patient did not perform the activity before the current illness, exacerbation or injury. 10-Not Attempted due to Environmental Limitations-(lack of equipment, weather restraints, etc.). 88-Not Attempted due to Medical Conditions or Safety Concerns. Roll Left to Right (QC): 4 Sit to Lying (QC): 3 Sit to Stand (QC): 1 (Min to Max A x 2) Chair/Pnd-wz-Dlpkr Xfer(QC): 1 (Sit to stand lift ) Car Transfer (QC): 88 Gait Training Does the Patient Walk?: No and Walking Goal NOT indicated Walk 10 feet (QC): 88 Walk 50 ft with 2 Turns(QC): 88 Walk 150 ft (QC): 88 Walking 10ft/uneven surface-QC: 88 Gait Assistive Device: None Wheelchair Training Does the Pt Use a Wheelchair?: Yes Wheel 50 ft with 2 turns (QC): 4 (SBA ) Wheel 150 ft (QC): 88 Type of Wheelchair: Manual Stair Training 1 Step (curb) (QC): 88 4 Steps (QC): 88 12 Steps (QC): 88 Balance Picking up an Object (QC): 88 ADL-Treatment Eating (QC): 5 Oral Hygiene (QC): 5 Bathing Location: L Arm, R Arm, Chest, Abdomen, Perineal Area Shower/Bathe Self (QC): 3 (mod A) Upper Body Dressing (QC): 5 Lower Body Dressing (QC): 2 (in supine) On/Off Footwear (QC): 2 Toileting Hygiene (QC): 2 (in supine) Toilet Transfer (QC): 1 Assessment/Plan Assessment and Plan Assess & Plan/Chief Complaint Assessment: 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 Gautam cath in place-difficult insertion so remains in-dwelling History of GI bleed Bronchitis with chest x-ray showing atelectasis bilateral bases without signs of sepsis placed on Levaquin could be aspiration Plan: PT OT Monitor closely PEG TF Trach management 01/03/2023: Work-up anemia Continue aggressive therapy 01/04/2023: Supportive care Monitor Closely 01/05/2023: Aspiration risk noted 01/06/2023: Supportive care Aggressive rehab 01/07/2023: Supportive care Monitor closely 01/08/2023: May need skilled 01/09/2023: N.p.o. status due to aspiration risk Continue tube feedings 01/10/2023: Supportive care Tube feeds 01/11/2023: Supportive care Monitor closely 01/12/2023: Consult Dr Edwards whom daughter already reached out to for trach opinion 01/13/2023: Pursue skilled care 01/14/2023: Appreciate Dr Edwards 01/15/2023: Advance diet 01/16/2023: No monitor closely 01/17/2023: Supportive care Monitor closely 01/18/2023: Cover for bronchitis and early pneumonia (1) Myopathy (2) Tracheostomy status (3) PEG (percutaneous endoscopic gastrostomy) status ANGELES GRANT DO Jan 18, 2023 06:08
[2023-01-18] MEDS: RT-ALBUTEROL SULF 2.5 MG/3 ML PRE-MIX VIAL INH PRN ×3 (07:15→16:24)
[2023-01-18 08:00] VITALS: BP 109/71
[2023-01-18] MEDS: LORATADINE (CLARITIN) 10 MG TAB PO SCH (08:23)
[2023-01-18] MEDS: FUROSEMIDE 40 MG (LASIX) TAB PO SCH (08:24)
[2023-01-18] MEDS: sulfaSALAzine 500 MG (AZULFIDINE) TAB PO SCH ×2 (08:24→21:46)
[2023-01-18] MEDS: lisINopril 5 MG (PRINIVIL) TABLET PO SCH (08:24)
[2023-01-18] MEDS: ASPIRIN 81 MG CHEW (CHILDREN'S ASA) PO SCH (08:24)
[2023-01-18] MEDS: LACTOBACILLUS ACIDOPHILUS (PROBIOTIC) CAPSULE PO SCH ×2 (08:24→21:45)
[2023-01-18] MEDS: FAMOTIDINE 40 MG/5 ML ORAL SUSP 50 ML PEG SCH ×2 (08:25→21:45)
[2023-01-18] MEDS: FLUTICASONE NASAL SPRAY (FLONASE) 16 GM BTL NS SCH (08:25)
[2023-01-18] MEDS: BENEFIBER (FROM DIETARY) DOCUMENTATION PURPOSE ONLY PO SCH (08:28)
[2023-01-18] MEDS: DOCUSATE SODIUM 100 MG (COLACE) CAP PO SCH ×2 (08:28→21:46)
[2023-01-18] MEDS: polyethylene glycoL POWDER 17 GM (MIRALAX) PACK PO SCH ×2 (08:28→21:46)
[2023-01-18] MEDS: MICONAZOLE 2% POWDER (DESENEX AF) 90 GM TOP SCH ×2 (08:29→21:47)
[2023-01-18] MEDS: SENNA W/DOCUSATE (SENOKOT S) TABLET PO SCH ×2 (08:29→21:46)
--- NOTE | 2023-01-18 11:12 | Speech Therapy Daily Note ---
Speech Daily Progress Note Subjective Date Seen by Provider: Jan 18, 2023 Time Seen by Provider: 11:04 The patient was lying in bed, awake and alert, upon entrance to his room by the clinician. The patient greeted the clinician appropriately and was agreeable to participation in the skilled dysphagia treatment session. Objective On this date, the patient appeared to be displaying increased effort with inhalation and a wheezing-type behavior. The clinician asked the patient his comfort with his respiratory status and the patient reported he had received "breathing treatments" on this date due to his request. The patient reported an increase in his mucus production and shortness of air with exertion. The clinician suspects the increased mucus production could be a result of micro- aspiration. The clinician discusses the patient with the RN, who confirms an increase of mucus and respiratory treatments. Additionally, the RN states the patient required increased cueing to implement mandatory safe swallowing precautions and maneuvers throughout his most recent meal ("swallow, cough, swallow"). Due to the above medical s/s of possible aspiration and the RN's reports of reduced c ompliance with mandatory P.O. swallowing maneuvers, the clinician recommends a return to N.P.O. for the patient's overall safety and rehabilitation progress. The recommendation was discussed and shared with the patient extensively by the clinician. The patient's questions were answered by the clinician within her scope of practice and the patient verbalized comprehension. Ice chip trials were initiated on this date with high accuracy. The clinician does recommend ice chip trials for improved oral comfort and moisture as well as to avoid misuse atrophy of swallowing musculature. Recommendations: - N.P.O. with total nutrition, hydration, and medication via PEG tube. - Frequent and excellent oral care to reduce the transfer of oral bacteria to t he lungs should aspiration of secretions occur. - Following excellent oral care, ice chips (sparingly, five to ten per hour) by staff for oral comfort and moisture while reducing the risk of misuse atrophy of the swallowing musculature. - Continue oropharyngeal dysphagia exercises as recommended. - Complete a repeat modified barium swallow following compliance with dysphagia exercises in approximately four weeks as an outpatient to assess for progress. The results and recommendations were provided to the patient's RN and the patient immediately following the treatment session. Assessment Assessment Current Status: Fair Progress Treatment Plan Continue Plan of Care Speech Short Term Goals Short Term Goals Short Term Goals Pt to complete a MBSS. PT TO COMPLETE MENTAL MANIPULATION OF 4 OBJECTS WITH 80% ACCURACY WITH MIN CUES. Speech Group Home Goals Group Home Goals Pt to demonstrate no s/sx of aspiration on least restrictive diet consistency. PT TO COMPLETE MEMORY TASKS FOLLOWING SHORT DELAY WITH 80% ACCURACY WITH MIN VERBAL CUES TO IMPROVE OVERALL SAFETY. PT TO COMPLETE MEDICATION AND MONEY MANAGEMENT TASKS WITH 100% ACCURACY PRIOR TO D/C. Speech-Plan Treatment Plan Speech Therapy Treatment Plan: Continue Plan of Care Treatment Duration: Jan 19, 2023 Frequency: Modified Program (IRF) (Four to five times per week.) Estimated Hrs Per Day: .25 hour per day Rehab Potential: Good Pt/Family Agrees to Plan: Yes Safety Risks/Education Teaching Recipient: Patient Teaching Methods: Discussion Response to Teaching: Reinforcement Needed Education Topics Provided: Recommendations, Plan of Care Time Speech Therapy Time In: 11:04 Speech Therapy Time Out: 11:38 DATE: Jan 18, 2023 Total Billed Time: 34 Billed Treatment Time 1 THOR SRINIVAS CARCAMO Jan 18, 2023 11:12
--- NOTE | 2023-01-18 12:31 | Occupational Ther Daily Note ---
OT Current Status-Daily Note Subjective Pt alert, lying in bed. Nrsg present in room. Pt agrees to therapy. No c/o pain. Mental Status/Objective Patient Orientation: Person, Place, Time, Situation ADL-Treatment Independent with rolling side to side and supine to EOB with HOB raised. Using sit to stand lift to transfer to recliner for breakfast. Set up for breakfast. After session, pt sitting in recliner with call light/phone in reach. All needs met in room. Therapy Code Descriptions/Definitions Functional [place] Measure: 0=Not Assessed/NA 4=Minimal Assistance 1=Total Assistance 5=Supervision or Setup 2=Maximal Assistance 6=Modified [place] 3=Moderate Assistance 7=Complete IndependenceSCALE: Activities may be completed with or without assistive devices. 0-Yffiubdscc-tcvywzb completes the activity by him/herself with no assistance from a helper. 5-Set-up or Clean-up Assistance-helper sets up or cleans up; patient completes activity. [place] assists only prior to or following the activity. 4-Supervision or Touching Assistance-helper provides verbal cues and/or touching/steadying and/or contact guard assistance as patient completes activity. Assistance may be provided throughout the activity or intermittently. 3-Partial/Moderate Assistance-helper does LESS THAN HALF the effort. [place] lifts, holds or supports trunk or limbs, but provides less than half the effort. 2-Substantial/Maximal Assistance-helper does MORE THAN HALF the effort. [place] lifts or holds trunk or limbs and provides more than half the effort. 6-Cqxexzjue-zjnrwj does ALL the effort. Patient does none of the effort to complete the activity. Or, the assistance of 2 or more helpers is required for the patient to complete the activity. If activity was not attempted, code reason: 7-Patient Refused. 9-Not Applicable-not attempted and the patient did not perform the activity before the current illness, exacerbation or injury. 10-Not Attempted due to Environmental Limitations-(lack of equipment, weather restraints, etc.). 88-Not Attempted due to Medical Conditions or Safety Concerns. OT Short Term Goals Short Term Goals Time Frame: Jan 02, 2023 Eatin Oral hygiene: 5 Upper body dressin OT Extrusion Operator Goals Extrusion Operator Goals Acute change in mental status: 1 Inattention: 2 Disorganized thinkin Altered level of consciousness: 2 Eating (QC): 6 Oral Hygiene (QC): 6 Toileting Hygiene (QC): 6 Shower/Bathe Self (QC): 5 Upper Body Dressing (QC): 6 Lower Body Dressing (QC): 6 On/Off Footwear (QC): 4 1=Demonstrate adherence to instructed precautions during ADL tasks. 2=Patient will verbalize/demonstrate understanding of assistive devices/modifications for ADL. 3=Patient will improve strength/tolerance for activity to enable patient to perform ADL's. OT Education/Plan Problem List/Assessment Assessment: Decreased Activ Tolerance, Decreased UE Strength, Dependent Transfers, Impaired Bed Mobility, Impaired Self-Care Skills Discharge Recommendations Plan/Recommendations: Continue POC Treatment Plan/Plan of Care Patient would benefit from OT for education, treatment and training to promote independence in ADL's, mobility, safety and/or upper extremity function for ADL's. Plan of Care: ADL Retraining, Caregiver Training, Concurrent Therapy, Functional Mobility, Group Exercise/Act as Ind, UE Funct Exercise/Act, UE Neuromus Re-Ed/Coord Treatment Duration: Feb 01, 2023 Frequency: At least 5 of 7 days/Wk (IRF) Estimated Hrs Per Day: 1.5 hours per day Agreement: Yes Rehab Potential: Good Time Start Time: 06:30 Stop Time: 06:45 DATE: Jan 18, 2023 Total Time Billed (hr/min): 15 Billed Treatment Time 1 visit-FA 1 (15 min) MARIE PHILLIPS Jan 18, 2023 12:31
[2023-01-18 12:37] LABS: BASOPHILS # (AUTO) 0.1 10^3/uL (0.0-0.1); BASOPHILS % (AUTO) 1 % (0-10); EOSINOPHILS # (AUTO) 0.2 10^3/uL (0.0-0.3); EOSINOPHILS % (AUTO) 2 % (0-10); HEMATOCRIT 27 % (40-54); HEMOGLOBIN 8.6 g/dL (13.3-17.7); LYMPHOCYTES # (AUTO) 1.2 10^3/uL (1.0-4.0); LYMPHOCYTES % (AUTO) 15 % (12-44); MEAN CORPUSCULAR HEMOGLOBIN 29 pg (25-34); MEAN CORPUSCULAR HGB CONC 31 g/dL (32-36); MEAN CORPUSCULAR VOLUME 91 fL (80-99); MEAN PLATELET VOLUME 8.9 fL (9.0-12.2); MONOCYTES % (AUTO) 12 % (0-12); NEUTROPHILS # (AUTO) 5.6 10^3/uL (1.8-7.8); NEUTROPHILS % (AUTO) 70 % (42-75); PLATELET COUNT 279 10^3/uL (130-400); WHITE BLOOD COUNT 8.1 10^3/uL (4.3-11.0)
--- NOTE | 2023-01-18 12:37 | Occupational Ther Daily Note ---
OT Current Status-Daily Note Subjective Pt alert, in bed. Pt working with PT. Co-treat with PT ([id number]), skills of 2 clinicians required to decrease fall risk, increase mobility, working on sit to stands/standing to increase ability to transfer without lift. PT focusing on mobility, standing and B LE strengthening while OT focusing on B UE placement during mobility and assisting with standing. Mental Status/Objective Patient Orientation: Person, Place, Time, Situation ADL-Treatment Therapy Code Descriptions/Definitions Functional [place] Measure: 0=Not Assessed/NA 4=Minimal Assistance 1=Total Assistance 5=Supervision or Setup 2=Maximal Assistance 6=Modified [place] 3=Moderate Assistance 7=Complete IndependenceSCALE: Activities may be completed with or without assistive devices. 2-Shgpeokfes-ofokdlf completes the activity by him/herself with no assistance from a helper. 5-Set-up or Clean-up Assistance-helper sets up or cleans up; patient completes activity. [place] assists only prior to or following the activity. 4-Supervision or Touching Assistance-helper provides verbal cues and/or touching/steadying and/or contact guard assistance as patient completes activity. Assistance may be provided throughout the activity or intermittently. 3-Partial/Moderate Assistance-helper does LESS THAN HALF the effort. [place] l ifts, holds or supports trunk or limbs, but provides less than half the effort. 2-Substantial/Maximal Assistance-helper does MORE THAN HALF the effort. [place] lifts or holds trunk or limbs and provides more than half the effort. 4-Wpsquyswl-tnjatw does ALL the effort. Patient does none of the effort to complete the activity. Or, the assistance of 2 or more helpers is required for t he patient to complete the activity. If activity was not attempted, code reason: 7-Patient Refused. 9-Not Applicable-not attempted and the patient did not perform the activity before the current illness, exacerbation or injury. 10-Not Attempted due to Environmental Limitations-(lack of equipment, weather restraints, etc.). 88-Not Attempted due to Medical Conditions or Safety Concerns. Other Treatment Pt rolling side to side and supine to EOB with HOB raised, independent. Sit to stand lift for all transfers. Pt stood in //bars 2x's, see PT notes for progress and amount of assistance. Pt propelled w/c from therapy gym to room by self. During sit to stand lift transfer, pt leaned into lift instead of leaning back to allow lift to support and maintain correct position of lift belt. Lift belt began to slide up pt's body, [place] monitored pt's trach as pt was being back into w/c, pt's forehead pressed onto lift arm and red spot noticed as pt was safely placed back into w/c. Cold compress placed on area and redness decreased quickly. After session, pt lying in bed with call light/phone in reach. All needs met in room. OT Short Term Goals Short Term Goals Time Frame: Jan 02, 2023 Eatin Oral hygiene: 5 Upper body dressin OT Mcfp Goals Mcfp Goals Acute change in mental status: 1 Inattention: 2 Disorganized thinkin Altered level of consciousness: 2 Eating (QC): 6 Oral Hygiene (QC): 6 Toileting Hygiene (QC): 6 Shower/Bathe Self (QC): 5 Upper Body Dressing (QC): 6 Lower Body Dressing (QC): 6 On/Off Footwear (QC): 4 1=Demonstrate adherence to instructed precautions during ADL tasks. 2=Patient will verbalize/demonstrate understanding of assistive devices/modifications for ADL. 3=Patient will improve strength/tolerance for activity to enable patient to perform ADL's. OT Education/Plan Problem List/Assessment Assessment: Decreased Activ Tolerance, Decreased UE Strength, Dependent Transfers, Impaired Self-Care Skills Discharge Recommendations Plan/Recommendations: Continue POC Treatment Plan/Plan of Care Patient would benefit from OT for education, treatment and training to promote independence in ADL's, mobility, safety and/or upper extremity function for ADL's. Plan of Care: ADL Retraining, Caregiver Training, Concurrent Therapy, Func tional Mobility, Group Exercise/Act as Ind, UE Funct Exercise/Act, UE Neuromus Re-Ed/Coord Treatment Duration: Feb 01, 2023 Frequency: At least 5 of 7 days/Wk (IRF) Estimated Hrs Per Day: 1.5 hours per day Agreement: Yes Rehab Potential: Good Time Start Time: 10:15 Stop Time: 11:00 DATE: Jan 18, 2023 Total Time Billed (hr/min): 45 Billed Treatment Time 1 visit-FA 3 (45 min) co-treat with PT 45 min MARIE PHILLIPS Jan 18, 2023 12:37
--- NOTE | 2023-01-18 12:41 | Diagnostic Imaging Report ---
CLINICAL INDICATION: Patient with secretions, possible aspiration. EXAM: Portable chest x-ray upright view. COMPARISON: None. FINDINGS: There are mild patchy airspace opacities involving both lung bases which may represent lung infiltrates. There is blunting of the left costophrenic angle and a left pleural effusion is possible. There is no pneumothorax. Pulmonary vasculature is within normal limits. Cardiac silhouette is mildly enlarged. Tracheostomy tube is seen overlying the neck region. There are degenerative spurs involving the thoracic spine. IMPRESSION: 1: There are mild bibasilar lung infiltrates. 2: There is cardiomegaly with no significant pulmonary vascular congestion. Dictated by: Dictated on workstation # [id number]
[2023-01-18 12:48] LABS: ALBUMIN 3.2 GM/DL (3.2-4.5); POTASSIUM 4.9 MMOL/L (3.6-5.0)
[2023-01-18 12:50] LABS: CALCIUM 10.1 MG/DL (8.5-10.1)
[2023-01-18 12:51] LABS: TOTAL PROTEIN 8.3 GM/DL (6.4-8.2)
[2023-01-18 12:53] LABS: BILIRUBIN,TOTAL 0.2 MG/DL (0.1-1.0)
--- NOTE | 2023-01-18 13:48 | Physical Therapy Daily Note ---
PT Daily Note-Current Subjective Pt reports he is doing well this am, but is a little congested. Pt is agreeable to PT. Pt denies pain. Pain Numeric Pain Scale: 0-No Pain Location: No Pain Reported Section J - Health Conditions 1. Rarely or not at all 2. Occasionally 3. Frequently 4. Almost constantly 8. Unable to answer Pain Effect on Sleep: 1 Pain Interference with Therapy: 1 Pain Interference w/Day-to-Day: 1 Mental Status Attachments: PEG Tube, Gautam Catheter Trach Tube Transfers SCALE: Activities may be completed with or without assistive devices. 8-Pznqkfblwc-piobjsu completes the activity by him/herself with no assistance from a helper. 5-Set-up or Clean-up Assistance-helper sets up or cleans up; patient completes activity. [place] assists only prior to or following the activity. 4-Supervision or Touching Assistance-helper provides verbal cues and/or touching/steadying and/or contact guard assistance as patient completes activity. Assistance may be provided throughout the activity or intermittently. 3-Partial/Moderate Assistance-helper does LESS THAN HALF the effort. [place] lifts, holds or supports trunk or limbs, but provides less than half the effort. 2-Substantial/Maximal Assistance-helper does MORE THAN HALF the effort. [place] lifts or holds trunk or limbs and provides more than half the effort. 8-Dnisszcsi-wlvntx does ALL the effort. Patient does none of the effort to complete the activity. Or, the assistance of 2 or more helpers is required for the patient to complete the activity. If activity was not attempted, code reason: 7-Patient Refused. 9-Not Applicable-not attempted and the patient did not perform the activity befo re the current illness, exacerbation or injury. 10-Not Attempted due to Environmental Limitations-(lack of equipment, weather re straints, etc.). 88-Not Attempted due to Medical Conditions or Safety Concerns. Roll Left & Right (QC): 6 Sit to Lying (QC): 4 Lying to Sitting/Side of Bed(Q: 4 Sit to Stand (QC): 3 Chair/Whp-vx-Jxsdq Xfer(QC): 1 Toilet Transfer (QC): 1 Car Transfer (QC): 88 Weight Bearing Right Lower Extremity: Right Full Weight Bearing Left Lower Extremity: Left Full Weight Bearing Gait Training Does the Patient Walk?: No and Walking Goal NOT indicated Walk 10 feet (QC): 88 Walk 50 ft with 2 Turns(QC): 88 Walk 150 ft (QC): 88 Walking 10ft/uneven surface-QC: 88 Wheelchair Training Does the Pt Use a Wheelchair?: Yes Wheel 50 ft with 2 turns (QC): 4 Wheel 150 ft (QC): 4 Type of Wheelchair: Manual Stair Training 1 Step (curb) (QC): 88 4 Steps (QC): 88 12 Steps (QC): 88 Balance Picking up an Object (QC): 88 Special Test Comments KU sitting balance scale = 3+/5 Treatments Co-tx with OT ([id number]), skills of 2 clinicians required to decrease fall risk, increase mobility, working on sit to stands/standing to increase ability to transfer without lift. PT focusing on bed mobility, transfers/standing, endurance, Ind, safety, and B LE strengthening, while OT focusing on B UE placement during mobility and assisting with standing. Pt completed supine B LE Ther Ex x 15 reps each: ankle pumps, QS, GS, SAQ, Hip abd/add, and SLR. Pt completed B rolling side to side with Mod I. Pt completed supine <> sit EOB with SBA (HOB raised). Sit to stand lift utilized for bed <> w/c with dependence. Pt completed sit to stand transfer in the // bars with Mod A. Pt completed a half- stand with CGA and a full stand with Mod A. Pt completed w/c mobility x 150ft with SBA. During sit to stand lift transfer, pt leaned into lift instead of leaning back to allow lift to support and maintain correct position of lift belt. Lift belt began to slide up pt's body, TRIPLETT monitored pt's trach. As pt was being lowered back into w/c, pt's forehead pressed onto lift arm and red spot noticed as pt was safely placed back into w/c. Cold compress placed on area and redness decreased quickly. Lift belt was adjusted and pt was safely transferred back to bed with sit to stand lift. Pt supine in bed upon completion of session with call light in reach and all needs met. No injury occurred and pt reported he was fine. Assessment Current Status: Good Progress Pt tolerated PT well with good effort. Pt has progressed well with PT and OT. PT Halfway Goals Wax Room Supervisor Goals PT Wax Room Supervisor Goals Time Frame: Jan 16, 2023 Roll Left & Right (QC): 4 (Pt will be SBA for bed mobilty tasks. ) Sit to Lying (QC): 4 (Pt will be SBA for bed mobilty tasks. ) Lying-Sitting on Side/Bed(QC): 4 (Pt will be SBA for bed mobilty tasks. ) Sit to Stand (QC): 3 (Pt will be Min A for functional transfers. ) Chair/Qbd-kz-Vjodj Xfer(QC): 3 (Pt will be Min A for functional transfers. ) Toilet Transfer (QC): 3 (Pt will be Min A for functional transfers. ) Car Transfer (QC): 3 (Pt will be Min A for functional transfers. ) Does the Patient Walk: No and Walking Goal IS indicated Walk 10 feet (QC): 3 (Pt will be Min A for walking with the FWW. ) Walk 50ft with 2 Turns (QC): 3 (Pt will be Min A for walking with the FWW. ) Walk 150 ft (QC): 3 (Pt will be Min A for walking with the FWW. ) Walking 10ft on Uneven Surface: 3 (Pt will be Min A for walking with the FWW. ) 1 Step (curb) (QC): 3 (Pt will be Min A for steps to safely enter/exit the home. ) 4 Steps (QC): 3 (Pt will be Min A for steps to safely enter/exit the home. ) 12 Steps (QC): 3 (Pt will be Min A for steps to safely enter/exit the home. ) Picking up an Object (QC): 4 (Pt will be CGA with a [employer]. ) Does the Pt use WC or Scooter?: Yes Wheel 50 feet with 2 turns (QC: 4 (Pt will be SBA for w/c mobility. ) Type: Manual Wheel 150 feet: 4 (Pt will be SBA for w/c mobility. ) Type: Manual PT Plan Problem List Problem List: Activity Tolerance, Functional Strength, Safety, Balance, Gait, Transfer, Bed Mobility, ROM Treatment/Plan Treatment Plan: Continue Plan of Care Treatment Plan: Bed Mobility, Concurrent Therapy, Education, Functional Activity Mike, Functional Strength, Group Therapy, Gait, Safety, Therapeutic Exercise, Transfers Treatment Duration: Jan 16, 2023 Frequency: At least 5 of 7 days/Wk (IRF) Estimated Hrs Per Day: 1.5 hours per day Patient and/or Family Agrees t: Yes Safety Risks/Education Patient Education: Transfer Techniques, Correct Positioning, W/C Management, Sa fety Issues Teaching Recipient: Patient Teaching Methods: Demonstration, Discussion Response to Teaching: Verbalize Understanding, Return Demonstration, Reinforcement Needed Discharge Recommendations Therapy Discharge Recommendati: 24 Hour Supervision Discharge Status/Home Program Cont per POC; d/c planned for 01/19/23 Barriers to Progress Weakness; debility Target Placement SNF Time Time In: 955 Time Out: 1100 DATE: Jan 18, 2023 Total Billed Treatment Time: 65 Total Billed Treatment 65 min total from [id number]; co-tx with OT for 45 min from [id number] 1 visit EX x 1 FA x 3 RADHA PERALES PT Jan 18, 2023 13:48
--- NOTE | 2023-01-18 15:05 | Therapy Group Daily Note ---
Therapy Daily Group Note Patient Education Topic Exercises Exercises LE Seated Exercise, UE Exercise Session Ratio (pt:therapist): 3:1 Goal of Session: UE/LE Strengthing Goal Met for this Session: Yes Pt Benefit of Group: Contributions to Others, Increased Functional Strength, Improved Cognition, Recognition of Peers, Socialization Other/Notes Pt transported via w/c to OT/PT group. Group consisted of introductions (name, place living), socialization, seat B UE/LE exercises with/without dowel merari and benefits of exercise education. Pt introduced self appropriately and actively listened to peers. Pt participated with exercise group and contributed to discussion with own personal experiences/strategies. Pt tolerated exercises well. After session, pt sitting in recliner with call light/phone in reach. All needs met in room. Start Time: 13:00 Stop Time: 14:15 Total Billed Treatment Time: 75 Total Billed Treatment 1-GRP MARIE PHILLIPS Jan 18, 2023 15:05
[2023-01-18 18:07] VITALS: BP 104/52
[2023-01-18 20:00] VITALS: BP 108/56
[2023-01-19] MEDS ORDERED: ALBU2.5V4 INH (05:13)
[2023-01-19] MEDS ORDERED: ASPI-999 PEG (05:13)
[2023-01-19] MEDS ORDERED: SODI0.5GEL TOP (05:13)
[2023-01-19] MEDS ORDERED: ACET325T38 PEG (05:13)
[2023-01-19] MEDS ORDERED: LORA10TA7 PEG (05:13)
[2023-01-19] MEDS ORDERED: LEVO750T PEG (05:13)
[2023-01-19] MEDS ORDERED: MICO90PO TOP (05:13)
[2023-01-19] MEDS ORDERED: FAMO40OR5 PEG (05:13)
[2023-01-19] MEDS ORDERED: LACT1CAP7 PEG (05:13)
[2023-01-19] MEDS ORDERED: POTA20TA28 PEG (05:13)
[2023-01-19] MEDS ORDERED: FLUT16SP22 NS (05:13)
[2023-01-19] MEDS ORDERED: LISI5TAB20 PEG (05:13)
[2023-01-19] MEDS ORDERED: CARV12.53 PEG (05:13)
[2023-01-19] MEDS ORDERED: SIMV80TA21 PEG (05:13)
[2023-01-19] MEDS ORDERED: ENOX40DI8 SC (05:13)
--- NOTE | 2023-01-19 05:14 | Discharge Summary ---
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 Gautam cath in place-difficult insertion so remains in-dwelling History of GI bleed Bronchitis with chest x-ray showing atelectasis bilateral bases without signs of sepsis placed on Levaquin could be aspiration Plan: PT OT Monitor closely PEG TF Trach management 01/03/2023: Work-up anemia Continue aggressive therapy 01/04/2023: Supportive care Monitor Closely 01/05/2023: Aspiration risk noted 01/06/2023: Supportive care Aggressive rehab 01/07/2023: Supportive care Monitor closely 01/08/2023: May need skilled 01/09/2023: N.p.o. status due to aspiration risk Continue tube feedings 01/10/2023: Supportive care Tube feeds 01/11/2023: Supportive care Monitor closely 01/12/2023: Consult Dr Edwards whom daughter already reached out to for trach opinion 01/13/2023: Pursue skilled care 01/14/2023: Appreciate Dr Edwards 01/15/2023: Advance diet 01/16/2023: No monitor closely 01/17/2023: Supportive care Monitor closely 01/18/2023: Cover for bronchitis and early pneumonia (1) Myopathy (2) Tracheostomy status (3) PEG (percutaneous endoscopic gastrostomy) status Discharge Summary Discharge Physical Examination Allergies: Coded Allergies: No Known Drug Allergies (Unverified , 01/02/23) Vitals & I&Os Vital Signs Date Time Temp Pulse Resp B/P (MAP) Pulse Ox O2 Delivery O2 Flow Rate FiO2 01/19/23 08:00 36.4 90 22 133/73 (93) 95 Room Air 01/18/23 16:24 0.00 General Appearance: Alert, Oriented X3, Cooperative Respiratory: Clear to Auscultation Cardiovascular: Regular Rate Psych/Mental Status: Mental Status NL Hospital Course Was the Problem List Reviewed?: Yes Hospital course: Patient had a lengthy hospital course after he was admitted for recovery following respiratory failure with trach and PEG placement. Labs remained stable. Multiple attempts to advance diet from n.p.o. were somewhat successful but then began having findings of aspiration requiring n.p.o. status again. Patient did respond to aggressive therapy and he was much improved at time of discharge but required skilled care for slower recovery. Prognosis remains guarded long-term considering his advanced age of 82 and continued risk. He did have an episode of increased secretions and increased cough chest x-ray showed bilateral atelectasis no evidence of sepsis or definite infiltrate but the decision was made to place on broad-spectrum antibiotics the patient was once again placed n.p.o. He will remain on DVT prophylaxis. Labs (last 24 hrs) Laboratory Tests 01/03/23 05:20: White Blood Count 6.3, Red Blood Count 2.88L, Hemoglobin 8.5L, Hematocrit 27L, Mean Corpuscular Volume 94, Mean Corpuscular Hemoglobin 30, Mean Corpuscular Hemoglobin Concent 31L, Red Cell Distribution Width 16.7H, Platelet Count 219, Mean Platelet Volume 10.0, Immature Granulocyte % (Auto) 1, Neutrophils (%) (Auto) 60, Lymphocytes (%) (Auto) 19, Monocytes (%) (Auto) 13H, Eosinophils (%) (Auto) 6, Basophils (%) (Auto) 1, Neutrophils # (Auto) 3.8, Lymphocytes # (Auto) 1.2, Monocytes # (Auto) 0.8, Eosinophils # (Auto) 0.4H, Basophils # (Auto) 0.1, Immature Granulocyte # (Auto) 0.1, Sodium Level 133L, Potassium Level 3.4L, Chloride Level 99, Carbon Dioxide Level 23, Anion Gap 11, Blood Urea Nitrogen 32H, Creatinine 0.86, Estimat Glomerular Filtration Rate 87, BUN/Creatinine Rat io 37, Glucose Level 116H, Calcium Level 9.5, Corrected Calcium 10.5H, Total Bilirubin 0.2, Aspartate Amino Transf (AST/SGOT) 33, Alanine Aminotransferase (ALT/SGPT) 24, Alkaline Phosphatase 38L, Total Protein 7.7, Albumin 2.7L 01/03/23 05:25: Iron Level 21L, Vitamin B12 Level 531 01/08/23 05:07: White Blood Count 6.0, Red Blood Count 3.12L, Hemoglobin 9.0L, Hematocrit 29L, Mean Corpuscular Volume 92, Mean Corpuscular Hemoglobin 29, Mean Corpuscular Hemoglobin Concent 31L, Red Cell Distribution Width 16.0H, Platelet Count 300, Mean Platelet Volume 9.2, Immature Granulocyte % (Auto) 2, Neutrophils (%) (Auto) 56, Lymphocytes (%) (Auto) 28, Monocytes (%) (Auto) 10, Eosinophils (%) (Auto) 4, Basophils (%) (Auto) 1, Neutrophils # (Auto) 3.4, Lymphocytes # (Auto) 1.7, Monocytes # (Auto) 0.6, Eosinophils # (Auto) 0.2, Basophils # (Auto) 0.1, Immature Granulocyte # (Auto) 0.1, Sodium Level 132L, Potassium Level 4.2, Chloride Level 94L, Carbon Dioxide Level 27, Anion Gap 11, Blood Urea Nitrogen 19H, Creatinine 0.80, Estimat Glomerular Filtration Rate 89, BUN/Creatinine Ratio 24, Glucose Level 112H, Calcium Level 9.6, Corrected Calcium 10.5H, Total Bilirubin 0.3, Aspartate Amino Transf (AST/SGOT) 23, Alanine Aminotransferase (ALT/SGPT) 22, Alkaline Phosphatase 34L, Total Protein 8.0, Albumin 2.9L 01/15/23 05:39: White Blood Count 7.7, Red Blood Count 3.14L, Hemoglobin 9.1L, Hematocrit 29L, Mean Corpuscular Volume 92, Mean Corpuscular Hemoglobin 29, Mean Corpuscular Hemoglobin Concent 31L, Red Cell Distribution Width 16.2H, Platelet Count 288, Mean Platelet Volume 9.1, Immature Granulocyte % (Auto) 1, Neutrophils (%) (Auto) 61, Lymphocytes (%) (Auto) 19, Monocytes (%) (Auto) 14H, Eosinophils (%) (Auto) 3, Basophils (%) (Auto) 1, Neutrophils # (Auto) 4.7, Lymphocytes # (Auto) 1.5, Monocytes # (Auto) 1.1H, Eosinophils # (Auto) 0.3, Basophils # (Auto) 0.1, Immature Granulocyte # (Auto) 0.1, Sodium Level 134L, Potassium Level 4.5, Chloride Level 96L, Carbon Dioxide Level 28, Anion Gap 10, Blood Urea Nitrogen 21H, Creatinine 0.89, Estimat Glomerular Filtration Rate 86, BUN/Creatinine Ratio 24, Glucose Level 114H, Calcium Level 10.0, Corrected Calcium 10.6H, Total Bilirubin 0.3, Aspartate Amino Transf (AST/SGOT) 17, Alanine Aminotransferase (ALT/SGPT) 16, Alkaline Phosphatase 41, Total Protein 8.2, Albumin 3.2 01/18/23 12:30: White Blood Count 8.1, Red Blood Count 3.01L, Hemoglobin 8.6L, Hematocrit 27L, Mean Corpuscular Volume 91, Mean Corpuscular Hemoglobin 29, Mean Corpuscular Hemoglobin Concent 31L, Red Cell Distribution Width 15.8H, Platelet Count 279, Mean Platelet Volume 8.9L, Immature Granulocyte % (Auto) 1, Neutrophils (%) (Auto) 70, Lymphocytes (%) (Auto) 15, Monocytes (%) (Auto) 12, Eosinophils (%) (Auto) 2, Basophils (%) (Auto) 1, Neutrophils # (Auto) 5.6, Lymphocytes # (Auto) 1.2, Monocytes # (Auto) 1.0, Eosinophils # (Auto) 0.2, Basophils # (Auto) 0.1, Immature Granulocyte # (Auto) 0.1, Sodium Level 132L, Potassium Level 4.9, Chloride Level 93L, Carbon Dioxide Level 29, Anion Gap 10, Blood Urea Nitrogen 29H, Creatinine 1.00, Estimat Glomerular Filtration Rate 76, BUN/Creatinine Ratio 29, Glucose Level 120H, Calcium Level 10.1, Corrected Calcium 10.7H, Total Bilirubin 0.2, Aspartate Amino Transf (AST/SGOT) 17, Alanine Aminotransferase (ALT/SGPT) 15, Alkaline Phosphatase 35L, Total Protein 8.3H, Albumin 3.2 Microbiology 01/18/23 Blood Culture - Preliminary, Resulted No growth Pending Labs Microbiology Date/Time Source Procedure Growth Status 01/18/23 14:52 Peripheral Rt Hand Blood Culture - Preliminary No growth Resulted 01/18/23 14:45 Peripheral Rt Ac Blood Culture - Preliminary No growth Resulted Laboratory Tests 01/03/23 05:20: White Blood Count 6.3, Red Blood Count 2.88, Hemoglobin 8.5, Hematocrit 27, Mean Corpuscular Volume 94, Mean Corpuscular Hemoglobin 30, Mean Corpuscular Hemoglobin Concent 31, Red Cell Distribution Width 16.7, Platelet Count 219, Mean Platelet Volume 10.0, Immature Granulocyte % (Auto) 1, Neutrophils (%) (Auto) 60, Lymphocytes (%) (Auto) 19, Monocytes (%) (Auto) 13, Eosinophils (%) (Auto) 6, Basophils (%) (Auto) 1, Neutrophils # (Auto) 3.8, Lymphocytes # (Auto) 1.2, Monocytes # (Auto) 0.8, Eosinophils # (Auto) 0.4, Basophils # (Auto) 0.1, Immature Granulocyte # (Auto) 0.1, Sodium Level 133, Potassium Level 3.4, Chloride Level 99, Carbon Dioxide Level 23, Anion Gap 11, Blood Urea Nitrogen 32, Creatinine 0.86, Estimat Glomerular Filtration Rate 87, BUN/Creatinine Ratio 37, Glucose Level 116, Calcium Level 9.5, Corrected Calcium 10.5, Total Bilirubin 0.2, Aspartate Amino Transf (AST/SGOT) 33, Alanine Aminotransferase (ALT/SGPT) 24, Alkaline Phosphatase 38, Total Protein 7.7, Albumin 2.7 01/03/23 05:25: Iron Level 21, Vitamin B12 Level 531 01/08/23 05:07: White Blood Count 6.0, Red Blood Count 3.12, Hemoglobin 9.0, Hematocrit 29, Mean Corpuscular Volume 92, Mean Corpuscular Hemoglobin 29, Mean Corpuscular Hemoglobin Concent 31, Red Cell Distribution Width 16.0, Platelet Count 300, Mean Platelet Volume 9.2, Immature Granulocyte % (Auto) 2, Neutrophils (%) (Auto) 56, Lymphocytes (%) (Auto) 28, Monocytes (%) (Auto) 10, Eosinophils (%) (Auto) 4, Basophils (%) (Auto) 1, Neutrophils # (Auto) 3.4, Lymphocytes # (Auto) 1.7, Monocytes # (Auto) 0.6, Eosinophils # (Auto) 0.2, Basophils # (Auto) 0.1, Immature Granulocyte # (Auto) 0.1, Sodium Level 132, Potassium Level 4.2, Chloride Level 94, Carbon Dioxide Level 27, Anion Gap 11, Blood Urea Nitrogen 19, Creatinine 0.80, Estimat Glomerular Filtration Rate 89, BUN/Creatinine Ratio 24, Glucose Level 112, Calcium Level 9.6, Corrected Calcium 10.5, Total Bilirubin 0.3, Aspartate Amino Transf (AST/SGOT) 23, Alanine Aminotransferase (ALT/SGPT) 22, Alkaline Phosphatase 34, Total Protein 8.0, Albumin 2.9 01/15/23 05:39: White Blood Count 7.7, Red Blood Count 3.14, Hemoglobin 9.1, Hematocrit 29, Mean Corpuscular Volume 92, Mean Corpuscular Hemoglobin 29, Mean Corpuscular Hemoglobin Concent 31, Red Cell Distribution Width 16.2, Platelet Count 288, Mean Platelet Volume 9.1, Immature Granulocyte % (Auto) 1, Neutrophils (%) (Auto) 61, Lymphocytes (%) (Auto) 19, Monocytes (%) (Auto) 14, Eosinophils (%) (Auto) 3, Basophils (%) (Auto) 1, Neutrophils # (Auto) 4.7, Lymphocytes # (Auto) 1.5, Monocytes # (Auto) 1.1, Eosinophils # (Auto) 0.3, Basophils # (Auto) 0.1, Immature Granulocyte # (Auto) 0.1, Sodium Level 134, Potassium Level 4.5, Chloride Level 96, Carbon Dioxide Level 28, Anion Gap 10, Blood Urea Nitrogen 21, Creatinine 0.89, Estimat Glomerular Filtration Rate 86, BUN/Creatinine Ratio 24, Glucose Level 114, Calcium Level 10.0, Corrected Calcium 10.6, Total Bilirubin 0.3, Aspartate Amino Transf (AST/SGOT) 17, Alanine Aminotransferase (ALT/SGPT) 16, Alkaline Phosphatase 41, Total Protein 8.2, Albumin 3.2 01/18/23 12:30: White Blood Count 8.1, Red Blood Count 3.01, Hemoglobin 8.6, Hematocrit 27, Mean Corpuscular Volume 91, Mean Corpuscular Hemoglobin 29, Mean Corpuscular Hemoglobin Concent 31, Red Cell Distribution Width 15.8, Platelet Count 279, Mean Platelet Volume 8.9, Immature Granulocyte % (Auto) 1, Neutrophils (%) (Auto) 70, Lymphocytes (%) (Auto) 15, Monocytes (%) (Auto) 12, Eosinophils (%) (Auto) 2, Basophils (%) (Auto) 1, Neutrophils # (Auto) 5.6, Lymphocytes # (Auto) 1.2, Monocytes # (Auto) 1.0, Eosinophils # (Auto) 0.2, Basophils # (Auto) 0.1, Immature Granulocyte # (Auto) 0.1, Sodium Level 132, Potassium Level 4.9, Chloride Level 93, Carbon Dioxide Level 29, Anion Gap 10, Blood Urea Nitrogen 29, Creatinine 1.00, Estimat Glomerular Filtration Rate 76, BUN/Creatinine Ratio 29, Glucose Level 120, Calcium Level 10.1, Corrected Calcium 10.7, Total Bilirubin 0.2, Aspartate Amino Transf (AST/SGOT) 17, Alanine Aminotransferase (ALT/SGPT) 15, Alkaline Phosphatase 35, Total Protein 8.3, Albumin 3.2 Discharge Home Medications: Active Scripts Active Lotrimin AF (Miconazole Nitrate) 2 % Powder 0 Gm TOP BID twice daily Acidophilus-Pectin Capsule (Lactobacillus Acidophilus/Pect) 75 Million Cell-100 Mg Capsule 1 Each PEG BID Famotidine 40 Mg/5 Ml (8 Mg/Ml) Oral.susp 2.5 Mg PEG BID [place] Saline Nasal Gel (Sodium Chloride/Aloe Vera) 14.1 Gm Gel..gram. 0 Oz TOP NEEDED PRN prn Fluticasone Propionate 50 Mcg/Actuation [place].susp 0 [place] NS DAILY twice daily Effer-K 20 Meq Tablet Eff (Potassium Bicarbonate/Cit AC) 20 Meq Tablet.eff 20 Meq PEG DAILY@0700 Lisinopril 5 Mg Tablet 2.5 Mg PEG DAILY Carvedilol 12.5 Mg Tablet 12.5 Mg PEG BID WITH MEALS Enoxaparin Sodium 40 Mg/0.4 Ml Syringe 40 Mg SC Q24H Albuterol Sulfate 2.5 Mg/3 Ml (0.083 %) Vial.neb 2.5 Mg INH Q4H PRN Levofloxacin 750 Mg Tablet 750 Mg PEG DAILY@1100 Loratadine 10 Mg Tablet 10 Mg PEG DAILY Aspirin 81 Mg Tab.chew 81 Mg PEG DAILY Tylenol (Acetaminophen) 325 Mg Tablet 650 Mg PEG Q6H PRN Simvastatin 80 Mg Tablet 80 Mg PEG HS Instructions to patient/family Please see electronic discharge instructions given to patient. Diagnosis/Problems Diagnosis/Problems (1) Myopathy (2) Tracheostomy status (3) PEG (percutaneous endoscopic gastrostomy) status ANGELES GRANT DO Jan 19, 2023 05:14
--- NOTE | 2023-01-19 05:14 | Discharge Inst-Skilled Nursing ---
Discharge Inst-Skilled NF Reconcile Patient Problems Problems Reviewed?: Yes Patient Instructions Patient Problems: Debility Resp failure Aspiration Consult/Follow Up/Orders Follow Up Appt.: PCP Dr Roldan Skilled NF Admit to: Certification (SNF) I certify that SNF services are required to be given on an inpatient basis because of the above named patient's need for [facility]itent[facility] care on a continuing basis for the conditions(s) for which he/she was receiving inpatient hospital services prior to his/her transfer to the SNF. [facility] Order: Nursing Services, Auto Apprentice Mechanic-Evaluate & Treat, Physical Therapy-Evaluate & Treat, Speech Language-Evaluate & Treat Oxygen Delivery Method: Nasal Cannula Discharge Diet: Tube Feeding Resuscitation Status: Full Code New & Resume Previous Orders New Medications: Albuterol Sulfate (Albuterol Sulfate) 2.5 Mg/3 Ml (0.083 %) Vial.neb 2.5 MG INH Q4H PRN for SHORTNESS OF BREATH, #60 EACH Carvedilol (Carvedilol) 12.5 Mg Tablet 12.5 MG PEG BID WITH MEALS, #60 TAB Enoxaparin Sodium (Enoxaparin Sodium) 40 Mg/0.4 Ml Syringe 40 MG SC Q24H, #14 SYRINGE Famotidine (Famotidine) 40 Mg/5 Ml (8 Mg/Ml) Oral.susp 2.5 MG PEG BID, #120 ML Fluticasone Propionate (Fluticasone Propionate) 50 Mcg/Actuation [place].susp 0 SPRAY NS DAILY, #1 EACH twice daily Lactobacillus Acidophilus/Pect (Acidophilus-Pectin Capsule) 75 Million Cell-100 Mg Capsule 1 EACH PEG BID, #60 CAP Levofloxacin (Levofloxacin) 750 Mg Tablet 750 MG PEG DAILY@1100, #6 TAB Lisinopril (Lisinopril) 5 Mg Tablet 2.5 MG PEG DAILY, #30 TAB Miconazole Nitrate (Lotrimin AF) 2 % Powder 0 GM TOP BID, #1 EA twice daily Potassium Bicarbonate/Cit AC (Effer-K 20 Meq Tablet Eff) 20 Meq Tablet.eff 20 MEQ PEG DAILY@0700, #30 TAB Sodium Chloride/Aloe Vera ([place] Saline Nasal Gel) 14.1 Gm Gel..gram. 0 OZ TOP NEEDED PRN for DRY NOSE, #1 TUBE prn Changed Medications: Acetaminophen (Tylenol) 325 Mg Tablet 650 MG PEG Q6H PRN for PAIN-MILD (1-4) OR TEMPATURE, #30 TAB (Changed from: PO) Aspirin (Aspirin) 81 Mg Tab.chew 81 MG PEG DAILY, #30 TAB (Changed from: PO) Loratadine (Loratadine) 10 Mg Tablet 10 MG PEG DAILY, #30 TAB (Changed from: PO) Simvastatin (Simvastatin) 80 Mg Tablet 80 MG PEG HS, #30 TAB (Changed from: PO) Discontinued Medications: Benazepril HCl (Benazepril HCl) 40 Mg Tab 40 MG PO DAILY, TAB Carvedilol (Carvedilol) 25 Mg Tablet 25 MG PO BID, TAB Folic Acid (Folic Acid) 1 Mg Tablet 1 MG PO DAILY, TAB Hydrochlorothiazide (Hydrochlorothiazide) 25 Mg Tablet 25 MG PO DAILY, TAB Hydroxychloroquine Sulfate (Hydroxychloroquine Sulfate) 200 Mg Tablet 200 MG PO BID, TAB Methotrexate Sodium (Methotrexate) 25 Mg/Ml Vial 1 ML IM WEEK, ML Nabumetone (Nabumetone) 750 Mg Tablet 750 MG PO BID, TAB Spironolactone (Spironolactone) 25 Mg Tablet 12.5 MG PO BID, TAB TAKES OF A 25MG TAB Sulfasalazine (Sulfazine EC) 500 Mg Tablet.dr 1000 MG PO BID, TAB TAKES 2 (500MG) TABS Gloria Wallace Jan 19, 2023 05:13 GLORIA WALLACE DO Jan 19, 2023 05:14
[2023-01-19] MEDS: POTASSIUM BICARB 20 MEQ (EFFER-K) TABLET PEG SCH (06:09)
[2023-01-19] MEDS: MULTIVIT W/MINERALS TAB (THERAGRAN M) PO SCH (06:09)
[2023-01-19] MEDS: ENOXAPARIN 40 MG/0.4 ML (LOVENOX) SYR SC SCH (06:09)
[2023-01-19] MEDS: ASPIRIN 81 MG CHEW (CHILDREN'S ASA) PO SCH (07:49)
[2023-01-19] MEDS: sulfaSALAzine 500 MG (AZULFIDINE) TAB PO SCH (07:50)
[2023-01-19] MEDS: LORATADINE (CLARITIN) 10 MG TAB PO SCH (07:50)
[2023-01-19] MEDS: lisINopril 5 MG (PRINIVIL) TABLET PO SCH (07:50)
[2023-01-19] MEDS: FUROSEMIDE 40 MG (LASIX) TAB PO SCH (07:50)
[2023-01-19] MEDS: LACTOBACILLUS ACIDOPHILUS (PROBIOTIC) CAPSULE PO SCH (07:50)
[2023-01-19 08:00] VITALS: BP 133/73
[2023-01-19] MEDS: FLUTICASONE NASAL SPRAY (FLONASE) 16 GM BTL NS SCH (08:27)
[2023-01-19] MEDS: DOCUSATE SODIUM 100 MG (COLACE) CAP PO SCH (08:30)
[2023-01-19] MEDS: polyethylene glycoL POWDER 17 GM (MIRALAX) PACK PO SCH (08:31)
[2023-01-19] MEDS: SENNA W/DOCUSATE (SENOKOT S) TABLET PO SCH (08:31)
--- NOTE | 2023-01-19 13:57 | Therapy Team Discharge Summary ---
Therapy Discharge Summary Discharge Recommendations Date of Discharge Jan 19, 2023 at 08:30 Therapy D/C Recommendations: [facility] (TCU/[facility]) Physical Therapy Pt became hypotensive hypoxic and was intubated on 11/17/22. Pt transferred to LTAC on 12/01/22 for cont management of trach and PEG, telemetry, labs, nephrology, and pulmonology consult. 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 Pt reports, that at PLOF, he was Ind with no AD and driving. Upon PT eval, pt was Mod A for rolling and Max A to dependent from bed mobilty and functional transfers. PT focused on bed mobility, B LE strength, transfers, standing, w/c mobility, endurance, and Ind. Pt progressed well with PT, but was unable to get to a safe level to return home with spouse. Pt did meet some goals. Pt d/c from ARU to SNF on 01/19/2023 to cont PT/OT and progress to returning home; D/C from PT at this time. Roll Left to Right (QC): 6 Sit to Lying (QC): 4 Lying to Sitting/Side of Bed(Q: 4 Sit to Stand (QC): 3 Chair/Iom-ap-Wkrjc Xfer(QC): 1 Toilet Transfer (QC): 1 Car Transfer (QC): 88 Does the Patient Walk: No and Walking Goal NOT indicated Mode of Locomotion: Both Anticipated Mode of Locomotion: Both Walk 10 feet (QC): 88 Walk 50 ft with 2 Turns(QC): 88 Walk 150 ft (QC): 88 Walking 10ft on uneven surface: 88 Gait Assistive Device: None Does the Pt Use a Wheelchair: Yes Wheel 50 ft with 2 turns (QC): 4 Wheel 150 ft (QC): 4 Type of Wheelchair: Manual 1 Step (curb) (QC): 88 4 Steps (QC): 88 12 Steps (QC): 88 Balance Sitting Static: Poor Balance Sitting Dynamic: Poor Picking up an Object (QC): 88 Occupational Therapy Decreased Activ Tolerance, Decreased UE Strength, Dependent Transfers, Impaired Self-Care Skills Eating (QC): 5 Oral Hygiene (QC): 5 Shower/Bathe Self (QC): 3 (mod A) Upper Body Dressing (QC): 5 Lower Body Dressing (QC): 2 (in supine) On/Off Footwear (QC): 2 Toileting Hygiene (QC): 2 (in supine) PT [facility] Goals [facility] Goals PT [facility] Goals Time Frame: Jan 16, 2023 Roll Left to Right (QC): 4 (Pt will be SBA for bed mobilty tasks. ) Sit to Lying (QC): 4 (Pt will be SBA for bed mobilty tasks. ) Lying-Sitting on Side/Bed(QC): 4 (Pt will be SBA for bed mobilty tasks. ) Sit to Stand (QC): 3 (Pt will be Min A for functional transfers. ) Chair/Whu-ee-Kdsmk Xfer(QC): 3 (Pt will be Min A for functional transfers. ) Toilet/Commode Transfer (QC): 3 (Pt will be Min A for functional transfers. ) Car Transfer (QC): 3 (Pt will be Min A for functional transfers. ) Does the Patient Walk: No and Walking Goal IS indicated Walk 10 feet (QC): 3 (Pt will be Min A for walking with the FWW. ) Walk 10ft-Uneven Surface(QC): 3 (Pt will be Min A for walking with the FWW. ) Walk 50ft with 2 Turns (QC): 3 (Pt will be Min A for walking with the FWW. ) Walk 150 ft (QC): 3 (Pt will be Min A for walking with the FWW. ) Does the Pt use WC or Scooter?: Yes Wheel 50 feet with 2 turns (QC: 4 (Pt will be SBA for w/c mobility. ) Type: Manual Wheel 150 feet: 4 (Pt will be SBA for w/c mobility. ) Type: Manual 1 Step (curb) (QC): 3 (Pt will be Min A for steps to safely enter/exit the home. ) 4 Steps (QC): 3 (Pt will be Min A for steps to safely enter/exit the home. ) 12 Steps (QC): 3 (Pt will be Min A for steps to safely enter/exit the home. ) Picking up an Object (QC): 4 (Pt will be CGA with a speech language pathologist. ) OT [facility] Goals [facility] Goals Acute change in mental status: 1 Inattention: 2 Disorganized thinkin Altered level of consciousness: 2 Eating (QC): 6 Oral Hygiene (QC): 6 Toileting Hygiene (QC): 6 Shower/Bathe Self (QC): 5 Upper Body Dressing (QC): 6 Lower Body Dressing (QC): 6 On/Off Footwear (QC): 4 1=Demonstrate adherence to instructed precautions during ADL tasks. 2=Patient will verbalize/demonstrate understanding of assistive devices/modifications for ADL. 3=Patient will improve strength/tolerance for activity to enable patient to perform ADL's. Speech [facility] Goals [facility] Goals Pt to demonstrate no s/sx of aspiration on least restrictive diet consistency. PT TO COMPLETE MEMORY TASKS FOLLOWING SHORT DELAY WITH 80% ACCURACY WITH MIN VERBAL CUES TO IMPROVE OVERALL SAFETY. PT TO COMPLETE MEDICATION AND MONEY MANAGEMENT TASKS WITH 100% ACCURACY PRIOR TO D/C. RADHA PERALES PT Jan 19, 2023 13:57
--- NOTE | 2023-01-19 14:45 | Therapy Team Discharge Summary ---
Therapy Discharge Summary Discharge Recommendations Date of Discharge Jan 19, 2023 at 08:30 Therapy D/C Recommendations: [facility] ([facility]) Physical Therapy Roll Left to Right (QC): 6 Sit to Lying (QC): 4 Lying to Sitting/Side of Bed(Q: 4 Sit to Stand (QC): 3 Chair/Cir-gm-Nffat Xfer(QC): 1 Toilet Transfer (QC): 1 Car Transfer (QC): 88 Does the Patient Walk: No and Walking Goal NOT indicated Mode of Locomotion: Both Anticipated Mode of Locomotion: Both Walk 10 feet (QC): 88 Walk 50 ft with 2 Turns(QC): 88 Walk 150 ft (QC): 88 Walking 10ft on uneven surface: 88 Gait Assistive Device: None Does the Pt Use a Wheelchair: Yes Wheel 50 ft with 2 turns (QC): 4 Wheel 150 ft (QC): 4 Type of Wheelchair: Manual 1 Step (curb) (QC): 88 4 Steps (QC): 88 12 Steps (QC): 88 Balance Sitting Static: Poor Balance Sitting Dynamic: Poor Picking up an Object (QC): 88 Occupational Therapy Decreased Activ Tolerance, Decreased UE Strength, Dependent Transfers, Impaired Self-Care Skills Eating (QC): 5 Oral Hygiene (QC): 5 Shower/Bathe Self (QC): 3 (mod A) Upper Body Dressing (QC): 5 Lower Body Dressing (QC): 2 (in supine) On/Off Footwear (QC): 2 Toileting Hygiene (QC): 2 (in supine) PT [facility] Goals [facility] Goals PT Long-Term Goals Time Frame: Jan 16, 2023 Roll Left to Right (QC): 4 (Pt will be SBA for bed mobilty tasks. ) Sit to Lying (QC): 4 (Pt will be SBA for bed mobilty tasks. ) Lying-Sitting on Side/Bed(QC): 4 (Pt will be SBA for bed mobilty tasks. ) Sit to Stand (QC): 3 (Pt will be Min A for functional transfers. ) Chair/Sug-mg-Heixj Xfer(QC): 3 (Pt will be Min A for functional transfers. ) Toilet/Commode Transfer (QC): 3 (Pt will be Min A for functional transfers. ) Car Transfer (QC): 3 (Pt will be Min A for functional transfers. ) Does the Patient Walk: No and Walking Goal IS indicated Walk 10 feet (QC): 3 (Pt will be Min A for walking with the FWW. ) Walk 10ft-Uneven Surface(QC): 3 (Pt will be Min A for walking with the FWW. ) Walk 50ft with 2 Turns (QC): 3 (Pt will be Min A for walking with the FWW. ) Walk 150 ft (QC): 3 (Pt will be Min A for walking with the FWW. ) Does the Pt use WC or Scooter?: Yes Wheel 50 feet with 2 turns (QC: 4 (Pt will be SBA for w/c mobility. ) Type: Manual Wheel 150 feet: 4 (Pt will be SBA for w/c mobility. ) Type: Manual 1 Step (curb) (QC): 3 (Pt will be Min A for steps to safely enter/exit the home. ) 4 Steps (QC): 3 (Pt will be Min A for steps to safely enter/exit the home. ) 12 Steps (QC): 3 (Pt will be Min A for steps to safely enter/exit the home. ) Picking up an Object (QC): 4 (Pt will be CGA with a ham passer. ) OT [facility] Goals [facility] Goals Acute change in mental status: 1 Inattention: 2 Disorganized thinkin Altered level of consciousness: 2 Eating (QC): 6 Oral Hygiene (QC): 6 Toileting Hygiene (QC): 6 Shower/Bathe Self (QC): 5 Upper Body Dressing (QC): 6 Lower Body Dressing (QC): 6 On/Off Footwear (QC): 4 1=Demonstrate adherence to instructed precautions during ADL tasks. 2=Patient will verbalize/demonstrate understanding of assistive devic es/modifications for ADL. 3=Patient will improve strength/tolerance for activity to enable patient to perform ADL's. Speech [facility] Goals [facility] Goals Pt to demonstrate no s/sx of aspiration on least restrictive diet consistency. MET PT TO COMPLETE MEMORY TASKS FOLLOWING SHORT DELAY WITH 80% ACCURACY WITH MIN VERBAL CUES TO IMPROVE OVERALL SAFETY. MET PT TO COMPLETE MEDICATION AND MONEY MANAGEMENT TASKS WITH 100% ACCURACY PRIOR TO D/C. NOT MET SRINIVAS CARCAMO Jan 19, 2023 14:45
--- NOTE | 2023-01-22 13:57 | Therapy Team Discharge Summary ---
Therapy Discharge Summary Discharge Recommendations Date of Discharge Jan 19, 2023 at 08:30 Therapy D/C Recommendations: [facility] (TCU/NH) Physical Therapy Roll Left to Right (QC): 6 Sit to Lying (QC): 4 Lying to Sitting/Side of Bed(Q: 4 Sit to Stand (QC): 3 Chair/Dyj-ef-Eonru Xfer(QC): 1 Toilet Transfer (QC): 1 Car Transfer (QC): 88 Does the Patient Walk: No and Walking Goal NOT indicated Mode of Locomotion: Both Anticipated Mode of Locomotion: Both Walk 10 feet (QC): 88 Walk 50 ft with 2 Turns(QC): 88 Walk 150 ft (QC): 88 Walking 10ft on uneven surface: 88 Gait Assistive Device: None Does the Pt Use a Wheelchair: Yes Wheel 50 ft with 2 turns (QC): 4 Wheel 150 ft (QC): 4 Type of Wheelchair: Manual 1 Step (curb) (QC): 88 4 Steps (QC): 88 12 Steps (QC): 88 Balance Sitting Static: Poor Balance Sitting Dynamic: Poor Picking up an Object (QC): 88 Occupational Therapy Pt became hypotensive hypoxic and was intubated on 11/17/22. Pt transferred to LTAC on 12/01/22 for cont management of trach and PEG, telemetry, labs, nephrology, and pulmonology consult. 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 Pt reports, that at PLOF, he was Ind with no AD and driving. Upon OT eval, pt was Max A to dependent from bed mobilty and functional transfers. OT focused on bed mobility for ADLs at bed level and sitting level. , B UE strength, transfers, standing, w/c mobility and navigation, endurance, and Ind. Pt progressed well with OT, but was unable to get to a safe level to return home with spouse. Pt returned home w/ family meeting partial met goals goals. Pt d/c from ARU to SNF on 01/19/2023 to cont PT/OT and progress to returning home; Decreased Activ Tolerance, Decreased UE Strength, Dependent Transfers, Impaired Self-Care Skills Eating (QC): 5 Oral Hygiene (QC): 5 Shower/Bathe Self (QC): 3 (mod A) Upper Body Dressing (QC): 5 Lower Body Dressing (QC): 2 (in supine) On/Off Footwear (QC): 2 Toileting Hygiene (QC): 2 (in supine) PT [facility] Mri Technologist Goals [facility] Mri Technologist Goals PT [facility] Mri Technologist Goals Time Frame: Jan 16, 2023 Roll Left to Right (QC): 4 (Pt will be SBA for bed mobilty tasks. ) Sit to Lying (QC): 4 (Pt will be SBA for bed mobilty tasks. ) Lying-Sitting on Side/Bed(QC): 4 (Pt will be SBA for bed mobilty tasks. ) Sit to Stand (QC): 3 (Pt will be Min A for functional transfers. ) Chair/Gih-ld-Balji Xfer(QC): 3 (Pt will be Min A for functional transfers. ) Toilet/Commode Transfer (QC): 3 (Pt will be Min A for functional transfers. ) Car Transfer (QC): 3 (Pt will be Min A for functional transfers. ) Does the Patient Walk: No and Walking Goal IS indicated Walk 10 feet (QC): 3 (Pt will be Min A for walking with the FWW. ) Walk 10ft-Uneven Surface(QC): 3 (Pt will be Min A for walking with the FWW. ) Walk 50ft with 2 Turns (QC): 3 (Pt will be Min A for walking with the FWW. ) Walk 150 ft (QC): 3 (Pt will be Min A for walking with the FWW. ) Does the Pt use WC or Scooter?: Yes Wheel 50 feet with 2 turns (QC: 4 (Pt will be SBA for w/c mobility. ) Type: Manual Wheel 150 feet: 4 (Pt will be SBA for w/c mobility. ) Type: Manual 1 Step (curb) (QC): 3 (Pt will be Min A for steps to safely enter/exit the home. ) 4 Steps (QC): 3 (Pt will be Min A for steps to safely enter/exit the home. ) 12 Steps (QC): 3 (Pt will be Min A for steps to safely enter/exit the home. ) Picking up an Object (QC): 4 (Pt will be CGA with a primary therapist. ) OT [facility] Goals [facility] Mri Technologist Goals Acute change in mental status: 1 Inattention: 2 Disorganized thinkin Altered level of consciousness: 2 Eating (QC): 6 Oral Hygiene (QC): 6 Toileting Hygiene (QC): 6 Shower/Bathe Self (QC): 5 Upper Body Dressing (QC): 6 Lower Body Dressing (QC): 6 On/Off Footwear (QC): 4 1=Demonstrate adherence to instructed precautions during ADL tasks. 2=Patient will verbalize/demonstrate understanding of assistive devices/modifications for ADL. 3=Patient will improve strength/tolerance for activity to enable patient to perform ADL's. Speech [facility] Mri Technologist Goals [facility] Mri Technologist Goals Pt to demonstrate no s/sx of aspiration on least restrictive diet consistency. MET PT TO COMPLETE MEMORY TASKS FOLLOWING SHORT DELAY WITH 80% ACCURACY WITH MIN VERBAL CUES TO IMPROVE OVERALL SAFETY. MET PT TO COMPLETE MEDICATION AND MONEY MANAGEMENT TASKS WITH 100% ACCURACY PRIOR TO D/C. NOT MET ELVER JAMISON OT Jan 22, 2023 13:57
== END 2023-01-19 08:30 | DRG 92 ==
PROVIDERS: ADMIT Internal Medicine; ATTEND Internal Medicine
DX: G72.81 Critical illness myopathy (principal); I42.9 Cardiomyopathy, unspecified; I50.22 Chronic systolic (congestive) heart failure; J98.11 Atelectasis; Z93.0 Tracheostomy status; R13.10 Dysphagia, unspecified; J40 Bronchitis, not specified as acute or chronic; D64.9 Anemia, unspecified; Z93.1 Gastrostomy status; E87.6 Hypokalemia; I11.0 Hypertensive heart disease with heart failure; G47.33 Obstructive sleep apnea (adult) (pediatric); M06.9 Rheumatoid arthritis, unspecified; E66.01 Morbid (severe) obesity due to excess calories; Z68.33 Body mass index [BMI] 33.0-33.9, adult; K21.9 Gastro-esophageal reflux disease without esophagitis; M19.90 Unspecified osteoarthritis, unspecified site; Z87.891 Personal history of nicotine dependence; Z79.82 Long term (current) use of aspirin; Z79.899 Other long term (current) drug therapy
CPT/HCPCS: 36415; 71045; 74230; 80053; 82607; 83540; 85025; 87040; 94640; 94664; 94760